=== PATIENT | male | born 1950 | race Caucasian/White ===

== ENCOUNTER 2018-05-18 18:58 | Inpatient (IN) ==
--- NOTE | 2018-05-18 19:24 | Emergency Department Note ---
Disposition Clinical Impression: Atrial fibrillation with RVR Fracture, femoral Qualifiers: Encounter type: initial encounter Femur location: distal Fracture type: closed Fracture morphology: unspecified fracture morphology Laterality: right Qualified Code(s): S72.401A - Unspecified fracture of lower end of right femur, initial encounter for closed fracture Disposition: Still a Patient Condition: Good Reasons to Return/Additional Instructions: Please follow up with your primary care provider at the next available appointment. I have provided information to the [facility]. Please return to the emergency department if you have any worsening of your symptoms including worsening of your knee pain, fever, chills, chest pain, shortness of breath, numbness, weakness, tingling or any other symptoms that may be concerning to you. Please follow-up with orthopedics tomorrow at 10 AM. I will provide you with their contact information. Referrals: [facility] [Outside] [facility] [Provider Group] Forms: ED Satisfaction Letter Time of Disposition: 22:20 General Adult HPI - General Chief complaint: ED Extremity Injury, Lower Stated complaint: right knee injury Time Seen by Provider: 05/18/18 19:00 Source: patient, EMS Mode of arrival: ambulatory Limitations: no limitations Nursing Notes Reviewed: Yes Vital Signs Reviewed: Yes - History of Present Illness HPI Narrative: Patient is a 68-year-old male that comes to the emergency department after being seen at the urgent care at the [place]. Patient was found to have a fracture of the distal femur and hospital displacement of his knee hardware. Patient states that he has fallen multiple times in the past week. Patient states that he has been having pain in his right knee but has not have any numbness weakness or tingling. Patient states that the knee was replaced at the [place] in [place] but does not want to return there. Patient denies any other injuries at this time. Pain Scale: 10 - Related Data Home Medications Medication Instructions Recorded Confirmed Insulin NPH Hum/Reg Insulin Hm 50 unit SQ BID 11/27/15 04/01/18 [Novolin 70-30 100 Unit/ml Vial] Metoprolol [Lopressor] 12.5 mg PO BID 11/27/15 04/01/18 Aspirin [Lo-Dose Aspirin EC] 81 mg PO DAILY 05/18/18 05/18/18 Gabapentin [Neurontin] 300 mg PO BID 05/18/18 05/18/18 Insulin NPH Hum/Reg Insulin Hm 40 unit SQ QPM 05/18/18 05/18/18 [Novolin 70-30 100 Unit/ml Vial] Morphine Sulfate SR (12 HR) [MS 60 mg PO Q8HR 05/18/18 05/18/18 Contin] Warfarin Sodium [Warfarin Sodium] 2.5 mg PO SUMOTUWETHSA 05/18/18 05/18/18 Warfarin Sodium [Warfarin Sodium] 3.75 mg PO FR 05/18/18 05/18/18 Allergies Allergy/AdvReac Type Severity Reaction Status Date / Time No Known Allergies Allergy Verified 05/18/18 21:34 All systems ED: reviewed and negative except as stated. Musculoskeletal: Reports: other (right Knee pain) Neurological: Denies: weakness, numbness, paresthesias Past Medical History - Past Medical History Medical history: Reports: atrial fibrillation, cancer, diabetes Psychiatric history: Reports: anxiety, depression, PTSD - Social History Smoking Status: Unknown if ever smoked Alcohol use: Reports: none Drug use: Reports: none Physical Exam - General Limitations: no limitations General appearance: alert, in no apparent distress - Head Head exam: atraumatic, normocephalic - Eye Eye exam: Present: normal appearance, EOMI - Neck Neck exam: Present: normal inspection, full ROM, trachea midline - Respiratory Respiratory exam: Present: normal lung sounds bilaterally. Absent: respiratory distress, wheezes - Cardiovascular Cardiovascular exam: Present: tachycardia, irregular rhythm, normal heart sounds , +S1, +S2 - Abdominal Exam Abdominal exam: Present: soft, Non-Tender, normal bowel sounds - Expanded Lower Extremity Exam Knee exam: Present: tenderness (Mild tenderness), swelling. Absent: full ROM ( Decreased range of motion) Neurovascular/Tendon exam: Present: normal capillary refill. Absent: pulse deficit, motor deficit, sensory deficit - Neurological Exam Neurological exam: Present: alert, oriented X3 - Psychiatric Psychiatric exam: Present: normal affect, normal mood - Skin Skin exam: Present: warm, dry, intact Course Vital Signs Temperature 98.5 F 05/18/18 18:59 Pulse Rate 122 05/18/18 18:59 Respiratory Rate 16 05/18/18 18:59 Blood Pressure 131/95 05/18/18 18:59 O2 Sat by Pulse Oximetry 94 05/18/18 18:59 Temperature 98.5 F 05/18/18 18:59 Pulse Rate 112 05/18/18 21:50 Respiratory Rate 16 05/18/18 21:50 Blood Pressure 97/64 05/18/18 21:50 O2 Sat by Pulse Oximetry 95 05/18/18 21:50 Oxygen Delivery Oxygen Delivery Room Air Medical Decision Making - MDM Narrative Medical decision making narrative: Due to the patient presenting to the emergency department after having x-rays obtained with a known fracture orthopedics was called. I spoke with Dr. Fonseca and he recommended that the patient be discharged home and follow-up in their office at 10 AM tomorrow. He stated that this does not need to be admitted to the hospital at this time. Patient was tachycardic on exam and states that he had not taken his metoprolol today. Patient will be given 12.5 mg of metoprolol succinate here in the emergency department. Patient was already in a knee immobilizer prior to arrival here at the emergency department. Due to the patient having persistent age fibrillation with rapid ventricular response here in the emergency department despite being given his home dose of metoprolol the patient will need to be admitted to the hospital for further evaluation and management. A consult to orthopedics will be placed due to the patient not being able to follow-up as an outpatient tomorrow. Patient will be admitted to hospital by the attending Physician Dr Julio. - Medical Records Medical records reviewed: Yes I reviewed the patient's medical records. - Lab Data Lab results reviewed: Yes I reviewed the patient's lab results. Result diagrams: 05/18/18 20:51 05/18/18 20:51 Lab Results 05/18/18 05/18/18 Range/Units 20:51 20:51 WBC 6.5 (4.3-11.1) K/mcL RBC 3.36 L (4.19-5.50) M/mcL Hgb 11.4 L (12.9-16.9) g/dL Hct 32.5 L (37.5-50.1) % MCV 96.7 (83.0-100.0) fL MCH 33.9 H (28.0-33.3) pg MCHC 35.1 (31.6-35.5) g/dL RDW 13.4 (11.5-14.5) % Plt Count 135 L (140-400) K/mcL MPV 10.6 (9.4-12.4) fL Immature Gran % 0.5 (0-4) % Seg Neutrophils % 74.3 % Lymphocytes % 12.0 % Monocytes % 12.5 % Eosinophils % 0.5 % Basophils % 0.2 % Neutrophils # 4.8 (1.6-8.9) K/mcL Lymphocytes # 0.8 (0.6-4.6) K/mcL Monocytes # 0.8 (0.0-1.3) K/mcL Eosinophils # 0.0 (0.0-0.6) K/mcL Basophils # 0.0 (0.0-0.2) K/mcL Sodium 134 L (136-145) mEq/L Potassium 3.6 (3.5-5.1) mEq/L Chloride 98 (98-107) mEq/L Carbon Dioxide 29 (23-29) mEq/L BUN 13 (8-23) mg/dL Creatinine 1.20 (0.70-1.30) mg/dL Est GFR ( Amer) > 60 (> 60) Est GFR (Non-Af Amer) > 60 (> 60) BUN/Creatinine Ratio 11 (6-26) Glucose 243 H (70-105) mg/dL Calculated Osmolality 286 (280-300) Calcium 8.8 (8.6-10.3) mg/dL Total Bilirubin 2.8 H (0.3-1.0) mg/dL AST 30 (13-39) Units/L ALT 19 (7-52) Units/L Alkaline Phosphatase 68 (34-104) Units/L Serum Total Protein 6.1 L (6.4-8.9) g/dL Albumin 3.1 L (3.5-5.7) g/dL Globulin 3.0 (2.4-3.5) g/dL Albumin/Globulin Ratio 1.0 L (1.1-2.2) - Radiology Data Radiology results reviewed: Yes I reviewed the patient's radiology results. - EKG Data EKG #1 EKG attestation: Yes I reviewed and interpreted this EKG. EKG results narrative: EKG shows atrial fibrillation with rapid ventricular response at a rate of 119 bpm, QRS duration of 98, QTc of 378 with a normal axis. No evidence of STEMI on EKG.
[2018-05-18] MEDS ORDERED: Metoprolol XL (24 HR) Succ 25 MG TAB.ER.24H PO ONE (19:27)
[2018-05-18 21:03] LABS: Basophils % 0.2 %; Eosinophils % 0.5 %; Hematocrit 32.5 % (37.5-50.1); Hemoglobin 11.4 g/dL (12.9-16.9); Immature Granulocytes % 0.5 % (0-4); Lymphocytes # 0.8 K/mcL (0.6-4.6); Mean Corpuscular HGB Conc 35.1 g/dL (31.6-35.5); Mean Corpuscular Hemoglobin 33.9 pg (28.0-33.3); Mean Corpuscular Volume 96.7 fL (83.0-100.0); Mean Platelet Volume 10.6 fL (9.4-12.4); Monocytes # 0.8 K/mcL (0.0-1.3); Monocytes % 12.5 %; Neutrophils # 4.8 K/mcL (1.6-8.9); Platelet Count 135 K/mcL (140-400); Red Blood Count 3.36 M/mcL (4.19-5.50); Red Cell Distribution Width 13.4 % (11.5-14.5); Segmented Neutrophils % 74.3 %
[2018-05-18 21:23] LABS: Alanine Aminotransferase 19 Units/L (7-52); Albumin 3.1 g/dL (3.5-5.7); Alkaline Phosphatase 68 Units/L (34-104); Aspartate Amino Transferase 30 Units/L (13-39); BUN/Creatinine Ratio 11 (6-26); Bilirubin,Total 2.8 mg/dL (0.3-1.0); Blood Urea Nitrogen 13 mg/dL (8-23); Calcium 8.8 mg/dL (8.6-10.3); Carbon Dioxide 29 mEq/L (23-29); Chloride 98 mEq/L (98-107); Glucose 243 mg/dL (70-105); Osmolality,Calculated 286 (280-300); Potassium 3.6 mEq/L (3.5-5.1); Sodium 134 mEq/L (136-145); Total Protein 6.1 g/dL (6.4-8.9); eGFR For African Americans > 60 (> 60); eGFR For Non-African Americans > 60 (> 60)
[2018-05-18] MEDS ORDERED: *HR* Metoprolol 5 MG/5 ML VIAL IVP ONE (22:17)
--- NOTE | 2018-05-18 22:22 | Emergency Department Note ---
Disposition Clinical Impression: Atrial fibrillation with RVR Fracture, femoral Qualifiers: Encounter type: initial encounter Femur location: distal Fracture type: closed Fracture morphology: unspecified fracture morphology Laterality: right Qualified Code(s): S72.401A - Unspecified fracture of lower end of right femur, initial encounter for closed fracture Disposition: Admitted As Inpatient Condition: Good Reasons to Return/Additional Instructions: Please follow up with your primary care provider at the next available appointment. I have provided information to the [facility]. Please return to the emergency department if you have any worsening of your symptoms including worsening of your knee pain, fever, chills, chest pain, shortness of breath, numbness, weakness, tingling or any other symptoms that may be concerning to you. Please follow-up with orthopedics tomorrow at 10 AM. I will provide you with their contact information. Referrals: [facility] [Provider Group] [facility] [Outside] Forms: ED Satisfaction Letter General Adult HPI - General Chief complaint: ED Extremity Injury, Lower Stated complaint: right knee injury Time Seen by Provider: 05/18/18 19:00 Source: patient, EMS Mode of arrival: ambulatory Limitations: no limitations - History of Present Illness Pain Scale: 10 - Related Data Home Medications Medication Instructions Recorded Confirmed Insulin NPH Hum/Reg Insulin Hm 50 unit SQ QAM 11/27/15 05/18/18 [Novolin 70-30 100 Unit/ml Vial] Metoprolol [Lopressor] 12.5 mg PO BID 11/27/15 05/18/18 Aspirin [Lo-Dose Aspirin EC] 81 mg PO DAILY 05/18/18 05/18/18 Gabapentin [Neurontin] 300 mg PO BID 05/18/18 05/18/18 Insulin NPH Hum/Reg Insulin Hm 40 unit SQ QPM 05/18/18 05/18/18 [Novolin 70-30 100 Unit/ml Vial] Morphine Sulfate SR (12 HR) [MS 60 mg PO Q8HR 05/18/18 05/18/18 Contin] Warfarin Sodium [Warfarin Sodium] 2.5 mg PO SUMOTUWETHSA 05/18/18 05/18/18 Warfarin Sodium [Warfarin Sodium] 3.75 mg PO FR 05/18/18 05/18/18 Allergies Allergy/AdvReac Type Severity Reaction Status Date / Time No Known Allergies Allergy Verified 05/18/18 21:34 Musculoskeletal: Reports: other (right Knee pain) Neurological: Denies: weakness, numbness, paresthesias Past Medical History - Past Medical History Medical history: Reports: atrial fibrillation, cancer, diabetes Psychiatric history: Reports: anxiety, depression, PTSD - Social History Smoking Status: Unknown if ever smoked Alcohol use: Reports: none Drug use: Reports: none Physical Exam - General Limitations: no limitations General appearance: alert, in no apparent distress Course Vital Signs Temperature 98.5 F 05/18/18 18:59 Pulse Rate 122 05/18/18 18:59 Respiratory Rate 16 05/18/18 18:59 Blood Pressure 131/95 05/18/18 18:59 O2 Sat by Pulse Oximetry 94 05/18/18 18:59 Temperature 98.5 F 05/18/18 18:59 Pulse Rate 112 05/18/18 21:50 Respiratory Rate 16 05/18/18 21:50 Blood Pressure 97/64 05/18/18 21:50 O2 Sat by Pulse Oximetry 95 05/18/18 21:50 Oxygen Delivery Oxygen Delivery Room Air Medical Decision Making - Lab Data Result diagrams: 05/18/18 20:51 05/18/18 20:51 Lab Results 05/18/18 05/18/18 Range/Units 20:51 20:51 WBC 6.5 (4.3-11.1) K/mcL RBC 3.36 L (4.19-5.50) M/mcL Hgb 11.4 L (12.9-16.9) g/dL Hct 32.5 L (37.5-50.1) % MCV 96.7 (83.0-100.0) fL MCH 33.9 H (28.0-33.3) pg MCHC 35.1 (31.6-35.5) g/dL RDW 13.4 (11.5-14.5) % Plt Count 135 L (140-400) K/mcL MPV 10.6 (9.4-12.4) fL Immature Gran % 0.5 (0-4) % Seg Neutrophils % 74.3 % Lymphocytes % 12.0 % Monocytes % 12.5 % Eosinophils % 0.5 % Basophils % 0.2 % Neutrophils # 4.8 (1.6-8.9) K/mcL Lymphocytes # 0.8 (0.6-4.6) K/mcL Monocytes # 0.8 (0.0-1.3) K/mcL Eosinophils # 0.0 (0.0-0.6) K/mcL Basophils # 0.0 (0.0-0.2) K/mcL Sodium 134 L (136-145) mEq/L Potassium 3.6 (3.5-5.1) mEq/L Chloride 98 (98-107) mEq/L Carbon Dioxide 29 (23-29) mEq/L BUN 13 (8-23) mg/dL Creatinine 1.20 (0.70-1.30) mg/dL Est GFR ( Amer) > 60 (> 60) Est GFR (Non-Af Amer) > 60 (> 60) BUN/Creatinine Ratio 11 (6-26) Glucose 243 H (70-105) mg/dL Calculated Osmolality 286 (280-300) Calcium 8.8 (8.6-10.3) mg/dL Total Bilirubin 2.8 H (0.3-1.0) mg/dL AST 30 (13-39) Units/L ALT 19 (7-52) Units/L Alkaline Phosphatase 68 (34-104) Units/L Serum Total Protein 6.1 L (6.4-8.9) g/dL Albumin 3.1 L (3.5-5.7) g/dL Globulin 3.0 (2.4-3.5) g/dL Albumin/Globulin Ratio 1.0 L (1.1-2.2) Attestation Statement - Attestation Attestation: I examined this patient and my medical decision-making was reviewed with the Resident Physician. I agree with the documented findings, disposition and treatment plan as described except to the extent set forth below. Findings consistent with right femoral fracture from the [facility]. A she was going to have outpatient orthopedic consult however he did forget to take his A. fib medication today. He is on any coagulation. He actually went into A. fib with RVR in the department. I attempted to give his home dose medication however his heart rate did not appropriately come down. We will give IV metoprolol and admit for further management as his cannot care for him at home given his knee immobilizers in place. He has normal neurovascular exam following knee immobilizer.
--- NOTE | 2018-05-18 23:55 | Internal Med History&Physical ---
Date of Encounter: 05/19/18 Time of Encounter: 23:55 Internal Medicine - H&P: HPI Chief complaint: LE fracture History of present illness: Mr. Martin is a 68 year old male that comes to the emergency department from [place] where a fracture of the distal femur and displacement of his knee hardware was diagnosed. orthopedics was called and recommended that the patient be discharged home and follow-up in their office at 10 AM tomorrow. While in the ER waiting on discharge orders the patient started developing tachycardia and was found in A. fib however rate was initially controlled, later he started having persistent age fibrillation with rapid ventricular response, the ER staff believe that this is was because the patient missed his metoprolol dose , and he was giving metoprolol IV , neither family or patient felt comfortable going home at this point and he was admitted for further evaluation. Open on arrival to the floor the patient rates start to be uncontrolled with a heart rate reported in the mode mid 140, I responded to the bedside and patient was hemodynamically stable however he was symptomatic, a Cardizem bolus was giving and an order for possible Cardizem drip was also placed. Past Med Surg Social Fam HX - Past Medical History Medical history: atrial fibrillation, cancer, diabetes Psychiatric history: anxiety, depression, PTSD - Social History Smoking Status: Unknown if ever smoked Alcohol use: none Drug use: none - Family History Mother History Unknown: Yes Father Living Status: Age at : 49 Internal Medicine - H&P: Meds Insulin NPH Hum/Reg Insulin Hm [Novolin 70-30 100 Unit/ml Vial] 50 unit SQ QAM 11/27/15 [History] Metoprolol [Lopressor] 12.5 mg PO BID 11/27/15 [History] Aspirin [Lo-Dose Aspirin EC] 81 mg PO DAILY 05/18/18 [History] Gabapentin [Neurontin] 300 mg PO BID 05/18/18 [History] Insulin NPH Hum/Reg Insulin Hm [Novolin 70-30 100 Unit/ml Vial] 40 unit SQ QPM 05/18/18 [History] Morphine Sulfate SR (12 HR) [MS Contin] 60 mg PO Q8HR 05/18/18 [History] Warfarin Sodium [Warfarin Sodium] 2.5 mg PO SUMOTUWETHSA 05/18/18 [History] Warfarin Sodium [Warfarin Sodium] 3.75 mg PO FR 05/18/18 [History] Ergocalciferol (VITAMIN D2) [Vitamin D] 200 unit PO DAILY 05/19/18 [History] Furosemide [Lasix] 10 mg PO DAILY 05/19/18 [History] Paroxetine [Paxil] 20 mg PO DAILY 05/19/18 [History] 3 Allergy/AdvReac Type Severity Reaction Status Date / Time No Known Allergies Allergy Verified 05/18/18 21:34 All Systems PM: A 10-system review of systems was performed and is negative for pertinent findings except as documented above in the HPI. - Constitutional Vitals: Temp Pulse Resp BP Pulse Ox 98.5 F 105 16 125/88 96 05/18/18 18:59 05/18/18 22:50 05/18/18 22:50 05/18/18 22:50 05/18/18 22:50 Internal Med - H&P Results - Labs CBC & Chem 7: 05/19/18 03:20 05/19/18 03:20 - Assessment and plan (1) Fracture, femoral Current Visit: Yes Status: Acute Assessment and plan: Surgery was consulted and then I am going to see the patient this a.m. Qualifiers: Encounter type: initial encounter Femur location: distal Fracture type: closed Fracture morphology: unspecified fracture morphology Laterality: right Qualified Code(s): S72.401A - Unspecified fracture of lower end of right femur, initial encounter for closed fracture (2) Atrial fibrillation with RVR Current Visit: Yes Status: Acute Assessment and plan: The patient responded well to Cardizem bolus, order for Cardizem drip was placed , cardiac enzymes will be trended, we will obtain baseline EKG and consult cardiology for further evaluation and management. The patient was on warfarin, however withhold it for now for possible surgery in a.m., PT/INR were ordered (3) Diabetes mellitus Current Visit: Yes Status: Acute Assessment and plan: We will continue home regimen and start the patient on insulin sliding scale with moderate coverage (4) DVT prophylaxis Current Visit: Yes Status: Acute - Time Spent With Patient Total time spent is greater than 50% in coordination of care (as documented) at patient's floor/unit and/or counseling patient:
[2018-05-19] MEDS ORDERED: D5% in Water 1,000 ML IVC PRN (02:11)
[2018-05-19] MEDS ORDERED: Dextrose Gel 15 GM/37.5 ML TUBE PO PRN ×2 (02:11)
[2018-05-19] MEDS ORDERED: *HR* Dextrose 50 % in Water (Syg) 50 ML SYRINGE IVP PRN (02:11)
[2018-05-19] MEDS: Insulin LISPRO 300 UNITS/3 ML VIAL SQ SCH ×5 (02:31→22:22)
[2018-05-19] MEDS ORDERED: Naloxone 0.4 MG/ML INJ IVP PRN (03:09)
[2018-05-19] MEDS ORDERED: Acetaminophen 325 MG TABLET PO PRN (03:09)
[2018-05-19] MEDS ORDERED: 0.9 % Sodium Chloride 1,000 ML IVC SCH (03:15)
[2018-05-19 03:36] LABS: Basophils % 0.3 %; Eosinophils # 0.1 K/mcL (0.0-0.6); Eosinophils % 2.3 %; Hemoglobin 11.9 g/dL (12.9-16.9); Immature Granulocytes % 0.8 % (0-4); Lymphocytes # 0.7 K/mcL (0.6-4.6); Lymphocytes % 10.5 %; Mean Corpuscular Hemoglobin 33.9 pg (28.0-33.3); Mean Corpuscular Volume 96.9 fL (83.0-100.0); Mean Platelet Volume 10.6 fL (9.4-12.4); Monocytes # 0.7 K/mcL (0.0-1.3); Monocytes % 10.5 %; Neutrophils # 4.7 K/mcL (1.6-8.9); Platelet Count 146 K/mcL (140-400); Red Blood Count 3.51 M/mcL (4.19-5.50); Red Cell Distribution Width 13.4 % (11.5-14.5); Segmented Neutrophils % 75.6 %
[2018-05-19 03:50] LABS: INR 2.2; Prothrombin Time 24.6 Seconds (9.4-12.1)
[2018-05-19 04:02] LABS: Alanine Aminotransferase 20 Units/L (7-52); Alkaline Phosphatase 62 Units/L (34-104); Aspartate Amino Transferase 28 Units/L (13-39); BUN/Creatinine Ratio 12 (6-26); Bilirubin,Total 2.9 mg/dL (0.3-1.0); Blood Urea Nitrogen 13 mg/dL (8-23); Calcium 8.6 mg/dL (8.6-10.3); Carbon Dioxide 25 mEq/L (23-29); Chloride 98 mEq/L (98-107); Chol/HDL Ratio 3.5 (0-4.9); Cholesterol 74 mg/dL (< 200); Globulin 3.1 g/dL (2.4-3.5); Glucose 302 mg/dL (70-105); HDL Cholesterol 21 mg/dL (40-59); LDL Cholesterol,Calculated 35 mg/dL (0-99); Magnesium 1.8 mg/dL (1.6-2.6); Osmolality,Calculated 291 (280-300); Phosphorous 2.3 mg/dL (2.7-4.5); Potassium 3.5 mEq/L (3.5-5.1); Sodium 135 mEq/L (136-145); Total Protein 6.1 g/dL (6.4-8.9); Triglycerides 88 mg/dL (< 150); eGFR For African Americans > 60 (> 60); eGFR For Non-African Americans > 60 (> 60)
[2018-05-19 04:05] LABS: Troponin I 0.06 ng/mL (< 0.04)
[2018-05-19] MEDS: *HR* HYDROcodone/Acet 5/325 mg TABLET PO PRN ×2 (04:24→11:22)
[2018-05-19] MEDS: *HR* Morphine Sulfate SR (12 HR) 60 MG TABLET.ER PO SCH ×3 (06:12→22:23)
--- NOTE | 2018-05-19 06:41 | Electrocardiograph Report ---
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
--- NOTE | 2018-05-19 06:58 | Orthopedic Consult Note ---
Date of Encounter: 05/19/18 Time of Encounter: 06:57 History of Present Illness HPI: Mr. Martin is a 68 year old male Status post right knee replacement 2. Patient with multiple falls recently. Patient was awaiting left total knee replacement. Patient denies any fevers. Denies any injury except falling secondary to right knee instability. Physical exam right lower extremity Positive swelling Negative erythema Decreased range of motion secondary to pain Neurovascular intact X-rays show evidence of a loose right total knee replacement. We discussed different treatment options. Patient would like definitive management. We will obtain a bone scan ESR and CRP plan will be for revision right total knee replacement on . This may require conversion to a hinge knee. We reviewed the risks and benefits as well as recovery. All questions were answered. The patient agreed to this treatment plan and appeared to understand the plan is reviewed. Past Med Surg Social Fam HX - Past Medical History Medical history: atrial fibrillation, cancer, diabetes Additional medical history: melanoma,hemochromotosis Psychiatric history: anxiety, depression, PTSD - Past Surgical History Surgical History: knee replacement Additional surgical history: total hip, knuckle replaceent, - Social History Smoking Status: Unknown if ever smoked Smokeless Tobacco Status: No Alcohol use: none Drug use: none - Family History Mother History Unknown: Yes Father Living Status: Age at : 49 Medications and Allergies Insulin NPH Hum/Reg Insulin Hm [Novolin 70-30 100 Unit/ml Vial] 50 unit SQ QAM 11/27/15 [History] Metoprolol [Lopressor] 12.5 mg PO BID 11/27/15 [History] Aspirin [Lo-Dose Aspirin EC] 81 mg PO DAILY 05/18/18 [History] Gabapentin [Neurontin] 300 mg PO BID 05/18/18 [History] Insulin NPH Hum/Reg Insulin Hm [Novolin 70-30 100 Unit/ml Vial] 40 unit SQ QPM 05/18/18 [History] Morphine Sulfate SR (12 HR) [MS Contin] 60 mg PO Q8HR 05/18/18 [History] Warfarin Sodium [Warfarin Sodium] 2.5 mg PO SUMOTUWETHSA 05/18/18 [History] Warfarin Sodium [Warfarin Sodium] 3.75 mg PO FR 05/18/18 [History] Ergocalciferol (VITAMIN D2) [Vitamin D] 200 unit PO DAILY 05/19/18 [History] Furosemide [Lasix] 10 mg PO DAILY 05/19/18 [History] Paroxetine [Paxil] 20 mg PO DAILY 05/19/18 [History] 3 Allergy/AdvReac Type Severity Reaction Status Date / Time No Known Allergies Allergy Verified 05/18/18 21:34 All Systems Reviewed: The remainder of the systems were reviewed and are negative Physical Exam - Constitutional Vitals: Temp Pulse Resp BP Pulse Ox 98.1 F 124 18 114/72 98 05/19/18 06:54 05/19/18 06:54 05/19/18 06:54 05/19/18 06:54 05/19/18 06:54 Results - Labs Result Diagrams: 05/19/18 03:20 05/19/18 03:20 Labs: Abnormal lab results RBC 3.51 M/mcL (4.19-5.50) L 05/19/18 03:20 Hgb 11.9 g/dL (12.9-16.9) L 05/19/18 03:20 Hct 34.0 % (37.5-50.1) L 05/19/18 03:20 MCH 33.9 pg (28.0-33.3) H 05/19/18 03:20 PT 24.6 Seconds (9.4-12.1) H 05/19/18 03:20 Sodium 135 mEq/L (136-145) L 05/19/18 03:20 Glucose 302 mg/dL (70-105) H 05/19/18 03:20 Phosphorus 2.3 mg/dL (2.7-4.5) L 05/19/18 03:20 Total Bilirubin 2.9 mg/dL (0.3-1.0) H 05/19/18 03:20 Troponin I 0.06 ng/mL (< 0.04) H* 05/19/18 03:20 B-Natriuretic Peptide 420 pg/mL (Less than 100) H 05/19/18 03:20 Serum Total Protein 6.1 g/dL (6.4-8.9) L 05/19/18 03:20 Albumin 3.0 g/dL (3.5-5.7) L 05/19/18 03:20 Albumin/Globulin Ratio 1.0 (1.1-2.2) L 05/19/18 03:20 HDL Cholesterol 21 mg/dL (40-59) L 05/19/18 03:20 H & H 05/19/18 Range/Units 03:20 Hgb 11.9 L (12.9-16.9) g/dL Hct 34.0 L (37.5-50.1) % All other labs normal. Consult Discharge Plan - Plan [facility] Care Provider[facility] -
[2018-05-19 07:17] LABS: C-Reactive Protein 176 mg/L (Less than 10)
[2018-05-19] MEDS: Gabapentin 300 MG CAPSULE PO SCH ×2 (07:48→20:17)
[2018-05-19] MEDS: Furosemide 20 MG TABLET PO SCH (07:49)
[2018-05-19] MEDS: Aspirin Enteric Coated 81 MG Tablet PO SCH (07:49)
[2018-05-19] MEDS: Insulin NPH/REG 70/30 100 UNIT/ML (x5UNIT) SQ SCH ×2 (07:50→17:50)
[2018-05-19] MEDS ORDERED: Cholecalciferol (D-3) 1,000 UNIT TABLET PO SCH (09:00)
[2018-05-19 09:53] LABS: Bilirubin,Urine Negative (Negative); Blood,Urine Moderate (Negative); Clarity,Urine Clear (Clear); Color,Urine Dark Yellow (Yellow); Glucose,Urine (UA) 500 mg/dL (Normal); Ketones,Urine Negative (Negative); Leukocyte Esterase,Urine Negative (Negative); Nitrite,Urine Negative (Negative); Protein,Urine Negative (Neg-Trace); Specific Gravity,Urine 1.023 (1.010-1.025); Urobilinogen,Urine Normal (Normal)
[2018-05-19 09:59] LABS: Bacteria,Urine None Seen per hpf (None-Few); Hyaline Casts,Urine None Seen per lpf (None-Few); Squamous Epithelial Cell,Urine None Seen per lpf (None-Few); WBC,Urine 0-3 per hpf (0-3)
[2018-05-19] MEDS ORDERED: *HR* Metoprolol 5 MG/5 ML VIAL IVP PRN (10:15)
--- NOTE | 2018-05-19 10:21 | Cardiology Consult Note ---
<Bhaskar Carter R - Last Filed: 05/19/18 10:37> Date of Encounter: 05/19/18 Time of Encounter: 10:18 Assessment and Plan (1) Pre-operative cardiovascular examination Current Visit: Yes Status: Acute Pre-op cardiac risk stratification for planned revision right total knee replacement on with Dr. Fonseca. No hx of CAD. Cardiac hx includes chronic A-Fib, dilated aortic root, 3.9cm on TTE 02/2017. Nuclear stress test 06/2016 negative for ischemia or infarct. TTE 03/11/17 LVEF 65%. Mild prolapsing of the anterior mitral valve leaflet with mild mitral regurgitation. Mild TR and MS. No phtn based on TR gradient. IVC is not visualized. Aortic root measures 3.9 cm. 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 Able to achieve 4 METS. Based on above, pt is acceptable intermediate risk to proceed with orthopedic surgery. Will attempt to rate control his A-Fib prior to surgery . (2) Atrial fibrillation with RVR Current Visit: Yes Status: Acute Known hx of chronic A-Fib, previously rate controlled. Found to be RVR in ED after missing a Lopressor dose. HR 126 on admission EKG. Pt has been given PRN IV Lopressor and Cardizem. HR at bedside 90s-low 100s. Home Lopressor dose 12.5mg BID. Will increase to 25mg BID. Was anticoagulated on Coumadin managed by [facility]. Stopped on admission given plan for surgery. Pt aware he is at increased risk for CVA off anticoagulation. Recommend he follow-up with [facility] to determine if Coumadin should be started given recent frequent falls. Continue to follow. (3) Elevated troponin Current Visit: Yes Status: Acute Troponin 0.05, 0.06 in setting of A-Fib RVR, suspect demand ischemia, nondiagnostic for ACS. Pt denies chest pain. TTE 02/2017 EF preserved. Will discuss with Dr. Hanna on if repeat TTE is necessary. Discussion w patient/family: The assessment and plan as outlined above was discussed with the patient and/or family members who expressed understanding and agreement. All questions were answered. Thank you for involving us in the care of your patient. Please call with any questions. I will discuss all the above with Dr. Hanna and make changes as necessary. History of Present Illness Consult date: 05/19/18 Consult reason: A-Fib RVR and pre-op Chief complaint: leg pain History of present illness: Mr. Martin is a 68 year old male with PMH of chronic atrial fibrillation, dilated aortic root, hx NSVT, type 2 diabetes mellitus and hemochromatosis for which he is getting phlebotomies periodically. [facility] He was anticoagulated on Coumadin for his A-Fib, [facility], stopped on admission. Pt has been having mechanical falls over the past 5 days. He states the falls are due to severe pain when trying to get up. He was found to have a fracture of the distal femur and displacement of right knee hardware. Orthopedics was called and initially recommended outpt follow-up, but in the ED pt had RVR and was admitted for further management. Pt denies chest pain or dyspnea. He reports chronic intermittent palpitations. He has been given PRN IV Cardizem and Lopressor. HR currently 90s-low 100s. 12 hr tele AVG HR 113. Prior CV testing: TTE 03/11/17: LVEF 65%. Normal left ventricular size and systolic function. Indeterminate left ventricular diastolic function. Normal right ventricular size and function. Mild prolapsing of the anterior mitral valve leaflet with mild mitral regurgitation. Mild tricuspid regurgitation. Mild pulmonic regurgitation. No pulmonary hypertension based on TR gradient. IVC is not visualized. Aortic root measures 3.9 cm. Nuclear stress test 07/05/16 perfusion imaging negative for ischemia or infarct. Past Med Surg Social Fam HX - Past Medical History Medical history: atrial fibrillation, cancer, diabetes Additional medical history: melanoma,hemochromotosis Psychiatric history: anxiety, depression, PTSD - Past Surgical History Surgical History: knee replacement Additional surgical history: total hip, knuckle replaceent, - Social History Smoking Status: Unknown if ever smoked Smokeless Tobacco Status: No Alcohol use: none Drug use: none - Family History Mother History Unknown: Yes Father Living Status: Age at : 49 Medications and Allergies Insulin NPH Hum/Reg Insulin Hm [Novolin 70-30 100 Unit/ml Vial] 50 unit SQ QAM 11/27/15 [History] Metoprolol [Lopressor] 12.5 mg PO BID 11/27/15 [History] Aspirin [Lo-Dose Aspirin EC] 81 mg PO DAILY 05/18/18 [History] Gabapentin [Neurontin] 300 mg PO BID 05/18/18 [History] Insulin NPH Hum/Reg Insulin Hm [Novolin 70-30 100 Unit/ml Vial] 40 unit SQ QPM 05/18/18 [History] Morphine Sulfate SR (12 HR) [MS Contin] 60 mg PO Q8HR 05/18/18 [History] Warfarin Sodium [Warfarin Sodium] 2.5 mg PO SUMOTUWETHSA 05/18/18 [History] Warfarin Sodium [Warfarin Sodium] 3.75 mg PO FR 05/18/18 [History] Ergocalciferol (VITAMIN D2) [Vitamin D] 200 unit PO DAILY 05/19/18 [History] Furosemide [Lasix] 10 mg PO DAILY 05/19/18 [History] Paroxetine [Paxil] 20 mg PO DAILY 05/19/18 [History] 3 Allergy/AdvReac Type Severity Reaction Status Date / Time No Known Allergies Allergy Verified 05/18/18 21:34 All Systems Review: The remainder of the systems were reviewed and are negative - Constitutional Constitutional: frequent falls - Cardiovascular Cardiovascular: as per HPI, palpitations Physical Examination Vital Signs, Last 4 Hours Temp Pulse Resp BP Pulse Ox 05/19/18 08:07 98 05/19/18 06:54 98.1 F 124 18 114/72 98 Vital Signs Temp Pulse Resp BP Pulse Ox 05/19/18 08:07 98 05/19/18 06:54 98.1 F 124 18 114/72 98 05/19/18 04:12 98.7 F 125 18 102/60 96 05/19/18 00:35 98.3 F 111 18 118/80 98 05/19/18 00:10 16 114/75 05/18/18 22:50 105 16 125/88 96 05/18/18 21:50 112 16 97/64 95 05/18/18 21:24 140 16 111/80 96 05/18/18 18:59 98.5 F 122 16 131/95 94 Intake and Output 05/18/18 05/19/18 05/19/18 23:59 07:59 15:59 Other: Weight 111.13 kg 110.9 kg Blood Glucose* 333 Patient Weight 05/19/18 23:59 Weight 110.9 kg General: Conversant, No Apparent Distress HEENT: Atraumatic, Normocephaly, Mucus Membranes Moist Neck: No JVD, Normal carotid pulses Cardiac: Other (irregularly irregular) Lungs: Normal Breath Sounds, No Wheeze, Rales, Rhonchi Neuro: Alert and responsive, No focal deficits noted Abdomen: Soft, Non-Tender Skin: No rashes noted on visualized skin Musculoskeletal: No Chest Wall Tenderness Extremities: Other (mild BLE edema noted) Results 05/19/18 03:20 05/19/18 03:20 Lab Results 05/19/18 05/19/18 05/19/18 03:20 03:20 03:20 WBC 6.2 Hgb 11.9 L Hct 34.0 L Plt Count 146 INR 2.2 Sodium 135 L Potassium 3.5 Chloride 98 Carbon Dioxide 25 BUN 13 Creatinine 1.07 Glucose 302 H Calcium 8.6 Magnesium 1.8 Total Bilirubin 2.9 H AST 28 ALT 20 Alkaline Phosphatase 62 Troponin I 0.06 H* B-Natriuretic Peptide 05/19/18 05/19/18 03:20 09:08 WBC Hgb Hct Plt Count INR Sodium Potassium Chloride Carbon Dioxide BUN Creatinine Glucose Calcium Magnesium Total Bilirubin AST ALT Alkaline Phosphatase Troponin I 0.05 H* B-Natriuretic Peptide 420 H Short CBC 05/19/18 05/18/18 Range/Units 03:20 20:51 WBC 6.2 6.5 (4.3-11.1) K/mcL Hgb 11.9 L 11.4 L (12.9-16.9) g/dL Hct 34.0 L 32.5 L (37.5-50.1) % Plt Count 146 135 L (140-400) K/mcL Neutrophils # 4.7 4.8 (1.6-8.9) K/mcL BMP 05/19/18 05/18/18 Range/Units 03:20 20:51 Sodium 135 L 134 L (136-145) mEq/L Potassium 3.5 3.6 (3.5-5.1) mEq/L Chloride 98 98 (98-107) mEq/L Carbon Dioxide 25 29 (23-29) mEq/L BUN 13 13 (8-23) mg/dL Creatinine 1.07 1.20 (0.70-1.30) mg/dL Glucose 302 H 243 H (70-105) mg/dL Calcium 8.6 8.8 (8.6-10.3) mg/dL Cardiac Enzymes 05/19/18 05/19/18 Range/Units 09:08 03:20 Troponin I 0.05 H* 0.06 H* (< 0.04) ng/mL Liver Function 05/19/18 05/18/18 Range/Units 03:20 20:51 Total Bilirubin 2.9 H 2.8 H (0.3-1.0) mg/dL AST 28 30 (13-39) Units/L ALT 20 19 (7-52) Units/L Alkaline Phosphatase 62 68 (34-104) Units/L Albumin 3.0 L 3.1 L (3.5-5.7) g/dL Urine 05/19/18 Range/Units 09:20 Urine Color Dark Yellow (Yellow) Urine Clarity Clear (Clear) Urine pH 6.0 (5.0-8.0) pH Units Ur Specific Clever 1.023 (1.010-1.025) Urine Protein Negative (Neg-Trace) mg/dL Urine Glucose (UA) 500 H (Normal) mg/dL Impressions Chest X-Ray 05/18/18 20:28 IMPRESSION: No acute cardiopulmonary process. D/ / Ying Germain MD / Ying Germain MD Interpreting Provider: Ying Germain MD Active Medications Acetaminophen (Tylenol) 650 mg PO Q6HR PRN PRN Reason: Mild Pain/Fever Stop: 11/18/18 03:10 Hydrocodone Bitart/Acetaminophen (Clarence 5-325 Mg) 1 tab PO Q6HR PRN PRN Reason: Moderate Pain Stop: 11/18/18 03:10 Last Admin: 05/19/18 04:24 Dose: 1 tab Aspirin (Aspirin Ec) 81 mg PO DAILY [facility] Stop: 11/18/18 09:01 Last Admin: 05/19/18 07:49 Dose: 81 mg Dextrose/Water (Dextrose 50% (Syg)) 25 ml IVP AD PRN PRN Reason: Hypoglycemia Stop: 11/18/18 02:12 Furosemide (Lasix) 10 mg PO DAILY [facility] Stop: 11/18/18 09:01 Last Admin: 05/19/18 07:49 Dose: 10 mg Gabapentin (Neurontin) 300 mg PO BID [facility] Stop: 11/18/18 09:01 Last Admin: 05/19/18 07:48 Dose: 300 mg Glucagon (Glucagen) 1 mg IM ONCE PRN PRN Reason: Hypoglycemia Stop: 11/18/18 02:12 Glucose (Gluctose) 15 gm PO ONCE PRN PRN Reason: Hypoglycemia Stop: 11/18/18 02:12 Glucose (Gluctose) 30 gm PO ONCE PRN PRN Reason: Hypoglycemia Stop: 11/18/18 02:12 Dextrose (Dextrose 5%) 1,000 mls @ 100 mls/hr IVC .Q10H PRN PRN Reason: HYPOGLYCEMIA Stop: 11/18/18 02:12 Insulin Human Lispro (Humalog) 0 units SQ TIDAC [facility] PRN Reason: Protocol Stop: 11/18/18 07:31 Last Admin: 05/19/18 07:49 Dose: 12 units Insulin Human Lispro (Humalog) 0 units SQ HS [facility] PRN Reason: Protocol Stop: 11/18/18 02:16 Last Admin: 05/19/18 02:31 Dose: 4 unit Insulin Isophane/Insulin Regular (Humulin 70/30 Vial) 50 unit SQ 0730 [facility] Stop: 11/18/18 07:31 Last Admin: 05/19/18 07:50 Dose: 50 unit Insulin Isophane/Insulin Regular (Humulin 70/30 Vial) 40 unit SQ QPM [facility] Stop: 11/18/18 18:01 Metoprolol Tartrate (Lopressor) 5 mg IVP Q6HR PRN PRN Reason: SEE COMMENTS Stop: 11/18/18 10:16 Metoprolol Tartrate (Lopressor) 25 mg PO BID [facility] Stop: 11/18/18 21:01 Morphine Sulfate (Ms Contin) 60 mg PO Q8H [facility] Stop: 11/18/18 06:01 Last Admin: 05/19/18 06:12 Dose: 60 mg Naloxone HCl (Narcan) 0.4 mg IVP Q2MIN PRN PRN Reason: SEE COMMENTS Stop: 11/18/18 03:10 Paroxetine HCl (Paxil) 20 mg PO DAILY [facility] PRN Reason: Protocol Stop: 11/18/18 09:01 Last Admin: 05/19/18 07:49 Dose: 20 mg Vitamin D (Vitamin D) 200 unit PO DAILY [facility] Stop: 11/18/18 09:01 Last Admin: 05/19/18 07:52 Dose: Not Given - Imaging and Cardiology Stress Test: report reviewed Echo: report reviewed - EKG Interpretation EKG results cardiology: personally reviewed (A-Fib RVR, rate 126), other (12 hr tele AVG HR 113, A-Fib) Consult Discharge Plan - Plan [facility]errals: [facility] [Primary Care Provider[facility] - <Cristiano Hanna - Last Filed: 05/19/18 16:49> Date of Encounter: 05/19/18 - Attending Attestation I have personally performed a face to face evaluation on this patient. I have reviewed and agree with the care plan. History and Exam by me shows; CC: "I fell down" HPI: Pt reports he fell approximately five days ago, mechanical fall, did not get dizzy or pass out, felt immediate and severe pain in right leg with weight bearing. He tried to tough it out at home, reports pain improved at rest, but could not bear weight, and had at least four more falls due to pain with trying to walk on right leg. He was evaluated in the ER, found to have right femur fracture and disruption of previous knee replacement, now anticipates surgical intervention. He also admits to occasional heart racing and skipping, occurrs and resolves spontaneously, lasts up to thirty seconds, has known PAF, [facility], on warfarin for primary stroke risk reduction. PMH: reviewed ROS: reviewed Current meds: Reviewed PE: pt seen and examined, agree with findings as documented. IMP:Plan 1. Right femur fracture, anticipate surgical intervention, pt is at moderate cardiovascular risk for planned procedure, benefits of surgical intervention to facilitate early ambulation far outweigh potential cardiovascular risks. 2. PAF: rate mostly controlled at present, will resume home metoprolol, increase to 25 mg bid, continue to monitor heart rate and blood pressure response. Pt is not a good candidate for warfarin due to fall risk, recommend Pradaxa for reversibilty due to fall risk, to begin post operatively. 3. Elevated troponin: minimal elevation, most likely due to demand ischemia, excellent exercise tolerance before fall, would not delay surgical intervention for provocative testing. Assessment and Plan Discussion w patient/family: The assessment and plan as outlined above was discussed with the patient and/or family members who expressed understanding and agreement. All questions were answered. Thank you for involving us in the care of your patient. Please call with any questions. History of Present Illness History of present illness: Mr. Martin is a 68 year old male All Systems Review: The remainder of the systems were reviewed and are negative Results 05/19/18 03:20 05/19/18 03:20 Lab Results 05/19/18 05/19/18 05/19/18 03:20 03:20 03:20 WBC 6.2 Hgb 11.9 L Hct 34.0 L Plt Count 146 INR 2.2 Sodium 135 L Potassium 3.5 Chloride 98 Carbon Dioxide 25 BUN 13 Creatinine 1.07 Glucose 302 H Calcium 8.6 Magnesium 1.8 Total Bilirubin 2.9 H AST 28 ALT 20 Alkaline Phosphatase 62 Troponin I 0.06 H* B-Natriuretic Peptide 05/19/18 05/19/18 05/19/18 03:20 09:08 14:53 WBC Hgb Hct Plt Count INR Sodium Potassium Chloride Carbon Dioxide BUN Creatinine Glucose Calcium Magnesium Total Bilirubin AST ALT Alkaline Phosphatase Troponin I 0.05 H* 0.05 H* B-Natriuretic Peptide 420 H
--- NOTE | 2018-05-19 19:58 | Electrocardiograph Report ---
[address] [place], [place] [address] Test Date: 2018-05-19 Pat Name: Callum Martin Department: 114 Room: [facility] Gender: M Dehydration Unit Operator: LIOR : 1950 Requested By: Kristi Souza Order Number: [id number] Reading MD: Jamie Meade Measurements Intervals [place] Rate: 126 P: NE: 0 QRS: 30 QRSD: 96 T: -28 QT: 313 QTc: 388 Interpretive Statements ATRIAL FIBRILLATION WITH RAPID VENTRICULAR RESPONSE Electronically Signed On 05-19-2018 19:56:58 EDT by Jamie Meade
--- NOTE | 2018-05-19 23:15 | Internal Med Progress Note ---
Date of Encounter: 05/20/18 Time of Encounter: 12:15 - Assessment and plan (1) Fracture, femoral Current Visit: Yes Status: Acute Assessment and plan: Scheduled for surgery in 2 days Hold coumadin monitor INR Cardiology evaluated for op clearance Qualifiers: Encounter type: initial encounter Femur location: distal Fracture type: closed Fracture morphology: unspecified fracture morphology Laterality: right Qualified Code(s): S72.401A - Unspecified fracture of lower end of right femur, initial encounter for closed fracture (2) Atrial fibrillation with RVR Current Visit: Yes Status: Acute Assessment and plan: Pt responded to Cardizem bolus. Currently HR acceptable (3) DVT prophylaxis Current Visit: Yes Status: Acute Assessment and plan: Coumadin being held, currently INR in therapeutic range. (4) Diabetes mellitus Current Visit: Yes Status: Acute Assessment and plan: Sliding scale insulin Qualifiers: Diabetes mellitus type: type 2 Diabetes mellitus complication status: without complication Qualified Code(s): E11.9 - Type 2 diabetes mellitus without complications; Z79.4 - care home (current) use of insulin - Time Spent With Patient Total time spent is greater than 50% in coordination of care (as documented) at patient's floor/unit and/or counseling patient: - Subjective Interval history: No complaints, no acute events. - Constitutional Vitals: Temp Pulse Resp BP Pulse Ox 98.0 F 94 16 119/68 95 05/19/18 20:18 05/19/18 20:18 05/19/18 20:18 05/19/18 20:18 05/19/18 20:18 General appearance: Present: A&O X 3, no acute distress Exam: - Head Head exam: Present: atraumatic, normal inspection - Neck Neck exam general surgery: Present: supple - Respiratory Respiratory exam: Present: CTAB - Cardiovascular Cardiovascular exam: Present: irregular rhythm - GI/Abdominal GI/Abdominal exam: Present: normal bowel sounds, soft, no peritoneal signs - Neurological Exam Neurological exam: Present: oriented X3, no focal deficits - Skin Skin exam: Present: intact, normal color Internal Medicine: Result - Labs CBC & Chem 7: 05/20/18 00:57 05/20/18 00:57 - ABG Interpretation ABG results: PT/INR, D-dimer PT 24.6 Seconds (9.4-12.1) H 05/19/18 03:20 Consult Discharge Plan - Plan [facility]errals: [facility] [Primary Care Provider] -
--- NOTE | 2018-05-19 23:34 | Anesthesia Evaluation PreOp ---
Date of Encounter: 05/19/18 Time of Encounter: 23:00 - Past History Planned Operation: R-Total Knee Revision Cardiac History: Denies any Significant Hx (Elevetaed Troponin this admsission c /w suspected Demand ischemia), Arrhythmia (chronic AFib w/ RVR this admission. 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: Other (Anxiety/Depression, PTSD) Other Medical History: Diabetes Type II, Other (Hemachromatosis s/p periodic phlebotomies) Anesthesia History: No Prior Anesthetic Complications, Past Anesthesia (R-TKR, Total Hip replacement, knuckle replacement) Alcohol Use: none Drug use: none Medications and Allergies Insulin NPH Hum/Reg Insulin Hm [Novolin 70-30 100 Unit/ml Vial] 50 unit SQ QAM 11/27/15 [History] Metoprolol [Lopressor] 12.5 mg PO BID 11/27/15 [History] Aspirin [Lo-Dose Aspirin EC] 81 mg PO DAILY 05/18/18 [History] Gabapentin [Neurontin] 300 mg PO BID 05/18/18 [History] Insulin NPH Hum/Reg Insulin Hm [Novolin 70-30 100 Unit/ml Vial] 40 unit SQ QPM 05/18/18 [History] Morphine Sulfate SR (12 HR) [MS Contin] 60 mg PO Q8HR 05/18/18 [History] Warfarin Sodium [Warfarin Sodium] 2.5 mg PO SUMOTUWETHSA 05/18/18 [History] Warfarin Sodium [Warfarin Sodium] 3.75 mg PO FR 05/18/18 [History] Ergocalciferol (VITAMIN D2) [Vitamin D] 200 unit PO DAILY 05/19/18 [History] Furosemide [Lasix] 10 mg PO DAILY 05/19/18 [History] Paroxetine [Paxil] 20 mg PO DAILY 05/19/18 [History] 3 Allergy/AdvReac Type Severity Reaction Status Date / Time No Known Allergies Allergy Verified 05/18/18 21:34 - Meds/Allergy Pre-op Review Medications Reviewed: Yes Allergies Reviewed: Yes Beta Blockers on Current Med List: Yes (Metoprlol) Anesthesia Results - Labs 05/19/18 03:20 07/03/18 03:20 Laboratory Results WBC 6.2 K/mcL (4.3-11.1) 05/19/18 03:20 RBC 3.51 M/mcL (4.19-5.50) L 05/19/18 03:20 Hgb 11.9 g/dL (12.9-16.9) L 05/19/18 03:20 Hct 34.0 % (37.5-50.1) L 05/19/18 03:20 MCV 96.9 fL (83.0-100.0) 05/19/18 03:20 MCH 33.9 pg (28.0-33.3) H 05/19/18 03:20 MCHC 35.0 g/dL (31.6-35.5) 05/19/18 03:20 RDW 13.4 % (11.5-14.5) 05/19/18 03:20 Plt Count 146 K/mcL (140-400) 05/19/18 03:20 MPV 10.6 fL (9.4-12.4) 05/19/18 03:20 Immature Gran % 0.8 % (0-4) 05/19/18 03:20 Seg Neutrophils % 75.6 % 05/19/18 03:20 Lymphocytes % 10.5 % 05/19/18 03:20 Monocytes % 10.5 % 05/19/18 03:20 Eosinophils % 2.3 % 05/19/18 03:20 Basophils % 0.3 % 05/19/18 03:20 Neutrophils # 4.7 K/mcL (1.6-8.9) 05/19/18 03:20 Lymphocytes # 0.7 K/mcL (0.6-4.6) 05/19/18 03:20 Monocytes # 0.7 K/mcL (0.0-1.3) 05/19/18 03:20 Eosinophils # 0.1 K/mcL (0.0-0.6) 05/19/18 03:20 Basophils # 0.0 K/mcL (0.0-0.2) 05/19/18 03:20 ESR 42 mm/hr (0-10) H 05/19/18 09:08 PT 24.6 Seconds (9.4-12.1) H 05/19/18 03:20 INR 2.2 05/19/18 03:20 Sodium 135 mEq/L (136-145) L 05/19/18 03:20 Potassium 3.5 mEq/L (3.5-5.1) 05/19/18 03:20 Chloride 98 mEq/L (98-107) 05/19/18 03:20 Carbon Dioxide 25 mEq/L (23-29) 05/19/18 03:20 BUN 13 mg/dL (8-23) 05/19/18 03:20 Creatinine 1.07 mg/dL (0.70-1.30) 05/19/18 03:20 Est GFR ( Amer) > 60 (> 60) 05/19/18 03:20 Est GFR (Non-Af Amer) > 60 (> 60) 05/19/18 03:20 BUN/Creatinine Ratio 12 (6-26) 05/19/18 03:20 Glucose 302 mg/dL (70-105) H 05/19/18 03:20 POC Glucose 199 mg/dL (70-99) H 05/19/18 11:18 Calculated Osmolality 291 (280-300) 05/19/18 03:20 Calcium 8.6 mg/dL (8.6-10.3) 05/19/18 03:20 Phosphorus 2.3 mg/dL (2.7-4.5) L 05/19/18 03:20 Magnesium 1.8 mg/dL (1.6-2.6) 05/19/18 03:20 Total Bilirubin 2.9 mg/dL (0.3-1.0) H 05/19/18 03:20 AST 28 Units/L (13-39) 05/19/18 03:20 ALT 20 Units/L (7-52) 05/19/18 03:20 Alkaline Phosphatase 62 Units/L (34-104) 05/19/18 03:20 Troponin I 0.05 ng/mL (< 0.04) H* 05/19/18 14:53 C-Reactive Protein 176 mg/L (Less than 10) H 05/19/18 03:20 B-Natriuretic Peptide 420 pg/mL (Less than 100) H 05/19/18 03:20 Serum Total Protein 6.1 g/dL (6.4-8.9) L 05/19/18 03:20 Albumin 3.0 g/dL (3.5-5.7) L 05/19/18 03:20 Globulin 3.1 g/dL (2.4-3.5) 05/19/18 03:20 Albumin/Globulin Ratio 1.0 (1.1-2.2) L 05/19/18 03:20 Triglycerides 88 mg/dL (< 150) 05/19/18 03:20 Cholesterol 74 mg/dL (< 200) 05/19/18 03:20 LDL Cholesterol, Calc 35 mg/dL (0-99) 05/19/18 03:20 VLDL Cholesterol, Calc 18 mg/dL (< 31) 05/19/18 03:20 HDL Cholesterol 21 mg/dL (40-59) L 05/19/18 03:20 Cholesterol/HDL Ratio 3.5 (0-4.9) 05/19/18 03:20 Urine Color Dark Yellow (Yellow) 05/19/18 09:20 Urine Clarity Clear (Clear) 05/19/18 09:20 Urine pH 6.0 pH Units (5.0-8.0) 05/19/18 09:20 Ur Specific [place] 1.023 (1.010-1.025) 05/19/18 09:20 Urine Protein Negative mg/dL (Neg-Trace) 05/19/18 09:20 Urine Glucose (UA) 500 mg/dL (Normal) H 05/19/18 09:20 Urine Ketones Negative mg/dL (Negative) 05/19/18 09:20 Urine Blood Moderate (Negative) H 05/19/18 09:20 Urine Nitrite Negative (Negative) 05/19/18 09:20 Urine Bilirubin Negative (Negative) 05/19/18 09:20 Urine Urobilinogen Normal mg/dL (Normal) 05/19/18 09:20 Ur Leukocyte Esterase Negative (Negative) 05/19/18 09:20 Urine Microscopic RBC 5-15 per hpf (0-3) H 05/19/18 09:20 Urine Microscopic WBC 0-3 per hpf (0-3) 05/19/18 09:20 Ur Squamous Epith Cells None Seen per lpf (None-Few) 05/19/18 09:20 Urine Bacteria None Seen per hpf (None-Few) 05/19/18 09:20 Hyaline Casts None Seen per lpf (None-Few) 05/19/18 09:20 Impressions Chest X-Ray 05/18/18 20:28 IMPRESSION: No acute cardiopulmonary process. D/ / Ying Germain MD / Ying Germain MD Interpreting Provider: Ying Germain MD Bone Scan Nuclear Medicine 05/19/18 06:59 IMPRESSION: Three-phase positive uptake associated with the right knee arthroplasty concerning for loosening, greatest along the medial femoral component. D/ / Fernando Moon MD / Fernando Moon MD Interpreting Provider: Fernando Moon MD Echocardiogram 05/19/18 11:02 Impressions: LVEF 60-65%. Mild concentric left ventricular hypertrophy. Indeterminate diastolic function. Normal right ventricular structure and function. Bi-atrial enlargement. Probable mild bileaflet prolapse of the mitral valve. Moderate mitral regurgitation. Mild tricuspid regurgitation. Mild-moderate pulmonic regurgitation. Borderline pulmonary hypertension by TR gradient. IVC not well visualized to estimate RVSP. Left Ventricular Wall Motion: Rest Echo Findings All wall segments showed normal motion. Findings: Study Quality * Technically adequate exam. ECG Findings * Atrial fibrillation. Left Ventricle * LVEF 60-65%. * Mild concentric left ventricular hypertrophy. * Indeterminate diastolic function. Right Ventricle * Normal right ventricular structure and function. Left Atrium * Severely dilated left atrium. Right Atrium * Moderately dilated right atrium. Mitral Valve * No mitral stenosis. * Probable mild bileaflet prolapse of the mitral valve. * Moderate mitral regurgitation. Aortic Valve * No aortic regurgitation. * Trileaflet aortic valve. * No aortic stenosis. Tricuspid Valve * Mild tricuspid regurgitation. * Normal tricuspid valve structure. Pulmonic Valve * Pulmonic valve is not well visualized. * No pulmonic stenosis. * Mild-moderate pulmonic regurgitation. Pulmonary Artery * Pulmonary artery not well visualized. Aorta * Normally sized aortic root. Pericardium * There is no pericardial effusion present. Interatrial Septum * No evidence of PFO by color Doppler. IVC * The IVC is not well evaluated. - Imaging EKG: image reviewed (126bpm - ATRIAL FIBRILLATION WITH RAPID VENTRICULAR RESPONSE Electronically Signed On 05-19-2018 19:56:58 EDT by Jamie Meade) Anesthesia Exam Vital Signs Temp Pulse Resp BP Pulse Ox 05/19/18 20:18 98.0 F 94 16 119/68 95 05/19/18 16:40 98.4 F 85 16 103/66 95 05/19/18 11:18 98.3 F 112 16 119/72 96 05/19/18 08:07 98 05/19/18 06:54 98.1 F 124 18 114/72 98 05/19/18 04:12 98.7 F 125 18 102/60 96 05/19/18 00:35 98.3 F 111 18 118/80 98 05/19/18 00:10 16 114/75 Intake and Output 05/19/18 05/19/18 05/19/18 07:59 15:59 23:59 Intake Total 840 / 840 400 / 400 Output Total 630 / 630 Balance 210 / 210 400 / 400 Intake: Oral 840 / 840 400 / 400 Output: Urine 630 / 630 Other: Meal Dinner Percent of Meal Consumed 100% # Voids 1 1 # Bowel Movements 0 Weight 110.9 kg 115 kg Blood Glucose* 333 199 213 Patient Weight 05/19/18 23:59 Weight 115 kg Height: 6'4" Weight: 253# BMI =31 NPO (# of Hours): MNoc - HEENT Pupil (Motor): Pupils equal, EOMI Mallampati: II Teeth: Normal Oral Opening: Greater than 3 - FOOD PREPARER LOC: Oriented FOOD PREPARER Motor: Normal RUE, Normal LUE, Normal RLE, Normal LLE, Normal Face FOOD PREPARER Sensory: Normal: RUE, LUE, RLE, LLE, Face - Cardiac Rhythm: Irregular Murmur: None JVD: No - Pulmonary Breath Sounds: bilateral Clear Respiratory Effort: Symmetrical Anesthesia Assess/Plan ASA Score: 3 (AFib, DM, Hemachromatosis) Modified Shivam Scale for Level of Consciousness: Cooperative, oriented, and tranquil Anesthetic Plan: General Monitoring Plan: Standard Monitors Recovery Plan: PACU
[2018-05-20 01:59] LABS: Basophils % 0.3 %; Eosinophils # 0.5 K/mcL (0.0-0.6); Hematocrit 30.7 % (37.5-50.1); Hemoglobin 10.6 g/dL (12.9-16.9); Immature Granulocytes % 0.9 % (0-4); Lymphocytes # 0.7 K/mcL (0.6-4.6); Lymphocytes % 12.3 %; Mean Corpuscular HGB Conc 34.5 g/dL (31.6-35.5); Mean Corpuscular Hemoglobin 34.1 pg (28.0-33.3); Mean Corpuscular Volume 98.7 fL (83.0-100.0); Mean Platelet Volume 10.8 fL (9.4-12.4); Monocytes # 0.5 K/mcL (0.0-1.3); Monocytes % 9.2 %; Platelet Count 150 K/mcL (140-400); Red Blood Count 3.11 M/mcL (4.19-5.50); Red Cell Distribution Width 13.7 % (11.5-14.5); Segmented Neutrophils % 68.3 %
[2018-05-20 02:21] LABS: BUN/Creatinine Ratio 11 (6-26); Blood Urea Nitrogen 11 mg/dL (8-23); Calcium 8.4 mg/dL (8.6-10.3); Carbon Dioxide 34 mEq/L (23-29); Chloride 100 mEq/L (98-107); Glucose 113 mg/dL (70-105); Osmolality,Calculated 286 (280-300); Phosphorous 3.3 mg/dL (2.7-4.5); Potassium 3.1 mEq/L (3.5-5.1); Sodium 138 mEq/L (136-145); eGFR For African Americans > 60 (> 60); eGFR For Non-African Americans > 60 (> 60)
[2018-05-20] MEDS: *HR* Morphine Sulfate SR (12 HR) 60 MG TABLET.ER PO SCH ×4 (06:29→22:03)
[2018-05-20] MEDS: Gabapentin 300 MG CAPSULE PO SCH ×2 (08:05→22:03)
[2018-05-20] MEDS: Aspirin Enteric Coated 81 MG Tablet PO SCH (08:05)
[2018-05-20] MEDS: Furosemide 20 MG TABLET PO SCH (08:05)
[2018-05-20] MEDS: Insulin LISPRO 300 UNITS/3 ML VIAL SQ SCH ×4 (08:12→22:04)
--- NOTE | 2018-05-20 08:20 | Internal Med Progress Note ---
Date of Encounter: 05/20/18 Time of Encounter: 08:20 - Assessment and plan (1) Fracture, femoral Current Visit: Yes Status: Acute Assessment and plan: Scheduled for surgery tomorrow. Coumadin held. (2) Atrial fibrillation with RVR Current Visit: Yes Status: Acute Assessment and plan: Pt responded to Cardizem bolus. Pt has coumadin held for sx. (3) DVT prophylaxis Current Visit: Yes Status: Acute (4) Diabetes mellitus Current Visit: Yes Status: Acute Assessment and plan: Sliding scale insulin Qualifiers: Diabetes mellitus type: type 2 Diabetes mellitus complication status: without complication Qualified Code(s): E11.9 - Type 2 diabetes mellitus without complications; Z79.4 - halfway (current) use of insulin - Time Spent With Patient Total time spent is greater than 50% in coordination of care (as documented) at patient's floor/unit and/or counseling patient: less than 15 minutes - Subjective Interval history: Pt is seen at bedside. He came in after falling in shower. Found to have 3 phase bone scan (+) uptake assoc with right knee arthroplasty concerning for loosening, greatest along the medial femoral condyle. Pt states he has 6/10 pain in the right leg and knee, nonradiating, meds make it better, movement makes it worse. He denies CP/palpiltations/SOB, N/V/D, numbness, tingling, fever , chills. - Constitutional Vitals: Temp Pulse Resp BP Pulse Ox 98.6 F 117 18 119/78 94 05/20/18 07:47 05/20/18 07:47 05/20/18 07:47 05/20/18 07:47 05/20/18 07:47 General appearance: Present: A&O X 3, pleasant - Head Head exam: Present: atraumatic, normal inspection - Neck Neck exam general surgery: Present: supple - Respiratory Respiratory exam: Present: CTAB - Cardiovascular Cardiovascular exam: Present: irregular rhythm - GI/Abdominal GI/Abdominal exam: Present: normal bowel sounds, soft, no peritoneal signs - Neurological Exam Neurological exam: Present: oriented X3, no focal deficits - Skin Skin exam: Present: intact, normal color Internal Medicine: Result - Labs CBC & Chem 7: 05/20/18 00:57 05/20/18 00:57 Labs: Short CBC 05/20/18 Range/Units 00:57 WBC 5.8 (4.3-11.1) K/mcL Hgb 10.6 L (12.9-16.9) g/dL Hct 30.7 L (37.5-50.1) % Plt Count 150 (140-400) K/mcL Neutrophils # 4.0 (1.6-8.9) K/mcL BMP 05/20/18 00:57 Sodium 138 Potassium 3.1 L Chloride 100 Carbon Dioxide 34 H BUN 11 Creatinine 0.99 Glucose 113 H Calcium 8.4 L - ABG Interpretation ABG results: PT/INR, D-dimer PT 24.6 Seconds (9.4-12.1) H 05/19/18 03:20 Consult Discharge Plan - Plan [facility]: [facility] [Primary Care Provider] -
[2018-05-20] MEDS: Cholecalciferol (D-3) 1,000 UNIT TABLET PO SCH (10:09)
[2018-05-20] MEDS: Insulin NPH/REG 70/30 100 UNIT/ML (x5UNIT) SQ SCH ×2 (10:11→18:20)
[2018-05-20 10:24] LABS: INR 2.1; Prothrombin Time 23.5 Seconds (9.4-12.1)
--- NOTE | 2018-05-20 10:38 | Event Note ---
Date of Encounter: 05/19/18 Time of Encounter: 09:00 Delayed entry Consent obtained for surgery planned for 05/[address] Fonseca for aseptic loosening of right total knee. Planned surgery is revision right total knee with possible conversion to hinged total knee. Continue with knee immobilizer with all activity to help prevent falls. NPO after midnight night before surgery
--- NOTE | 2018-05-20 11:16 | Cardiology Progress Note ---
Date of Encounter: 05/20/18 Time of Encounter: 11:13 Assessment and Plan (1) Pre-operative cardiovascular examination Current Visit: Yes Status: Acute Pre-op cardiac risk stratification for planned revision right total knee replacement tomorrow with Dr. Fonseca. No hx of CAD. Cardiac hx includes chronic A-Fib, dilated aortic root, 3.9cm on TTE 02/2017. Nuclear stress test 06/2016 negative for ischemia or infarct. TTE results--EF remains preserved--60-65%. 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 Able to achieve 4 METS. Based on above, pt is acceptable intermediate risk to proceed with orthopedic surgery. A-Fib is currently rate controlled. Cardiology signing off. Reconsult PRN. (2) Atrial fibrillation with RVR Current Visit: Yes Status: Acute Known hx of chronic A-Fib, previously rate controlled. Found to be RVR in ED after missing a Lopressor dose. HR 126 on admission EKG. Home Lopressor dose 12.5mg BID. Increased to 25mg BID yesterday. HR remained mildly elevated--AVG 108 past 12 hrs. Increased Lopressor to 50mg BID. HR currently 90s at bedside after BB increase. Was anticoagulated on Coumadin managed by [facility]. Stopped on admission given plan for surgery. Pt aware he is at increased risk for CVA off anticoagulation. Discussed with Dr. Jakob Eduardo, who recommends resuming Coumadin after surgery, once okay from surgeon. Follow-up with [facility] cardiology as outpt for any further management or recommendations. Can increase BB as needed for HR control as long as BP tolerates. Discussion w patient/family: The assessment and plan as outlined above was discussed with the patient and/or family members who expressed understanding and agreement. All questions were answered. Thank you for involving us in the care of your patient. Please call with any questions. I will discuss all the above with Dr. Jakob Eduardo and make changes as necessary. Subjective Principal diagnosis: Pre-op, A-Fib RVR Interval history: Denies acute cardiac complaints. TTE resulted--LVEF 60-65%. Mild cLVH, Bi- atrial enlargement. Probable mild bileaflet prolapse of the mitral valve. Moderate MR, Mild TR, Mild-moderate HI. Borderline phtn by TR gradient. IVC not well visualized to estimate RVSP. 12 hr tele AVG HR 108, A-Fib. Increased Lopressor dose this AM to 50mg BID. HR 90s at bedside. Surgery planned for tomorrow. Objective Vital Signs, Last 4 Hours Temp Pulse Resp BP Pulse Ox 05/20/18 08:36 93 05/20/18 07:47 98.6 F 117 18 119/78 94 Vital Signs Temp Pulse Resp BP Pulse Ox 05/20/18 08:36 93 05/20/18 07:47 98.6 F 117 18 119/78 94 05/20/18 04:20 98.3 F 108 15 109/62 97 05/20/18 00:10 98.9 F 80 17 119/58 97 05/19/18 20:18 98.0 F 94 16 119/68 95 05/19/18 16:40 98.4 F 85 16 103/66 95 05/19/18 11:18 98.3 F 112 16 119/72 96 Intake and Output 05/19/18 05/20/18 05/20/18 23:59 07:59 15:59 Intake Total 400 / 400 400 / 400 1120 / 1120 Output Total 500 / 500 Balance 400 / 400 400 / 400 620 / 620 Intake: IV Fluids 1000 / 1000 Oral 400 / 400 400 / 400 120 / 120 Output: Urine 500 / 500 Other: Meal Breakfast Percent of Meal Consumed 95% # Voids 1 1 # Urine Diapers 1 Weight 115 kg Blood Glucose* 213 162 General: Conversant, No Apparent Distress HEENT: Atraumatic, Normocephaly, Mucus Membranes Moist Neck: No JVD, Normal carotid pulses Cardiac: Other (irregularly irregular) Lungs: Normal Breath Sounds Neuro: Alert and responsive, No focal deficits noted Abdomen: Soft, Non-Tender Skin: No rashes noted on visualized skin Musculoskeletal: No Chest Wall Tenderness Extremities: Other (mild LE edema) Results 05/20/18 00:57 05/20/18 00:57 Lab Results 05/20/18 05/20/18 05/20/18 00:57 00:57 10:02 WBC 5.8 Hgb 10.6 L Hct 30.7 L Plt Count 150 INR 2.1 Sodium 138 Potassium 3.1 L Chloride 100 Carbon Dioxide 34 H BUN 11 Creatinine 0.99 Glucose 113 H Calcium 8.4 L Short CBC 05/20/18 Range/Units 00:57 WBC 5.8 (4.3-11.1) K/mcL Hgb 10.6 L (12.9-16.9) g/dL Hct 30.7 L (37.5-50.1) % Plt Count 150 (140-400) K/mcL Neutrophils # 4.0 (1.6-8.9) K/mcL BMP 05/20/18 Range/Units 00:57 Sodium 138 (136-145) mEq/L Potassium 3.1 L (3.5-5.1) mEq/L Chloride 100 (98-107) mEq/L Carbon Dioxide 34 H (23-29) mEq/L BUN 11 (8-23) mg/dL Creatinine 0.99 (0.70-1.30) mg/dL Glucose 113 H (70-105) mg/dL Calcium 8.4 L (8.6-10.3) mg/dL Cardiac Enzymes 05/19/18 Range/Units 14:53 Troponin I 0.05 H* (< 0.04) ng/mL Impressions Bone Scan Nuclear Medicine 05/19/18 06:59 IMPRESSION: Three-phase positive uptake associated with the right knee arthroplasty concerning for loosening, greatest along the medial femoral component. D/ / Fernando Moon MD / Fernando Moon MD Interpreting Provider: Fernando Moon MD Echocardiogram 05/19/18 11:02 Impressions: LVEF 60-65%. Mild concentric left ventricular hypertrophy. Indeterminate diastolic function. Normal right ventricular structure and function. Bi-atrial enlargement. Probable mild bileaflet prolapse of the mitral valve. Moderate mitral regurgitation. Mild tricuspid regurgitation. Mild-moderate pulmonic regurgitation. Borderline pulmonary hypertension by TR gradient. IVC not well visualized to estimate RVSP. Left Ventricular Wall Motion: Rest Echo Findings All wall segments showed normal motion. Findings: Study Quality * Technically adequate exam. ECG Findings * Atrial fibrillation. Left Ventricle * LVEF 60-65%. * Mild concentric left ventricular hypertrophy. * Indeterminate diastolic function. Right Ventricle * Normal right ventricular structure and function. Left Atrium * Severely dilated left atrium. Right Atrium * Moderately dilated right atrium. Mitral Valve * No mitral stenosis. * Probable mild bileaflet prolapse of the mitral valve. * Moderate mitral regurgitation. Aortic Valve * No aortic regurgitation. * Trileaflet aortic valve. * No aortic stenosis. Tricuspid Valve * Mild tricuspid regurgitation. * Normal tricuspid valve structure. Pulmonic Valve * Pulmonic valve is not well visualized. * No pulmonic stenosis. * Mild-moderate pulmonic regurgitation. Pulmonary Artery * Pulmonary artery not well visualized. Aorta * Normally sized aortic root. Pericardium * There is no pericardial effusion present. Interatrial Septum * No evidence of PFO by color Doppler. IVC * The IVC is not well evaluated. Active Medications Acetaminophen (Tylenol) 650 mg PO Q6HR PRN PRN Reason: Mild Pain/Fever Stop: 11/18/18 03:10 Hydrocodone Bitart/Acetaminophen ([place] 5-325 Mg) 1 tab PO Q6HR PRN PRN Reason: Moderate Pain Stop: 11/18/18 03:10 Last Admin: 05/19/18 11:22 Dose: 1 tab Aspirin (Aspirin Ec) 81 mg PO DAILY [facility] Stop: 11/18/18 09:01 Last Admin: 05/20/18 08:05 Dose: 81 mg Dextrose/Water (Dextrose 50% (Syg)) 25 ml IVP AD PRN PRN Reason: Hypoglycemia Stop: 11/18/18 02:12 Furosemide (Lasix) 10 mg PO DAILY [facility] Stop: 11/18/18 09:01 Last Admin: 05/20/18 08:05 Dose: 10 mg Gabapentin (Neurontin) 300 mg PO BID [facility] Stop: 11/18/18 09:01 Last Admin: 05/20/18 08:05 Dose: 300 mg Glucagon (Glucagen) 1 mg IM ONCE PRN PRN Reason: Hypoglycemia Stop: 11/18/18 02:12 Glucose (Gluctose) 15 gm PO ONCE PRN PRN Reason: Hypoglycemia Stop: 11/18/18 02:12 Glucose (Gluctose) 30 gm PO ONCE PRN PRN Reason: Hypoglycemia Stop: 11/18/18 02:12 Dextrose (Dextrose 5%) 1,000 mls @ 100 mls/hr IVC .Q10H PRN PRN Reason: HYPOGLYCEMIA Stop: 11/18/18 02:12 Insulin Human Lispro (Humalog) 0 units SQ TIDAC SAMANTHA PRN Reason: Protocol Stop: 11/18/18 07:31 Last Admin: 05/20/18 08:12 Dose: 4 units Insulin Human Lispro (Humalog) 0 units SQ HS SAMANTHA PRN Reason: Protocol Stop: 11/18/18 02:16 Last Admin: 05/19/18 22:22 Dose: 3 unit Insulin Isophane/Insulin Regular (Humulin 70/30 Vial) 50 unit SQ 0730 [facility] Stop: 11/18/18 07:31 Last Admin: 05/20/18 10:11 Dose: 50 unit Insulin Isophane/Insulin Regular (Humulin 70/30 Vial) 40 unit SQ QPM SAMANTHA Stop: 11/18/18 18:01 Last Admin: 05/19/18 17:50 Dose: 40 unit Metoprolol Tartrate (Lopressor) 5 mg IVP Q6HR PRN PRN Reason: SEE COMMENTS Stop: 11/18/18 10:16 Metoprolol Tartrate (Lopressor) 50 mg PO BID [facility] Stop: 11/19/18 21:01 Morphine Sulfate (Ms Contin) 60 mg PO Q8H [facility] Stop: 11/18/18 06:01 Last Admin: 05/20/18 08:06 Dose: 60 mg Naloxone HCl (Narcan) 0.4 mg IVP Q2MIN PRN PRN Reason: SEE COMMENTS Stop: 11/18/18 03:10 Paroxetine HCl (Paxil) 20 mg PO DAILY [facility] PRN Reason: Protocol Stop: 11/18/18 09:01 Last Admin: 05/20/18 08:05 Dose: 20 mg Tamsulosin HCl (Flomax) 0.4 mg PO DAILY [facility] PRN Reason: Protocol Stop: 11/19/18 09:01 Last Admin: 05/20/18 10:09 Dose: 0.4 mg Vitamin D (Vitamin D) 500 unit PO DAILY [facility] Stop: 11/18/18 09:01 Last Admin: 05/20/18 10:09 Dose: 500 unit - Imaging and Cardiology Echo: report reviewed - EKG Interpretation EKG results cardiology: other (12 hr tele AVG HR 108, A-Fib) Consult Discharge Plan - Plan [facility]errals: [facility] [Primary Care Provider] -
--- NOTE | 2018-05-20 17:18 | Orthopedics Progress Note ---
Date of Encounter: 05/20/18 Time of Encounter: 17:17 Subjective Principal diagnosis: Pre-op, A-Fib RVR Interval history: Planning a revision surgery for loosening of right total knee arthroplasty component. He is neurovascularly intact and being optimized medically for planned surgery tomorrow. He is in the above immobilizer. Dr. Fonseca to see prior to surgery. Objective Vital signs: Vital Signs Temp Pulse Resp BP Pulse Ox 05/20/18 15:26 98.7 F 92 17 108/64 95 05/20/18 11:47 98.2 F 94 18 125/77 92 05/20/18 08:36 93 05/20/18 07:47 98.6 F 117 18 119/78 94 05/20/18 04:20 98.3 F 108 15 109/62 97 05/20/18 00:10 98.9 F 80 17 119/58 97 Intake and Output 05/20/18 05/20/18 05/20/18 07:59 15:59 23:59 Intake Total 400 / 400 1120 / 1120 Output Total 500 / 500 Balance 400 / 400 620 / 620 Intake: IV Fluids 1000 / 1000 Oral 400 / 400 120 / 120 Output: Urine 500 / 500 Other: Meal Breakfast Percent of Meal Consumed 95% # Voids 1 1 # Urine Diapers 1 Blood Glucose* 77 - Labs CBC & BMP: 05/20/18 00:57 05/20/18 00:57 Labs: Abnormal lab results RBC 3.11 M/mcL (4.19-5.50) L 05/20/18 00:57 Hgb 10.6 g/dL (12.9-16.9) L 05/20/18 00:57 Hct 30.7 % (37.5-50.1) L 05/20/18 00:57 MCH 34.1 pg (28.0-33.3) H 05/20/18 00:57 ESR 42 mm/hr (0-10) H 05/19/18 09:08 PT 23.5 Seconds (9.4-12.1) H 05/20/18 10:02 Potassium 3.1 mEq/L (3.5-5.1) L 05/20/18 00:57 Carbon Dioxide 34 mEq/L (23-29) H 05/20/18 00:57 Glucose 113 mg/dL (70-105) H 05/20/18 00:57 Calcium 8.4 mg/dL (8.6-10.3) L 05/20/18 00:57 Total Bilirubin 2.9 mg/dL (0.3-1.0) H 05/19/18 03:20 Troponin I 0.05 ng/mL (< 0.04) H* 05/19/18 14:53 C-Reactive Protein 176 mg/L (Less than 10) H 05/19/18 03:20 B-Natriuretic Peptide 420 pg/mL (Less than 100) H 05/19/18 03:20 Serum Total Protein 6.1 g/dL (6.4-8.9) L 05/19/18 03:20 Albumin 3.0 g/dL (3.5-5.7) L 05/19/18 03:20 Albumin/Globulin Ratio 1.0 (1.1-2.2) L 05/19/18 03:20 HDL Cholesterol 21 mg/dL (40-59) L 05/19/18 03:20 Urine Glucose (UA) 500 mg/dL (Normal) H 05/19/18 09:20 Urine Blood Moderate (Negative) H 05/19/18 09:20 Urine Microscopic RBC 5-15 per hpf (0-3) H 05/19/18 09:20 Consult Discharge Plan - Plan Referrals: [facility] [Primary Care Provider] -
[2018-05-21 00:59] LABS: Basophils % 0.4 %; Eosinophils # 0.7 K/mcL (0.0-0.6); Eosinophils % 11.4 %; Hematocrit 30.3 % (37.5-50.1); Hemoglobin 10.4 g/dL (12.9-16.9); Immature Granulocytes % 0.4 % (0-4); Lymphocytes # 0.6 K/mcL (0.6-4.6); Lymphocytes % 11.2 %; Mean Corpuscular HGB Conc 34.3 g/dL (31.6-35.5); Mean Corpuscular Hemoglobin 33.3 pg (28.0-33.3); Mean Corpuscular Volume 97.1 fL (83.0-100.0); Mean Platelet Volume 10.3 fL (9.4-12.4); Monocytes # 0.6 K/mcL (0.0-1.3); Monocytes % 10.2 %; Neutrophils # 3.8 K/mcL (1.6-8.9); Platelet Count 162 K/mcL (140-400); Red Blood Count 3.12 M/mcL (4.19-5.50); Segmented Neutrophils % 66.4 %
[2018-05-21 01:06] LABS: BUN/Creatinine Ratio 10 (6-26); Blood Urea Nitrogen 9 mg/dL (8-23); Calcium 8.5 mg/dL (8.6-10.3); Carbon Dioxide 35 mEq/L (23-29); Chloride 99 mEq/L (98-107); Glucose 164 mg/dL (70-105); INR 1.9; Osmolality,Calculated 286 (280-300); Potassium 3.7 mEq/L (3.5-5.1); Prothrombin Time 20.9 Seconds (9.4-12.1); Sodium 137 mEq/L (136-145); eGFR For African Americans > 60 (> 60); eGFR For Non-African Americans > 60 (> 60)
[2018-05-21 01:07] LABS: Alanine Aminotransferase 15 Units/L (7-52); Albumin 2.6 g/dL (3.5-5.7); Albumin/Globulin Ratio 0.9 (1.1-2.2); Alkaline Phosphatase 59 Units/L (34-104); Aspartate Amino Transferase 22 Units/L (13-39); BUN/Creatinine Ratio 10 (6-26); Bilirubin,Total 1.7 mg/dL (0.3-1.0); Blood Urea Nitrogen 9 mg/dL (8-23); Calcium 8.5 mg/dL (8.6-10.3); Carbon Dioxide 33 mEq/L (23-29); Chloride 99 mEq/L (98-107); Globulin 2.8 g/dL (2.4-3.5); Glucose 162 mg/dL (70-105); Osmolality,Calculated 284 (280-300); Potassium 3.7 mEq/L (3.5-5.1); Sodium 136 mEq/L (136-145); Total Protein 5.4 g/dL (6.4-8.9); eGFR For African Americans > 60 (> 60); eGFR For Non-African Americans > 60 (> 60)
[2018-05-21] MEDS: *HR* Morphine Sulfate SR (12 HR) 60 MG TABLET.ER PO SCH ×3 (05:45→22:09)
--- NOTE | 2018-05-21 06:54 | Orthopedics Progress Note ---
Date of Encounter: 05/21/18 Time of Encounter: 06:54 Subjective Principal diagnosis: Pre-op, A-Fib RVR Interval history: Patient for revision right total knee replacement. INR 1.9 plan for surgery today discussed risks benefits as well as recovery. Objective Vital signs: Vital Signs Temp Pulse Resp BP Pulse Ox 05/21/18 03:22 98.2 F 120 15 115/72 95 05/20/18 23:53 98.7 F 102 15 101/68 98 05/20/18 18:22 98.1 F 110 15 113/69 94 05/20/18 15:26 98.7 F 92 17 108/64 95 05/20/18 11:47 98.2 F 94 18 125/77 92 05/20/18 08:36 93 05/20/18 07:47 98.6 F 117 18 119/78 94 Intake and Output 05/20/18 05/20/18 05/21/18 15:59 23:59 07:59 Intake Total 1120 / 1120 480 / 480 Output Total 500 / 500 1200 / 1200 550 / 550 Balance 620 / 620 -720 / -720 -550 / -550 Intake: IV Fluids 1000 / 1000 Oral 120 / 120 480 / 480 Output: Urine 500 / 500 1200 / 1200 550 / 550 Other: Meal Breakfast Dinner Percent of Meal Consumed 95% 100% # Voids 1 1 # Urine Diapers 1 Weight 114.3 kg Blood Glucose* 77 174 Patient Weight 05/21/18 23:59 Weight 114.3 kg - Labs CBC & BMP: 05/21/18 00:32 05/21/18 00:32 Labs: Abnormal lab results RBC 3.12 M/mcL (4.19-5.50) L 05/21/18 00:32 Hgb 10.4 g/dL (12.9-16.9) L 05/21/18 00:32 Hct 30.3 % (37.5-50.1) L 05/21/18 00:32 Eosinophils # 0.7 K/mcL (0.0-0.6) H 05/21/18 00:32 ESR 42 mm/hr (0-10) H 05/19/18 09:08 PT 20.9 Seconds (9.4-12.1) H 05/21/18 00:32 Carbon Dioxide 33 mEq/L (23-29) H 05/21/18 00:32 Glucose 162 mg/dL (70-105) H 05/21/18 00:32 POC Glucose 174 mg/dL (70-99) H 05/20/18 21:34 Calcium 8.5 mg/dL (8.6-10.3) L 05/21/18 00:32 Total Bilirubin 1.7 mg/dL (0.3-1.0) H 05/21/18 00:32 Troponin I 0.05 ng/mL (< 0.04) H* 05/19/18 14:53 C-Reactive Protein 176 mg/L (Less than 10) H 05/19/18 03:20 B-Natriuretic Peptide 420 pg/mL (Less than 100) H 05/19/18 03:20 Serum Total Protein 5.4 g/dL (6.4-8.9) L 05/21/18 00:32 Albumin 2.6 g/dL (3.5-5.7) L 05/21/18 00:32 Albumin/Globulin Ratio 0.9 (1.1-2.2) L 05/21/18 00:32 HDL Cholesterol 21 mg/dL (40-59) L 05/19/18 03:20 Urine Glucose (UA) 500 mg/dL (Normal) H 05/19/18 09:20 Urine Blood Moderate (Negative) H 05/19/18 09:20 Urine Microscopic RBC 5-15 per hpf (0-3) H 05/19/18 09:20 Consult Discharge Plan - Plan [facility]errals: [facility] [Primary Care Provider] -
[2018-05-21] MEDS: Insulin NPH/REG 70/30 100 UNIT/ML (x5UNIT) SQ SCH ×2 (07:52→18:38)
[2018-05-21] MEDS: Gabapentin 300 MG CAPSULE PO SCH ×2 (07:52→20:24)
[2018-05-21] MEDS: Insulin LISPRO 300 UNITS/3 ML VIAL SQ SCH ×4 (07:52→22:09)
[2018-05-21] MEDS: Cholecalciferol (D-3) 1,000 UNIT TABLET PO SCH (07:52)
[2018-05-21] MEDS: Furosemide 20 MG TABLET PO SCH (07:52)
[2018-05-21] MEDS: Aspirin Enteric Coated 81 MG Tablet PO SCH (07:52)
[2018-05-21] MEDS: *HR* HYDROcodone/Acet 5/325 mg TABLET PO PRN (07:54)
--- NOTE | 2018-05-21 08:07 | Internal Med Progress Note ---
<Mac Pan S - Last Filed: 05/21/18 12:36> Date of Encounter: 05/21/18 Time of Encounter: 08:05 - Assessment and plan (1) Fracture, femoral Current Visit: Yes Status: Acute Qualifiers: Encounter type: initial encounter Femur location: distal Fracture type: closed Fracture morphology: unspecified fracture morphology Laterality: right Qualified Code(s): S72.401A - Unspecified fracture of lower end of right femur, initial encounter for closed fracture (2) Atrial fibrillation with RVR Current Visit: Yes Status: Acute Assessment and plan: Pt had Lopressor increased from 25mg to 50mg. HR averaged 108 since midnight, this AM is 104. Pt has no chest pain or palpiltations. Continue Lopressor as per cardiology (3) DVT prophylaxis Current Visit: Yes Status: Acute Assessment and plan: Coumadin being held, currently INR in therapeutic range. PT 20.9, INR 1.9 (4) Diabetes mellitus Current Visit: Yes Status: Acute Assessment and plan: Sliding scale insulin Qualifiers: Diabetes mellitus type: type 2 Diabetes mellitus complication status: without complication Qualified Code(s): E11.9 - Type 2 diabetes mellitus without complications; Z79.4 - senior living (current) use of insulin (5) Hypokalemia Current Visit: Yes Status: Resolved Assessment and plan: Hypokalemia resolved. Replaced with 40mEq potassium chloride yesterday PO. K yesterday 3.1, today is 3.7. Will follow electrolytes - Time Spent With Patient Total time spent is greater than 50% in coordination of care (as documented) at patient's floor/unit and/or counseling patient: - Subjective Interval history: Pt is seen at bedside. He is scheduled for right total knee repalcement today. Ortho cleared and he has INR of 20.9 (down from 23.5) Pt states he is doing ok, minimal pain. He denies CP, SOB, N/V/D, numbness or tingling, loss of B&B. - Constitutional Vitals: Temp Pulse Resp BP Pulse Ox 98.0 F 104 18 116/77 95 05/21/18 06:54 05/21/18 06:54 05/21/18 06:54 05/21/18 06:54 05/21/18 07:59 General appearance: Present: A&O X 3, pleasant, no acute distress - Head Head exam: Present: atraumatic, normal inspection - Neck Neck exam general surgery: Present: supple - Respiratory Respiratory exam: Present: CTAB - Cardiovascular Cardiovascular exam: Present: irregular rhythm - GI/Abdominal GI/Abdominal exam: Present: normal bowel sounds, soft, no peritoneal signs - Neurological Exam Neurological exam: Present: alert, oriented X3, no focal deficits - Skin Skin exam: Present: intact Internal Medicine: Result - Labs CBC & Chem 7: 05/21/18 00:32 05/21/18 00:32 Labs: Short CBC 05/21/18 Range/Units 00:32 WBC 5.7 (4.3-11.1) K/mcL Hgb 10.4 L (12.9-16.9) g/dL Hct 30.3 L (37.5-50.1) % Plt Count 162 (140-400) K/mcL Neutrophils # 3.8 (1.6-8.9) K/mcL BMP 05/21/18 05/21/18 00:32 00:32 Sodium 137 136 Potassium 3.7 3.7 Chloride 99 99 Carbon Dioxide 35 H 33 H BUN 9 9 Creatinine 0.87 0.87 Glucose 164 H 162 H Calcium 8.5 L 8.5 L Liver Function 05/21/18 Range/Units 00:32 Total Bilirubin 1.7 H (0.3-1.0) mg/dL AST 22 (13-39) Units/L ALT 15 (7-52) Units/L Alkaline Phosphatase 59 (34-104) Units/L Albumin 2.6 L (3.5-5.7) g/dL - ABG Interpretation ABG results: PT/INR, D-dimer PT 20.9 Seconds (9.4-12.1) H 05/21/18 00:32 Consult Discharge Plan - Plan [facility]errals: [facility] [Primary Care Provider] - <Molina Rosa - Last Filed: 05/21/18 19:17> Date of Encounter: 05/21/18 - Assessment and plan (1) Fracture, femoral Current Visit: Yes Status: Acute (2) Atrial fibrillation with RVR Current Visit: Yes Status: Acute (3) DVT prophylaxis Current Visit: Yes Status: Acute (4) Diabetes mellitus Current Visit: Yes Status: Acute Qualifiers: Diabetes mellitus type: type 2 Diabetes mellitus complication status: without complication Qualified Code(s): E11.9 - Type 2 diabetes mellitus without complications; Z79.4 - senior living (current) use of insulin (5) Hypokalemia Current Visit: Yes Status: Resolved - Time Spent With Patient Total time spent is greater than 50% in coordination of care (as documented) at patient's floor/unit and/or counseling patient: - Constitutional Vitals: Temp Pulse Resp BP Pulse Ox 97.8 F 90 14 84/64 95 05/21/18 18:16 05/21/18 18:16 05/21/18 18:16 05/21/18 18:16 05/21/18 18:16 Internal Medicine: Result - Labs CBC & Chem 7: 05/21/18 16:20 05/21/18 00:32 Labs: Short CBC 05/21/18 05/21/18 Range/Units 00:32 16:20 WBC 5.7 (4.3-11.1) K/mcL Hgb 10.4 L 10.4 L (12.9-16.9) g/dL Hct 30.3 L 31.1 L (37.5-50.1) % Plt Count 162 (140-400) K/mcL Neutrophils # 3.8 (1.6-8.9) K/mcL BMP 05/21/18 05/21/18 00:32 00:32 Sodium 137 136 Potassium 3.7 3.7 Chloride 99 99 Carbon Dioxide 35 H 33 H BUN 9 9 Creatinine 0.87 0.87 Glucose 164 H 162 H Calcium 8.5 L 8.5 L Liver Function 05/21/18 Range/Units 00:32 Total Bilirubin 1.7 H (0.3-1.0) mg/dL AST 22 (13-39) Units/L ALT 15 (7-52) Units/L Alkaline Phosphatase 59 (34-104) Units/L Albumin 2.6 L (3.5-5.7) g/dL - ABG Interpretation ABG results: PT/INR, D-dimer PT 20.9 Seconds (9.4-12.1) H 05/21/18 00:32 - Impressions Impressions Knee X-Ray 05/21/18 16:01 IMPRESSION: Status post revised right total knee replacement. D/ / 05/21/2018 17:07:54 Barry Carranza MD / [facility] Interpreting Provider: Barry Carranza MD - Attending Attestation I examined this patient and my medical decision-making was reviewed with the Resident Physician. I agree with the documented findings, disposition and treatment plan as described except to the extent set forth below.
[2018-05-21] MEDS ORDERED: *HR* FentaNYL (PF) 100 MCG/2 ML VIAL ONE ×2 (13:31→15:29)
[2018-05-21] MEDS ORDERED: Ondansetron 4 MG/2 ML VIAL ONE (13:31)
[2018-05-21] MEDS ORDERED: Ethanol\\Acetic Acid\\Na Ace\\Ben 1,000 ML IRRIG.SOLN IR ONE (13:31)
[2018-05-21] MEDS ORDERED: *HR* Midazolam HCl 2 MG/2 ML VIAL ONE (13:31)
[2018-05-21] MEDS ORDERED: Dexamethasone 4 MG/ML VIAL ONE (13:31)
[2018-05-21] MEDS ORDERED: *HR* Propofol 200 MG/20 ML VIAL IVP ONE (13:31)
[2018-05-21] MEDS ORDERED: Bupivacaine/Clonidine Syringe 1 EACH SYRINGE ONE (13:35)
[2018-05-21] MEDS ORDERED: ROPIVACAINE HCL/PF 0.5% 30 ML VIAL ONE (13:35)
--- NOTE | 2018-05-21 14:11 | Anesthesia Procedures ---
Date of Encounter: 05/21/18 Time of Encounter: 13:55 Procedures: Anesthesia - Nerve Block Procedure Date: 05/21/18 Time: 13:55 Allergies/Adv Reactions: Allergies Allergy/AdvReac Type Severity Reaction Status Date / Time No Known Allergies Allergy Verified 05/18/18 21:34 Surgical Procedure: RightTotal Knee Revision Checklist: Correct Patient Identifier, Correct procedure, History checked Correct side: Right Blood Thinner: Yes (Coumadin. INR 2.2 on 05/19. Not taken since) Monitor Applied: EKG, BP, Pulse Oximetry Supplemental Oxygen via Nasal Cannula (L/min): 4 Sedation: Versed (mg): 2 Sedation: Fentanyl (mcg): 100 Indication: Post Op Analgesia Block Type: Femoral, Other (iPack) Catheter placed: No Sterile Technique: Yes Ultrasound used: Yes Anatomy identified: Yes Visual spread of Local: Yes Blood on Needle Aspiration: No Smooth Injection of Local: Yes Pain with Injection of Local: No Prep: Chlorhexadine Needle: 22 x 50 mm Stimuplex (Femoral), 21 x 100 mm Stimuplex (Ipack) Local: 0.25% Bupivicaine w/Clonidine 20 mcg/cc (20mL ipack), Ropivacaine (0.5% 30mL ipack) Volume (cc): 50mL total volume Number of Attempts: 1 Complications: None/effective block Vitals: VSS throughout procedure. patient tolerated well.
[2018-05-21] MEDS ORDERED: Ondansetron 4 MG/2 ML VIAL IVP PRN ×2 (14:12→17:14)
[2018-05-21] MEDS ORDERED: *HR* Promethazine 25 MG/ML VIAL IVP PRN ×2 (14:12→17:14)
[2018-05-21] MEDS ORDERED: Naloxone 0.4 MG/ML INJ IVP PRN ×2 (14:12→17:14)
[2018-05-21] MEDS ORDERED: *HR* Meperidine 25 MG/ML SYRINGE IVP PRN ×2 (14:12→17:14)
[2018-05-21] MEDS ORDERED: *HR* PHENYLEPHRINE 1,000 MCG/10 ML SYRINGE IVP ONE ×2 (14:35→15:54)
[2018-05-21] MEDS ORDERED: *HR* Morphine 10 MG/ML VIAL ONE (15:07)
--- NOTE | 2018-05-21 16:12 | Orthopedic Operative Note ---
Date of procedure: 05/21/18 Pre-op diagnosis: Aseptic loosening right total knee Post-op diagnosis: same Procedure: Procedure: Right revision total knee Estimated blood loss: 500 Hardware: Metal and polyethylene replacement. Biomet SSK femur: 70, 15 lateral distal augment, 5 mm distal medial augment, 20 x 80 stem Tibia: 83, medial and lateral 6 mm tibial augments, 14 x 80 stem. Constrained Annemarie: 16 Exam Under anesthesia: Significant varus valgus instability, well-healed incision, positive swelling or erythema. Procedural Notes: Gross loosening of femoral component. Operative procedure: The patient was brought to the operating room and placed on the operating room table. After general anesthesia was administered the operative knee was examined. Findings were noted in the exam under anesthesia. The operative extremity was prepped and draped in sterile surgical fashion. The patient received IV antibiotics prior to skin incision. A standard midline incision was made centered over the patella through the old incision. The incision was made through the skin and subcutaneous tissue. A medial parapatellar tendon approach was performed. Care was taken to preserve tissue along the medial aspect of the patella. And to protect the patella tendon. The deep MCL was released off the medial tibia. The infra patella fat pad was excised. Fluid was encountered this was normal joint fluid, Cultures were obtained and gram . I extensive synovectomy was performed at this time. Examination of the patella revealed no abnormal wear. The knee was brought into flexion the poly-was removed. The femoral component was grossly loose and removed without significant force no additional bone loss was encountered but the patient's significant bone loss from previous surgery. Attention was then turned to the tibial component. The interface between the patient's tibial component and tibia was disrupted with an oscillating saw and osteotome, was used to remove the tibial component by disrupting the interface between the patient's tibial component and the patients proximal tibia. The tibial component was removed without any additional bone loss, but the patient had a central cavitary defect from previous surgery which was filled with cement which came out attached to the implant. The tibia was sized to a 83 it was reamed up to a 14 x 80 Trial had good fit and fixation with a medial and lateral 6 mm augments. The femur was sized to a 70, was reamed up to a 20 x 80. The finishing guide was seated and the box cut was made. The trial had good fit and fixation, bone loss was made up with a 15 mm distal femoral augment and a 5 mm distal medial augment. Both trial components were seated and the 16 constrained Annemarie was seated and secured. The knee had full flexion and full extension with no instability. Patella had excellent patella tracking. The trial components were removed. The knee sat for 2 minutes with a antibacterial solution. It was irrigated out with 2 L of pulse irrigation. The components were assembled on the back table, the tibia cemented first followed by the femur. The 16 constrained liner was seated and secure. The knee was brought to full extension while the cement hardened. After the cement hardened the knee was irrigated out again. The extensor mechanism was closed with a running #2 PDS suture. The deep tissue was irrigated and closed deep with #1 PDS suture superficially with 0 PDS suture. The skin was closed with skin kait. The patient was placed in a sterile dressing and postoperative brace. They were extubated and transferred to recovery room in stable condition. Anesthesia: GETA Surgeon: Jeremias Fonseca Was there an assistant professor of business present: No Estimated blood loss (cc): 500 Condition: stable Disposition: PACU
[2018-05-21] MEDS: *HR* HYDROmorphone (PF) 1 MG/ML SYRINGE IVP PRN ×4 (16:20→16:55)
[2018-05-21 16:31] LABS: Hematocrit 31.1 % (37.5-50.1); Hemoglobin 10.4 g/dL (12.9-16.9)
[2018-05-21] MEDS ORDERED: Acetaminophen IV 1,000 MG/100 ML INFUS..BTL IVPB ONE (16:53)
--- NOTE | 2018-05-21 16:56 | Event Note ---
Date of Encounter: 05/21/18 Time of Encounter: 12:25 Patient seen at bedside. States all questions/concerns have been addressed re: surgery. Patient awaiting transport down to surgery.
[2018-05-21] MEDS ORDERED: Acetaminophen 325 MG TABLET PO PRN (17:14)
[2018-05-21] MEDS ORDERED: Ringers Solution, Lactated 1,000 ML IVC SCH (17:14)
[2018-05-21] MEDS ORDERED: *HR* HYDROmorphone (PF) 1 MG/ML SYRINGE IVP PRN (17:14)
[2018-05-21] MEDS ORDERED: D5% in Water 1,000 ML IVC PRN (17:14)
[2018-05-21] MEDS ORDERED: *HR* Metoprolol 5 MG/5 ML VIAL IVP PRN (17:14)
[2018-05-21] MEDS ORDERED: *HR* HYDROcodone/Acet 5/325 mg TABLET PO PRN (17:14)
[2018-05-21] MEDS ORDERED: Sennosides 8.6 MG TABLET PO PRN (17:14)
[2018-05-21] MEDS ORDERED: Dextrose Gel 15 GM/37.5 ML TUBE PO PRN ×2 (17:14)
[2018-05-21] MEDS ORDERED: Temazepam 15 MG CAPSULE PO PRN (17:14)
[2018-05-21] MEDS ORDERED: *HR* Dextrose 50 % in Water (Syg) 50 ML SYRINGE IVP PRN (17:14)
[2018-05-21] MEDS ORDERED: MOM Conc 10 ML UD.LIQ PO PRN (17:14)
--- NOTE | 2018-05-21 17:21 | Anesthesia Evaluation Post Op ---
Date of Encounter: 05/21/18 Time of Encounter: 17:30 - Vital Signs Vital Signs: Vital Signs/O2 Sat/Glucose, Most Current Temp Pulse Resp BP Pulse Ox 05/21/18 17:19 98.0 F 99 14 113/70 98 05/21/18 17:11 102 16 106/65 98 05/21/18 17:01 108 16 96/67 98 05/21/18 16:51 97.9 F 99 16 111/73 98 05/21/18 16:41 111 16 110/82 97 05/21/18 16:31 93 16 104/77 97 05/21/18 16:21 98 16 92/64 98 05/21/18 16:11 97.8 F 113 16 104/77 93 05/21/18 14:12 101 16 105/73 96 05/21/18 13:39 112 18 115/88 96 - Lungs Lungs: Clear Ascult./Percussion - Airway Airway: Non-obstructed - Cardiovascular Regular Rate - Mental Status Mental Status: Alert & Oriented, Answers Appropriately - Pain Pain Scale: 0 - Nausea Vomiting Nausea Vomiting: Not Present - Hydration Hydration: Ice chips - Discharge PostOp Status: Transfer Patient to floor
[2018-05-21] MEDS ORDERED: *HR* Warfarin 2.5 MG TABLET PO SCH (19:30)
[2018-05-21] MEDS ORDERED: 0.9 % Sodium Chloride 250 ML ONE (20:20)
[2018-05-22] MEDS ORDERED: 0.9 % Sodium Chloride 250 ML ONE (01:29)
[2018-05-22] MEDS: *HR* Morphine Sulfate SR (12 HR) 60 MG TABLET.ER PO SCH ×3 (05:50→21:57)
--- NOTE | 2018-05-22 06:45 | Orthopedics Progress Note ---
Date of Encounter: 05/22/18 Time of Encounter: 06:45 Subjective Principal diagnosis: Pre-op, A-Fib RVR Interval history: Patient was seen this morning doing well without complaints. Afebrile vital signs stable. Episodes of hypotension Operative extremity: Neurovascularly intact Dressing clean dry and intact Calves nontender Assessment and plan: Continue with postoperative care Hemoglobin 11 continue to monitor vitals and labs closely Gram stain negative Objective Vital signs: Vital Signs Temp Pulse Resp BP Pulse Ox 05/22/18 04:21 97.4 F L 90 15 98/70 96 05/22/18 02:05 97.7 F 108 18 112/78 97 05/22/18 01:50 97.8 F 105 16 111/79 98 05/22/18 01:04 97.9 F 92 20 101/67 97 05/21/18 22:39 98.0 F 99 14 98/60 95 05/21/18 22:24 97.7 F 88 16 94/60 95 05/21/18 20:10 97.7 F 86 14 100/67 92 05/21/18 19:35 97.7 F 94 16 105/73 92 05/21/18 18:16 97.8 F 90 14 84/64 95 05/21/18 17:51 97.9 F 114 14 90/63 94 05/21/18 17:19 98.0 F 99 14 113/70 98 05/21/18 17:11 102 16 106/65 98 05/21/18 17:01 108 16 96/67 98 05/21/18 16:51 97.9 F 99 16 111/73 98 05/21/18 16:41 111 16 110/82 97 05/21/18 16:31 93 16 104/77 97 05 16:21 98 16 92/64 98 05/21/18 16:11 97.8 F 113 16 104/77 93 05/21/18 14:12 101 16 105/73 96 05/21/18 13:39 112 18 115/88 96 05/21/18 11:14 98.2 F 93 18 112/73 94 05/21/18 07:59 95 05/21/18 06:54 98.0 F 104 18 116/77 95 Intake and Output 05/21/18 05/21/18 05/22/18 15:59 23:59 07:59 Intake Total 200 / 200 1057 / 1057 Output Total 1000 / 1000 750 / 750 1200 / 1200 Balance -1000 / -1000 -550 / -550 -143 / -143 Intake: IV Fluids 200 / 200 Ofirmev 1,000 mg/100 ml 1,000 100 / 100 mg In 100 ml @ 400 mls/hr IVPB ONCE ONE Rx#:[id number] Ancef 2,000 MG In 0.9 % Sodium 100 / 100 Chloride 100 ML @ 200 mls/hr IVPB Q8H [facility] Rx#:[id number] Oral 400 / 400 Blood Product 0 / 0 657 / 657 Rbcs Leuko Poor As-1 Unit 0 / 0 307 / 307 [id number] Rbcs Leuko Poor As-1 Unit 350 / 350 [id number] Output: Urine 1000 / 1000 250 / 250 1200 / 1200 Estimated Blood Loss 500 / 500 Other: # Voids 1 Blood Glucose* 168 310 - Labs CBC & BMP: 05/22/18 05:44 05/21/18 00:32 Labs: Abnormal lab results RBC 3.12 M/mcL (4.19-5.50) L 05/21/18 00:32 Hgb 11.0 g/dL (12.9-16.9) L 05/22/18 05:44 Hct 33.0 % (37.5-50.1) L 05/22/18 05:44 Eosinophils # 0.7 K/mcL (0.0-0.6) H 05/21/18 00:32 ESR 42 mm/hr (0-10) H 05/19/18 09:08 PT 20.9 Seconds (9.4-12.1) H 05/21/18 00:32 Carbon Dioxide 33 mEq/L (23-29) H 05/21/18 00:32 Glucose 162 mg/dL (70-105) H 05/21/18 00:32 POC Glucose 168 mg/dL (70-99) H 05/21/18 11:15 Calcium 8.5 mg/dL (8.6-10.3) L 05/21/18 00:32 Total Bilirubin 1.7 mg/dL (0.3-1.0) H 05/21/18 00:32 Troponin I 0.05 ng/mL (< 0.04) H* 05/19/18 14:53 C-Reactive Protein 176 mg/L (Less than 10) H 05/19/18 03:20 B-Natriuretic Peptide 420 pg/mL (Less than 100) H 05/19/18 03:20 Serum Total Protein 5.4 g/dL (6.4-8.9) L 05/21/18 00:32 Albumin 2.6 g/dL (3.5-5.7) L 05/21/18 00:32 Albumin/Globulin Ratio 0.9 (1.1-2.2) L 05/21/18 00:32 HDL Cholesterol 21 mg/dL (40-59) L 05/19/18 03:20 Urine Glucose (UA) 500 mg/dL (Normal) H 05/19/18 09:20 Urine Blood Moderate (Negative) H 05/19/18 09:20 Urine Microscopic RBC 5-15 per hpf (0-3) H 05/19/18 09:20 - VTE Documentation of Mechanical Device: Venous foot pump, device Consult Discharge Plan - Plan [facility]errals: [facility] [Primary Care Provider] -
[2018-05-22 07:17] LABS: BUN/Creatinine Ratio 15 (6-26); Blood Urea Nitrogen 13 mg/dL (8-23); Calcium 8.4 mg/dL (8.6-10.3); Carbon Dioxide 34 mEq/L (23-29); Chloride 96 mEq/L (98-107); Glucose 402 mg/dL (70-105); Osmolality,Calculated 295 (280-300); Potassium 5.3 mEq/L (3.5-5.1); Sodium 134 mEq/L (136-145); eGFR For African Americans > 60 (> 60); eGFR For Non-African Americans > 60 (> 60)
[2018-05-22] MEDS: Insulin LISPRO 300 UNITS/3 ML VIAL SQ SCH ×4 (07:23→21:13)
[2018-05-22] MEDS: Gabapentin 300 MG CAPSULE PO SCH ×2 (07:32→20:55)
[2018-05-22] MEDS: Cholecalciferol (D-3) 1,000 UNIT TABLET PO SCH (07:33)
[2018-05-22] MEDS: Furosemide 20 MG TABLET PO SCH (07:33)
[2018-05-22] MEDS: Aspirin Enteric Coated 81 MG Tablet PO SCH (07:33)
[2018-05-22] MEDS: Insulin NPH/REG 70/30 100 UNIT/ML (x5UNIT) SQ SCH ×2 (07:52→17:06)
--- NOTE | 2018-05-22 08:45 | Internal Med Progress Note ---
<Mac Pan S - Last Filed: 05/22/18 12:59> Date of Encounter: 05/22/18 Time of Encounter: 06:45 - Assessment and plan (1) Fracture, femoral Current Visit: Yes Status: Acute Assessment and plan: POD#1 s/p rt total knee replacement. Pt tolerated procedure well. Is stable. PTOT to ambulate. Qualifiers: Encounter type: initial encounter Femur location: distal Fracture type: closed Fracture morphology: unspecified fracture morphology Laterality: right Qualified Code(s): S72.401A - Unspecified fracture of lower end of right femur, initial encounter for closed fracture (2) Atrial fibrillation with RVR Current Visit: Yes Status: Resolved Assessment and plan: On Lopressor 50mg as per cardiology. HR this morning 102. Irregular on auscultation. HR average is 100 since 2AM. (3) DVT prophylaxis Current Visit: Yes Status: Acute Assessment and plan: Plan to restart coumadin if ok with surgery. Check INR/PT. (4) Diabetes mellitus Current Visit: Yes Status: Chronic Assessment and plan: Sliding scale insulin Qualifiers: Diabetes mellitus type: type 2 Diabetes mellitus complication status: without complication Qualified Code(s): E11.9 - Type 2 diabetes mellitus without complications (5) Hypokalemia Current Visit: Yes Status: Resolved Assessment and plan: K today is 5.3 - Time Spent With Patient Total time spent is greater than 50% in coordination of care (as documented) at patient's floor/unit and/or counseling patient: less than 15 minutes - Subjective Interval history: Pt is seen at bedside. He is POD#1 s/p right total knee repalcement today. He denies any chest pain, SOB, palpiltations, numbness/tingling, nausea/vomiting/ diarrhea. Tolerating food. No bowel movement. PTOT to ambulate. Pt [facility] PT [facility]. - Constitutional Vitals: Temp Pulse Resp BP Pulse Ox 98.0 F 102 18 108/69 98 05/22/18 07:06 05/22/18 07:06 05/22/18 07:06 05/22/18 07:06 05/22/18 07:42 General appearance: Present: A&O X 3, pleasant, no acute distress - Head Head exam: Present: atraumatic, normal inspection - Neck Neck exam general surgery: Present: supple - Respiratory Respiratory exam: Present: CTAB - Cardiovascular Cardiovascular exam: Present: irregular rhythm - GI/Abdominal GI/Abdominal exam: Present: hypoactive bowel sounds, soft, no peritoneal signs. Absent: rebound, rigid - Incison Incision: Present: clean and dry, intact - Neurological Exam Neurological exam: Present: no focal deficits - Skin Skin exam: Present: intact Internal Medicine: Result - Labs CBC & Chem 7: 05/22/18 05:44 05/22/18 06:40 Labs: Short CBC 05/21/18 05/22/18 Range/Units 16:20 05:44 Hgb 10.4 L 11.0 L (12.9-16.9) g/dL Hct 31.1 L 33.0 L (37.5-50.1) % BMP 05/22/18 06:40 Sodium 134 L Potassium 5.3 H Chloride 96 L Carbon Dioxide 34 H BUN 13 Creatinine 0.89 Glucose 402 H Calcium 8.4 L - ABG Interpretation ABG results: PT/INR, D-dimer PT 20.9 Seconds (9.4-12.1) H 05/21/18 00:32 - Impressions Impressions Knee X-Ray 05/21/18 16:01 IMPRESSION: Status post revised right total knee replacement. D/ / 05/21/2018 17:07:54 [facility]ran[facility] MD / [facility] Interpreting Provider: Barry Carranza MD - VTE Documentation of Mechanical Device: Venous foot pump, device Consult Discharge Plan - Plan [facility]errals: [facility] [Primary Care Provider] - <Molina Rosa - Last Filed: 05/22/18 19:21> Date of Encounter: 05/22/18 - Assessment and plan (1) Fracture, femoral Current Visit: Yes Status: Acute (2) Atrial fibrillation with RVR Current Visit: Yes Status: Resolved (3) DVT prophylaxis Current Visit: Yes Status: Acute (4) Diabetes mellitus Current Visit: Yes Status: Chronic Qualifiers: Diabetes mellitus type: type 2 Diabetes mellitus complication status: without complication Qualified Code(s): E11.9 - Type 2 diabetes mellitus without complications (5) Hypokalemia Current Visit: Yes Status: Resolved - Time Spent With Patient Total time spent is greater than 50% in coordination of care (as documented) at patient's floor/unit and/or counseling patient: - Constitutional Vitals: Temp Pulse Resp BP Pulse Ox 98.6 F 107 17 95/60 92 05/22/18 15:01 05/22/18 15:01 05/22/18 15:01 05/22/18 15:01 05/22/18 15:01 Internal Medicine: Result - Labs CBC & Chem 7: 05/22/18 05:44 05/22/18 18:16 Labs: Short CBC 05/22/18 Range/Units 05:44 Hgb 11.0 L (12.9-16.9) g/dL Hct 33.0 L (37.5-50.1) % BMP 05/22/18 05/22/18 06:40 18:16 Sodium 134 L 137 Potassium 5.3 H 4.0 Chloride 96 L 98 Carbon Dioxide 34 H 35 H BUN 13 17 Creatinine 0.89 0.98 Glucose 402 H 149 H Calcium 8.4 L 8.6 - ABG Interpretation ABG results: PT/INR, D-dimer PT 20.9 Seconds (9.4-12.1) H 05/21/18 00:32 - Attending Attestation I examined this patient and my medical decision-making was reviewed with the Resident Physician. I agree with the documented findings, disposition and treatment plan as described except to the extent set forth below.
[2018-05-22] MEDS ORDERED: *HR* Warfarin 2.5 MG TABLET PO SCH (18:00)
--- NOTE | 2018-05-22 18:05 | Event Note ---
Date of Encounter: 05/22/18 Time of Encounter: 13:20 PCR- POD#1 status post revision right knee Dr. Fonseca 05/21/18 PCR - Patient seen at bedside. Labwork and medications reviewed. H/H 11.0/33.0; elevated potassium - will redraw Vital signs reviewed. Pain control: Adequate Participating in PT. TROM BRACE IN LOCKED EXTENSION AT ALL TIMES. All questions and concerns addressed. Educated on use of incentive spirometer, ambulation, and hydration. Patient educated on post-operative restrictions and care. Addressed: see above. D/C plan: Home with home health when released by hospitalist team.
[2018-05-22 18:47] LABS: BUN/Creatinine Ratio 17 (6-26); Blood Urea Nitrogen 17 mg/dL (8-23); Calcium 8.6 mg/dL (8.6-10.3); Carbon Dioxide 35 mEq/L (23-29); Chloride 98 mEq/L (98-107); Glucose 149 mg/dL (70-105); Osmolality,Calculated 288 (280-300); Sodium 137 mEq/L (136-145); eGFR For African Americans > 60 (> 60); eGFR For Non-African Americans > 60 (> 60)
[2018-05-23 04:01] LABS: Hematocrit 32.3 % (37.5-50.1); Hemoglobin 11.2 g/dL (12.9-16.9)
[2018-05-23 04:15] LABS: INR 2.1; Prothrombin Time 23.9 Seconds (9.4-12.1)
[2018-05-23 04:25] LABS: BUN/Creatinine Ratio 17 (6-26); Blood Urea Nitrogen 15 mg/dL (8-23); Calcium 8.8 mg/dL (8.6-10.3); Carbon Dioxide 36 mEq/L (23-29); Chloride 99 mEq/L (98-107); Glucose 100 mg/dL (70-105); Osmolality,Calculated 289 (280-300); Potassium 3.8 mEq/L (3.5-5.1); Sodium 139 mEq/L (136-145); eGFR For African Americans > 60 (> 60); eGFR For Non-African Americans > 60 (> 60)
[2018-05-23] MEDS: *HR* Morphine Sulfate SR (12 HR) 60 MG TABLET.ER PO SCH ×2 (05:46→13:41)
--- NOTE | 2018-05-23 06:38 | Orthopedics Progress Note ---
Date of Encounter: 05/23/18 Time of Encounter: 06:37 Subjective Principal diagnosis: Pre-op, A-Fib RVR Interval history: Patient was seen this morning doing well without complaints. Afebrile vital signs stable. Episodes of hypotension Operative extremity: Neurovascularly intact Dressing clean dry and intact Calves nontender Assessment and plan: Continue with postoperative care Orthopedically stable for discharge Objective Vital signs: Vital Signs Temp Pulse Resp BP Pulse Ox 05/23/18 05:19 97.8 F 117 16 113/71 96 05/22/18 23:05 97.9 F 112 18 134/76 92 05/22/18 21:03 97.8 F 119 16 106/74 93 05/22/18 15:01 98.6 F 107 17 95/60 92 05/22/18 10:59 97.9 F 98 18 101/67 93 05/22/18 07:42 98 05/22/18 07:06 98.0 F 102 18 108/69 99 Intake and Output 05/22/18 05/22/18 05/23/18 15:59 23:59 07:59 Intake Total 240 / 240 540 / 540 750 / 750 Output Total 100 / 100 675 / 675 2100 / 2100 Balance 140 / 140 -135 / -135 -1350 / -1350 Intake: Oral 240 / 240 540 / 540 750 / 750 Output: Urine 100 / 100 675 / 675 2100 / 2100 Other: Meal Lunch Dinner Percent of Meal Consumed 100% 100% Stool Size Small Stool Consistency formed Stool Color Brown # Voids 1 # Bowel Movements 1 Blood Glucose* 275 129 - Labs CBC & BMP: 05/23/18 03:46 05/23/18 03:46 Labs: Abnormal lab results RBC 3.12 M/mcL (4.19-5.50) L 05/21/18 00:32 Hgb 11.2 g/dL (12.9-16.9) L 05/23/18 03:46 Hct 32.3 % (37.5-50.1) L 05/23/18 03:46 Eosinophils # 0.7 K/mcL (0.0-0.6) H 05/21/18 00:32 ESR 42 mm/hr (0-10) H 05/19/18 09:08 PT 23.9 Seconds (9.4-12.1) H 05/23/18 03:46 Carbon Dioxide 36 mEq/L (23-29) H 05/23/18 03:46 POC Glucose 103 mg/dL (70-99) H 05/22/18 16:23 Total Bilirubin 1.7 mg/dL (0.3-1.0) H 05/21/18 00:32 Troponin I 0.05 ng/mL (< 0.04) H* 05/19/18 14:53 C-Reactive Protein 176 mg/L (Less than 10) H 05/19/18 03:20 B-Natriuretic Peptide 420 pg/mL (Less than 100) H 05/19/18 03:20 Serum Total Protein 5.4 g/dL (6.4-8.9) L 05/21/18 00:32 Albumin 2.6 g/dL (3.5-5.7) L 05/21/18 00:32 Albumin/Globulin Ratio 0.9 (1.1-2.2) L 05/21/18 00:32 HDL Cholesterol 21 mg/dL (40-59) L 05/19/18 03:20 Urine Glucose (UA) 500 mg/dL (Normal) H 05/19/18 09:20 Urine Blood Moderate (Negative) H 05/19/18 09:20 Urine Microscopic RBC 5-15 per hpf (0-3) H 05/19/18 09:20 - VTE Documentation of Mechanical Device: Venous foot pump, device Consult Discharge Plan - Plan [facility]errals: [facility] [Primary Care Provider] -
[2018-05-23] MEDS: Insulin NPH/REG 70/30 100 UNIT/ML (x5UNIT) SQ SCH (08:12)
[2018-05-23] MEDS ORDERED: Insulin NPH/REG 70/30 100 UNIT/ML (x5UNIT) SQ ONE (08:13)
[2018-05-23] MEDS: Cholecalciferol (D-3) 1,000 UNIT TABLET PO SCH (08:21)
[2018-05-23] MEDS: Furosemide 20 MG TABLET PO SCH (08:21)
[2018-05-23] MEDS: Aspirin Enteric Coated 81 MG Tablet PO SCH (08:21)
[2018-05-23] MEDS: Insulin LISPRO 300 UNITS/3 ML VIAL SQ SCH ×2 (08:21→12:04)
[2018-05-23] MEDS: Gabapentin 300 MG CAPSULE PO SCH (08:21)
[2018-05-23 10:41] VITALS: BP 118/76
--- NOTE | 2018-05-23 14:33 | Discharge Summary ---
Orders not resulted at time of discharge: Pending orders 05/21/18 08:02 PLASMA [BBK] Stat Red Blood Cells [BBK] Stat Type and Screen [BBK] Stat 05/21/18 13:45 US anesthesia pain block [US] Routine 05/21/18 14:52 Culture,Anaerobic [] Routine Culture,Wound [RM] Stat Date of Encounter: 05/23/18 Time of Encounter: 14:28 - Discharge Diagnosis (1) Fracture, femoral Priority: Primary Status: Acute (2) Atrial fibrillation with RVR Priority: Secondary Status: Resolved (3) DVT prophylaxis Priority: Secondary Status: Acute (4) Diabetes mellitus Priority: Secondary Status: Chronic Qualifiers: Diabetes mellitus type: type 2 Diabetes mellitus complication status: without complication Qualified Code(s): E11.9 - Type 2 diabetes mellitus without complications (5) Hypokalemia Priority: Secondary Status: Resolved Hospital course: Mr. Martin is a 68 year old male with history of atrial fibrillation on coumadin , hemochromatosis, and diabetes presented from [place] for a fracture of distal femur and displacement of knee hardware. Patient was also seen to be in atrial fibrillation with RVR requiring IV metoprolol. He was admitted for further monitoring. He was briefly placed on a cardizem drip and was transitioned back to oral home medications and heart rate became within acceptable limits. Cardiology was consulted for pre op clearance and patient underwent right knee hardware revision surgery on 05/21. He tolerated procedure well. PT/OT evaluated patient and recommended home health care. He is being discharge with plan to set up these services. He has family to help with him tomorrow until CASEWORKER comes by to see him. His heart rate remains normal and patient was stable for discharge. - Time Spent with Patient Total time spent providing and/or coordinating discharge services: - Discharge Medications Prescriptions: HYDROcodone/Acet 5/325 mg [[place] 5-325 mg] 1 tab PO Q6HR PRN 5 Days #20 tablet PRN Reason: Moderate Pain Tamsulosin [Flomax] 0.4 mg PO DAILY #30 capsule Home Medications: Insulin NPH Hum/Reg Insulin Hm [Novolin 70-30 100 Unit/ml Vial] 50 unit SQ QAM 11/27/15 [History] Metoprolol [Lopressor] 12.5 mg PO BID 11/27/15 [History] Aspirin [Lo-Dose Aspirin EC] 81 mg PO DAILY 05/18/18 [History] Gabapentin [Neurontin] 300 mg PO BID 05/18/18 [History] Insulin NPH Hum/Reg Insulin Hm [Novolin 70-30 100 Unit/ml Vial] 40 unit SQ QPM 05/18/18 [History] Morphine Sulfate SR (12 HR) [MS Contin] 60 mg PO Q8HR 05/18/18 [History] Warfarin Sodium 2.5 mg PO SUMOTUWETHSA 05/18/18 [History] Warfarin Sodium 3.75 mg PO FR 05/18/18 [History] Ergocalciferol (VITAMIN D2) [Vitamin D] 200 unit PO DAILY 05/19/18 [History] Furosemide [Lasix] 10 mg PO DAILY 05/19/18 [History] Paroxetine [Paxil] 20 mg PO DAILY 05/19/18 [History] HYDROcodone/Acet 5/325 mg [[place] 5-325 mg] 1 tab PO Q6HR PRN 5 Days #20 tablet 05/23/18 [Rx] Tamsulosin [Flomax] 0.4 mg PO DAILY #30 capsule 05/23/18 [Rx] Allergies/Adverse Reactions: 3 Allergy/AdvReac Type Severity Reaction Status Date / Time No Known Allergies Allergy Verified 05/18/18 21:34 Date of admission: 05/19/18 20:40 [facility] care physician: [facility] Consults: 05/21/18 17:14 Consult to Orthopedic Navigator [CONS] [CONS] Routine Consult to Physical Therapy [CONS] Routine Comment: Evaluate, develop and impliment POC Reason for Consult: post knee surgery Does patient have active BEDREST order?: No Is patient medically & hemodynamically stable?: Yes Consult to Rivet Tester [CONS] Routine Reason for SW Consult: post op joint replacement RT Post Op Consult [CONS] Routine Discharging clinician: Molina Rosa - Constitutional Vitals: Temp Pulse Resp BP Pulse Ox 98.4 F 108 16 118/76 98 05/23/18 09:53 05/23/18 09:53 05/23/18 09:53 05/23/18 09:53 05/23/18 09:53 General appearance: Present: A&O X 3, pleasant, no acute distress Exam: - Head Head exam: Present: atraumatic, normal inspection - Neck Neck exam general surgery: Present: supple - Respiratory Respiratory exam: Present: CTAB - Cardiovascular Cardiovascular exam: Present: irregular rhythm - GI/Abdominal GI/Abdominal exam: Present: normal bowel sounds, soft, no peritoneal signs - Neurological Exam Neurological exam: Present: alert, oriented X3, no focal deficits - Skin Skin exam: Present: intact - Patient Status Disposition: Home Health Service Condition: Good Functional capacity at discharge: uses cane/walker Overall status at discharge: patient is progressing back to baseline - Discharge Instructions Follow Up With: [facility] [Primary Care Provider] - - Diet and Activity Activity: as per physical therapy Diet: advance to your usual diet, diabetic diet, low fat, low cholesterol, low salt diet - VTE Documentation of Mechanical Device: Venous foot pump, device
--- NOTE | 2018-05-23 14:43 | Physician Discharge Referral ---
Home Health/Hosp Referral Info Transfer to: Home Health Provider in Charge Post Discharge: PCP - Diagnosis (1) Atrial fibrillation with RVR Priority: Primary Status: Resolved (2) Fracture, femoral Priority: Secondary Status: Acute (3) DVT prophylaxis Priority: Secondary Status: Acute (4) Diabetes mellitus Priority: Secondary Status: Chronic (5) Hypokalemia Priority: Secondary Status: Resolved - Respiratory Orders Smoking Cessation: Smoking cessation has been advised. For more information, call the [place] Tobacco Quit Line at 9-796-NSCJ-NOW. - Diet/Nutrition Diet/Nutrition Orders: No Added Salt (SUSAN), No Concentrated Sweets - Activity Activity: List: as per physical therapy - Services Needed Following services are medically necessary services: Nursing, Home Health Aide, Physical Therapy, Occupational Therapy - Transfer Medications Prescriptions: HYDROcodone/Acet 5/325 mg [[place] 5-325 mg] 1 tab PO Q6HR PRN 5 Days #20 tablet PRN Reason: Moderate Pain Tamsulosin [Flomax] 0.4 mg PO DAILY #30 capsule Home Medications: Insulin NPH Hum/Reg Insulin Hm [Novolin 70-30 100 Unit/ml Vial] 50 unit SQ QAM 11/27/15 [History] Metoprolol [Lopressor] 12.5 mg PO BID 11/27/15 [History] Aspirin [Lo-Dose Aspirin EC] 81 mg PO DAILY 05/18/18 [History] Gabapentin [Neurontin] 300 mg PO BID 05/18/18 [History] Insulin NPH Hum/Reg Insulin Hm [Novolin 70-30 100 Unit/ml Vial] 40 unit SQ QPM 05/18/18 [History] Morphine Sulfate SR (12 HR) [MS Contin] 60 mg PO Q8HR 05/18/18 [History] Warfarin Sodium 2.5 mg PO SUMOTUWETHSA 05/18/18 [History] Warfarin Sodium 3.75 mg PO FR 05/18/18 [History] Ergocalciferol (VITAMIN D2) [Vitamin D] 200 unit PO DAILY 05/19/18 [History] Furosemide [Lasix] 10 mg PO DAILY 05/19/18 [History] Paroxetine [Paxil] 20 mg PO DAILY 05/19/18 [History] HYDROcodone/Acet 5/325 mg [[place] 5-325 mg] 1 tab PO Q6HR PRN 5 Days #20 tablet 05/23/18 [Rx] Tamsulosin [Flomax] 0.4 mg PO DAILY #30 capsule 05/23/18 [Rx] Allergies/Adverse Reactions: 3 Allergy/AdvReac Type Severity Reaction Status Date / Time No Known Allergies Allergy Verified 05/18/18 21:34 Certification: Further, I certify that my clinical findings support that this patient is homebound (i.e. absences from home require considerable and taxing effort and are for medical reasons or scientologist services or infrequently or short duration when for other reasons) because: Homebound Reason: Post-surgery restriction and or conditions limit ability to leave home Attestation: My signature below is to certify that this patient is under my care and that I, or nurse practitioner, or a physician's tv production assistant working with me, has a face-to -face encounter with this patient.
== END 2018-05-23 15:40 | disposition home health service (06) | DRG 467 ==
LOC: EMEROO 18:58 → 3NENU 18:58
PROVIDERS: ADMIT Internal Medicine Nephrology; ATTEND Internal Medicine Nephrology

== ENCOUNTER 2018-07-14 18:40 | Inpatient (IN) ==
--- NOTE | 2018-07-14 18:57 | Emergency Department Note ---
Disposition Clinical Impression: Confusion Right knee pain Qualifiers: Chronicity: acute Qualified Code(s): M25.561 - Pain in right knee Disposition: Still a Patient Condition: Good Time of Disposition: 19:38 General Adult HPI - General Stated complaint: knee pain Time Seen by Provider: 07/14/18 18:42 Source: patient Mode of arrival: EMS Limitations: no limitations - History of Present Illness HPI Narrative: This is a 68-year-old male who comes to emergency department concerned about pain swelling and warmth of his right knee. This is the third knee replacement in his right knee. He apparently damaged first 2 falling. Last knee replacement was performed May 21 here. He states the fall was last night. - Related Data Home Medications Medication Instructions Recorded Confirmed Aspirin [Lo-Dose Aspirin EC] 81 mg PO DAILY 06/04/18 06/04/18 Cholecalciferol (D-3) [Vitamin D] 1,000 unit PO DAILY 06/04/18 06/04/18 Dextrose [Glucose] 4 gm PO ONCE PRN 06/04/18 06/04/18 Finasteride [Proscar] 5 mg PO HS 06/04/18 06/04/18 Furosemide [Lasix] 20 mg PO Q48H 06/04/18 06/04/18 Gabapentin [Neurontin] 300 mg PO BID 06/04/18 06/04/18 Insulin NPH Hum/Reg Insulin Hm 40 unit SQ QPM 06/04/18 06/04/18 [Novolin 70-30 100 Unit/ml Vial] Insulin NPH Hum/Reg Insulin Hm 50 unit SQ QAM 06/04/18 06/04/18 [Novolin 70-30 100 Unit/ml Vial] Morphine Sulfate SR (12 HR) [MS 1 tab PO Q8HR 06/04/18 06/04/18 Contin] Paroxetine HCl [Paxil] 20 mg PO HS 06/04/18 06/04/18 hydrOXYzine HCl [Hydroxyzine HCl] 25 mg PO DAILY PRN 06/04/18 06/04/18 Previous Rx's Medication Instructions Recorded Metoprolol Succinate [Toprol Xl] 25 mg PO DAILY 30 Days #30 06/08/18 tab.er.24h Allergies Allergy/AdvReac Type Severity Reaction Status Date / Time No Known Allergies Allergy Verified 05/18/18 21:34 All systems ED: reviewed and negative except as stated. Musculoskeletal: Reports: joint swelling, arthralgia Past Medical History - Past Medical History Medical history: Reports: atrial fibrillation, cancer, CHF, diabetes, other Surgical history: Reports: knee replacement, other (Right TKR x 3, RIght and finger surgery, Left wrist surgery, Excision melanoma (back), ) Psychiatric history: Reports: anxiety, depression, PTSD - Social History Smoking Status: Former smoker Smokeless Tobacco Status: No Alcohol use: Reports: none Drug use: Reports: none Physical Exam - General Limitations: no limitations General appearance: alert, in no apparent distress - Head Head exam: atraumatic, normocephalic, normal inspection - Eye Eye exam: Present: normal appearance, PERRL, EOMI - Chest Chest inspection: Present: normal inspection, symmetric chest wall rise - Respiratory Respiratory exam: Present: normal lung sounds bilaterally - Cardiovascular Cardiovascular exam: Present: regular rate, normal rhythm, normal heart sounds - Abdominal Exam Abdominal exam: Present: soft, tenderness. Absent: distention, guarding, rebound, rigidity Abdominal tenderness: Present: mild (Mild tenderness at the inferior aspect of the right upper quadrant which she states is been fully evaluated in the past.) - Extremities Exam Extremities exam: Present: joint swelling (The right knee is significantly swollen, there is an incision midline anterior it appears well-healed, the joint is warm) - Back Exam Back exam: Absent: CVA tenderness (R), CVA tenderness (L) - Neurological Exam Neurological exam: Present: alert, oriented X3, CN II-XII intact. Absent: motor sensory deficit - Psychiatric Psychiatric exam: Present: normal affect, normal mood - Skin Skin exam: Present: warm, dry Course Course Narrative: This is an old appearing 68-year-old male with right knee pain concerning for damage to his joint. Also concerning for possible head injury with intracranial hemorrhage since he is on warfarin and does not remember the fall and cannot report any effects of the fall. Medical Decision Making - [facility] Narrative Medical decision making narrative: This is a 68-year-old male who appears confused and who also has fallen and injured his right knee. He is anticoagulated with warfarin, and is concerning for possible subdural hemorrhage, other intracranial hemorrhage, or hemarthrosis of his right knee. He was signed out to Dr. Rivers at 7:20 PM with labs and imaging pending. - EKG Data EKG #1 EKG attestation: Yes I reviewed and interpreted this EKG. EKG results narrative: ECG showed atrial fibrillation at a rate of 108 bpm, normal intervals, normal axis, normal ST and T waves
[2018-07-14 19:23] LABS: Basophils % 0.4 %; Eosinophils # 0.1 K/mcL (0.0-0.6); Eosinophils % 1.7 %; Hematocrit 37.7 % (37.5-50.1); Hemoglobin 12.9 g/dL (12.9-16.9); Immature Granulocytes % 0.2 % (0-4); Lymphocytes # 1.1 K/mcL (0.6-4.6); Lymphocytes % 23.9 %; Mean Corpuscular HGB Conc 34.2 g/dL (31.6-35.5); Mean Corpuscular Hemoglobin 32.5 pg (28.0-33.3); Mean Platelet Volume 9.3 fL (9.4-12.4); Monocytes # 0.7 K/mcL (0.0-1.3); Monocytes % 15.4 %; Neutrophils # 2.7 K/mcL (1.6-8.9); Platelet Count 219 K/mcL (140-400); Red Blood Count 3.97 M/mcL (4.19-5.50); Red Cell Distribution Width 14.2 % (11.5-14.5); Segmented Neutrophils % 58.4 %
[2018-07-14 19:29] LABS: INR 4.1
[2018-07-14 19:34] LABS: Prothrombin Time 46.2 Seconds (9.4-12.1)
[2018-07-14 19:50] LABS: BUN/Creatinine Ratio 10 (6-26); Blood Urea Nitrogen 8 mg/dL (8-23); Carbon Dioxide 30 mEq/L (23-29); Chloride 91 mEq/L (98-107); Glucose 373 mg/dL (70-105); Osmolality,Calculated 278 (280-300); Potassium 4.1 mEq/L (3.5-5.1); Sodium 127 mEq/L (136-145); eGFR For Non-African Americans > 60 (> 60)
[2018-07-14] MEDS ORDERED: 0.9 % Sodium Chloride 1,000 ML IVC ONE ×2 (20:03→21:58)
[2018-07-14] MEDS ORDERED: Vancomycin 1,750 MG in 0.9 % Sodium Chloride 250 ML IVPB ONE (20:03)
[2018-07-14] MEDS ORDERED: Cefepime HCl 2,000 MG in Water for inj. (sterile) 20 ML 20 ML IVP ONE (20:03)
[2018-07-14] MEDS ORDERED: Isovue-370 500 ML INFUS..BTL IV ONE (20:05)
[2018-07-14 20:43] LABS: Magnesium 1.6 mg/dL (1.6-2.6); Phosphorous 2.2 mg/dL (2.7-4.5)
[2018-07-14 21:21] LABS: Bilirubin,Urine Negative (Negative); Blood,Urine Large (Negative); Clarity,Urine Clear (Clear); Color,Urine Dark Yellow (Yellow); Glucose,Urine (UA) 500 mg/dL (Normal); Ketones,Urine Negative (Negative); Leukocyte Esterase,Urine Negative (Negative); Nitrite,Urine Negative (Negative); PH,Urine 6.5 pH Units (5.0-8.0); Protein,Urine Trace mg/dL (Neg-Trace); Specific Gravity,Urine 1.013 (1.010-1.025)
[2018-07-14 21:23] LABS: Bacteria,Urine None Seen per hpf (None-Few); Hyaline Casts,Urine None Seen per lpf (None-Few); Squamous Epithelial Cell,Urine None Seen per lpf (None-Few)
[2018-07-14] MEDS ORDERED: *HR* Morphine Immed Rel 30 MG TABLET PO ONE (22:00)
--- NOTE | 2018-07-14 22:03 | Emergency Department Note ---
Disposition Clinical Impression: Confusion, Warfarin-induced coagulopathy Right knee pain Qualifiers: Chronicity: acute Qualified Code(s): M25.561 - Pain in right knee Atrial fibrillation Qualifiers: Atrial fibrillation type: chronic Qualified Code(s): I48.2 - Chronic atrial fibrillation Disposition: Admitted As Inpatient Condition: Good Time of Disposition: 07:40 General Adult HPI - General Chief complaint: ED Fall Stated complaint: knee pain Time Seen by Provider: 07/14/18 18:42 Source: patient Mode of arrival: EMS Limitations: no limitations Nursing Notes Reviewed: Yes Vital Signs Reviewed: Yes - History of Present Illness HPI Narrative: Right knee pain and swelling after a fall overnight. Has a recent history of right knee replacement. Has had this revised 3 times total. Was done by Dr. Fonseca. No reports of fevers however he was on antibiotics for possible infection to this and ran out. States he is supposed to have some more delivered to his house however it did not show up yet. He attempted to take some and Biaxin he had for dental infection with no relief. States yesterday his knee did feel fine and was cool and he thought it was doing better however this morning it is now erythematous and warm. Pain Scale: 6 - Related Data Home Medications Medication Instructions Recorded Confirmed Aspirin [Lo-Dose Aspirin EC] 81 mg PO DAILY 06/04/18 06/04/18 Cholecalciferol (D-3) [Vitamin D] 1,000 unit PO DAILY 06/04/18 06/04/18 Dextrose [Glucose] 4 gm PO ONCE PRN 06/04/18 06/04/18 Finasteride [Proscar] 5 mg PO HS 06/04/18 06/04/18 Furosemide [Lasix] 20 mg PO Q48H 06/04/18 06/04/18 Gabapentin [Neurontin] 300 mg PO BID 06/04/18 06/04/18 Insulin NPH Hum/Reg Insulin Hm 40 unit SQ QPM 06/04/18 06/04/18 [Novolin 70-30 100 Unit/ml Vial] Insulin NPH Hum/Reg Insulin Hm 50 unit SQ QAM 06/04/18 06/04/18 [Novolin 70-30 100 Unit/ml Vial] Morphine Sulfate SR (12 HR) [MS 1 tab PO Q8HR 06/04/18 06/04/18 Contin] Paroxetine HCl [Paxil] 20 mg PO HS 06/04/18 06/04/18 hydrOXYzine HCl [Hydroxyzine HCl] 25 mg PO DAILY PRN 06/04/18 06/04/18 Previous Rx's Medication Instructions Recorded Metoprolol Succinate [Toprol Xl] 25 mg PO DAILY 30 Days #30 06/08/18 tab.er.24h Allergies Allergy/AdvReac Type Severity Reaction Status Date / Time No Known Allergies Allergy Verified 05/18/18 21:34 All systems ED: reviewed and negative except as stated. Constitutional: Denies: fever, chills Cardiovascular: Denies: chest pain, syncope Respiratory: Denies: cough, dyspnea Gastrointestinal: Denies: abdominal pain, nausea, vomiting, diarrhea Genitourinary: Denies: urgency, dysuria, frequency, hematuria Musculoskeletal: Reports: joint swelling, arthralgia Integumentary: Denies: rash Neurological: Denies: weakness Past Medical History - Past Medical History Attestation: Yes The following information was validated with the patient. Source: patient Medical history: Reports: atrial fibrillation, cancer, CHF, diabetes, other Surgical history: Reports: knee replacement, other (Right TKR x 3, RIght and finger surgery, Left wrist surgery, Excision melanoma (back), ) Psychiatric history: Reports: anxiety, depression, PTSD - Social History Smoking Status: Former smoker Smokeless Tobacco Status: No Alcohol use: Reports: none Drug use: Reports: none Physical Exam - General Limitations: no limitations General appearance: alert, in no apparent distress - Head Head exam: atraumatic, normocephalic, normal inspection - Eye Eye exam: Present: normal appearance, PERRL, EOMI - ENT ENT exam: normal exam, normal oropharynx, mucous membranes moist - Neck Neck exam: Present: normal inspection, full ROM, trachea midline - Chest Chest inspection: Present: normal inspection, symmetric chest wall rise - Respiratory Respiratory exam: Present: normal lung sounds bilaterally. Absent: respiratory distress, accessory muscle use - Cardiovascular Cardiovascular exam: Present: regular rate, normal rhythm, normal heart sounds - Abdominal Exam Abdominal exam: Present: soft, Non-Tender. Absent: tenderness, distention, guarding, rebound, rigidity - Extremities Exam Extremities exam: Present: other (Right knee swollen erythematous and warm. Midline incision is healing well. No discharge. Strong pedal pulses bilaterally.) - Neurological Exam Neurological exam: Present: alert, oriented X3, other (However patient states that he thinks he has been getting more confused over the past year.) - Psychiatric Psychiatric exam: Present: normal affect, normal mood - Skin Skin exam: Present: warm, dry, intact, normal color Course Course Narrative: [facility]. He has a history of 3 knee replacements on the right. Recent swelling after a fall. Patient states that he had been doing well after this recent knee replacement however overnight he did sustain a ground-level fall. States that he noticed that his knee is now red and swollen. Patient is on Coumadin. INR is 4.1. The right knee is swollen and erythematous. [facility] to arrival here did show gas. We did a CT of patient's right knee which is concerning for septic arthritis. Patient does have pedal pulses bilaterally. We will pace the patient on IV antibiotics at this time. We will admit patient to the hospital. Patient is mentating well denies any overt fevers shortness of breath or chest pain. He denies any abdominal pain nausea vomiting or diarrhea. He appears to be in good spirits and in no distress. He reports that he takes feeding daily. We will give him a dose of this will here. - Consultations Consultation #1: Dr Napoles accepted Pt in stable condition. Time: 22:31 Vital Signs Temperature 97 F L 07/14/18 18:51 Pulse Rate 110 07/14/18 18:51 Respiratory Rate 22 07/14/18 18:51 Blood Pressure 110/84 07/14/18 18:51 O2 Sat by Pulse Oximetry 96 07/14/18 18:51 Temperature 98.5 F 07/15/18 06:45 Pulse Rate 97 07/15/18 06:45 Respiratory Rate 16 07/15/18 06:45 Blood Pressure 107/68 07/15/18 06:45 O2 Sat by Pulse Oximetry 96 07/15/18 06:45 Oxygen Delivery Oxygen Delivery Room Air Medical Decision Making - Medical Records Medical records reviewed: Yes I reviewed the patient's medical records. - Lab Data Lab results reviewed: Yes I reviewed the patient's lab results. Result diagrams: 07/14/18 19:11 07/14/18 19:11 Lab Results 07/14/18 07/14/18 07/14/18 Range/Units 19:11 19:11 19:11 WBC 4.7 (4.3-11.1) K/mcL RBC 3.97 L (4.19-5.50) M/mcL Hgb 12.9 (12.9-16.9) g/dL Hct 37.7 (37.5-50.1) % MCV 95.0 (83.0-100.0) fL MCH 32.5 (28.0-33.3) pg MCHC 34.2 (31.6-35.5) g/dL RDW 14.2 (11.5-14.5) % Plt Count 219 (140-400) K/mcL MPV 9.3 L (9.4-12.4) fL Immature Gran % 0.2 (0-4) % Seg Neutrophils % 58.4 % Lymphocytes % 23.9 % Monocytes % 15.4 % Eosinophils % 1.7 % Basophils % 0.4 % Neutrophils # 2.7 (1.6-8.9) K/mcL Lymphocytes # 1.1 (0.6-4.6) K/mcL Monocytes # 0.7 (0.0-1.3) K/mcL Eosinophils # 0.1 (0.0-0.6) K/mcL Basophils # 0.0 (0.0-0.2) K/mcL PT (9.4-12.1) Seconds INR Sodium 127 L (136-145) mEq/L Potassium 4.1 (3.5-5.1) mEq/L Chloride 91 L (98-107) mEq/L Carbon Dioxide 30 H (23-29) mEq/L BUN 8 (8-23) mg/dL Creatinine 0.83 (0.70-1.30) mg/dL Est GFR ( Amer) > 60 (> 60) Est GFR (Non-Af Amer) > 60 (> 60) BUN/Creatinine Ratio 10 (6-26) Glucose 373 H (70-105) mg/dL Calculated Osmolality 278 L (280-300) Lactic Acid 2.3 H (0.5-2.2) mmol/L Calcium 9.0 (8.6-10.3) mg/dL Phosphorus (2.7-4.5) mg/dL Magnesium (1.6-2.6) mg/dL Urine Color (Yellow) Urine Clarity (Clear) Urine pH (5.0-8.0) pH Units Ur Specific [place] (1.010-1.025) Urine Protein (Neg-Trace) mg/dL Urine Glucose (UA) (Normal) mg/dL Urine Ketones (Negative) mg/dL Urine Blood (Negative) Urine Nitrite (Negative) Urine Bilirubin (Negative) Urine Urobilinogen (Normal) mg/dL Ur Leukocyte Esterase (Negative) Urine Microscopic RBC (0-3) per hpf Urine Microscopic WBC (0-3) per hpf Ur Squamous Epith Cells (None-Few) per lpf Urine Bacteria (None-Few) per hpf Hyaline Casts (None-Few) per lpf Ur Culture Indicated? (NO) 07/14/18 07/14/18 07/14/18 Range/Units 19:11 20:13 20:13 WBC (4.3-11.1) K/mcL RBC (4.19-5.50) M/mcL Hgb (12.9-16.9) g/dL Hct (37.5-50.1) % MCV (83.0-100.0) fL MCH (28.0-33.3) pg MCHC (31.6-35.5) g/dL RDW (11.5-14.5) % Plt Count (140-400) K/mcL MPV (9.4-12.4) fL Immature Gran % (0-4) % Seg Neutrophils % % Lymphocytes % % Monocytes % % Eosinophils % % Basophils % % Neutrophils # (1.6-8.9) K/mcL Lymphocytes # (0.6-4.6) K/mcL Monocytes # (0.0-1.3) K/mcL Eosinophils # (0.0-0.6) K/mcL Basophils # (0.0-0.2) K/mcL PT 46.2 H* (9.4-12.1) Seconds INR 4.1 Sodium (136-145) mEq/L Potassium (3.5-5.1) mEq/L Chloride (98-107) mEq/L Carbon Dioxide (23-29) mEq/L BUN (8-23) mg/dL Creatinine (0.70-1.30) mg/dL Est GFR ( Amer) (> 60) Est GFR (Non-Af Amer) (> 60) BUN/Creatinine Ratio (6-26) Glucose (70-105) mg/dL Calculated Osmolality (280-300) Lactic Acid 1.9 (0.5-2.2) mmol/L Calcium (8.6-10.3) mg/dL Phosphorus 2.2 L (2.7-4.5) mg/dL Magnesium 1.6 (1.6-2.6) mg/dL Urine Color (Yellow) Urine Clarity (Clear) Urine pH (5.0-8.0) pH Units Ur Specific [place] (1.010-1.025) Urine Protein (Neg-Trace) mg/dL Urine Glucose (UA) (Normal) mg/dL Urine Ketones (Negative) mg/dL Urine Blood (Negative) Urine Nitrite (Negative) Urine Bilirubin (Negative) Urine Urobilinogen (Normal) mg/dL Ur Leukocyte Esterase (Negative) Urine Microscopic RBC (0-3) per hpf Urine Microscopic WBC (0-3) per hpf Ur Squamous Epith Cells (None-Few) per lpf Urine Bacteria (None-Few) per hpf Hyaline Casts (None-Few) per lpf Ur Culture Indicated? (NO) 07/14/18 07/14/18 Range/Units 21:13 22:55 WBC (4.3-11.1) K/mcL RBC (4.19-5.50) M/mcL Hgb (12.9-16.9) g/dL Hct (37.5-50.1) % MCV (83.0-100.0) fL MCH (28.0-33.3) pg MCHC (31.6-35.5) g/dL RDW (11.5-14.5) % Plt Count (140-400) K/mcL MPV (9.4-12.4) fL Immature Gran % (0-4) % Seg Neutrophils % % Lymphocytes % % Monocytes % % Eosinophils % % Basophils % % Neutrophils # (1.6-8.9) K/mcL Lymphocytes # (0.6-4.6) K/mcL Monocytes # (0.0-1.3) K/mcL Eosinophils # (0.0-0.6) K/mcL Basophils # (0.0-0.2) K/mcL PT (9.4-12.1) Seconds INR Sodium (136-145) mEq/L Potassium (3.5-5.1) mEq/L Chloride (98-107) mEq/L Carbon Dioxide (23-29) mEq/L BUN (8-23) mg/dL Creatinine (0.70-1.30) mg/dL Est GFR ( Amer) (> 60) Est GFR (Non-Af Amer) (> 60) BUN/Creatinine Ratio (6-26) Glucose (70-105) mg/dL Calculated Osmolality (280-300) Lactic Acid 1.4 (0.5-2.2) mmol/L Calcium (8.6-10.3) mg/dL Phosphorus (2.7-4.5) mg/dL Magnesium (1.6-2.6) mg/dL Urine Color Dark Yellow (Yellow) Urine Clarity Clear (Clear) Urine pH 6.5 (5.0-8.0) pH Units Ur Specific [place] 1.013 (1.010-1.025) Urine Protein Trace (Neg-Trace) mg/dL Urine Glucose (UA) 500 H (Normal) mg/dL Urine Ketones Negative (Negative) mg/dL Urine Blood Large H (Negative) Urine Nitrite Negative (Negative) Urine Bilirubin Negative (Negative) Urine Urobilinogen 2.0 H (Normal) mg/dL Ur Leukocyte Esterase Negative (Negative) Urine Microscopic RBC 5-15 H (0-3) per hpf Urine Microscopic WBC 3-5 H (0-3) per hpf Ur Squamous Epith Cells None Seen (None-Few) per lpf Urine Bacteria None Seen (None-Few) per hpf Hyaline Casts None Seen (None-Few) per lpf Ur Culture Indicated? NO (NO) - Radiology Data Radiology results reviewed: Yes I reviewed the patient's radiology results. Head CT 07/14/18 18:57 IMPRESSION: No acute intracranial abnormality. D/ / Jaelyn Musa MD / Jaelyn Msua MD Interpreting Provider: Jaelyn Musa MD Lower Extremity CT 07/14/18 20:05 IMPRESSION: 1. Moderate knee effusion with gas in the suprapatellar space raising the possibility of septic arthritis. Please consider arthrocentesis. 2. Status post right total knee arthroplasty with significant interface widening about the tibial and femoral stems compatible with loosening versus infection versus particle disease. 3. Diffuse subcutaneous fat stranding compatible with cellulitis versus sterile edema. No well-defined drainable fluid collection. D/ / Brandon Ghosh MD / Brandon Ghosh MD Interpreting Provider: Brandon Ghosh MD
--- NOTE | 2018-07-14 23:29 | Emergency Department Note ---
Disposition Clinical Impression: Confusion, Warfarin-induced coagulopathy Right knee pain Qualifiers: Chronicity: acute Qualified Code(s): M25.561 - Pain in right knee Atrial fibrillation Qualifiers: Atrial fibrillation type: chronic Qualified Code(s): I48.2 - Chronic atrial fibrillation Disposition: Admitted As Inpatient Condition: Good General Adult HPI - General Chief complaint: ED Fall Stated complaint: knee pain Time Seen by Provider: 07/14/18 18:42 Source: patient Mode of arrival: EMS Limitations: no limitations Nursing Notes Reviewed: Yes Vital Signs Reviewed: Yes - History of Present Illness Pain Scale: 0 - Related Data Home Medications Medication Instructions Recorded Confirmed Aspirin [Lo-Dose Aspirin EC] 81 mg PO DAILY 06/04/18 06/04/18 Cholecalciferol (D-3) [Vitamin D] 1,000 unit PO DAILY 06/04/18 06/04/18 Dextrose [Glucose] 4 gm PO ONCE PRN 06/04/18 06/04/18 Finasteride [Proscar] 5 mg PO HS 06/04/18 06/04/18 Furosemide [Lasix] 20 mg PO Q48H 06/04/18 06/04/18 Gabapentin [Neurontin] 300 mg PO BID 06/04/18 06/04/18 Insulin NPH Hum/Reg Insulin Hm 40 unit SQ QPM 06/04/18 06/04/18 [Novolin 70-30 100 Unit/ml Vial] Insulin NPH Hum/Reg Insulin Hm 50 unit SQ QAM 06/04/18 06/04/18 [Novolin 70-30 100 Unit/ml Vial] Morphine Sulfate SR (12 HR) [MS 1 tab PO Q8HR 06/04/18 06/04/18 Contin] Paroxetine HCl [Paxil] 20 mg PO HS 06/04/18 06/04/18 hydrOXYzine HCl [Hydroxyzine HCl] 25 mg PO DAILY PRN 06/04/18 06/04/18 Previous Rx's Medication Instructions Recorded Metoprolol Succinate [Toprol Xl] 25 mg PO DAILY 30 Days #30 06/08/18 tab.er.24h Allergies Allergy/AdvReac Type Severity Reaction Status Date / Time No Known Allergies Allergy Verified 05/18/18 21:34 Musculoskeletal: Reports: joint swelling, arthralgia Past Medical History - Past Medical History Medical history: Reports: atrial fibrillation, cancer, CHF, diabetes, other Surgical history: Reports: knee replacement, other (Right TKR x 3, RIght and finger surgery, Left wrist surgery, Excision melanoma (back), ) Psychiatric history: Reports: anxiety, depression, PTSD - Social History Smoking Status: Former smoker Smokeless Tobacco Status: No Alcohol use: Reports: none Drug use: Reports: none Physical Exam - General Limitations: no limitations General appearance: alert, in no apparent distress Course Vital Signs Temperature 97 F L 07/14/18 18:51 Pulse Rate 110 07/14/18 18:51 Respiratory Rate 22 07/14/18 18:51 Blood Pressure 110/84 07/14/18 18:51 O2 Sat by Pulse Oximetry 96 07/14/18 18:51 Temperature 97 F L 07/14/18 18:51 Pulse Rate 118 07/14/18 22:19 Respiratory Rate 16 07/14/18 22:19 Blood Pressure 102/54 07/14/18 22:19 O2 Sat by Pulse Oximetry 98 07/14/18 22:19 Oxygen Delivery Oxygen Delivery Room Air Medical Decision Making - Medical Records Medical records reviewed: Yes I reviewed the patient's medical records. - Lab Data Lab results reviewed: Yes I reviewed the patient's lab results. Result diagrams: 07/14/18 19:11 07/14/18 19:11 Lab Results 07/14/18 07/14/18 07/14/18 Range/Units 19:11 19:11 19:11 WBC 4.7 (4.3-11.1) K/mcL RBC 3.97 L (4.19-5.50) M/mcL Hgb 12.9 (12.9-16.9) g/dL Hct 37.7 (37.5-50.1) % MCV 95.0 (83.0-100.0) fL MCH 32.5 (28.0-33.3) pg MCHC 34.2 (31.6-35.5) g/dL RDW 14.2 (11.5-14.5) % Plt Count 219 (140-400) K/mcL MPV 9.3 L (9.4-12.4) fL Immature Gran % 0.2 (0-4) % Seg Neutrophils % 58.4 % Lymphocytes % 23.9 % Monocytes % 15.4 % Eosinophils % 1.7 % Basophils % 0.4 % Neutrophils # 2.7 (1.6-8.9) K/mcL Lymphocytes # 1.1 (0.6-4.6) K/mcL Monocytes # 0.7 (0.0-1.3) K/mcL Eosinophils # 0.1 (0.0-0.6) K/mcL Basophils # 0.0 (0.0-0.2) K/mcL PT (9.4-12.1) Seconds INR Sodium 127 L (136-145) mEq/L Potassium 4.1 (3.5-5.1) mEq/L Chloride 91 L (98-107) mEq/L Carbon Dioxide 30 H (23-29) mEq/L BUN 8 (8-23) mg/dL Creatinine 0.83 (0.70-1.30) mg/dL Est GFR ( Amer) > 60 (> 60) Est GFR (Non-Af Amer) > 60 (> 60) BUN/Creatinine Ratio 10 (6-26) Glucose 373 H (70-105) mg/dL Calculated Osmolality 278 L (280-300) Lactic Acid 2.3 H (0.5-2.2) mmol/L Calcium 9.0 (8.6-10.3) mg/dL Phosphorus (2.7-4.5) mg/dL Magnesium (1.6-2.6) mg/dL Urine Color (Yellow) Urine Clarity (Clear) Urine pH (5.0-8.0) pH Units Ur Specific [place] (1.010-1.025) Urine Protein (Neg-Trace) mg/dL Urine Glucose (UA) (Normal) mg/dL Urine Ketones (Negative) mg/dL Urine Blood (Negative) Urine Nitrite (Negative) Urine Bilirubin (Negative) Urine Urobilinogen (Normal) mg/dL Ur Leukocyte Esterase (Negative) Urine Microscopic RBC (0-3) per hpf Urine Microscopic WBC (0-3) per hpf Ur Squamous Epith Cells (None-Few) per lpf Urine Bacteria (None-Few) per hpf Hyaline Casts (None-Few) per lpf Ur Culture Indicated? (NO) 07/14/18 07/14/18 07/14/18 Range/Units 19:11 20:13 20:13 WBC (4.3-11.1) K/mcL RBC (4.19-5.50) M/mcL Hgb (12.9-16.9) g/dL Hct (37.5-50.1) % MCV (83.0-100.0) fL MCH (28.0-33.3) pg MCHC (31.6-35.5) g/dL RDW (11.5-14.5) % Plt Count (140-400) K/mcL MPV (9.4-12.4) fL Immature Gran % (0-4) % Seg Neutrophils % % Lymphocytes % % Monocytes % % Eosinophils % % Basophils % % Neutrophils # (1.6-8.9) K/mcL Lymphocytes # (0.6-4.6) K/mcL Monocytes # (0.0-1.3) K/mcL Eosinophils # (0.0-0.6) K/mcL Basophils # (0.0-0.2) K/mcL PT 46.2 H* (9.4-12.1) Seconds INR 4.1 Sodium (136-145) mEq/L Potassium (3.5-5.1) mEq/L Chloride (98-107) mEq/L Carbon Dioxide (23-29) mEq/L BUN (8-23) mg/dL Creatinine (0.70-1.30) mg/dL Est GFR ( Amer) (> 60) Est GFR (Non-Af Amer) (> 60) BUN/Creatinine Ratio (6-26) Glucose (70-105) mg/dL Calculated Osmolality (280-300) Lactic Acid 1.9 (0.5-2.2) mmol/L Calcium (8.6-10.3) mg/dL Phosphorus 2.2 L (2.7-4.5) mg/dL Magnesium 1.6 (1.6-2.6) mg/dL Urine Color (Yellow) Urine Clarity (Clear) Urine pH (5.0-8.0) pH Units Ur Specific [place] (1.010-1.025) Urine Protein (Neg-Trace) mg/dL Urine Glucose (UA) (Normal) mg/dL Urine Ketones (Negative) mg/dL Urine Blood (Negative) Urine Nitrite (Negative) Urine Bilirubin (Negative) Urine Urobilinogen (Normal) mg/dL Ur Leukocyte Esterase (Negative) Urine Microscopic RBC (0-3) per hpf Urine Microscopic WBC (0-3) per hpf Ur Squamous Epith Cells (None-Few) per lpf Urine Bacteria (None-Few) per hpf Hyaline Casts (None-Few) per lpf Ur Culture Indicated? (NO) 07/14/18 07/14/18 Range/Units 21:13 22:55 WBC (4.3-11.1) K/mcL RBC (4.19-5.50) M/mcL Hgb (12.9-16.9) g/dL Hct (37.5-50.1) % MCV (83.0-100.0) fL MCH (28.0-33.3) pg MCHC (31.6-35.5) g/dL RDW (11.5-14.5) % Plt Count (140-400) K/mcL MPV (9.4-12.4) fL Immature Gran % (0-4) % Seg Neutrophils % % Lymphocytes % % Monocytes % % Eosinophils % % Basophils % % Neutrophils # (1.6-8.9) K/mcL Lymphocytes # (0.6-4.6) K/mcL Monocytes # (0.0-1.3) K/mcL Eosinophils # (0.0-0.6) K/mcL Basophils # (0.0-0.2) K/mcL PT (9.4-12.1) Seconds INR Sodium (136-145) mEq/L Potassium (3.5-5.1) mEq/L Chloride (98-107) mEq/L Carbon Dioxide (23-29) mEq/L BUN (8-23) mg/dL Creatinine (0.70-1.30) mg/dL Est GFR ( Amer) (> 60) Est GFR (Non-Af Amer) (> 60) BUN/Creatinine Ratio (6-26) Glucose (70-105) mg/dL Calculated Osmolality (280-300) Lactic Acid 1.4 (0.5-2.2) mmol/L Calcium (8.6-10.3) mg/dL Phosphorus (2.7-4.5) mg/dL Magnesium (1.6-2.6) mg/dL Urine Color Dark Yellow (Yellow) Urine Clarity Clear (Clear) Urine pH 6.5 (5.0-8.0) pH Units Ur Specific [place] 1.013 (1.010-1.025) Urine Protein Trace (Neg-Trace) mg/dL Urine Glucose (UA) 500 H (Normal) mg/dL Urine Ketones Negative (Negative) mg/dL Urine Blood Large H (Negative) Urine Nitrite Negative (Negative) Urine Bilirubin Negative (Negative) Urine Urobilinogen 2.0 H (Normal) mg/dL Ur Leukocyte Esterase Negative (Negative) Urine Microscopic RBC 5-15 H (0-3) per hpf Urine Microscopic WBC 3-5 H (0-3) per hpf Ur Squamous Epith Cells None Seen (None-Few) per lpf Urine Bacteria None Seen (None-Few) per hpf Hyaline Casts None Seen (None-Few) per lpf Ur Culture Indicated? NO (NO) - Radiology Data Radiology results reviewed: Yes I reviewed the patient's radiology results. Head CT 07/14/18 18:57 IMPRESSION: No acute intracranial abnormality. D/ / Jaelyn Musa MD / Jaelyn Musa MD Interpreting Provider: Jaelyn Musa MD Lower Extremity CT 07/14/18 20:05 IMPRESSION: 1. Moderate knee effusion with gas in the suprapatellar space raising the possibility of septic arthritis. Please consider arthrocentesis. 2. Status post right total knee arthroplasty with significant interface widening about the tibial and femoral stems compatible with loosening versus infection versus particle disease. 3. Diffuse subcutaneous fat stranding compatible with cellulitis versus sterile edema. No well-defined drainable fluid collection. D/ / Brandon Ghosh MD / Brandon Ghosh MD Interpreting Provider: Brandon Ghosh MD Critical Care Time Critical Care Time: Yes Total Critical Care Time: 40 Attestation: Critical care performed: Time is exclusive of separately billable procedures. Time includes: direct patient care, patient reassessment, coordination of patient care, interpretation of data (laboratory data, radiology data, and respiratory data), review of patient's medical records, medical consultation and documentation of patient care. Procedures included in critical care time: Procedures excluded from critical care time: Attestation Statement - Attestation Attestation: Jose Gonzalez MD, personally evaluated this patient and discussed their management with the resident physician. I reviewed the resident's note and agree with the documented findings, medical decision making, and plan of care. This patient was signed out at shift change from Dr. winters. Please refer to his note for complete details of the history and physical examination. Patient presented with right knee pain and swelling after he apparently fell last night. He states he woke up this morning hurting all over in his right knee was more painful and swollen than usual. He later recalled that he thinks he fell last night but does not recall any details of the fall. He does not know if he hit his head. He does not know if he had a loss of consciousness. He states he just does not remember falling or what made him fall but he feels confident that he did fall. Patient has had 3 right total knee arthroplasties. This present one was just performed about 8 weeks ago. Denies any fever. On examination patient is a well-developed well-nourished well-appearing elderly male in no acute distress. He is alert and oriented 3. There is no cyanosis or diaphoresis. Head is atraumatic with no scalp tenderness or hematomas. No facial bruising or abrasions. Neck is supple and nontender with full range of motion. Chest is nontender to palpation. Breath sounds are clear and equal bilaterally. Heart is irregularly irregular. Abdomen soft and nontender with normal bowel sounds. There is marked swelling of the right knee with a large effusion. It is slightly warm to touch. No erythema but some mild discoloration which appears chronic. Incision is well-healed with no drainage. Labs reviewed. Head CT negative. Right lower extremity CT concerning for infection in the right knee. The hospitalist, Dr. Napoles, was consulted and accepted admission of the patient. Orthopedic consult ordered.
[2018-07-15] MEDS ORDERED: Vancomycin 1,750 MG in 0.9 % Sodium Chloride 250 ML IVPB SCH ×2 (07:00→11:00)
--- NOTE | 2018-07-15 07:08 | Orthopedic Consult Note ---
Date of Encounter: 07/15/18 Time of Encounter: 07:06 History of Present Illness HPI: Mr. Martin is a 68 year old male Status post revision surgery for right knee loosening. This was done beginning of May. Patient had a recent fall presents with swelling of the right knee. Right lower extremity exam positive swelling Well-healed incision Slight erythema Decreased range of motion Neurovascular intact X-ray reviewed show no acute changes between postop and films from yesterday. Aspiration done today at the bedside under sterile conditions consistent with cloudy fluid will be sent for Gram stain and culture. Briefly discuss possible septic arthritis with need for extensive surgery if positive cultures. Will discuss plan once cultures or Gram stain are resulted. Should be noted patient' s INR is 4 and needs to be corrected Past Med Surg Social Fam HX - Past Medical History Medical history: atrial fibrillation, cancer, CHF, diabetes, other Additional medical history: ED Psychiatric history: anxiety, depression, PTSD - Past Surgical History Surgical History: knee replacement, other (Right TKR x 3, RIght and finger surgery, Left wrist surgery, Excision melanoma (back), ) Additional surgical history: knuckle fusion-right hand, left hip replacement - Social History Smoking Status: Former smoker Smokeless Tobacco Status: No Alcohol use: none Drug use: none - Family History Father Adopted: No Age: 49 Living Status: Hx Family Medical Disorders: Yes (hemochromotosis) Medications and Allergies Aspirin [Lo-Dose Aspirin EC] 81 mg PO DAILY 06/04/18 [History] Cholecalciferol (D-3) [Vitamin D] 1,000 unit PO DAILY 06/04/18 [History] Dextrose [Glucose] 4 gm PO ONCE PRN 06/04/18 [History] Finasteride [Proscar] 5 mg PO HS 06/04/18 [History] Furosemide [Lasix] 20 mg PO Q48H 06/04/18 [History] Gabapentin [Neurontin] 300 mg PO BID 06/04/18 [History] Insulin NPH Hum/Reg Insulin Hm [Novolin 70-30 100 Unit/ml Vial] 40 unit SQ QPM 06/04/18 [History] Insulin NPH Hum/Reg Insulin Hm [Novolin 70-30 100 Unit/ml Vial] 50 unit SQ QAM 06/04/18 [History] Morphine Sulfate SR (12 HR) [MS Contin] 1 tab PO Q8HR 06/04/18 [History] Paroxetine HCl [Paxil] 20 mg PO HS 06/04/18 [History] hydrOXYzine HCl [Hydroxyzine HCl] 25 mg PO DAILY PRN 06/04/18 [History] Metoprolol Succinate [Toprol Xl] 25 mg PO DAILY 30 Days #30 tab.er.24h 06/08/18 [Rx] 3 Allergy/AdvReac Type Severity Reaction Status Date / Time No Known Allergies Allergy Verified 05/18/18 21:34 All Systems Reviewed: The remainder of the systems were reviewed and are negative Physical Exam - Constitutional Vitals: Temp Pulse Resp BP Pulse Ox 98.2 F 103 18 103/63 93 07/15/18 00:04 07/15/18 00:04 07/15/18 00:04 07/15/18 00:04 07/15/18 00:04 Results - Labs Result Diagrams: 07/14/18 19:11 07/14/18 19:11 Labs: Abnormal lab results RBC 3.97 M/mcL (4.19-5.50) L 07/14/18 19:11 MPV 9.3 fL (9.4-12.4) L 07/14/18 19:11 PT 46.2 Seconds (9.4-12.1) H* 07/14/18 19:11 Sodium 127 mEq/L (136-145) L 07/14/18 19:11 Chloride 91 mEq/L (98-107) L 07/14/18 19:11 Carbon Dioxide 30 mEq/L (23-29) H 07/14/18 19:11 Glucose 373 mg/dL (70-105) H 07/14/18 19:11 Calculated Osmolality 278 (280-300) L 07/14/18 19:11 Phosphorus 2.2 mg/dL (2.7-4.5) L 07/14/18 20:13 Urine Glucose (UA) 500 mg/dL (Normal) H 07/14/18 21:13 Urine Blood Large (Negative) H 07/14/18 21:13 Urine Urobilinogen 2.0 mg/dL (Normal) H 07/14/18 21:13 Urine Microscopic RBC 5-15 per hpf (0-3) H 07/14/18 21:13 Urine Microscopic WBC 3-5 per hpf (0-3) H 07/14/18 21:13 All other labs normal. Consult Discharge Plan - Plan [facility]errals: [facility] [Primary Care Provider] -
[2018-07-15 07:46] LABS: Hematocrit 30.9 % (37.5-50.1); Mean Corpuscular HGB Conc 33.7 g/dL (31.6-35.5); Mean Corpuscular Hemoglobin 32.7 pg (28.0-33.3); Mean Corpuscular Volume 97.2 fL (83.0-100.0); Mean Platelet Volume 9.8 fL (9.4-12.4); Platelet Count 194 K/mcL (140-400); Red Blood Count 3.18 M/mcL (4.19-5.50); Red Cell Distribution Width 14.3 % (11.5-14.5)
[2018-07-15 08:05] LABS: BUN/Creatinine Ratio 11 (6-26); Blood Urea Nitrogen 8 mg/dL (8-23); Calcium 8.2 mg/dL (8.6-10.3); Carbon Dioxide 31 mEq/L (23-29); Chloride 100 mEq/L (98-107); Glucose 377 mg/dL (70-105); Osmolality,Calculated 290 (280-300); Sodium 133 mEq/L (136-145); eGFR For Non-African Americans > 60 (> 60)
[2018-07-15 08:16] LABS: INR 4.9
[2018-07-15] MEDS ORDERED: OXYCODONE Oral CONC 10 MG/0.5 ML ORAL.SYG SL PRN (09:07)
[2018-07-15] MEDS ORDERED: *HR* OxyCODONE Immed Rel 5 MG TABLET PO PRN (09:07)
[2018-07-15] MEDS ORDERED: Naloxone 0.4 MG/ML INJ IVP PRN ×2 (09:07)
[2018-07-15] MEDS ORDERED: Ondansetron 4 MG/2 ML VIAL IVP PRN (09:07)
[2018-07-15 09:09] LABS: Hemoglobin 10.4 g/dL (12.9-16.9)
[2018-07-15] MEDS ORDERED: Dextrose Gel 15 GM/37.5 ML TUBE PO PRN ×2 (09:13)
[2018-07-15] MEDS ORDERED: D5% in Water 1,000 ML IVC PRN (09:13)
[2018-07-15] MEDS ORDERED: *HR* Dextrose 50 % in Water (Syg) 50 ML SYRINGE IVP PRN (09:13)
[2018-07-15 09:29] LABS: C-Reactive Protein 105 mg/L (Less than 10)
[2018-07-15] MEDS ORDERED: Insulin NPH/REG 70/30 100 UNIT/ML (x5UNIT) SQ SCH (10:00)
--- NOTE | 2018-07-15 10:06 | Internal Med History&Physical ---
<Nelson Cabrera M - Last Filed: 07/16/18 07:55> Date of Encounter: 07/16/18 Internal Medicine - H&P: HPI Chief complaint: knee pain Admitted From: Home Plans for Post Hospital Care: Home History of present illness: Mr. Martin is a 68 year old male with PMHx Hemachromotosis, DM, AFib and CHF who presents from the [facility] with right knee pain and swelling. Patient woke up on complaining of a warm and swollen painful right knee, which is 8wks s/p total arthroplasty by Dr. Fonseca. This is the third replacement of the right knee. States that he was doing well after the surgery this time but he sustained a fall overnight and woke up with these symptoms. He was also feeling generalized arthralgia and myalgia but has not experienced any fevers or chills , though he has been taking amoxicillin and biaxin. He finished his biaxin 2 weeks ago and began taking amoxicillin which he had lying around, last dose 3 days ago. He cannot remember the events of the night before and does not remember an actual fall, but is certain that that is what happened. The patient has also been experiencing some bouts of confusion, increasing in frequency over the last 2-3 months per patients with repeated falls. He is on warfarin, last dose 07/12/18. He was noted to be altered in the ED. Currently A&O x 3, though he seems to wax and wane. Has some short-term memory deficits. Suspect hypoglycemia may be playing role, POC 54 before dinner, in addition to possible early onset dementia. Of note, patient has also been experiencing some myoclonic jerks/tremors which he says have been present for years though are increasing in severity. In the ED, patients vitals significant for tachycardia and hypotension. Right knee swollen, warm and erythematous on exam with significant pain to palpation. Midline incision clean, dry and intact. Xray at [facility] did show gas. CT here showed effusion with gas. CRP 105, lactate 1.4, PT/INR 55/4.9. Arthrocentesis showed gram positive cocci, pending culture. Head CT normal. Ortho consulted, plan for OR tomorrow. Internal Medicine - H&P: Meds Aspirin [Lo-Dose Aspirin EC] 81 mg PO DAILY 06/04/18 [History] Cholecalciferol (D-3) [Vitamin D] 1,000 unit PO DAILY 06/04/18 [History] Dextrose [Glucose] 4 gm PO ONCE PRN 06/04/18 [History] Finasteride [Proscar] 5 mg PO HS 06/04/18 [History] Furosemide [Lasix] 20 mg PO Q48H 06/04/18 [History] Gabapentin [Neurontin] 300 mg PO BID 06/04/18 [History] Insulin NPH Hum/Reg Insulin Hm [Novolin 70-30 100 Unit/ml Vial] 40 unit SQ QPM 06/04/18 [History] Insulin NPH Hum/Reg Insulin Hm [Novolin 70-30 100 Unit/ml Vial] 50 unit SQ QAM 06/04/18 [History] Morphine Sulfate SR (12 HR) [MS Contin] 60 mg PO Q8HR 06/04/18 [History] Paroxetine HCl [Paxil] 20 mg PO HS 06/04/18 [History] hydrOXYzine HCl [Hydroxyzine HCl] 25 mg PO DAILY PRN 06/04/18 [History] Metoprolol Succinate [Toprol Xl] 25 mg PO DAILY 30 Days #30 tab.er.24h 06/08/18 [Rx] Megestrol Acetate [Megace] 800 mg PO DAILY 07/15/18 [History] Warfarin [Coumadin] 2.5 mg PO SUMOTUWETHSA 07/15/18 [History] Warfarin [Coumadin] 3.75 mg PO FR 07/15/18 [History] 3 Allergy/AdvReac Type Severity Reaction Status Date / Time No Known Allergies Allergy Verified 07/15/18 12:14 All Systems PM: A 10-system review of systems was performed and is negative for pertinent findings except as documented above in the HPI. Review of systems: see below - Constitutional Constitutional: as per HPI - Cardiovascular Cardiovascular ROS IM: irregular heart rhythm, no chest pain - Respiratory Respiratory: no cough, no dyspnea, no hemoptysis - Gastrointestinal Gastrointestinal: no diarrhea, no melena, no vomiting - Musculoskeletal Musculoskeletal ROS IM: arthralgias, joint swelling, limited range of motion, myalgias, no numbness, no tingling - Neurological Neurological ROS: confusion, frequent falls, tremor(s), no loss of vision, no numbness, no paresthesias, no weakness - Constitutional Vitals: Temp Pulse Resp BP Pulse Ox 98.7 F 101 16 112/56 96 07/15/18 14:18 07/15/18 14:18 07/15/18 14:18 07/15/18 14:18 07/15/18 14:18 General appearance: Present: cooperative, A&O X 3, pleasant Exam: see below - Head Head exam: Present: atraumatic - Eye Eye exam: Present: EOMI, PERRL - Respiratory Respiratory exam: Present: CTAB. Absent: rhonchi, wheezes, tachypnea - Cardiovascular Cardiovascular exam: Present: irregular rhythm, +S1, +S2, tachycardia - GI/Abdominal GI/Abdominal exam: Present: no peritoneal signs. Absent: guarding, rebound - Extremities Exam Extremities exam: Present: joint swelling, tenderness. Absent: full ROM Additional comments: Venous stasis dermatitis - Neurological Exam Neurological exam: Present: CN II-XII intact, no focal deficits Internal Med - H&P Results - Labs CBC & Chem 7: 07/16/18 00:51 07/15/18 06:28 - Assessment and plan (1) Septic arthritis Current Visit: Yes Status: Acute Assessment and plan: CT findings in correlation with s/s and CRP 105 strongly indicate septic arthritis Joint aspirate showed gram positive cocci, pending cultures Ortho consulted; plan for OR tomorrow Cefepime in ED, switched to Vanc today INR 4.9, vit K and FFP ordered Last dose coumadin 07/12/18 Qualifiers: Septic arthritis location: knee Septic arthritis organism: due to unspecified organism Laterality: right Qualified Code(s): M00.9 - Pyogenic arthritis, unspecified (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 Assessment and plan: Patient reports history of full body twitch, observed by nursing during hospitalization No history of seizure activity, though nursing reports he did appear post-ictal Reports he used to take Gabapentin, but ran out Possibly increasing in frequency since that time Will consult neuro, restart Gabapentin Code(s): 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 (3) Atrial fibrillation Current Visit: Yes Status: Chronic Assessment and plan: Known history of Afib - HR between 95-110 since admission - Coumadin for stroke prevention, last dose friday - Continue home Metoprolol Qualifiers: Atrial fibrillation type: chronic Qualified Code(s): I48.2 - Chronic atrial fibrillation (4) Hemochromatosis Current Visit: No Status: Chronic Assessment and plan: Known history of Hemachromatosis - Chronic and Stable - Receives regular phlebotomy - No evidence of End Organ Damage - Possibly contributing to history of Arthritis Qualifiers: Hemochromatosis type: unspecified Qualified Code(s): E83.119 - Hemochromatosis, unspecified (5) Diabetes mellitus Current Visit: No Status: Chronic Assessment and plan: Accuchecks and SSI Concern for hypoglycemia related confusion Monitor for altered mental status Qualifiers: Diabetes mellitus type: type 2 Diabetes mellitus senior care insulin use: 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 Martin is a 68 year old male Past Med Surg Social Fam HX - Past Medical History Medical history: atrial fibrillation, cancer, CHF, diabetes, other Additional medical history: ED Psychiatric history: anxiety, depression, PTSD - Past Surgical History Surgical History: knee replacement, other (Right TKR x 3, RIght and finger surgery, Left wrist surgery, Excision melanoma (back), ) Additional surgical history: knuckle fusion-right hand, left hip replacement - Social History Smoking Status: Former smoker Smokeless Tobacco Status: No Alcohol use: none Drug use: none - Family History Father Adopted: No Age: 49 Living Status: Hx Family Medical Disorders: Yes (hemochromotosis) All Systems PM: A 10-system review of systems was performed and is negative for pertinent findings except as documented above in the HPI. - Constitutional Vitals: Temp Pulse Resp BP Pulse Ox 98.5 F 97 16 107/68 96 07/15/18 06:45 07/15/18 06:45 07/15/18 06:45 07/15/18 06:45 07/15/18 06:45 Internal Med - H&P Results - Labs CBC & Chem 7: 07/16/18 17:29 07/15/18 06:28 - Time Spent With Patient Total time spent is greater than 50% in coordination of care (as documented) at patient's floor/unit and/or counseling patient: - Attending Attestation Please see event note of this date for attestation.
[2018-07-15] MEDS: Cefepime HCl 2,000 MG in Water for inj. (sterile) 20 ML 20 ML IVP SCH ×2 (10:52→18:44)
[2018-07-15] MEDS: Insulin NPH/REG 70/30 100 UNIT/ML (x5UNIT) SQ SCH ×2 (10:52→17:28)
[2018-07-15] MEDS: Aspirin Enteric Coated 81 MG Tablet PO SCH (10:53)
[2018-07-15] MEDS: Finasteride 5 MG TABLET PO SCH ×2 (10:53→21:06)
[2018-07-15] MEDS: Gabapentin 300 MG CAPSULE PO SCH ×2 (10:53→21:06)
[2018-07-15] MEDS: Metoprolol XL (24 HR) Succ 25 MG TAB.ER.24H PO SCH (10:53)
[2018-07-15] MEDS: Cholecalciferol (D-3) 1,000 UNIT TABLET PO SCH (10:53)
[2018-07-15] MEDS ORDERED: Insulin LISPRO 300 UNITS/3 ML VIAL SQ SCH ×2 (11:30→21:00)
[2018-07-15] MEDS: Insulin LISPRO 300 UNITS/3 ML VIAL SQ SCH ×2 (12:37→18:44)
--- NOTE | 2018-07-15 13:16 | Event Note ---
Date of Encounter: 07/15/18 Time of Encounter: 13:14 cultures from this AMs joint aspiration: Gram Stain reveals + Gram+ Cocci, awaiting final culture and sensitivtiy. Discussed with the patient, plan fo ra Right Knee Revision with possible resection arthroplasty. Current plan is to perform a 1 stage procedure. consent reviewed and signed by the patient. Risks versus benefits reviewed.
[2018-07-15] MEDS: *HR* Morphine Sulfate SR (12 HR) 60 MG TABLET.ER PO SCH (16:14)
--- NOTE | 2018-07-15 19:50 | Event Note ---
Date of Encounter: 07/15/18 Time of Encounter: 08:30 The history, physical exam, and medical decision making was performed by the medical student either while I was physically present and actively involved or I personally re-performed the exam and medical decision making. I have verified the accuracy of the medical student's documentation with regards to the history, physical exam findings, and medical decision making on 07/15/18. Please see H&P for further information. Mr Martin is 68 y/o male presented to ED with R knee pain. He stated he had a fall on Friday night and has noticed progressive swelling of R knee. No fever or chills. Hard to bend and stand on R leg. Has hx of "jerking" movements as well and a fib. Has aspiration this AM and is positive for bacteria. Exam alert Comfortable at this time Mucus membranes dry Heart irrg - slightly tachy Lungs diminished but clear Abd soft and nontender No focal neuro deficit Myoclonic jerking noted R knee with erythema, swelling and warmth. Chronic stasis changes noted. I/P 1. Septic R knee - gram positive bacteria. OR tomorrow 2. Coumadin coagulopathy - Vit K and FFP 3. Chronic a fib 4. Myoclonus 5. DM uncontrolled. Further diagnoses and plan per H&P He is high risk due to potential for worsening infection and risk for sepsis. Started on IV abx. Glucose uncontrolled.
--- NOTE | 2018-07-15 20:54 | Anesthesia Evaluation PreOp ---
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 History: Denies Any Significant HX Other Medical History: Diabetes Type II, Other (Anxiety Depression) Anesthesia History: No Prior Anesthetic Complications, Past Anesthesia (THR, Rt TKA) Alcohol Use: none Drug use: none Medications and Allergies Aspirin [Lo-Dose Aspirin EC] 81 mg PO DAILY 06/04/18 [History] Cholecalciferol (D-3) [Vitamin D] 1,000 unit PO DAILY 06/04/18 [History] Dextrose [Glucose] 4 gm PO ONCE PRN 06/04/18 [History] Finasteride [Proscar] 5 mg PO HS 06/04/18 [History] Furosemide [Lasix] 20 mg PO Q48H 06/04/18 [History] Gabapentin [Neurontin] 300 mg PO BID 06/04/18 [History] Insulin NPH Hum/Reg Insulin Hm [Novolin 70-30 100 Unit/ml Vial] 40 unit SQ QPM 06/04/18 [History] Insulin NPH Hum/Reg Insulin Hm [Novolin 70-30 100 Unit/ml Vial] 50 unit SQ QAM 06/04/18 [History] Morphine Sulfate SR (12 HR) [MS Contin] 60 mg PO Q8HR 06/04/18 [History] Paroxetine HCl [Paxil] 20 mg PO HS 06/04/18 [History] hydrOXYzine HCl [Hydroxyzine HCl] 25 mg PO DAILY PRN 06/04/18 [History] Metoprolol Succinate [Toprol Xl] 25 mg PO DAILY 30 Days #30 tab.er.24h 06/08/18 [Rx] Megestrol Acetate [Megace] 800 mg PO DAILY 07/15/18 [History] Warfarin [Coumadin] 2.5 mg PO SUMOTUWETHSA 07/15/18 [History] Warfarin [Coumadin] 3.75 mg PO FR 07/15/18 [History] 3 Allergy/AdvReac Type Severity Reaction Status Date / Time No Known Allergies Allergy Verified 07/15/18 12:14 - Meds/Allergy Pre-op Review Medications Reviewed: Yes Allergies Reviewed: Yes Beta Blockers on Current Med List: Yes (on Metoprolol) Anesthesia Results - Labs 07/15/18 06:28 07/15/18 06:28 Laboratory Tests 07/15/18 07/15/18 06:28 06:28 WBC 3.2 L Hgb 10.4 L D Hct 30.9 L Plt Count 194 Sodium 133 L Potassium 4.0 BUN 8 Creatinine 0.72 - Imaging EKG: report reviewed (AFib) Additional studies: ECHO EF 60%, mod mitral regurge, mod pulm regurge, borderline pulm htn Anesthesia Exam Vital Signs/O2 Sat/Glucose, Most Current Temp Pulse Resp BP Pulse Ox 07/15/18 19:37 98.1 F 95 16 101/64 94 Height: 6'4 Weight: 244 lbs NPO (# of Hours): MN Pain Scale: 0 - HEENT Pupil (Motor): Pupils equal, EOMI Mallampati: III Denture Type: Upper: Complete, Lower: Complete Oral Opening: Less than or equal to 3 - MARKETING ANALYST LOC: Oriented MARKETING ANALYST Motor: Normal RUE, Normal LUE, Normal RLE, Normal LLE, Normal Face MARKETING ANALYST Sensory: Normal: RUE, LUE, RLE, LLE, Face - Cardiac Rhythm: Irregular Murmur: None JVD: No Carotid Bruit: No - Pulmonary Breath Sounds: bilateral Clear Respiratory Effort: Symmetrical Anesthesia Assess/Plan ASA Score: 3 ( AFib DM) Modified Shivam Scale for Level of Consciousness: Cooperative, oriented, and tranquil Anesthetic Plan: General, Regional Monitoring Plan: Standard Monitors Recovery Plan: PACU (Discussed GA, possible Adductor Canal Block IPACK for post op pain)
[2018-07-15] MEDS: *HR* HYDROcodone/Acet 5/325 mg TABLET PO PRN (21:12)
[2018-07-16] MEDS: *HR* Morphine Sulfate SR (12 HR) 60 MG TABLET.ER PO SCH ×3 (00:24→17:01)
[2018-07-16] MEDS: Insulin LISPRO 300 UNITS/3 ML VIAL SQ SCH ×4 (00:24→20:11)
[2018-07-16 01:32] LABS: Hematocrit 32.3 % (37.5-50.1); Hemoglobin 10.9 g/dL (12.9-16.9); Mean Corpuscular HGB Conc 33.7 g/dL (31.6-35.5); Mean Corpuscular Hemoglobin 33.2 pg (28.0-33.3); Mean Corpuscular Volume 98.5 fL (83.0-100.0); Mean Platelet Volume 9.8 fL (9.4-12.4); Platelet Count 199 K/mcL (140-400); Red Blood Count 3.28 M/mcL (4.19-5.50); Red Cell Distribution Width 14.1 % (11.5-14.5)
[2018-07-16 01:39] LABS: INR 2.1; Prothrombin Time 23.8 Seconds (9.4-12.1)
[2018-07-16] MEDS: Cefepime HCl 2,000 MG in Water for inj. (sterile) 20 ML 20 ML IVP SCH ×2 (06:39→20:13)
--- NOTE | 2018-07-16 08:01 | Orthopedics Progress Note ---
Date of Encounter: 07/16/18 Time of Encounter: 08:00 Subjective Interval history: Patient seen this morning, Gram stain + for OR today, INR 2.1 will recheck this am. Objective Vital signs: Vital Signs Temp Pulse Resp BP Pulse Ox 07/16/18 06:35 97.9 F 92 16 114/57 98 07/16/18 05:00 97.7 F 87 16 109/58 97 07/16/18 00:11 98.5 F 97 16 95/59 95 07/15/18 19:37 98.1 F 95 16 101/64 94 07/15/18 14:18 98.7 F 101 16 112/56 96 07/15/18 11:26 95 07/15/18 10:42 98.5 F 104 16 104/63 95 Intake and Output 07/15/18 07/16/18 07/16/18 23:59 07:59 15:59 Intake Total 20 / 20 Output Total 500 / 500 Balance 20 / 20 -500 / -500 Intake: IV Fluids 20 / 20 Maxipime 2,000 MG In Water for 20 / 20 inj. (sterile) 20 ML @ 300 mls/ hr IVP Q12HR SAMANTHA Rx#:[id number] Output: Urine 500 / 500 Other: # Voids 1 Weight 95 kg Blood Glucose* 117 172 Patient Weight 07/16/18 23:59 Weight 95 kg - Labs CBC & BMP: 07/16/18 00:51 07/15/18 06:28 Labs: Abnormal lab results WBC 4.2 K/mcL (4.3-11.1) L 07/16/18 00:51 RBC 3.28 M/mcL (4.19-5.50) L 07/16/18 00:51 Hgb 10.9 g/dL (12.9-16.9) L 07/16/18 00:51 Hct 32.3 % (37.5-50.1) L 07/16/18 00:51 PT 23.8 Seconds (9.4-12.1) H D 07/16/18 00:51 Sodium 133 mEq/L (136-145) L 07/15/18 06:28 Carbon Dioxide 31 mEq/L (23-29) H 07/15/18 06:28 Glucose 377 mg/dL (70-105) H 07/15/18 06:28 POC Glucose 172 mg/dL (70-99) H 07/16/18 05:56 Calcium 8.2 mg/dL (8.6-10.3) L 07/15/18 06:28 Phosphorus 2.2 mg/dL (2.7-4.5) L 07/14/18 20:13 C-Reactive Protein 105 mg/L (Less than 10) H 07/15/18 06:28 Urine Glucose (UA) 500 mg/dL (Normal) H 07/14/18 21:13 Urine Blood Large (Negative) H 07/14/18 21:13 Urine Urobilinogen 2.0 mg/dL (Normal) H 07/14/18 21:13 Urine Microscopic RBC 5-15 per hpf (0-3) H 07/14/18 21:13 Urine Microscopic WBC 3-5 per hpf (0-3) H 07/14/18 21:13 Consult Discharge Plan - Plan [facility]errals: [facility] [Primary Care Provider] -
[2018-07-16 08:55] LABS: INR 1.9; Prothrombin Time 21.3 Seconds (9.4-12.1)
[2018-07-16] MEDS ORDERED: 0.9 % Sodium Chloride 250 ML ONE (09:51)
--- NOTE | 2018-07-16 09:57 | Internal Med Progress Note ---
<Nelson Cabrera M - Last Filed: 07/16/18 14:29> Hospitalist Progress Note - Encounter Date of Encounter: 07/16/18 Time of Encounter: 08:00 - Subjective Interval History: Patient seen and examined at bedside. Patient resting comfortably this morning but states he was up all night and could not sleep. Appeared somewhat somnolent on initial interview, but eventually sat up and became much more alert. There was some brief slurring of his words but it quickly resolved as he became more alert. Remains A&O x 3. Twitching still a problem and seems to be more noticeable today than yesterday and is somewhat distressing to patient, though this is a chornic issue. He still has moderate pain relating to his septic joint in addition to some back pain, which is chronic. Continues to deny fever, chills, SOB, Chest Pain, nausea, vomitting. The patient denies any other complaints at this time. His INR was 2.1 overnight and repeat this morning was 1.9. FP and vit K given, repeat INR this afternoon. Plan for OR 15:45 pending INR under 1.8 - Exam Vitals: Temp Pulse Resp BP Pulse Ox 97.9 F 92 16 114/57 98 07/16/18 06:35 07/16/18 06:35 07/16/18 06:35 07/16/18 06:35 07/16/18 06:35 Exam: General: A&O x 3, NAD, drowsy Head: atraumatic normocephalic Eyes: EOMI, non-icteric Throat: mucus membranes moist, trachea midline CV: Irregularly Irregular rythym, no murmurs Resp: CTAB, no wheezes rales rhonchi ABD: nondistended nontender, no guarding or rebound, no organomegaly Extremities: Right knee joint remains tender and edematous with warmth, neurovascularly intact - Assessment and Plan (1) Septic arthritis Current Visit: Yes Status: Acute Assessment and Plan: CT findings in correlation with s/s of septic joint with a CRP 105 strongly indicate septic arthritis Joint aspirate showed gram positive cocci, pending culture/sensitivity Ortho plans for OR today Cefepine and vanc for dual coverage of gram +'s INR 4.9 yesterday, vit K and FFP given; 1.6 this afternoon Last dose coumadin 07/12/18 Cleared for OR, scheduled for 3:45 (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 Assessment and Plan: - Patient reports history of full body twitch, observed by nursing during hospitalization - No history of seizure activity, though nursing reports he did appear post- ictal - Reports he used to take Gabapentin, but ran out; possibly contributing factor - Believes they may have increased in frequency and duration over last couple of years - States they occur roughly 5-6 times/day, but believes they are worse since his admission - Gabapentin and long-term opoid abuse may be playing a factor - Patient is a known [place] , unknown history of exposures, cannot rule out Agent [place] involvement Plan: - Neuro Consulted, appreciate recs: - Divalproex 250 at bedtime, may titrate up to 500 after monitoring progression/benefits - Labs: TSH, EEG, B12 level, LFT, RFT, Mag level Code(s): 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 (3) Dementia Current Visit: Yes Status: Acute Assessment and Plan: Dementia - increasing forgetfulness over last 8-9 years per patient as well as family - Increasing bouts of confusion and acute lapses in short term memory - Increasing h/o falls over the last 2-3 months, often at night with no memory of event - Patient is at high risk for ICH due to Coumadin therapy - Patient is more alert during daytime, waxes and wanes in mornings and evenings - Overall well orientated with no gross neurocognitive deficits - Plan to follow up outpatient for further work-up (4) Atrial fibrillation Current Visit: Yes Status: Chronic Assessment and Plan: Known history of Afib - HR between 95-110 since admission - Coumadin for stroke prevention, last dose friday - Continue home Metoprolol (5) Hemochromatosis Current Visit: No Status: Chronic Assessment and Plan: Known history of Hemachromatosis - Chronic and Stable - Receives regular phlebotomy - No evidence of End Organ Damage - Possibly contributing to history of Arthritis (6) Diabetes mellitus Current Visit: No Status: Chronic Assessment and Plan: Accuchecks and SSI Concern for hypoglycemia related confusion Monitor for altered mental status - Time Spent with Patient Total time spent is greater than 50% in coordination of care (as documented) at patient's floor/unit and/or counseling patient: Internal Medicine: Result - Labs CBC & Chem 7: 07/16/18 00:51 07/15/18 06:28 Labs: Short CBC 07/16/18 Range/Units 00:51 WBC 4.2 L (4.3-11.1) K/mcL Hgb 10.9 L (12.9-16.9) g/dL Hct 32.3 L (37.5-50.1) % Plt Count 199 (140-400) K/mcL - ABG Interpretation ABG results: PT/INR, D-dimer PT 21.3 Seconds (9.4-12.1) H 07/16/18 07:58 Consult Discharge Plan - Plan [facility]errals: [facility]Primary Care Provider[facility] - <Faheem Jaimes - Last Filed: 07/16/18 18:42> Hospitalist Progress Note - Encounter Date of Encounter: 07/16/18 - Exam Vitals: Temp Pulse Resp BP Pulse Ox 98.7 F 111 18 114/82 97 07/16/18 17:51 07/16/18 17:51 07/16/18 17:51 07/16/18 17:51 07/16/18 17:51 - Assessment and Plan (1) Septic arthritis Current Visit: Yes Status: Suspected (2) Atrial fibrillation Current Visit: Yes Status: Chronic (3) Diabetes mellitus Current Visit: No Status: Chronic (4) Myoclonic jerking Current Visit: Yes Status: Chronic (5) Hemochromatosis Current Visit: No Status: Chronic - Time Spent with Patient Total time spent is greater than 50% in coordination of care (as documented) at patient's floor/unit and/or counseling patient: Internal Medicine: Result - Labs CBC & Chem 7: 07/16/18 17:29 07/15/18 06:28 Labs: Short CBC 07/16/18 07/16/18 Range/Units 00:51 17:29 WBC 4.2 L (4.3-11.1) K/mcL Hgb 10.9 L 10.7 L (12.9-16.9) g/dL Hct 32.3 L 31.5 L (37.5-50.1) % Plt Count 199 (140-400) K/mcL Liver Function 07/16/18 Range/Units 12:55 Total Bilirubin 2.1 H (0.3-1.0) mg/dL Direct Bilirubin 0.7 H (0.0-0.2) mg/dL AST 28 (13-39) Units/L ALT 12 (7-52) Units/L Alkaline Phosphatase 111 H (34-104) Units/L Albumin 2.9 L (3.5-5.7) g/dL - ABG Interpretation ABG results: PT/INR, D-dimer PT 18.5 Seconds (9.4-12.1) H 07/16/18 12:55 - Impressions Impressions Knee X-Ray 07/16/18 15:59 IMPRESSION: 1. Revision of total knee arthroplasty with persistent lucency surrounding the femoral stem. 2. Lucency surrounds the tibial component with a gap between the cement and bone measuring approximately 5 mm. D/ / Amos Marcelino / Amos Marcelino Interpreting Provider: Amos Marcelino - Attending Attestation The history, physical exam, and medical decision making was performed by the medical student either while I was physically present and actively involved or I personally re-performed the exam and medical decision making. I have verified the accuracy of the medical student's documentation with regards to the history, physical exam findings, and medical decision making on 07/16/18. Mr Martin is currently admitted for septic arthritis. He remains moderate to high risk due to potential for worsening clinical status. He is to go to OR today. Mr Martin feels OK. He is still having myoclonus. No fever or chills. Pain is controlled. Exam alert Comfortable Mucus membranes dry Heart irreg - not tachy now Lungs clear Abd soft Knee remains swollen I/P 1. Septic arthritis - OR today 2. Myoclonus - neuro eval appreciated 3. A fib - rate better controlled 4. Elevated INR - Vit K and FFP. Further diagnoses and plan as above. <Lencho Cabrerakendal Barney - Last Filed: 07/16/18 14:29> (1) Septic arthritis Qualifiers: Septic arthritis location: knee Septic arthritis organism: due to unspecified organism Laterality: right Qualified Code(s): M00.9 - Pyogenic arthritis, unspecified (3) Dementia Qualifiers: Dementia type: unspecified type Dementia behavioral disturbance: without behavioral disturbance Qualified Code(s): F03.90 - Unspecified dementia without behavioral disturbance (4) Atrial fibrillation Qualifiers: Atrial fibrillation type: chronic Qualified Code(s): I48.2 - Chronic atrial fibrillation (5) Hemochromatosis Qualifiers: Hemochromatosis type: unspecified Qualified Code(s): E83.119 - Hemochromatosis, unspecified (6) Diabetes mellitus Qualifiers: Diabetes mellitus type: type 2 Diabetes mellitus correction insulin use: with bottle cleaner use Diabetes mellitus complication status: without complication Qualified Code(s): E11.9 - Type 2 diabetes mellitus without complications; Z79.4 - skilled nursing (current) use of insulin <Faheem Jaimes - Last Filed: 07/16/18 18:42> (1) Septic arthritis Qualifiers: Septic arthritis location: knee Septic arthritis organism: staphylococcal Laterality: right Qualified Code(s): M00.061 - Staphylococcal arthritis, right knee (2) Atrial fibrillation Qualifiers: Atrial fibrillation type: chronic Qualified Code(s): I48.2 - Chronic atrial fibrillation (3) Diabetes mellitus Qualifiers: Diabetes mellitus type: type 2 Diabetes mellitus bottle cleaner insulin use: with bottle cleaner use Diabetes mellitus complication status: without complication Qualified Code(s): E11.9 - Type 2 diabetes mellitus without complications; Z79.4 - manager digital (current) use of insulin (5) Hemochromatosis Qualifiers: Hemochromatosis type: unspecified Qualified Code(s): E83.119 - Hemochromatosis, unspecified
[2018-07-16] MEDS: Metoprolol XL (24 HR) Succ 25 MG TAB.ER.24H PO SCH (10:02)
[2018-07-16] MEDS: Megestrol Acetate 400 MG/10 ML UDC PO SCH (10:02)
[2018-07-16] MEDS: Cholecalciferol (D-3) 1,000 UNIT TABLET PO SCH (10:03)
[2018-07-16] MEDS: Insulin NPH/REG 70/30 100 UNIT/ML (x5UNIT) SQ SCH ×2 (10:03→20:12)
[2018-07-16] MEDS: Aspirin Enteric Coated 81 MG Tablet PO SCH (10:03)
--- NOTE | 2018-07-16 10:39 | Neurology - Consult Note ---
<Ernesto Moreno P - Last Filed: 07/16/18 11:35> Date of Encounter: 07/16/18 Time of Encounter: 10:00 Assessment and Plan (1) Myoclonic jerking Current Visit: Yes Status: Chronic Patient has frequent jerky movements 5-6 times in a day for last 6-7 years. 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 TSH, EEG vit B12 level LFT Magnesium level : normal report RFT: WNL (2) Dementia Current Visit: Yes Status: Acute He has h/o forgetfulness for 8-9 years and he has problem with recent memory, No h/o of diagnosed dementia and Parkinson He is well oriented with time, place, person Alert, cheerful, cooperative, answers question properly He has some age related cognitive decline. Qualifiers: Dementia type: unspecified type Dementia behavioral disturbance: without behavioral disturbance Qualified Code(s): F03.90 - Unspecified dementia without behavioral disturbance History of Present Illness Chief complaint: right knee swelling, jerky movements of limbs and memory issues HPI: Mr. Martin is a 68 year old male with past diagnosis of Hemachromotosis, DM, AFib and CHF who was admitted for pain and swelling in right knee . The patient is case of post Knee arthoplasty 8 weeks back.He has memory issues for last 8-9 years especially recent memory and has been worse recently. He has tanya movements in his limbs especially upper limbs. The jerky movements last for about 5-6 seconds ,he had such type of movements 7-8 times in a day most frequently during day and sometime during night.He has such jerky movements for last 7-8 years , but getting worse recently. He doesn't know any triggering factors. He has hand tremors during action or movement of hands especially during picking up something. He doesn't have h/o Parkinson in the past. Todays visit I could not observe jerky movement , but he states that it comes and goes and have been more frequent recently. He denies any h/o such tremors in his family. Past Med Surg Social Fam HX - Past Medical History Medical history: atrial fibrillation, cancer, CHF, diabetes, other Additional medical history: ED Psychiatric history: anxiety, depression, PTSD - Past Surgical History Surgical History: knee replacement, other (Right TKR x 3, RIght and finger surgery, Left wrist surgery, Excision melanoma (back), ) Additional surgical history: knuckle fusion-right hand, left hip replacement - Social History Smoking Status: Former smoker Smokeless Tobacco Status: No Alcohol use: none Drug use: none - Family History Father Adopted: No Age: 49 Living Status: Hx Family Medical Disorders: Yes (hemochromotosis) Medications and Allergies Aspirin [Lo-Dose Aspirin EC] 81 mg PO DAILY 06/04/18 [History] Cholecalciferol (D-3) [Vitamin D] 1,000 unit PO DAILY 06/04/18 [History] Dextrose [Glucose] 4 gm PO ONCE PRN 06/04/18 [History] Finasteride [Proscar] 5 mg PO HS 06/04/18 [History] Furosemide [Lasix] 20 mg PO Q48H 06/04/18 [History] Gabapentin [Neurontin] 300 mg PO BID 06/04/18 [History] Insulin NPH Hum/Reg Insulin Hm [Novolin 70-30 100 Unit/ml Vial] 40 unit SQ QPM 06/04/18 [History] Insulin NPH Hum/Reg Insulin Hm [Novolin 70-30 100 Unit/ml Vial] 50 unit SQ QAM 06/04/18 [History] Morphine Sulfate SR (12 HR) [MS Contin] 60 mg PO Q8HR 06/04/18 [History] Paroxetine HCl [Paxil] 20 mg PO HS 06/04/18 [History] hydrOXYzine HCl [Hydroxyzine HCl] 25 mg PO DAILY PRN 06/04/18 [History] Metoprolol Succinate [Toprol Xl] 25 mg PO DAILY 30 Days #30 tab.er.24h 06/08/18 [Rx] Megestrol Acetate [Megace] 800 mg PO DAILY 07/15/18 [History] Warfarin [Coumadin] 2.5 mg PO SUMOTUWETHSA 07/15/18 [History] Warfarin [Coumadin] 3.75 mg PO FR 07/15/18 [History] 3 Allergy/AdvReac Type Severity Reaction Status Date / Time No Known Allergies Allergy Verified 07/15/18 12:14 All Systems: The remainder of the systems were reviewed and are negative Physical Examination - Vital Signs Vital Signs: Initial Vital Signs Temp Pulse Resp BP Pulse Ox 97 F L 110 22 110/84 96 07/14/18 18:51 07/14/18 18:51 07/14/18 18:51 07/14/18 18:51 07/14/18 18:51 - Constitutional General appearance: comfortable - Neurologic Sensorimotor examination: intact Motor examination - right side: 5/5: deltoids, biceps, triceps, wrist flexion, wrist extension, eeo officer, hip flexors, tibialis Anterior, quadriceps, toe extension (EHL), plantarflexion Motor examination - left side: 5/5: deltoids, biceps, triceps, wrist flexion, wrist extension, hip flexors, eeo officer, quadriceps, tibialis Anterior, toe extension (EHL), plantarflexion Detailed sensory examination: intact, light touch Reflex and gait examination: ataxic gate Reflexes: Biceps: 2+, Triceps: 2+, Brachioradialis: 2+, Patella: 2+, Achilles: 2 + Mental Status Examination: awake, alert, oriented to person, oriented to place, oriented to time, follows commands appropriately, answers questions appropriately Cranial nerve examination: PERRL, EOMI Cerebellar examination: performs finger to nose and heel to bruno symmetrically without ataxia, no difficulty with rapid alternating movements Tremor: right upper extremity Results - Laboratory Findings CBC and BMP: 07/16/18 00:51 07/15/18 06:28 Abnormal lab findings: Abnormal lab results WBC 4.2 K/mcL (4.3-11.1) L 07/16/18 00:51 RBC 3.28 M/mcL (4.19-5.50) L 07/16/18 00:51 Hgb 10.9 g/dL (12.9-16.9) L 07/16/18 00:51 Hct 32.3 % (37.5-50.1) L 07/16/18 00:51 PT 21.3 Seconds (9.4-12.1) H 07/16/18 07:58 Sodium 133 mEq/L (136-145) L 07/15/18 06:28 Carbon Dioxide 31 mEq/L (23-29) H 07/15/18 06:28 Glucose 377 mg/dL (70-105) H 07/15/18 06:28 POC Glucose 172 mg/dL (70-99) H 07/16/18 05:56 Calcium 8.2 mg/dL (8.6-10.3) L 07/15/18 06:28 Phosphorus 2.2 mg/dL (2.7-4.5) L 07/14/18 20:13 C-Reactive Protein 105 mg/L (Less than 10) H 07/15/18 06:28 Urine Glucose (UA) 500 mg/dL (Normal) H 07/14/18 21:13 Urine Blood Large (Negative) H 07/14/18 21:13 Urine Urobilinogen 2.0 mg/dL (Normal) H 07/14/18 21:13 Urine Microscopic RBC 5-15 per hpf (0-3) H 07/14/18 21:13 Urine Microscopic WBC 3-5 per hpf (0-3) H 07/14/18 21:13 Consult Discharge Plan - Plan [facility]errals: [facility] [Primary Care Provider] - <Paige Saravia I - Last Filed: 07/17/18 12:00> Date of Encounter: 07/16/18 Assessment and Plan (1) Myoclonic jerking Current Visit: Yes Status: Chronic Pt was seen and examined, my medical decision was reviewed with the Resident Physician, I agree with the documented findings, disposition and treatment plas as described except to the extent set forth below Patient symptoms of myoclonic jerking are likely related to narcotics and perhaps exacerbated by inflammation and infection. No evidence of seizure or seizure activity review the EEG. At the moment I would not recommend any new medication especially when he is going for surgical intervention but if his symptoms get worse perhaps it could be tried on valproic acid at nighttime. Other treatment is as per primary team Paige Saravia MD History of Present Illness HPI: Mr. Martin is a 68 year old male All Systems: The remainder of the systems were reviewed and are negative Physical Examination - Vital Signs Vital Signs: Initial Vital Signs Temp Pulse Resp BP Pulse Ox 97 F L 110 22 110/84 96 07/14/18 18:51 07/14/18 18:51 07/14/18 18:51 07/14/18 18:51 07/14/18 18:51 Results - Laboratory Findings CBC and BMP: 07/17/18 00:17 07/17/18 00:17 Abnormal lab findings: Abnormal lab results RBC 2.82 M/mcL (4.19-5.50) L 07/17/18 00:17 Hgb 9.3 g/dL (12.9-16.9) L 07/17/18 00:17 Hct 27.6 % (37.5-50.1) L 07/17/18 00:17 Lymphocytes # 0.4 K/mcL (0.6-4.6) L 07/17/18 00:17 PT 20.1 Seconds (9.4-12.1) H 07/17/18 00:17 Sodium 133 mEq/L (136-145) L 07/17/18 00:17 Glucose 277 mg/dL (70-105) H 07/17/18 00:17 POC Glucose 348 mg/dL (70-99) H 07/17/18 01:44 Calcium 8.1 mg/dL (8.6-10.3) L 07/17/18 00:17 Phosphorus 2.2 mg/dL (2.7-4.5) L 07/14/18 20:13 Total Bilirubin 2.1 mg/dL (0.3-1.0) H 07/16/18 12:55 Direct Bilirubin 0.7 mg/dL (0.0-0.2) H 07/16/18 12:55 Indirect Bilirubin 1.4 mg/dL (0.0-1.2) H 07/16/18 12:55 Alkaline Phosphatase 111 Units/L (34-104) H 07/16/18 12:55 C-Reactive Protein 105 mg/L (Less than 10) H 07/15/18 06:28 Albumin 2.9 g/dL (3.5-5.7) L 07/16/18 12:55 Globulin 4.2 g/dL (2.4-3.5) H 07/16/18 12:55 Albumin/Globulin Ratio 0.7 (1.1-2.2) L 07/16/18 12:55 Urine Glucose (UA) 500 mg/dL (Normal) H 07/14/18 21:13 Urine Blood Large (Negative) H 07/14/18 21:13 Urine Urobilinogen 2.0 mg/dL (Normal) H 07/14/18 21:13 Urine Microscopic RBC 5-15 per hpf (0-3) H 07/14/18 21:13 Urine Microscopic WBC 3-5 per hpf (0-3) H 07/14/18 21:13 Vancomycin Trough 17 mcg/mL (5-10) H 07/17/18 00:17
[2018-07-16] MEDS: *HR* HYDROcodone/Acet 5/325 mg TABLET PO PRN (11:36)
[2018-07-16 13:39] LABS: INR 1.6; Prothrombin Time 18.5 Seconds (9.4-12.1)
[2018-07-16] MEDS: OXYCODONE Oral CONC 10 MG/0.5 ML ORAL.SYG SL PRN (13:47)
[2018-07-16 14:38] LABS: Albumin 2.9 g/dL (3.5-5.7); Albumin/Globulin Ratio 0.7 (1.1-2.2); Bilirubin,Direct 0.7 mg/dL (0.0-0.2); Bilirubin,Indirect 1.4 mg/dL (0.0-1.2); Bilirubin,Total 2.1 mg/dL (0.3-1.0); Globulin 4.2 g/dL (2.4-3.5); Total Protein 7.1 g/dL (6.4-8.9)
[2018-07-16] MEDS ORDERED: *HR* Midazolam HCl 2 MG/2 ML VIAL ONE (15:12)
[2018-07-16] MEDS ORDERED: *HR* FentaNYL (PF) 100 MCG/2 ML VIAL ONE (15:12)
[2018-07-16] MEDS ORDERED: Lidocaine -MPF 2% 2 ML VIAL ONE (15:12)
[2018-07-16] MEDS ORDERED: *HR* Propofol 200 MG/20 ML VIAL IVP ONE (15:12)
[2018-07-16] MEDS ORDERED: ROPIVACAINE HCL/PF 0.5% 30 ML VIAL ONE (15:15)
[2018-07-16] MEDS ORDERED: Bupivacaine/Clonidine Syringe 1 EACH SYRINGE ONE (15:15)
[2018-07-16] MEDS ORDERED: Ethanol\\Acetic Acid\\Na Ace\\Ben 1,000 ML IRRIG.SOLN IR ONE ×2 (15:19→16:37)
[2018-07-16] MEDS ORDERED: Acetaminophen IV 1,000 MG/100 ML INFUS..BTL ONE (15:23)
--- NOTE | 2018-07-16 15:48 | Anesthesia Procedures ---
Date of Encounter: 07/16/18 Time of Encounter: 15:35 Procedures: Anesthesia - Nerve Block Procedure Date: 07/16/18 Time: 15:35 Allergies/Adv Reactions: nka Surgical Procedure: right TKA rev Checklist: Correct Patient Identifier, Correct procedure, History checked Correct side: Right Blood Thinner: No Monitor Applied: EKG, BP, Pulse Oximetry Supplemental Oxygen via Nasal Cannula (L/min): 2 Sedation: Versed (mg): 2 Sedation: Fentanyl (mcg): 100 Indication: Post Op Analgesia Pre-op Neuro Deficits: No Block Type: Other (adductor canal 30ml) Catheter placed: No Sterile Technique: Yes Ultrasound used: Yes Anatomy identified: Yes Visual spread of Local: Yes Neuro Stimulation: No Blood on Needle Aspiration: No Smooth Injection of Local: Yes Pain with Injection of Local: No Prep: Chlorhexadine Needle: 21 x 100 mm Stimuplex Local: Ropivacaine, Other (decadron 8mg) Volume (cc): 30 Number of Attempts: 1 Complications: None/effective block Vitals: Vital Signs/O2 Sat/Glucose, Most Recent Temp Pulse Resp BP Pulse Ox 97.8 F 114 18 110/65 96 07/16/18 14:34 07/16/18 12:19 07/16/18 14:34 07/16/18 14:34 07/16/18 14:34 Blood Glucose* 117
[2018-07-16] MEDS ORDERED: KETAMINE HCL 50 MG/ML SYRINGE IV ONE (15:55)
[2018-07-16] MEDS ORDERED: Ondansetron 4 MG/2 ML VIAL ONE (16:04)
[2018-07-16] MEDS ORDERED: *HR* Morphine 10 MG/ML VIAL ONE (16:22)
[2018-07-16] MEDS ORDERED: *HR* OxyCODONE Immed Rel 5 MG TABLET PO PRN (16:29)
[2018-07-16] MEDS ORDERED: *HR* Labetalol 20 MG/4 ML SYRINGE IVP PRN (16:29)
[2018-07-16] MEDS ORDERED: Ondansetron 4 MG/2 ML VIAL IVP PRN ×2 (16:29→19:53)
[2018-07-16] MEDS ORDERED: *HR* HYDROmorphone (PF) 1 MG/ML SYRINGE IVP PRN (16:29)
[2018-07-16] MEDS ORDERED: Ketorolac 30 MG/ML VIAL ONE (16:59)
--- NOTE | 2018-07-16 17:59 | Anesthesia Evaluation Post Op ---
Date of Encounter: 07/16/18 Time of Encounter: 17:58 - Vital Signs Vital Signs: Vital Signs/O2 Sat, Most Current Temp Pulse Resp BP Pulse Ox 98.7 F 111 18 114/82 97 07/16/18 17:51 07/16/18 17:51 07/16/18 17:51 07/16/18 17:51 07/16/18 17:51 - Lungs Lungs: Clear Ascult./Percussion - Airway Airway: Non-obstructed - Cardiovascular Irregular Rate, Baseline Rhythm - Mental Status Mental Status: Asleep with brisk response to light stimulation - Pain Pain Scale: 0 Pain Scale used: Numeric (1 - 10) - Nausea Vomiting Nausea Vomiting: Not Present - Hydration Hydration: NPO, Has not voided - Discharge PostOp Status: Transfer Patient to floor
--- NOTE | 2018-07-16 18:06 | Orthopedic Operative Note ---
Date of procedure: 07/16/18 Pre-op diagnosis: Infected right revision total knee Post-op diagnosis: same Procedure: Procedure: Right revision total knee Estimated blood loss: 500 Hardware: Metal and polyethylene replacement. Biomet SSK femur: 65 right, 20 x 80 stem, 15 mm lateral augment 5 mm medial augment Tibia: 83, 6 mm augments medial and lateral, 14 x 80 stem, patella: 40 Constrained Annemarie: 22 one BEN drain Exam Under anesthesia: Full flexion and extension significant swelling no drainage well-healed incision Procedural Notes: No purulent material fluid sent for culture significant synovitis. Operative procedure: The patient was brought to the operating room and placed on the operating room table. After general anesthesia was administered the operative knee was examined. Findings were noted in the exam under anesthesia. The operative extremity was prepped and draped in sterile surgical fashion. The patient received IV antibiotics prior to skin incision. A standard midline incision was made centered over the patella through the old incision. The incision was made through the skin and subcutaneous tissue. A medial parapatellar tendon approach was performed. Care was taken to preserve tissue along the medial aspect of the patella. And to protect the patella tendon. The deep MCL was released off the medial tibia. The infra patella fat pad was excised. Fluid was encountered this was not purulent, was fibrinous mostly cultured and Gram stain. An extensive synovectomy was performed. The knee sat for 2 minutes with an antibacterial solution, it was irrigated out with 2 L of pulse irrigation. The knee was brought into flexion the poly-was removed. The interface between the patient's femoral component and distal femur were disrupted with a osteotome and oscillating saw. Femoral component was removed removed without additional bone loss. Attention was then turned to the tibial component. The same technique was used to remove the tibial component by disrupting the interface between the patient's tibial component and the patients proximal tibia. The tibial component was removed without additional bone loss. The tibia was sized to a 83 it was reamed up to a 14 x 80 Trial had good fit and fixation. The femur was down sized to a 65, was reamed up to a 20 x 80 the trial required 15 mm lateral augment 5 mm medial augment distal. Both trial components were seated and the 22 constrained Annemarie was seated and secured. The knee had full flexion and full extension with no instability. Patella was everted transected below the patella component. Sized to a 40 lug holes are drilled. Patella had good tracking. The trial components were removed. The knee sat for 2 minutes with a antibacterial solution. It was irrigated out with 2 L of pulse irrigation. The components were assembled on the back table, the tibia cemented first followed by the femur. The 22 constrained liner was seated and secure. The knee was brought to full extension while the cement hardened. The patella was cemented and held in place with patellar holding clamp. After the cement hardened the knee was irrigated out again. The extensor mechanism was closed with a running #2 PDS suture. The deep tissue was irrigated and closed deep with #1 PDS suture superficially with 0 PDS suture. The skin was closed with skin kait. The patient was placed in a sterile dressing and postoperative brace. They were extubated and transferred to recovery room in stable condition. Anesthesia: GETA Surgeon: Jeremias Fonseca Was there an press assistant and feeder present: No Estimated blood loss (cc): 500 Condition: stable Disposition: PACU
[2018-07-16 18:14] LABS: Hematocrit 31.5 % (37.5-50.1); Hemoglobin 10.7 g/dL (12.9-16.9)
[2018-07-16] MEDS ORDERED: *HR* Warfarin 2 MG TABLET PO SCH (19:45)
[2018-07-16] MEDS ORDERED: 0.9 % Sodium Chloride 1,000 ML ONE (20:15)
[2018-07-16] MEDS: Finasteride 5 MG TABLET PO SCH (21:52)
[2018-07-17 00:39] LABS: Basophils % 0.2 %; Hematocrit 27.6 % (37.5-50.1); Hemoglobin 9.3 g/dL (12.9-16.9); Immature Granulocytes % 0.4 % (0-4); Lymphocytes # 0.4 K/mcL (0.6-4.6); Lymphocytes % 8.7 %; Mean Corpuscular HGB Conc 33.7 g/dL (31.6-35.5); Mean Corpuscular Volume 97.9 fL (83.0-100.0); Mean Platelet Volume 9.7 fL (9.4-12.4); Monocytes # 0.1 K/mcL (0.0-1.3); Neutrophils # 4.4 K/mcL (1.6-8.9); Platelet Count 223 K/mcL (140-400); Red Blood Count 2.82 M/mcL (4.19-5.50); Red Cell Distribution Width 14.4 % (11.5-14.5); Segmented Neutrophils % 88.7 %
[2018-07-17 00:45] LABS: INR 1.8; Prothrombin Time 20.1 Seconds (9.4-12.1)
[2018-07-17 01:05] LABS: BUN/Creatinine Ratio 15 (6-26); Blood Urea Nitrogen 11 mg/dL (8-23); Calcium 8.1 mg/dL (8.6-10.3); Carbon Dioxide 28 mEq/L (23-29); Chloride 101 mEq/L (98-107); Glucose 277 mg/dL (70-105); Osmolality,Calculated 285 (280-300); Potassium 4.8 mEq/L (3.5-5.1); Sodium 133 mEq/L (136-145); eGFR For Non-African Americans > 60 (> 60)
[2018-07-17] MEDS: *HR* Morphine Sulfate SR (12 HR) 60 MG TABLET.ER PO SCH ×3 (01:45→16:00)
[2018-07-17] MEDS: Insulin LISPRO 300 UNITS/3 ML VIAL SQ SCH ×4 (01:46→19:37)
[2018-07-17] MEDS: Cefepime HCl 2,000 MG in Water for inj. (sterile) 20 ML 20 ML IVP SCH ×2 (06:10→18:48)
[2018-07-17] MEDS ORDERED: Furosemide 20 MG/2 ML VIAL IVP ONE (06:26)
[2018-07-17] MEDS: Ringers Solution, Lactated 1,000 ML IVC SCH (06:41)
[2018-07-17] MEDS: *HR* Enoxaparin 30 MG/0.3 ML SYRINGE SQ SCH ×2 (06:42→19:37)
--- NOTE | 2018-07-17 06:54 | Orthopedics Progress Note ---
Date of Encounter: 07/17/18 Time of Encounter: 06:53 Subjective Interval history: Patient was seen this morning doing well without complaints. Afebrile vital signs stable. Operative extremity: Neurovascularly intact Dressing clean dry and intact Calves nontender Assessment and plan: Continue with postoperative care Continue IV antibiotics 6 weeks, no knee motion, increased drainage drain will DC in the morning, hemoglobin 9.3 transfuse 2 units. Objective Vital signs: Vital Signs Temp Pulse Resp BP Pulse Ox 07/17/18 06:41 98.3 F 92 16 85/54 95 07/17/18 04:03 97.9 F 84 16 82/49 92 07/17/18 01:30 97.9 F 96 16 100/45 95 07/17/18 00:29 97.7 F 82 14 100 07/16/18 21:24 97.2 F L 86 14 91/59 92 07/16/18 20:29 98.0 F 90 14 87/52 97 07/16/18 19:00 97.7 F 112 16 93/61 98 07/16/18 18:42 97.2 F L 119 16 76/54 98 07/16/18 17:51 98.7 F 111 18 114/82 97 07/16/18 17:41 98.7 F 106 17 102/76 98 07/16/18 17:31 117 18 105/74 100 07/16/18 17:21 110 21 104/85 97 07/16/18 17:11 97.5 F L 101 22 109/79 95 07/16/18 15:42 104 14 92/60 96 07/16/18 15:30 101 84/69 94 07/16/18 14:34 97.8 F 18 110/65 96 07/16/18 12:19 98.2 F 114 14 96/55 07/16/18 10:21 98.4 F 104 16 112/67 96 07/16/18 10:19 95 07/16/18 10:12 98.0 F 112 16 109/70 95 07/16/18 09:57 98.0 F 115 16 104/68 94 Intake and Output 07/16/18 07/16/18 07/17/18 15:59 23:59 07:59 Intake Total 600 / 600 270 / 270 Output Total 750 / 750 815 / 815 130 / 130 Balance -150 / -150 -545 / -545 -130 / -130 Intake: IV Fluids 250 / 250 270 / 270 Maxipime 2,000 MG In Water for 20 / 20 inj. (sterile) 20 ML @ 300 mls/ hr IVP Q12HR SAMANTHA Rx#:[id number] Vancocin 1,250 MG In 0.9 % 250 / 250 250 / 250 Sodium Chloride 250 ML @ 166.67 mls/hr IVPB Q12H SAMANTHA Rx#: [id number] Oral 0 / 0 Blood Product 350 / 350 Plasma Unit [id number] 350 / 350 Output: Urine 750 / 750 Estimated Blood Loss 500 / 500 Wound Drainage 315 / 315 130 / 130 Right Knee 240 / 240 130 / 130 Other: Blood Glucose* 117 154 313 - Labs CBC & BMP: 07/17/18 00:17 07/17/18 00:17 Labs: Abnormal lab results RBC 2.82 M/mcL (4.19-5.50) L 07/17/18 00:17 Hgb 9.3 g/dL (12.9-16.9) L 07/17/18 00:17 Hct 27.6 % (37.5-50.1) L 07/17/18 00:17 Lymphocytes # 0.4 K/mcL (0.6-4.6) L 07/17/18 00:17 PT 20.1 Seconds (9.4-12.1) H 07/17/18 00:17 Sodium 133 mEq/L (136-145) L 07/17/18 00:17 Glucose 277 mg/dL (70-105) H 07/17/18 00:17 POC Glucose 348 mg/dL (70-99) H 07/17/18 01:44 Calcium 8.1 mg/dL (8.6-10.3) L 07/17/18 00:17 Phosphorus 2.2 mg/dL (2.7-4.5) L 07/14/18 20:13 Total Bilirubin 2.1 mg/dL (0.3-1.0) H 07/16/18 12:55 Direct Bilirubin 0.7 mg/dL (0.0-0.2) H 07/16/18 12:55 Indirect Bilirubin 1.4 mg/dL (0.0-1.2) H 07/16/18 12:55 Alkaline Phosphatase 111 Units/L (34-104) H 07/16/18 12:55 C-Reactive Protein 105 mg/L (Less than 10) H 07/15/18 06:28 Albumin 2.9 g/dL (3.5-5.7) L 07/16/18 12:55 Globulin 4.2 g/dL (2.4-3.5) H 07/16/18 12:55 Albumin/Globulin Ratio 0.7 (1.1-2.2) L 07/16/18 12:55 Urine Glucose (UA) 500 mg/dL (Normal) H 07/14/18 21:13 Urine Blood Large (Negative) H 07/14/18 21:13 Urine Urobilinogen 2.0 mg/dL (Normal) H 07/14/18 21:13 Urine Microscopic RBC 5-15 per hpf (0-3) H 07/14/18 21:13 Urine Microscopic WBC 3-5 per hpf (0-3) H 07/14/18 21:13 Vancomycin Trough 17 mcg/mL (5-10) H 07/17/18 00:17 - VTE Documentation of Mechanical Device: Venous foot pump, device Consult Discharge Plan - Plan [facility]: [facility] [Primary Care Provider] -
[2018-07-17] MEDS ORDERED: Lidocaine -MPF 1% 5 ML AMPUL INFILT ONE (07:01)
[2018-07-17] MEDS: Megestrol Acetate 400 MG/10 ML UDC PO SCH (09:05)
[2018-07-17] MEDS: Aspirin Enteric Coated 81 MG Tablet PO SCH (09:05)
[2018-07-17] MEDS: Cholecalciferol (D-3) 1,000 UNIT TABLET PO SCH (09:05)
[2018-07-17] MEDS: Metoprolol XL (24 HR) Succ 25 MG TAB.ER.24H PO SCH (09:05)
[2018-07-17] MEDS: Insulin NPH/REG 70/30 100 UNIT/ML (x5UNIT) SQ SCH ×2 (10:15→19:36)
--- NOTE | 2018-07-17 11:07 | EEG/EMG/Oth Biometrics Report ---
EEG Procedure Report Date of procedure: 07/16/18 EEG Procedure: Routine EEG Procedure Note: This is a routine 21 channel digital EEG performed utilizing 10- 20 international electrode placement system. FINDINGS: Patient has a predominant waking background frequency that is average voltage 8 to 10 Hertz alpha activity in the posterior region, normal amplitude symmetrical over the both hemispheres reactive to eyes opening and closing record continued to show alpha activity intermixed with some theta off and on, no abnormal activity recorded, predominantly no evidence of any spike wave discharges or any lateralizing abnormalities, Photic stimulation and hyperventilation did not produce any convulsive response. Intermittent EMG artifacts were noted. Stage II sleep was not achieved. Impression: Normal awake drowsy electroencephalogram. No epileptiform discharges or any other paroxysmal activities noted. ( Please note that normal EEG does not exclude the diagnosis of seizures or epilepsy, clinical correlation is suggested)
--- NOTE | 2018-07-17 11:09 | Internal Med Progress Note ---
<Lencho Cabrerat M - Last Filed: 07/17/18 17:29> Hospitalist Progress Note - Encounter Date of Encounter: 07/17/18 Time of Encounter: 09:00 - Subjective Interval History: Patient seen and examined at bedside. Patient resting comfortably with no new or worsening complaints. Patient still very drowsy from the anesthesia last night and is somewhat confused, he asks "am I going to have my surgery soon". However, after conversing for a minute he became more alert and was quite alarmed that he could not remember being taking for surgery. He reports his pain is well controlled. Does report some mild back pain, which is a chronic issue. Post-op checks to be performed today along with postoperative discharge planning. Likely to return to [place] [facility]hab facility on Friday with 6wks IV ABX. Of note, patient has been hypotensive post-anesthesia, with increasing tachycardia. He was given some fluids and responded appropriately. - Exam Vitals: Temp Pulse Resp BP Pulse Ox 98.3 F 92 16 85/54 95 07/17/18 06:41 07/17/18 06:41 07/17/18 06:41 07/17/18 06:41 07/17/18 06:41 Exam: General: A&O x 3, NAD, drowsy Head: atraumatic normocephalic Eyes: EOMI, non-icteric Throat: mucus membranes moist, trachea midline CV: Irregularly Irregular rythym, no murmurs Resp: CTAB, no wheezes rales rhonchi ABD: nondistended nontender, no guarding or rebound, no organomegaly Extremities:Right knee s/p arthroplasty revision, post-op dressing and knee brace in place, neurovascularly intact - Assessment and Plan (1) Septic arthritis Current Visit: Yes Status: Suspected Assessment and Plan: CT findings in correlation with s/s of septic joint with a CRP 105 strongly indicate septic arthritis Joint aspirate + for Staph Epi., nielsen-sensitive Ortho completed revision last night Cefepine and vanc ordered IR consulted, recommend 6 wks IV ABX Likely DC on friday to [place] rehab facility (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 Assessment and Plan: - Patient reports history of full body twitch, observed by nursing during hospitalization - No history of seizure activity, though nursing reports he did appear post- ictal - Reports he used to take Gabapentin, but ran out; possibly contributing factor - Believes they may have increased in frequency and duration over last couple of years - States they occur roughly 5-6 times/day, but believes they are worse since his admission - Gabapentin and long-term opoid abuse may be playing a factor - Patient is a known [place], unknown history of exposures, cannot rule out Agent [place] involvement - EEG shows no indication of Seizure activity Plan: - Neuro Consulted, appreciate recs: - Divalproex 250 at bedtime, may titrate up to 500 after monitoring progression/benefits - Labs: TSH, EEG, B12 level, LFT, RFT, Mag level Code(s): 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 (3) Dementia Current Visit: Yes Status: Acute Assessment and Plan: - increasing forgetfulness over last 8-9 years per patient as well as family - Increasing bouts of confusion and acute lapses in short term memory - Increasing h/o falls over the last 2-3 months, often at night with no memory of event - Patient is at high risk for ICH due to Coumadin therapy - Patient is more alert during daytime, waxes and wanes in mornings and evenings - Overall well orientated with no gross neurocognitive deficits - Plan to follow up outpatient for further work-up (4) Atrial fibrillation Current Visit: Yes Status: Chronic Assessment and Plan: Known history of Afib - Chronic and stable - HR has been 95-110, up to 135 today - Likely reflex tachy 2/2 hypotension - Vitals were responsive to fluid bolus, continue resuscitation - Coumadin for stroke prevention, last dose friday - Continue home Metoprolol (5) Hemochromatosis Current Visit: No Status: Chronic Assessment and Plan: Known history of Hemachromatosis - Chronic and Stable - Receives regular phlebotomy - No evidence of End Organ Damage - Possibly contributing to history of Arthritis (6) Diabetes mellitus Current Visit: Yes Status: Chronic Assessment and Plan: Accuchecks and SSI Concern for hypoglycemia related confusion Monitor for altered mental status - Time Spent with Patient Total time spent is greater than 50% in coordination of care (as documented) at patient's floor/unit and/or counseling patient: Internal Medicine: Result - Labs CBC & Chem 7: 07/17/18 00:17 07/17/18 00:17 Labs: Short CBC 07/16/18 07/17/18 Range/Units 17:29 00:17 WBC 5.0 (4.3-11.1) K/mcL Hgb 10.7 L 9.3 L (12.9-16.9) g/dL Hct 31.5 L 27.6 L (37.5-50.1) % Plt Count 223 (140-400) K/mcL Neutrophils # 4.4 (1.6-8.9) K/mcL BMP 07/17/18 00:17 Sodium 133 L Potassium 4.8 Chloride 101 Carbon Dioxide 28 BUN 11 Creatinine 0.73 Glucose 277 H Calcium 8.1 L Liver Function 07/16/18 Range/Units 12:55 Total Bilirubin 2.1 H (0.3-1.0) mg/dL Direct Bilirubin 0.7 H (0.0-0.2) mg/dL AST 28 (13-39) Units/L ALT 12 (7-52) Units/L Alkaline Phosphatase 111 H (34-104) Units/L Albumin 2.9 L (3.5-5.7) g/dL - ABG Interpretation ABG results: PT/INR, D-dimer PT 20.1 Seconds (9.4-12.1) H 07/17/18 00:17 - Impressions Impressions Knee X-Ray 07/16/18 15:59 IMPRESSION: 1. Revision of total knee arthroplasty with persistent lucency surrounding the femoral stem. 2. Lucency surrounds the tibial component with a gap between the cement and bone measuring approximately 5 mm. D/ / Amos Marcelino / Amos Marcelino Interpreting Provider: Amos Marcelino - VTE Documentation of Mechanical Device: Venous foot pump, device Consult Discharge Plan - Plan [facility]errals: [facility] [Primary Care Provider] - <Faheem Jaimes - Last Filed: 07/17/18 18:37> Hospitalist Progress Note - Encounter Date of Encounter: 07/17/18 - Exam Vitals: Temp Pulse Resp BP Pulse Ox 98.4 F 108 16 91/52 97 07/17/18 15:11 07/17/18 15:11 07/17/18 15:11 07/17/18 15:11 07/17/18 15:11 - Assessment and Plan (1) Septic arthritis Current Visit: Yes Status: Suspected (2) Prosthetic joint infection Current Visit: Yes Status: Acute (3) Warfarin-induced coagulopathy Current Visit: Yes Status: Acute (4) Atrial fibrillation Current Visit: Yes Status: Chronic (5) Diabetes mellitus Current Visit: Yes Status: Chronic (6) Myoclonic jerking Current Visit: Yes Status: Chronic - Time Spent with Patient Total time spent is greater than 50% in coordination of care (as documented) at patient's floor/unit and/or counseling patient: Internal Medicine: Result - Labs CBC & Chem 7: 07/17/18 00:17 07/17/18 00:17 Labs: Short CBC 07/16/18 07/17/18 Range/Units 17:29 00:17 WBC 5.0 (4.3-11.1) K/mcL Hgb 10.7 L 9.3 L (12.9-16.9) g/dL Hct 31.5 L 27.6 L (37.5-50.1) % Plt Count 223 (140-400) K/mcL Neutrophils # 4.4 (1.6-8.9) K/mcL BMP 07/17/18 00:17 Sodium 133 L Potassium 4.8 Chloride 101 Carbon Dioxide 28 BUN 11 Creatinine 0.73 Glucose 277 H Calcium 8.1 L - ABG Interpretation ABG results: PT/INR, D-dimer PT 20.1 Seconds (9.4-12.1) H 07/17/18 00:17 - Impressions Impressions Chest X-Ray 07/17/18 12:44 IMPRESSION: 1. Right PICC terminating in the distal SVC. 2. Questionable 1.6 cm left pulmonary nodule. Recommend further evaluation with CT of the chest with contrast. D/ / Theodore Jeffries MD / Theodore Jeffries MD Interpreting Provider: Theodore Jeffries MD - Attending Attestation The history, physical exam, and medical decision making was performed by the medical student either while I was physically present and actively involved or I personally re-performed the exam and medical decision making. I have verified the accuracy of the medical student's documentation with regards to the history, physical exam findings, and medical decision making on 07/17/18. Mr Martin is currently admitted for infected artificial knee joint. He remains moderate to high risk due to potential for worsening clinical status. Mr Martin feels OK today. He is eating lunch. No fever or chills. No CP or SOB. Having drainage from knee. Receiving blood per ortho. Exam Alert Comfortable Mucus membranes dry Heart irreg and not tachy Lungs clear Abd soft and nontender Drainage in drain from knee No edema Myoclonus persists I/P 1. Septic arthritis with coag neg staph epi 2. Myoclonus Further diagnoses and plan as above. <Nelson Cabrera - Last Filed: 07/17/18 17:29> (1) Septic arthritis Qualifiers: Septic arthritis location: knee Septic arthritis organism: staphylococcal Laterality: right Qualified Code(s): M00.061 - Staphylococcal arthritis, right knee (3) Dementia Qualifiers: Dementia type: unspecified type Dementia behavioral disturbance: without behavioral disturbance Qualified Code(s): F03.90 - Unspecified dementia without behavioral disturbance (4) Atrial fibrillation Qualifiers: Atrial fibrillation type: chronic Qualified Code(s): I48.2 - Chronic atrial fibrillation (5) Hemochromatosis Qualifiers: Hemochromatosis type: unspecified Qualified Code(s): E83.119 - Hemochromatosis, unspecified (6) Diabetes mellitus Qualifiers: Diabetes mellitus type: type 2 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 <Faheem Jaimes A - Last Filed: 08/31/18 18:37> (1) Septic arthritis Qualifiers: Septic arthritis location: knee Septic arthritis organism: staphylococcal Laterality: right Qualified Code(s): M00.061 - Staphylococcal arthritis, right knee (2) Prosthetic joint infection Qualifiers: Encounter type: subsequent encounter Qualified Code(s): T84.50XD - Infection and inflammatory reaction due to unspecified internal joint prosthesis, subsequent encounter (4) Atrial fibrillation Qualifiers: Atrial fibrillation type: chronic Qualified Code(s): I48.2 - Chronic atrial fibrillation (5) Diabetes mellitus Qualifiers: Diabetes mellitus type: type 2 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
[2018-07-17] MEDS: 0.9 % Sodium Chloride 250 ML IVC SCH (11:30)
[2018-07-17] MEDS ORDERED: 0.9 % Sodium Chloride 500 ML IVC PRN (14:49)
--- NOTE | 2018-07-17 14:49 | Infectious Disease Consult ---
Date of Encounter: 07/17/18 Time of Encounter: 14:48 Assessment and Plan (1) Prosthetic joint infection Status: Acute Assessment and plan: Initial surgery was done at [facility] a few years back. He stated that patient was not taking care of it and he required another surgery. I am not sure if it was infected at that time. This is the third right total knee revision. Cultures from 05/21 grew staph epi that was methicillin sensitive Patient came back with similar symptoms and arthrocentesis is showing staph epi Currently patient on vancomycin and cefepime Stop the cefepime and continue vancomycin If patient continues to improve we will consider switching the patient to cefazolin if this is a true methicillin sensitive staph epi While on vancomycin monitor kidney function Goal vancomycin trough 15 Duration of treatment probably 6 weeks While antibiotics monitor labs and for drug toxicity Qualifiers: Encounter type: initial encounter Qualified Code(s): T84.50XA - Infection and inflammatory reaction due to unspecified internal joint prosthesis, initial encounter (2) Diabetes mellitus Status: Chronic Qualifiers: Diabetes mellitus type: type 2 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 insulin use: with mcc use Diabetes mellitus complication status: without complication Qualified Code(s): E11.9 - Type 2 diabetes mellitus without complications; Z79.4 - assisted (current) use of insulin (3) Atrial fibrillation Status: Chronic Qualifiers: Atrial fibrillation type: chronic Qualified Code(s): I48.2 - Chronic atrial fibrillation (4) Myoclonic jerking Status: Chronic Infectious Disease HPI - Data of Consult Patient: new to practice Consult date: 07/17/18 Requesting Physician: Faheem Jaimes DO Primary Care Provider: PCP ID - Consult Narrative Reason for consult: PJI History of present illness: Mr. Martin is a 68 year old male Patient is a 68-year-old gentleman who presented to [facility] 07/14/2018 with knee pain, we are consult at on July 17 for septic arthritis with staph epidermidis. Patient is 68-year-old gentleman with extensive past medical history mentioned below including hemochromatosis, diabetes mellitus type 2, atrial fibrillation and congestive heart failure who was apparently transferred from the ID with right knee pain and swelling. Patients symptoms were sudden onset a few hours prior to admission. Patient On 05/21/18 patient was thought to have aseptic loosening of the right total knee and had a right revision of the total knee. At that time a right knee wound culture is staph epi. I am suspicious that this culture was Intra-Op because that is when the patient had the surgery and maybe it was mislabeled. Since admission, Patient has been afebrile, has been tachycardic with mild tachypnea initially. Presenting WBC was 4.7 with normal differential and monocytes 15%. Patients BUN and creatinine were 8 and 0.83 respectively. A urinalysis was done and revealed no process. Blood cultures were obtained on and are no growth to date. Patient was taken to surgery on 07/16 and he had right revision of total knee. An aspiration of the knee was performed on 07/15 and it revealed many white blood cell count over 25 per low power field and gram -positive cocci. Cultures grew staph epi which is methicillin sensitive. Intra -Op note mentions that fluid was encountered and showed no purulence. Distal cultures reveal no bacteria and few white blood cells. Pathology report is pending. Patient was started on cefepime on 07/14 and vancomycin was added on 07/15. We were asked to evaluate the patients make further recommendations. CC: Faheem Jaimes, DO Past Med Surg Social Fam HX - Past Medical History Medical history: atrial fibrillation, cancer, CHF, diabetes, other Additional medical history: ED Psychiatric history: anxiety, depression, PTSD - Past Surgical History Surgical History: knee replacement, other (Right TKR x 3, RIght and finger surgery, Left wrist surgery, Excision melanoma (back), ) Additional surgical history: knuckle fusion-right hand, left hip replacement - Social History Smoking Status: Former smoker Smokeless Tobacco Status: No Alcohol use: none Drug use: none - Family History Father Adopted: No Age: 49 Living Status: Hx Family Medical Disorders: Yes (hemochromotosis) Infectious Disease-CN:Meds Aspirin [Lo-Dose Aspirin EC] 81 mg PO DAILY 06/04/18 [History] Cholecalciferol (D-3) [Vitamin D] 1,000 unit PO DAILY 06/04/18 [History] Dextrose [Glucose] 4 gm PO ONCE PRN 06/04/18 [History] Finasteride [Proscar] 5 mg PO HS 06/04/18 [History] Furosemide [Lasix] 20 mg PO Q48H 06/04/18 [History] Gabapentin [Neurontin] 300 mg PO BID 06/04/18 [History] Insulin NPH Hum/Reg Insulin Hm [Novolin 70-30 100 Unit/ml Vial] 40 unit SQ QPM 06/04/18 [History] Insulin NPH Hum/Reg Insulin Hm [Novolin 70-30 100 Unit/ml Vial] 50 unit SQ QAM 06/04/18 [History] Morphine Sulfate SR (12 HR) [MS Contin] 60 mg PO Q8HR 06/04/18 [History] Paroxetine HCl [Paxil] 20 mg PO HS 06/04/18 [History] hydrOXYzine HCl [Hydroxyzine HCl] 25 mg PO DAILY PRN 06/04/18 [History] Metoprolol Succinate [Toprol Xl] 25 mg PO DAILY 30 Days #30 tab.er.24h 06/08/18 [Rx] Megestrol Acetate [Megace] 800 mg PO DAILY 07/15/18 [History] Warfarin [Coumadin] 2.5 mg PO SUMOTUWETHSA 07/15/18 [History] Warfarin [Coumadin] 3.75 mg PO FR 07/15/18 [History] 3 Allergy/AdvReac Type Severity Reaction Status Date / Time No Known Allergies Allergy Verified 07/15/18 12:14 Review of systems: 10 point review of systems done, negative other for what mentioned in history of present illness. Exam - Constitutional Vitals: Temp Pulse Resp BP Pulse Ox 97.8 F 136 17 80/47 92 07/17/18 14:41 07/17/18 14:41 07/17/18 14:41 07/17/18 14:41 07/17/18 14:41 General appearance: no acute distress, no febrile - Head Head exam: Present: atraumatic, normocephalic - Eye Eye exam: Present: EOMI, PERRL, sclera anicteric - Respiratory Respiratory exam: Present: CTAB. Absent: wheezes - Cardiovascular Cardiovascular exam: Present: RRR, +S1, +S2 - GI/Abdominal GI/Abdominal exam: Present: normal bowel sounds, soft. Absent: tenderness - Extremities Exam Extremities exam: Present: normal inspection Additional comments: Right knee postsurgical - Neurological Exam Neurological exam: Present: alert, oriented X3. Absent: speech deficit - Psychiatric Psychiatric exam: Present: normal affect, normal mood - Skin Skin exam: Present: normal color. Absent: rash Infectious Disease CN: Results - Labs CBC & Chem 7: 07/17/18 00:17 07/17/18 00:17 Cultures: Cultures 07/16/18 16:58 Surgical Biopsy Culture - Preliminary Right Knee Serology: Serology 07/17/18 07/17/18 07/17/18 Range/Units 01:44 00:17 00:17 WBC 5.0 (4.3-11.1) K/mcL RBC 2.82 L (4.19-5.50) M/mcL Hgb 9.3 L (12.9-16.9) g/dL Hct 27.6 L (37.5-50.1) % MCV 97.9 (83.0-100.0) fL MCH 33.0 (28.0-33.3) pg MCHC 33.7 (31.6-35.5) g/dL RDW 14.4 (11.5-14.5) % Plt Count 223 (140-400) K/mcL MPV 9.7 (9.4-12.4) fL Immature Gran % 0.4 (0-4) % Seg Neutrophils % 88.7 % Lymphocytes % 8.7 % Monocytes % 2.0 % Eosinophils % 0.0 % Basophils % 0.2 % Neutrophils # 4.4 (1.6-8.9) K/mcL Lymphocytes # 0.4 L (0.6-4.6) K/mcL Monocytes # 0.1 (0.0-1.3) K/mcL Eosinophils # 0.0 (0.0-0.6) K/mcL Basophils # 0.0 (0.0-0.2) K/mcL PT 20.1 H (9.4-12.1) Seconds INR 1.8 Sodium (136-145) mEq/L Potassium (3.5-5.1) mEq/L Chloride (98-107) mEq/L Carbon Dioxide (23-29) mEq/L BUN (8-23) mg/dL Creatinine (0.70-1.30) mg/dL Est GFR ( Amer) (> 60) Est GFR (Non-Af Amer) (> 60) BUN/Creatinine Ratio (6-26) Glucose (70-105) mg/dL POC Glucose 348 H (70-99) mg/dL Calculated Osmolality (280-300) Calcium (8.6-10.3) mg/dL Magnesium (1.6-2.6) mg/dL Total Bilirubin (0.3-1.0) mg/dL Direct Bilirubin (0.0-0.2) mg/dL Indirect Bilirubin (0.0-1.2) mg/dL AST (13-39) Units/L ALT (7-52) Units/L Alkaline Phosphatase (34-104) Units/L Serum Total Protein (6.4-8.9) g/dL Albumin (3.5-5.7) g/dL Globulin (2.4-3.5) g/dL Albumin/Globulin Ratio (1.1-2.2) TSH (0.340-5.600) mcIU/mL Vancomycin Trough (5-10) mcg/mL 07/17/18 07/17/18 07/16/18 Range/Units 00:17 00:17 19:23 WBC (4.3-11.1) K/mcL RBC (4.19-5.50) M/mcL Hgb (12.9-16.9) g/dL Hct (37.5-50.1) % MCV (83.0-100.0) fL MCH (28.0-33.3) pg MCHC (31.6-35.5) g/dL RDW (11.5-14.5) % Plt Count (140-400) K/mcL MPV (9.4-12.4) fL Immature Gran % (0-4) % Seg Neutrophils % % Lymphocytes % % Monocytes % % Eosinophils % % Basophils % % Neutrophils # (1.6-8.9) K/mcL Lymphocytes # (0.6-4.6) K/mcL Monocytes # (0.0-1.3) K/mcL Eosinophils # (0.0-0.6) K/mcL Basophils # (0.0-0.2) K/mcL PT (9.4-12.1) Seconds INR Sodium 133 L (136-145) mEq/L Potassium 4.8 (3.5-5.1) mEq/L Chloride 101 (98-107) mEq/L Carbon Dioxide 28 (23-29) mEq/L BUN 11 (8-23) mg/dL Creatinine 0.73 (0.70-1.30) mg/dL Est GFR ( Amer) > 60 (> 60) Est GFR (Non-Af Amer) > 60 (> 60) BUN/Creatinine Ratio 15 (6-26) Glucose 277 H (70-105) mg/dL POC Glucose 154 H (70-99) mg/dL Calculated Osmolality 285 (280-300) Calcium 8.1 L (8.6-10.3) mg/dL Magnesium (1.6-2.6) mg/dL Total Bilirubin (0.3-1.0) mg/dL Direct Bilirubin (0.0-0.2) mg/dL Indirect Bilirubin (0.0-1.2) mg/dL AST (13-39) Units/L ALT (7-52) Units/L Alkaline Phosphatase (34-104) Units/L Serum Total Protein (6.4-8.9) g/dL Albumin (3.5-5.7) g/dL Globulin (2.4-3.5) g/dL Albumin/Globulin Ratio (1.1-2.2) TSH (0.340-5.600) mcIU/mL Vancomycin Trough 17 H (5-10) mcg/mL 07/16/18 07/16/18 07/16/18 Range/Units 17:29 12:55 12:55 WBC (4.3-11.1) K/mcL RBC (4.19-5.50) M/mcL Hgb 10.7 L (12.9-16.9) g/dL Hct 31.5 L (37.5-50.1) % MCV (83.0-100.0) fL MCH (28.0-33.3) pg MCHC (31.6-35.5) g/dL RDW (11.5-14.5) % Plt Count (140-400) K/mcL MPV (9.4-12.4) fL Immature Gran % (0-4) % Seg Neutrophils % % Lymphocytes % % Monocytes % % Eosinophils % % Basophils % % Neutrophils # (1.6-8.9) K/mcL Lymphocytes # (0.6-4.6) K/mcL Monocytes # (0.0-1.3) K/mcL Eosinophils # (0.0-0.6) K/mcL Basophils # (0.0-0.2) K/mcL PT (9.4-12.1) Seconds INR Sodium (136-145) mEq/L Potassium (3.5-5.1) mEq/L Chloride (98-107) mEq/L Carbon Dioxide (23-29) mEq/L BUN (8-23) mg/dL Creatinine (0.70-1.30) mg/dL Est GFR ( Amer) (> 60) Est GFR (Non-Af Amer) (> 60) BUN/Creatinine Ratio (6-26) Glucose (70-105) mg/dL POC Glucose (70-99) mg/dL Calculated Osmolality (280-300) Calcium (8.6-10.3) mg/dL Magnesium (1.6-2.6) mg/dL Total Bilirubin 2.1 H (0.3-1.0) mg/dL Direct Bilirubin 0.7 H (0.0-0.2) mg/dL Indirect Bilirubin 1.4 H (0.0-1.2) mg/dL AST 28 (13-39) Units/L ALT 12 (7-52) Units/L Alkaline Phosphatase 111 H (34-104) Units/L Serum Total Protein 7.1 (6.4-8.9) g/dL Albumin 2.9 L (3.5-5.7) g/dL Globulin 4.2 H (2.4-3.5) g/dL Albumin/Globulin Ratio 0.7 L (1.1-2.2) TSH 1.547 (0.340-5.600) mcIU/mL Vancomycin Trough (5-10) mcg/mL 07/16/18 07/16/18 07/16/18 Range/Units 12:55 11:34 07:58 WBC (4.3-11.1) K/mcL RBC (4.19-5.50) M/mcL Hgb (12.9-16.9) g/dL Hct (37.5-50.1) % MCV (83.0-100.0) fL MCH (28.0-33.3) pg MCHC (31.6-35.5) g/dL RDW (11.5-14.5) % Plt Count (140-400) K/mcL MPV (9.4-12.4) fL Immature Gran % (0-4) % Seg Neutrophils % % Lymphocytes % % Monocytes % % Eosinophils % % Basophils % % Neutrophils # (1.6-8.9) K/mcL Lymphocytes # (0.6-4.6) K/mcL Monocytes # (0.0-1.3) K/mcL Eosinophils # (0.0-0.6) K/mcL Basophils # (0.0-0.2) K/mcL PT 18.5 H 21.3 H (9.4-12.1) Seconds INR 1.6 1.9 Sodium (136-145) mEq/L Potassium (3.5-5.1) mEq/L Chloride (98-107) mEq/L Carbon Dioxide (23-29) mEq/L BUN (8-23) mg/dL Creatinine (0.70-1.30) mg/dL Est GFR ( Amer) (> 60) Est GFR (Non-Af Amer) (> 60) BUN/Creatinine Ratio (6-26) Glucose (70-105) mg/dL POC Glucose 117 H (70-99) mg/dL Calculated Osmolality (280-300) Calcium (8.6-10.3) mg/dL Magnesium (1.6-2.6) mg/dL Total Bilirubin (0.3-1.0) mg/dL Direct Bilirubin (0.0-0.2) mg/dL Indirect Bilirubin (0.0-1.2) mg/dL AST (13-39) Units/L ALT (7-52) Units/L Alkaline Phosphatase (34-104) Units/L Serum Total Protein (6.4-8.9) g/dL Albumin (3.5-5.7) g/dL Globulin (2.4-3.5) g/dL Albumin/Globulin Ratio (1.1-2.2) TSH (0.340-5.600) mcIU/mL Vancomycin Trough (5-10) mcg/mL 07/16/18 07/16/18 07/16/18 Range/Units 05:56 00:51 00:51 WBC (4.3-11.1) K/mcL RBC (4.19-5.50) M/mcL Hgb (12.9-16.9) g/dL Hct (37.5-50.1) % MCV (83.0-100.0) fL MCH (28.0-33.3) pg MCHC (31.6-35.5) g/dL RDW (11.5-14.5) % Plt Count (140-400) K/mcL MPV (9.4-12.4) fL Immature Gran % (0-4) % Seg Neutrophils % % Lymphocytes % % Monocytes % % Eosinophils % % Basophils % % Neutrophils # (1.6-8.9) K/mcL Lymphocytes # (0.6-4.6) K/mcL Monocytes # (0.0-1.3) K/mcL Eosinophils # (0.0-0.6) K/mcL Basophils # (0.0-0.2) K/mcL PT 23.8 H D (9.4-12.1) Seconds INR 2.1 D Sodium (136-145) mEq/L Potassium (3.5-5.1) mEq/L Chloride (98-107) mEq/L Carbon Dioxide (23-29) mEq/L BUN (8-23) mg/dL Creatinine (0.70-1.30) mg/dL Est GFR ( Amer) (> 60) Est GFR (Non-Af Amer) (> 60) BUN/Creatinine Ratio (6-26) Glucose (70-105) mg/dL POC Glucose 172 H (70-99) mg/dL Calculated Osmolality (280-300) Calcium (8.6-10.3) mg/dL Magnesium 1.6 (1.6-2.6) mg/dL Total Bilirubin (0.3-1.0) mg/dL Direct Bilirubin (0.0-0.2) mg/dL Indirect Bilirubin (0.0-1.2) mg/dL AST (13-39) Units/L ALT (7-52) Units/L Alkaline Phosphatase (34-104) Units/L Serum Total Protein (6.4-8.9) g/dL Albumin (3.5-5.7) g/dL Globulin (2.4-3.5) g/dL Albumin/Globulin Ratio (1.1-2.2) TSH (0.340-5.600) mcIU/mL Vancomycin Trough (5-10) mcg/mL 07/16/18 07/16/18 07/15/18 Range/Units 00:51 00:16 20:32 WBC 4.2 L (4.3-11.1) K/mcL RBC 3.28 L (4.19-5.50) M/mcL Hgb 10.9 L (12.9-16.9) g/dL Hct 32.3 L (37.5-50.1) % MCV 98.5 (83.0-100.0) fL MCH 33.2 (28.0-33.3) pg MCHC 33.7 (31.6-35.5) g/dL RDW 14.1 (11.5-14.5) % Plt Count 199 (140-400) K/mcL MPV 9.8 (9.4-12.4) fL Immature Gran % (0-4) % Seg Neutrophils % % Lymphocytes % % Monocytes % % Eosinophils % % Basophils % % Neutrophils # (1.6-8.9) K/mcL Lymphocytes # (0.6-4.6) K/mcL Monocytes # (0.0-1.3) K/mcL Eosinophils # (0.0-0.6) K/mcL Basophils # (0.0-0.2) K/mcL PT (9.4-12.1) Seconds INR Sodium (136-145) mEq/L Potassium (3.5-5.1) mEq/L Chloride (98-107) mEq/L Carbon Dioxide (23-29) mEq/L BUN (8-23) mg/dL Creatinine (0.70-1.30) mg/dL Est GFR ( Amer) (> 60) Est GFR (Non-Af Amer) (> 60) BUN/Creatinine Ratio (6-26) Glucose (70-105) mg/dL POC Glucose 192 H 117 H (70-99) mg/dL Calculated Osmolality (280-300) Calcium (8.6-10.3) mg/dL Magnesium (1.6-2.6) mg/dL Total Bilirubin (0.3-1.0) mg/dL Direct Bilirubin (0.0-0.2) mg/dL Indirect Bilirubin (0.0-1.2) mg/dL AST (13-39) Units/L ALT (7-52) Units/L Alkaline Phosphatase (34-104) Units/L Serum Total Protein (6.4-8.9) g/dL Albumin (3.5-5.7) g/dL Globulin (2.4-3.5) g/dL Albumin/Globulin Ratio (1.1-2.2) TSH (0.340-5.600) mcIU/mL Vancomycin Trough (5-10) mcg/mL 07/15/18 07/15/18 07/15/18 Range/Units 17:02 16:26 12:27 WBC (4.3-11.1) K/mcL RBC (4.19-5.50) M/mcL Hgb (12.9-16.9) g/dL Hct (37.5-50.1) % MCV (83.0-100.0) fL MCH (28.0-33.3) pg MCHC (31.6-35.5) g/dL RDW (11.5-14.5) % Plt Count (140-400) K/mcL MPV (9.4-12.4) fL Immature Gran % (0-4) % Seg Neutrophils % % Lymphocytes % % Monocytes % % Eosinophils % % Basophils % % Neutrophils # (1.6-8.9) K/mcL Lymphocytes # (0.6-4.6) K/mcL Monocytes # (0.0-1.3) K/mcL Eosinophils # (0.0-0.6) K/mcL Basophils # (0.0-0.2) K/mcL PT (9.4-12.1) Seconds INR Sodium (136-145) mEq/L Potassium (3.5-5.1) mEq/L Chloride (98-107) mEq/L Carbon Dioxide (23-29) mEq/L BUN (8-23) mg/dL Creatinine (0.70-1.30) mg/dL Est GFR ( Amer) (> 60) Est GFR (Non-Af Amer) (> 60) BUN/Creatinine Ratio (6-26) Glucose (70-105) mg/dL POC Glucose 77 54 L 309 H (70-99) mg/dL Calculated Osmolality (280-300) Calcium (8.6-10.3) mg/dL Magnesium (1.6-2.6) mg/dL Total Bilirubin (0.3-1.0) mg/dL Direct Bilirubin (0.0-0.2) mg/dL Indirect Bilirubin (0.0-1.2) mg/dL AST (13-39) Units/L ALT (7-52) Units/L Alkaline Phosphatase (34-104) Units/L Serum Total Protein (6.4-8.9) g/dL Albumin (3.5-5.7) g/dL Globulin (2.4-3.5) g/dL Albumin/Globulin Ratio (1.1-2.2) TSH (0.340-5.600) mcIU/mL Vancomycin Trough (5-10) mcg/mL 07/15/18 Range/Units 11:32 WBC (4.3-11.1) K/mcL RBC (4.19-5.50) M/mcL Hgb (12.9-16.9) g/dL Hct (37.5-50.1) % MCV (83.0-100.0) fL MCH (28.0-33.3) pg MCHC (31.6-35.5) g/dL RDW (11.5-14.5) % Plt Count (140-400) K/mcL MPV (9.4-12.4) fL Immature Gran % (0-4) % Seg Neutrophils % % Lymphocytes % % Monocytes % % Eosinophils % % Basophils % % Neutrophils # (1.6-8.9) K/mcL Lymphocytes # (0.6-4.6) K/mcL Monocytes # (0.0-1.3) K/mcL Eosinophils # (0.0-0.6) K/mcL Basophils # (0.0-0.2) K/mcL PT (9.4-12.1) Seconds INR Sodium (136-145) mEq/L Potassium (3.5-5.1) mEq/L Chloride (98-107) mEq/L Carbon Dioxide (23-29) mEq/L BUN (8-23) mg/dL Creatinine (0.70-1.30) mg/dL Est GFR ( Amer) (> 60) Est GFR (Non-Af Amer) (> 60) BUN/Creatinine Ratio (6-26) Glucose (70-105) mg/dL POC Glucose 303 H (70-99) mg/dL Calculated Osmolality (280-300) Calcium (8.6-10.3) mg/dL Magnesium (1.6-2.6) mg/dL Total Bilirubin (0.3-1.0) mg/dL Direct Bilirubin (0.0-0.2) mg/dL Indirect Bilirubin (0.0-1.2) mg/dL AST (13-39) Units/L ALT (7-52) Units/L Alkaline Phosphatase (34-104) Units/L Serum Total Protein (6.4-8.9) g/dL Albumin (3.5-5.7) g/dL Globulin (2.4-3.5) g/dL Albumin/Globulin Ratio (1.1-2.2) TSH (0.340-5.600) mcIU/mL Vancomycin Trough (5-10) mcg/mL - VTE Documentation of Mechanical Device: Venous foot pump, device Consult Discharge Plan - Plan [facility]: [facility] Care Provider[facility] -
--- NOTE | 2018-07-17 16:15 | Event Note ---
Date of Encounter: 07/17/18 Time of Encounter: 12:30 Continue IV antibiotics 6 weeks, no knee motion, increased drainage drain will DC in the morning, hemoglobin 9.3 transfuse 2 units. PCR - POD#1 s/p Right revision TKR 07/16/18 Patient seen at bedside, without complaints. A&O x 3 Wound cultures from knee + staph epidermidis -- PICC line was just placed. He will be receiving IV vancomycin x 6 weeks pharmacy to dose. ID is on board as well. Will need weekly ESR/ CRP/ vancomycin troughs upon discharge. Pathology report pending Afebrile, vital signs stable. hypotensive today stable BEN drain in place to right knee - documented as 170cc since midnight and roughly 50 cc in currently on exam. Plan for drain to be removed tomorrow. Labs reviewed. H/H - 9.3/27.6 - receiving 2 units RBC today. Pain control: adequate Participating in PT.NO KNEE FLEXION. must wear brace in extension at all times. WBAT. All questions and concerns addressed. Educated on use of incentive spirometer. Encouraged ambulation and proper hydration. Patient educated on post-operative restrictions and post-operative care. Assessment and plan: Continue with postoperative care [facility]. No bed available currently. Holiday weekend will postpone placement.
[2018-07-17] MEDS ORDERED: *HR* Warfarin 3 MG TABLET PO SCH (18:00)
[2018-07-17] MEDS ORDERED: 0.9 % Sodium Chloride 250 ML ONE (21:05)
[2018-07-17] MEDS: Finasteride 5 MG TABLET PO SCH (21:41)
[2018-07-18] MEDS: Insulin LISPRO 300 UNITS/3 ML VIAL SQ SCH ×4 (00:09→17:21)
[2018-07-18] MEDS: *HR* Morphine Sulfate SR (12 HR) 60 MG TABLET.ER PO SCH ×3 (00:09→15:48)
[2018-07-18] MEDS: Cefepime HCl 2,000 MG in Water for inj. (sterile) 20 ML 20 ML IVP SCH ×2 (05:47→17:19)
[2018-07-18 06:01] LABS: Hematocrit 26.9 % (37.5-50.1); Hemoglobin 9.2 g/dL (12.9-16.9); Mean Corpuscular HGB Conc 34.2 g/dL (31.6-35.5); Mean Corpuscular Hemoglobin 33.3 pg (28.0-33.3); Mean Corpuscular Volume 97.5 fL (83.0-100.0); Mean Platelet Volume 9.6 fL (9.4-12.4); Platelet Count 217 K/mcL (140-400); Red Blood Count 2.76 M/mcL (4.19-5.50); Red Cell Distribution Width 15.8 % (11.5-14.5)
[2018-07-18] MEDS: *HR* Enoxaparin 30 MG/0.3 ML SYRINGE SQ SCH ×2 (06:27→17:20)
[2018-07-18 06:28] LABS: BUN/Creatinine Ratio 24 (6-26); Blood Urea Nitrogen 17 mg/dL (8-23); Calcium 8.1 mg/dL (8.6-10.3); Carbon Dioxide 29 mEq/L (23-29); Chloride 106 mEq/L (98-107); Glucose 80 mg/dL (70-105); Osmolality,Calculated 287 (280-300); Sodium 138 mEq/L (136-145); eGFR For Non-African Americans > 60 (> 60)
[2018-07-18] MEDS: Insulin NPH/REG 70/30 100 UNIT/ML (x5UNIT) SQ SCH ×2 (08:26→17:20)
[2018-07-18] MEDS: Cholecalciferol (D-3) 1,000 UNIT TABLET PO SCH (08:30)
[2018-07-18] MEDS: Aspirin Enteric Coated 81 MG Tablet PO SCH (08:30)
[2018-07-18] MEDS: Metoprolol XL (24 HR) Succ 25 MG TAB.ER.24H PO SCH (08:30)
[2018-07-18] MEDS: Megestrol Acetate 400 MG/10 ML UDC PO SCH (08:30)
--- NOTE | 2018-07-18 13:12 | Orthopedics Progress Note ---
Date of Encounter: 07/18/18 Time of Encounter: 13:10 Subjective Interval history: No overnight issues. Pain tolerable AFVSS Hg 9.2 RLE: DNVI Dressing clean dry and intact Calves nontender A/P: s/p R revision TKA Continue IV antibiotics as scheduled No knee motion D/c drain today Discharge planning Objective Vital signs: Vital Signs Temp Pulse Resp BP Pulse Ox 07/18/18 11:09 97.9 F 107 20 94/60 96 07/18/18 06:50 98.7 F 107 20 107/59 94 07/18/18 03:01 98.1 F 95 18 114/66 98 07/17/18 23:11 98.1 F 101 16 91/53 96 07/17/18 22:56 98.5 F 104 16 94/56 96 07/17/18 19:05 98.0 F 91 18 91/53 96 07/17/18 15:11 98.4 F 108 16 91/52 97 07/17/18 14:41 97.8 F 136 17 80/47 92 Intake and Output 07/17/18 07/18/18 07/18/18 23:59 07:59 15:59 Intake Total 270 / 270 300 / 300 700 / 700 Output Total 640 / 640 555 / 555 920 / 920 Balance -370 / -370 -255 / -255 -220 / -220 Intake: IV Fluids 270 / 270 Maxipime 2,000 MG In Water for 20 / 20 inj. (sterile) 20 ML @ 300 mls/ hr IVP Q12HR [facility] Rx#:[id number] Vancocin 1,000 MG In 0.9 % 250 / 250 Sodium Chloride 250 ML @ 167 mls/hr IVPB Q12H [facility] Rx#: [id number] Oral 700 / 700 Blood Product 0 / 0 300 / 300 Rbcs Leuko Poor As-1 Unit 0 / 0 300 / 300 [id number] Output: Urine 500 / 500 500 / 500 900 / 900 Wound Drainage 140 / 140 55 / 55 20 / 20 Right Knee 140 / 140 55 / 55 20 / 20 Other: Meal Breakfast Percent of Meal Consumed 100% Stool Size Small Stool Consistency soft formed # Voids 1 Blood Glucose* 75 77 169 - Labs CBC & BMP: 07/18/18 05:43 07/18/18 05:43 Labs: Abnormal lab results RBC 2.76 M/mcL (4.19-5.50) L 07/18/18 05:43 Hgb 9.2 g/dL (12.9-16.9) L 07/18/18 05:43 Hct 26.9 % (37.5-50.1) L 07/18/18 05:43 RDW 15.8 % (11.5-14.5) H 07/18/18 05:43 Lymphocytes # 0.4 K/mcL (0.6-4.6) L 07/17/18 00:17 PT 20.1 Seconds (9.4-12.1) H 07/17/18 00:17 POC Glucose 165 mg/dL (70-99) H 07/18/18 11:47 Calcium 8.1 mg/dL (8.6-10.3) L 07/18/18 05:43 Phosphorus 2.2 mg/dL (2.7-4.5) L 07/14/18 20:13 Total Bilirubin 2.1 mg/dL (0.3-1.0) H 07/16/18 12:55 Direct Bilirubin 0.7 mg/dL (0.0-0.2) H 07/16/18 12:55 Indirect Bilirubin 1.4 mg/dL (0.0-1.2) H 07/16/18 12:55 Alkaline Phosphatase 111 Units/L (34-104) H 07/16/18 12:55 C-Reactive Protein 105 mg/L (Less than 10) H 07/15/18 06:28 Albumin 2.9 g/dL (3.5-5.7) L 07/16/18 12:55 Globulin 4.2 g/dL (2.4-3.5) H 07/16/18 12:55 Albumin/Globulin Ratio 0.7 (1.1-2.2) L 07/16/18 12:55 Urine Glucose (UA) 500 mg/dL (Normal) H 07/14/18 21:13 Urine Blood Large (Negative) H 07/14/18 21:13 Urine Urobilinogen 2.0 mg/dL (Normal) H 07/14/18 21:13 Urine Microscopic RBC 5-15 per hpf (0-3) H 07/14/18 21:13 Urine Microscopic WBC 3-5 per hpf (0-3) H 07/14/18 21:13 Vancomycin Trough 17 mcg/mL (5-10) H 07/17/18 00:17 - VTE Documentation of Mechanical Device: Venous foot pump, device Consult Discharge Plan - Plan Referrals: [facility] [Primary Care Provider[facility] -
--- NOTE | 2018-07-18 13:47 | Neurology Progress Note ---
Date of Encounter: 07/18/18 Time of Encounter: 13:45 Assessment and Plan (1) Myoclonic jerking Current Visit: Yes Status: Chronic Pt is a stable at this time only few myoclonic jerking noted but no significant . No evidence of seizure or seizure activity review the EEG. At the moment I would not recommend any new medication especially when he is going for surgical intervention but if his symptoms get worse perhaps it could be tried on valproic acid at nighttime. Okay to discharge from neurology standpoint we will sign off call if needed Paige Saravia MD Subjective Interval history: Patient is stable no other neurological issues Objective - Constitutional Vitals: Temp Pulse Resp BP Pulse Ox 97.9 F 107 20 94/60 96 07/18/18 11:07/18/18 11:07/18/18 11:07/18/18 11:07/18/18 11:09 - Neurological Exam Sensorimotor examination: Present: intact Motor examination - left side: 5/5: deltoids, biceps, triceps, wrist flexion, wrist extension, hip flexors, administrative assistant data entry, quadriceps, tibialis Anterior, toe extension (EHL), plantarflexion Sensation intact: Present: intact, light touch Reflex and gait examination: ataxic gate Mental Status Examination: Present: awake, alert, oriented to person, oriented to place, oriented to time, follows commands appropriately, answers questions appropriately Cranial nerve examination: Present: PERRL, EOMI Cerebellar examination: Present: performs finger to nose and heel to bruno symmetrically without ataxia, no difficulty with rapid alternating movements Tremor: right upper extremity - VTE Documentation of Mechanical Device: Venous foot pump, device Results - Laboratory Findings CBC and BMP: 07/18/18 05:43 07/18/18 05:43 Abnormal lab findings: Abnormal lab results RBC 2.76 M/mcL (4.19-5.50) L 07/18/18 05:43 Hgb 9.2 g/dL (12.9-16.9) L 07/18/18 05:43 Hct 26.9 % (37.5-50.1) L 07/18/18 05:43 RDW 15.8 % (11.5-14.5) H 07/18/18 05:43 Lymphocytes # 0.4 K/mcL (0.6-4.6) L 07/17/18 00:17 PT 20.1 Seconds (9.4-12.1) H 07/17/18 00:17 POC Glucose 165 mg/dL (70-99) H 07/18/18 11:47 Calcium 8.1 mg/dL (8.6-10.3) L 07/18/18 05:43 Phosphorus 2.2 mg/dL (2.7-4.5) L 07/14/18 20:13 Total Bilirubin 2.1 mg/dL (0.3-1.0) H 07/16/18 12:55 Direct Bilirubin 0.7 mg/dL (0.0-0.2) H 07/16/18 12:55 Indirect Bilirubin 1.4 mg/dL (0.0-1.2) H 07/16/18 12:55 Alkaline Phosphatase 111 Units/L (34-104) H 07/16/18 12:55 C-Reactive Protein 105 mg/L (Less than 10) H 07/15/18 06:28 Albumin 2.9 g/dL (3.5-5.7) L 07/16/18 12:55 Globulin 4.2 g/dL (2.4-3.5) H 07/16/18 12:55 Albumin/Globulin Ratio 0.7 (1.1-2.2) L 07/16/18 12:55 Urine Glucose (UA) 500 mg/dL (Normal) H 07/14/18 21:13 Urine Blood Large (Negative) H 07/14/18 21:13 Urine Urobilinogen 2.0 mg/dL (Normal) H 07/14/18 21:13 Urine Microscopic RBC 5-15 per hpf (0-3) H 07/14/18 21:13 Urine Microscopic WBC 3-5 per hpf (0-3) H 07/14/18 21:13 Vancomycin Trough 17 mcg/mL (5-10) H 07/17/18 00:17 Consult Discharge Plan - Plan [facility]errals: [facility] [Primary Care Provider] -
--- NOTE | 2018-07-18 14:59 | Internal Med Progress Note ---
Hospitalist Progress Note - Encounter Date of Encounter: 07/18/18 Time of Encounter: 14:30 - Subjective Interval History: Mr Martin is currently admitted for acute septic arthritis of L knee with coag neg staph. He remains moderate to high risk due to potential worsening of clinical status. He is on IV abx needing monitoring. Mr Martin is doing OK. Pain is controlled at this time. He is feeling some palpitations and dyspnea. No CP. No GI issues. Tolerating current abx treatments. - Exam Vitals: Temp Pulse Resp BP Pulse Ox 97.9 F 107 20 94/60 96 07/18/18 11:09 07/18/18 11:09 07/18/18 11:09 07/18/18 11:07/18/18 11:09 Exam: General: Alert and oriented. Comfortable. Pleasant and interactive. Skin: Normal color, no rash, no lesions. Head: Normocephalic and atraumatic. EENT: EOMI, pupils equal, round and reactive. Mucus membranes dry. Cardiovascular: Normal S1 & S2, no rubs, murmurs or gallops. No JVD. Pulse irregular and tachycardic. Lungs: Normal breath sounds, no wheezes or crackles. Abdomen: Soft, non-tender, no rigidity. Normal bowel sounds. Extremities: Moderate OA. Dressing intact R knee. Neurological: Normal cognition at this time and motor skills. Still has occasional myoclonus. Pulses: Carotid and radial pulses normal +2. Rest of the physical exam is non contributory - Assessment and Plan (1) Septic arthritis Current Visit: Yes Status: Acute Assessment and Plan: Culture positive for staph epidermidis. He is currently on IV abx and monitoring levels. Appreciate ID input regarding course of therapy. (2) Atrial fibrillation Current Visit: Yes Status: Chronic Assessment and Plan: Heart rate is higher today. Most likely still related to volume. Will give another IV bolus and increase PO meds. (3) Prosthetic joint infection Current Visit: Yes Status: Acute Assessment and Plan: See above. (4) Warfarin-induced coagulopathy Current Visit: Yes Status: Resolved Assessment and Plan: Resolved. Will restart coumadin. Takes it for a fib- will not bridge at this time. (5) Diabetes mellitus Current Visit: Yes Status: Chronic Assessment and Plan: Blood sugars better controlled since surgery. Continue to follow and cover. (6) Myoclonic jerking Current Visit: Yes Status: Chronic Assessment and Plan: Chronic issue - Time Spent with Patient Total time spent is greater than 50% in coordination of care (as documented) at patient's floor/unit and/or counseling patient: Internal Medicine: Result - Labs CBC & Chem 7: 07/18/18 05:43 07/18/18 05:43 Labs: Short CBC 07/18/18 Range/Units 05:43 WBC 8.9 D (4.3-11.1) K/mcL Hgb 9.2 L (12.9-16.9) g/dL Hct 26.9 L (37.5-50.1) % Plt Count 217 (140-400) K/mcL BMP 07/18/18 05:43 Sodium 138 Potassium 4.0 Chloride 106 Carbon Dioxide 29 BUN 17 Creatinine 0.70 Glucose 80 Calcium 8.1 L - ABG Interpretation ABG results: PT/INR, D-dimer PT 20.1 Seconds (9.4-12.1) H 07/17/18 00:17 - VTE Documentation of Mechanical Device: Venous foot pump, device Consult Discharge Plan - Plan [facility]errals: [facility] [Primary Care Provider] - (1) Septic arthritis Qualifiers: Septic arthritis location: knee Septic arthritis organism: staphylococcal Laterality: right Qualified Code(s): M00.061 - Staphylococcal arthritis, right knee (2) Atrial fibrillation Qualifiers: Atrial fibrillation type: chronic Qualified Code(s): I48.2 - Chronic atrial fibrillation (3) Prosthetic joint infection Qualifiers: Encounter type: subsequent encounter Qualified Code(s): T84.50XD - Infection and inflammatory reaction due to unspecified internal joint prosthesis, subsequent encounter (5) Diabetes mellitus Qualifiers: Diabetes mellitus type: type 2 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
[2018-07-18] MEDS ORDERED: Ringers Solution, Lactated 500 ML IVC ONE (15:18)
[2018-07-18] MEDS ORDERED: Warfarin perPT PO PRN (18:00)
[2018-07-18 18:08] LABS: INR 1.6; Prothrombin Time 18.1 Seconds (9.4-12.1)
[2018-07-18] MEDS ORDERED: Ringers Solution, Lactated 1,000 ML IVC ONE (18:30)
[2018-07-18] MEDS ORDERED: *HR* Warfarin 3 MG TABLET PO ONE (18:45)
[2018-07-18] MEDS ORDERED: 0.9 % Sodium Chloride 1,000 ML IVC ONE (20:42)
[2018-07-18] MEDS: Finasteride 5 MG TABLET PO SCH (21:21)
[2018-07-18 22:09] LABS: Albumin 2.2 g/dL (3.5-5.7); Albumin/Globulin Ratio 0.8 (1.1-2.2); Bilirubin,Direct 0.3 mg/dL (0.0-0.2); Bilirubin,Indirect 0.6 mg/dL (0.0-1.2); Bilirubin,Total 0.9 mg/dL (0.3-1.0); Globulin 2.8 g/dL (2.4-3.5)
[2018-07-18] MEDS ORDERED: Ibuprofen 600 MG TABLET PO ONE (22:38)
[2018-07-18] MEDS: 0.9 % Sodium Chloride 1,000 ML IVC SCH (23:38)
[2018-07-19] MEDS: Insulin LISPRO 300 UNITS/3 ML VIAL SQ SCH ×5 (03:51→23:59)
[2018-07-19 05:04] LABS: INR 1.7; Prothrombin Time 19.5 Seconds (9.4-12.1)
[2018-07-19] MEDS: Cefepime HCl 2,000 MG in Water for inj. (sterile) 20 ML 20 ML IVP SCH ×2 (06:19→17:42)
[2018-07-19] MEDS: *HR* Enoxaparin 30 MG/0.3 ML SYRINGE SQ SCH ×2 (06:20→18:04)
[2018-07-19] MEDS: Aspirin Enteric Coated 81 MG Tablet PO SCH (08:36)
[2018-07-19] MEDS: Megestrol Acetate 400 MG/10 ML UDC PO SCH (08:36)
[2018-07-19] MEDS: Cholecalciferol (D-3) 1,000 UNIT TABLET PO SCH (08:36)
[2018-07-19] MEDS: Metoprolol XL (24 HR) Succ 25 MG TAB.ER.24H PO SCH ×2 (08:36→21:51)
--- NOTE | 2018-07-19 08:53 | Internal Med Progress Note ---
Hospitalist Progress Note - Encounter Date of Encounter: 07/19/18 Time of Encounter: 08:15 - Subjective Interval History: Mr Martin is currently admitted for acute septic arthritis of L knee with coag neg staph. He remains moderate to high risk due to potential worsening of clinical status. He is on IV abx needing monitoring. Mr Martin is having issues with his heart rate and blood pressure. SBP in 70s last night. Fluids given again. Heart rate over 100 this AM while patient is sleeping. Has not had CP or SOB. Has been receiving IV abx without issue. Vanc trough monitored. Oxygen saturations have been OK as well. - Exam Vitals: Temp Pulse Resp BP Pulse Ox 98.0 F 113 20 94/64 94 07/19/18 07:06 07/19/18 07:06 07/19/18 07:06 07/19/18 07:06 07/19/18 07:06 Exam: General: Alert and oriented. Comfortable. Skin: Normal color, no rash, no lesions. Head: Normocephalic and atraumatic. EENT: EOMI, pupils equal, round and reactive. Mucus membranes dry. No lesion. Cardiovascular: Normal S1 & S2, no rubs, murmurs or gallops. No JVD. Pulse irregular and tachycardic. Lungs: Normal breath sounds, no wheezes or crackles. Abdomen: Soft, non-tender, no rigidity. Normal bowel sounds. Extremities: Moderate OA. Dressing intact R knee. Neurological: Normal cognition at this time and motor skills. Still has occasional myoclonus - worse during sleep. Pulses: Carotid and radial pulses normal +2. Rest of the physical exam is non contributory - Assessment and Plan (1) Septic arthritis Current Visit: Yes Status: Acute Assessment and Plan: Culture positive for staph epidermidis. He is currently on IV abx. Levels of vancomycin being monitored. Appreciate ID input regarding course of therapy. (2) Atrial fibrillation Current Visit: Yes Status: Chronic Assessment and Plan: Continues to be tachycardic even while sleeping. BP has been low despite IV fluid boluses. Will transfer to [facility]. Cardiology evaluation. May need different medications. Echo ordered. (3) Prosthetic joint infection Current Visit: Yes Status: Acute Assessment and Plan: See above. (4) Warfarin-induced coagulopathy Current Visit: Yes Status: Resolved Assessment and Plan: Resolved. Coumadin restarted yesterday. Not bridging with full dose Lovenox. Currently on prophylactic dose but today's INR 1.7. Will stop when INR greater than 1.8. (5) Diabetes mellitus Current Visit: Yes Status: Chronic Assessment and Plan: Blood sugars better controlled since surgery. Continue to follow and cover. (6) Myoclonic jerking Current Visit: Yes Status: Chronic Assessment and Plan: Chronic issue. Considering start of Depakote if worsens. (7) Dementia Current Visit: Yes Status: Suspected Assessment and Plan: Pt has episodes of confusion and hallucinations. No behavior issues at this time. May ultimately need medication for symptoms. - Time Spent with Patient Total time spent is greater than 50% in coordination of care (as documented) at patient's floor/unit and/or counseling patient: Internal Medicine: Result - Labs CBC & Chem 7: 07/18/18 05:43 07/18/18 05:43 Labs: Liver Function 07/18/18 Range/Units 21:45 Total Bilirubin 0.9 (0.3-1.0) mg/dL Direct Bilirubin 0.3 H (0.0-0.2) mg/dL AST 24 (13-39) Units/L ALT 11 (7-52) Units/L Alkaline Phosphatase 80 (34-104) Units/L Albumin 2.2 L (3.5-5.7) g/dL - ABG Interpretation ABG results: PT/INR, D-dimer PT 19.5 Seconds (9.4-12.1) H 07/19/18 04:00 - VTE Documentation of Mechanical Device: Venous foot pump, device Consult Discharge Plan - Plan [facility]errals: [facility] [Primary Care Provider] - (1) Septic arthritis Qualifiers: Septic arthritis location: knee Septic arthritis organism: staphylococcal Laterality: right Qualified Code(s): M00.061 - Staphylococcal arthritis, right knee (2) Atrial fibrillation Qualifiers: Atrial fibrillation type: chronic Qualified Code(s): I48.2 - Chronic atrial fibrillation (3) Prosthetic joint infection Qualifiers: Encounter type: subsequent encounter Qualified Code(s): T84.50XD - Infection and inflammatory reaction due to unspecified internal joint prosthesis, subsequent encounter (5) Diabetes mellitus Qualifiers: Diabetes mellitus type: type 2 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
--- NOTE | 2018-07-19 09:05 | Orthopedics Progress Note ---
Date of Encounter: 07/19/18 Time of Encounter: 09:03 Subjective Interval history: Hypotensive and tachycardic this AM. Denies CP or SOB. Denies fevers or chills. AF BP 94/64, HR 113 RLE: DNVI Dressing clean dry and intact Calves nontender A/P: s/p R revision TKA Continue IV antibiotics as scheduled No knee motion Transfer to [facility] per hospitalist service for monitoring, echo ordered Appreciate medical management Objective Vital signs: Vital Signs Temp Pulse Resp BP Pulse Ox 07/19/18 07:06 98.0 F 113 20 94/64 94 07/19/18 04:35 98.1 F 111 16 111/68 96 07/18/18 23:18 98.1 F 99 16 94/56 97 07/18/18 21:09 88/46 07/18/18 18:26 98.1 F 111 16 73/48 96 07/18/18 16:09 98.0 F 98 18 100/64 95 07/18/18 11:09 97.9 F 107 20 94/60 96 Intake and Output 07/18/18 07/19/18 07/19/18 23:59 07:59 15:59 Intake Total 720 / 720 200 / 200 Output Total 1400 / 1400 2100 / 2100 Balance -680 / -680 -1900 / -1900 Intake: IV Fluids 520 / 520 Maxipime 2,000 MG In Water for 20 / 20 inj. (sterile) 20 ML @ 300 mls/ hr IVP Q12HR SAMANTHA Rx#:[id number] Vancocin 1,000 MG In 0.9 % 500 / 500 Sodium Chloride 250 ML @ 167 mls/hr IVPB Q12H SAMANTHA Rx#: [id number] Oral 200 / 200 200 / 200 Output: Urine 1400 / 1400 2100 / 2100 Other: Stool Size Small Stool Consistency formed Stool Characteristics Normal for Patient Stool Color Brown # Voids 1 # Bowel Movements 1 Weight 103 kg Blood Glucose* 93 170 Patient Weight 07/19/18 23:59 Weight 103 kg - Labs CBC & BMP: 07/18/18 05:43 07/18/18 05:43 Labs: Abnormal lab results RBC 2.76 M/mcL (4.19-5.50) L 07/18/18 05:43 Hgb 9.2 g/dL (12.9-16.9) L 07/18/18 05:43 Hct 26.9 % (37.5-50.1) L 07/18/18 05:43 RDW 15.8 % (11.5-14.5) H 07/18/18 05:43 Lymphocytes # 0.4 K/mcL (0.6-4.6) L 07/17/18 00:17 PT 19.5 Seconds (9.4-12.1) H 07/19/18 04:00 POC Glucose 145 mg/dL (70-99) H 07/19/18 04:10 Calcium 8.1 mg/dL (8.6-10.3) L 07/18/18 05:43 Phosphorus 2.2 mg/dL (2.7-4.5) L 07/14/18 20:13 Direct Bilirubin 0.3 mg/dL (0.0-0.2) H 07/18/18 21:45 C-Reactive Protein 105 mg/L (Less than 10) H 07/15/18 06:28 Serum Total Protein 5.0 g/dL (6.4-8.9) L 07/18/18 21:45 Albumin 2.2 g/dL (3.5-5.7) L 07/18/18 21:45 Albumin/Globulin Ratio 0.8 (1.1-2.2) L 07/18/18 21:45 Urine Glucose (UA) 500 mg/dL (Normal) H 07/14/18 21:13 Urine Blood Large (Negative) H 07/14/18 21:13 Urine Urobilinogen 2.0 mg/dL (Normal) H 07/14/18 21:13 Urine Microscopic RBC 5-15 per hpf (0-3) H 07/14/18 21:13 Urine Microscopic WBC 3-5 per hpf (0-3) H 07/14/18 21:13 Vancomycin Trough 14 mcg/mL (5-10) H 07/19/18 04:00 - VTE Documentation of Mechanical Device: Venous foot pump, device Consult Discharge Plan - Plan Referrals: [facility] [Primary Care Provider] -
[2018-07-19] MEDS: Insulin NPH/REG 70/30 100 UNIT/ML (x5UNIT) SQ SCH ×2 (09:43→17:43)
[2018-07-19] MEDS: 0.9 % Sodium Chloride 250 ML IVC SCH (10:12)
[2018-07-19 10:13] LABS: Hematocrit 29.7 % (37.5-50.1); Mean Corpuscular HGB Conc 33.7 g/dL (31.6-35.5); Mean Corpuscular Hemoglobin 33.3 pg (28.0-33.3); Mean Platelet Volume 9.5 fL (9.4-12.4); Platelet Count 227 K/mcL (140-400); Red Cell Distribution Width 16.2 % (11.5-14.5)
[2018-07-19] MEDS: Ringers Solution, Lactated 1,000 ML IVC SCH (10:13)
[2018-07-19 10:27] LABS: Alanine Aminotransferase 11 Units/L (7-52); Albumin 2.2 g/dL (3.5-5.7); Albumin/Globulin Ratio 0.7 (1.1-2.2); Alkaline Phosphatase 80 Units/L (34-104); Aspartate Amino Transferase 24 Units/L (13-39); BUN/Creatinine Ratio 20 (6-26); Bilirubin,Total 1.3 mg/dL (0.3-1.0); Blood Urea Nitrogen 13 mg/dL (8-23); Carbon Dioxide 29 mEq/L (23-29); Chloride 105 mEq/L (98-107); Glucose 211 mg/dL (70-105); Magnesium 1.7 mg/dL (1.6-2.6); Osmolality,Calculated 292 (280-300); Potassium 4.1 mEq/L (3.5-5.1); Sodium 138 mEq/L (136-145); Total Protein 5.2 g/dL (6.4-8.9); eGFR For Non-African Americans > 60 (> 60)
--- NOTE | 2018-07-19 12:18 | Cardiology Consult Note ---
Date of Encounter: 07/19/18 Time of Encounter: 12:00 Assessment and Plan (1) Atrial fibrillation with RVR Current Visit: Yes Status: Chronic Known hx of atrial fibrillation rate controlled on BB and anticoagulated on Coumadin ([facility] Admitted with septic knee with positive cultures s/p recent total knee replacement. Recent (May 2018) shows preserved LVEF, normal wall motion, with moderate MR. Now in afib with RVR; tachycardia expected in the setting of acute illness/ infectious process. HR 100's-110's upon exam, patient is resting comfortable; anticipate HR to improve as he is treated for septic knee. Blood pressure is marginal. Will increase toprol XL to 25 mg BID. Goal HR less than 100. If HR control does not improve, can consider addition of digoxin. Will continue to follow. Continue coumadin for AC; on lovenox bridge. Goal INR 2-3. Discussion w patient/family: The assessment and plan as outlined above was discussed with the patient and/or family members who expressed understanding and agreement. All questions were answered. Thank you for involving us in the care of your patient. Please call with any questions. The patient will be discussed and reviewed with Dr. Acharya; changes to be made accordingly. History of Present Illness Consult date: 07/19/18 Requesting physician: Faheem Jaimes Consult reason: afib Chief complaint: knee pain History of present illness: Mr. Martin is a 68 year old male with PMH of chronic atrial fibrillation, dilated aortic root, hx NSVT, type 2 diabetes mellitus and hemochromatosis for which he is getting phlebotomies periodically (followed at cancer center) who presented to the ED due to septic right knee s/p recent total knee replacement. Cardiology consulted today for management of atrial fibrillation with RVR; recently transferred down to [facility]. No chest pain reported; he does report shortness of breath, now improved. HR currently 100's-110's upon exam. Prior CV testing: TTE 05/19/18: LVEF 60-65%, mild cLVH, bi-atrial enlargement, moderate MR, mild TR, normal wall motion TTE 03/11/17: LVEF 65% Normal RV size and function. Mild prolapsing of the anterior mitral valve leaflet with mild mitral regurgitation. Mild TR. Mild GA. No pulmonary hypertension based on TR gradient. Aortic root measures 3.9 cm. Nuclear stress test 07/05/16 perfusion imaging negative for ischemia or infarct. Past Med Surg Social Fam HX - Past Medical History Attestation: Yes The following information was validated with the patient. Source: patient Medical history: atrial fibrillation, cancer, CHF, diabetes, other Additional medical history: ED Psychiatric history: anxiety, depression, PTSD - Past Surgical History Surgical History: knee replacement, other (Right TKR x 3, RIght and finger surgery, Left wrist surgery, Excision melanoma (back), ) Additional surgical history: knuckle fusion-right hand, left hip replacement - Social History Smoking Status: Former smoker Smokeless Tobacco Status: No Alcohol use: none Drug use: none - Family History Father Adopted: No Age: 49 Living Status: Hx Family Medical Disorders: Yes (hemochromotosis) Medications and Allergies Aspirin [Lo-Dose Aspirin EC] 81 mg PO DAILY 06/04/18 [History] Cholecalciferol (D-3) [Vitamin D] 1,000 unit PO DAILY 06/04/18 [History] Dextrose [Glucose] 4 gm PO ONCE PRN 06/04/18 [History] Finasteride [Proscar] 5 mg PO HS 06/04/18 [History] Furosemide [Lasix] 20 mg PO Q48H 06/04/18 [History] Gabapentin [Neurontin] 300 mg PO BID 06/04/18 [History] Insulin NPH Hum/Reg Insulin Hm [Novolin 70-30 100 Unit/ml Vial] 40 unit SQ QPM 06/04/18 [History] Insulin NPH Hum/Reg Insulin Hm [Novolin 70-30 100 Unit/ml Vial] 50 unit SQ QAM 06/04/18 [History] Morphine Sulfate SR (12 HR) [MS Contin] 60 mg PO Q8HR 06/04/18 [History] Paroxetine HCl [Paxil] 20 mg PO HS 06/04/18 [History] hydrOXYzine HCl [Hydroxyzine HCl] 25 mg PO DAILY PRN 06/04/18 [History] Metoprolol Succinate [Toprol Xl] 25 mg PO DAILY 30 Days #30 tab.er.24h 06/08/18 [Rx] Megestrol Acetate [Megace] 800 mg PO DAILY 07/15/18 [History] Warfarin [Coumadin] 2.5 mg PO SUMOTUWETHSA 07/15/18 [History] Warfarin [Coumadin] 3.75 mg PO FR 07/15/18 [History] 3 Allergy/AdvReac Type Severity Reaction Status Date / Time No Known Allergies Allergy Verified 07/15/18 12:14 All Systems Review: The remainder of the systems were reviewed and are negative - Cardiovascular Cardiovascular: as per HPI Physical Examination Vital Signs, Last 4 Hours Temp Pulse Resp BP Pulse Ox 07/19/18 11:53 98.5 F 105 18 98/58 99 General: Conversant, Other (tremors (chronic upon exam)) HEENT: Atraumatic, Normocephaly Cardiac: Other (irregularly irregular, 2/6 systolic murmur) Lungs: Normal Breath Sounds Neuro: Alert and responsive Abdomen: Soft Skin: Other (discoloration noted to BLE) Extremities: Other (right knee brace; no LE edema noted. ) Results 07/19/18 08:08 07/19/18 08:08 Lab Results 07/18/18 07/18/18 07/19/18 17:40 21:45 04:00 WBC Hgb Hct Plt Count INR 1.6 1.7 Sodium Potassium Chloride Carbon Dioxide BUN Creatinine Glucose Calcium Magnesium Total Bilirubin 0.9 AST 24 ALT 11 Alkaline Phosphatase 80 07/19/18 07/19/18 08:08 08:08 WBC 6.0 Hgb 10.0 L Hct 29.7 L Plt Count 227 INR Sodium 138 Potassium 4.1 Chloride 105 Carbon Dioxide 29 BUN 13 Creatinine 0.65 L Glucose 211 H Calcium 8.0 L Magnesium 1.7 Total Bilirubin 1.3 H AST 24 ALT 11 Alkaline Phosphatase 80 Active Medications Acetaminophen (Tylenol) 650 mg PO Q6HR PRN PRN Reason: Mild Pain/Fever Stop: 01/14/19 09:08 Aspirin (Aspirin Ec) 81 mg PO DAILY [facility] Stop: 01/14/19 10:01 Last Admin: 07/19/18 08:36 Dose: 81 mg Bisacodyl (Dulcolax) 5 mg PO DAILY PRN PRN Reason: Constipation Stop: 01/14/19 09:08 Dextrose/Water (Dextrose 50% (Syg)) 25 ml IVP AD PRN PRN Reason: Hypoglycemia Stop: 01/14/19 09:14 Enoxaparin Sodium (Lovenox) 30 mg SQ Q12HCO [facility]ANTHA PRN Reason: Protocol Stop: 01/16/19 06:01 Last Admin: 07/19/18 06:20 Dose: 30 mg Finasteride (Proscar) 5 mg PO HS [facility]AN[facility]A PRN Reason: Protocol Stop: 01/14/19 10:01 Last Admin: 07/18/18 21:21 Dose: 5 mg Glucagon (Glucagen) 1 mg IM ONCE PRN PRN Reason: Hypoglycemia Stop: 01/14/19 09:14 Glucose (Gluctose) 15 gm PO ONCE PRN PRN Reason: Hypoglycemia Stop: 01/14/19 09:14 Last Admin: 07/18/18 00:26 Dose: 15 gm Glucose (Gluctose) 30 gm PO ONCE PRN PRN Reason: Hypoglycemia Stop: 01/14/19 09:14 Cefepime HCl 2,000 mg/ Sterile (Water) 20 mls @ 300 mls/hr IVP Q12HR [facility] Stop: 01/14/19 07:01 Last Infusion: 07/19/18 09:34 Dose: Infused Dextrose (Dextrose 5%) 1,000 mls @ 100 mls/hr IVC .Q10H PRN PRN Reason: HYPOGLYCEMIA Stop: 01/14/19 09:14 Vancomycin HCl 1,000 mg/ (Sodium Chloride) 250 mls @ 167 mls/hr IVPB Q12H [facility] PRN Reason: Protocol Stop: 01/16/19 17:01 Last Infusion: 07/19/18 09:33 Dose: Infused Sodium Chloride (0.9 % Sodium Chloride) 1,000 mls @ 60 mls/hr IVC .[id number] [facility] Stop: 01/17/19 23:01 Last Admin: 07/18/18 23:38 Dose: 60 mls/hr Insulin Human Lispro (Humalog) 0 units SQ Q6HR [facility] PRN Reason: Protocol Stop: 01/14/19 12:01 Last Admin: 07/19/18 06:20 Dose: 2 units Insulin Isophane/Insulin Regular (Humulin 70/30 Vial) 50 unit SQ QAM [facility] Stop: 01/14/19 10:01 Last Admin: 07/19/18 09:43 Dose: 50 unit Insulin Isophane/Insulin Regular (Humulin 70/30 Vial) 40 unit SQ QPM [facility] Stop: 01/14/19 18:01 Last Admin: 07/18/18 17:20 Dose: 40 unit Megestrol Acetate (Megace) 800 mg PO DAILY [facility] PRN Reason: Protocol Stop: 01/15/19 09:01 Last Admin: 07/19/18 08:36 Dose: 800 mg Metoprolol Succinate (Toprol Xl) 25 mg PO BID [facility] Stop: 01/18/19 21:01 Morphine Sulfate (Ms Contin) 45 mg PO Q8HR [facility] Stop: 01/17/19 18:33 Naloxone HCl (Narcan) 0.4 mg IVP Q2MIN PRN PRN Reason: SEE COMMENTS Stop: 01/14/19 09:08 Ondansetron HCl (Zofran) 4 mg IVP Q6HR PRN; Protocol PRN Reason: Nausea And Vomiting Stop: 01/14/19 09:08 Oxycodone HCl (Oxycodone Oral Conc) 5 mg SL Q4H PRN; Protocol PRN Reason: mild to moderate pain Stop: 01/14/19 09:08 Last Admin: 07/16/18 13:47 Dose: 5 mg Paroxetine HCl (Paxil) 20 mg PO HS [facility] PRN Reason: Protocol Stop: 01/14/19 10:01 Last Admin: 07/18/18 21:21 Dose: 20 mg Vitamin D (Vitamin D) 1,000 unit PO DAILY [facility] Stop: 01/14/19 10:01 Last Admin: 07/19/18 08:36 Dose: 1,000 unit Warfarin Sodium (Coumadin Perpt) 1 each PO DAILY@1800 PRN PRN Reason: SEE COMMENTS Stop: 01/17/19 18:01 - Imaging and Cardiology Stress Test: report reviewed Echo: report reviewed - EKG Interpretation EKG results cardiology: personally reviewed Consult Discharge Plan - Plan [facility]errals: [facility] [Primary Care Provider] -
[2018-07-19] MEDS: 0.9 % Sodium Chloride 1,000 ML IVC SCH (15:21)
[2018-07-19] MEDS: *HR* Morphine Sulfate SR (12 HR) 15 MG TABLET.ER PO SCH (15:35)
[2018-07-19] MEDS ORDERED: *HR* Warfarin 3 MG TABLET PO ONE (18:00)
[2018-07-19] MEDS: OXYCODONE Oral CONC 10 MG/0.5 ML ORAL.SYG SL PRN (20:54)
[2018-07-19] MEDS: Finasteride 5 MG TABLET PO SCH (21:51)
[2018-07-20] MEDS: *HR* Morphine Sulfate SR (12 HR) 15 MG TABLET.ER PO SCH ×3 (00:16→17:10)
[2018-07-20] MEDS: Cefepime HCl 2,000 MG in Water for inj. (sterile) 20 ML 20 ML IVP SCH (05:16)
[2018-07-20] MEDS: *HR* Enoxaparin 30 MG/0.3 ML SYRINGE SQ SCH (05:17)
[2018-07-20] MEDS: Insulin LISPRO 300 UNITS/3 ML VIAL SQ SCH ×3 (07:05→17:18)
[2018-07-20] MEDS ORDERED: *HR* Digoxin 0.5 MG/2 ML AMPUL IVP ONE (08:23)
--- NOTE | 2018-07-20 08:29 | Internal Med Progress Note ---
<Mohamud Santos - Last Filed: 07/20/18 13:39> Hospitalist Progress Note - Encounter Date of Encounter: 07/20/18 Time of Encounter: 10:15 - Subjective Interval History: Mr. Martin reports intermittent lightheadedness, without syncope, chest pain, or shortness of breath. He denies fever, n/v/d. No events overnight. - Exam Vitals: Temp Pulse Resp BP Pulse Ox 98.6 F 121 17 100/67 97 07/20/18 06:59 07/20/18 06:59 07/20/18 06:59 07/20/18 06:59 07/20/18 06:59 Exam: General: Alert and oriented. Pleasant, answers questions appropriately. Skin: Normal color, no rash, no lesions. Head: Normocephalic and atraumatic. EENT: EOMI, pupils equal, round and reactive. Mucus membranes dry. No lesion. Cardiovascular: Normal S1 & S2, no rubs, murmurs or gallops. No JVD. Pulse irregular and tachycardic. Lungs: Normal breath sounds, no wheezes or crackles. Abdomen: Soft, non-tender, no rigidity. Normal bowel sounds. Extremities: Moderate OA. Dressing intact R knee. intact pedal pulses Neurological: Normal cognition at this time and motor skills. decreased interval of myoclonus during today's encounter Pulses: intact pedal pulses Rest of the physical exam is non contributory - Assessment and Plan (1) Septic arthritis Current Visit: Yes Status: Acute Assessment and Plan: Culture + for staph epi, curently on Vanc with goal trough of 15; dc'd cefepime Appreciate ID input. (2) Atrial fibrillation with RVR Current Visit: Yes Status: Chronic Assessment and Plan: Cardiology recommending rate control with low dose toprol, Cardiology also adding digoxin. Watching blood pressure. Echo pending (3) Prosthetic joint infection Current Visit: Yes Status: Acute Assessment and Plan: Plan as above (1) (4) Warfarin-induced coagulopathy Current Visit: Yes Status: Resolved Assessment and Plan: Lovenox discontinued as INR >1.8 Continuing Coumadin (5) Diabetes mellitus Current Visit: Yes Status: Chronic Assessment and Plan: continuing monitoring and low dose sliding scale insulin (6) Myoclonic jerking Current Visit: Yes Status: Chronic Assessment and Plan: Neuro recommending valproic acid, may continue this outpatient, less myoclonic jerking today. (7) Dementia Current Visit: Yes Status: Suspected (8) Acute blood loss anemia Current Visit: Yes Status: Acute Assessment and Plan: hemoglobin 9.3 s/p right revision, tachycardic, hypotensive, s/p 2U transfusion pRBC by surgery team post-op - Time Spent with Patient Total time spent is greater than 50% in coordination of care (as documented) at patient's floor/unit and/or counseling patient: Internal Medicine: Result - Labs CBC & Chem 7: 07/20/18 09:06 07/20/18 09:06 Labs: Short CBC 07/19/18 Range/Units 08:08 WBC 6.0 (4.3-11.1) K/mcL Hgb 10.0 L (12.9-16.9) g/dL Hct 29.7 L (37.5-50.1) % Plt Count 227 (140-400) K/mcL BMP 07/19/18 08:08 Sodium 138 Potassium 4.1 Chloride 105 Carbon Dioxide 29 BUN 13 Creatinine 0.65 L Glucose 211 H Calcium 8.0 L Liver Function 07/19/18 Range/Units 08:08 Total Bilirubin 1.3 H (0.3-1.0) mg/dL AST 24 (13-39) Units/L ALT 11 (7-52) Units/L Alkaline Phosphatase 80 (34-104) Units/L Albumin 2.2 L (3.5-5.7) g/dL - ABG Interpretation ABG results: PT/INR, D-dimer PT 19.5 Seconds (9.4-12.1) H 07/19/18 04:00 - VTE Documentation of Mechanical Device: Venous foot pump, device Consult Discharge Plan - Plan [facility]errals: [facility]Primary Care Provider[facility] - <Faheem Jaimes - Last Filed: 07/20/18 16:18> Hospitalist Progress Note - Encounter Date of Encounter: 07/20/18 - Exam Vitals: Temp Pulse Resp BP Pulse Ox 98.1 F 110 16 95/60 95 07/20/18 10:45 07/20/18 10:45 07/20/18 10:45 07/20/18 10:45 07/20/18 10:45 - Assessment and Plan (1) Septic arthritis Current Visit: Yes Status: Acute (2) Atrial fibrillation Current Visit: Yes Status: Chronic (3) Prosthetic joint infection Current Visit: Yes Status: Acute (4) Warfarin-induced coagulopathy Current Visit: Yes Status: Resolved (5) Diabetes mellitus Current Visit: Yes Status: Chronic (6) Myoclonic jerking Current Visit: Yes Status: Chronic (7) Dementia Current Visit: Yes Status: Suspected (8) Acute blood loss anemia Current Visit: Yes Status: Acute - Time Spent with Patient Total time spent is greater than 50% in coordination of care (as documented) at patient's floor/unit and/or counseling patient: Internal Medicine: Result - Labs CBC & Chem 7: 07/20/18 09:06 07/20/18 09:06 Labs: Short CBC 07/20/18 Range/Units 09:06 WBC 6.1 (4.3-11.1) K/mcL Hgb 10.8 L (12.9-16.9) g/dL Hct 32.2 L (37.5-50.1) % Plt Count 236 (140-400) K/mcL BMP 07/20/18 09:06 Sodium 137 Potassium 4.0 Chloride 103 Carbon Dioxide 28 BUN 9 Creatinine 0.66 L Glucose 209 H Calcium 8.4 L - ABG Interpretation ABG results: PT/INR, D-dimer PT 22.4 Seconds (9.4-12.1) H 07/20/18 08:40 - Attending Attestation I examined this patient and my medical decision-making was reviewed with the Resident Physician on 07/20/18. I agree with the documented findings, disposition and treatment plan as described except to the extent set forth below. Mr Martin is currently admitted for septic arthritis and rapid a fib and hypotension. He remains moderate to high risk due to potential for worsening clinical status. Mr Martin is having some pain in his hips. He feels it is related to hemochromatosis. He has less myoclonus with decreasing morphine. No fever or chills. No CP or SOB. Heart rate still elevated and dig started today. Exam Alert Comfortable Mucus membranes dry Heart irreg and tachy No wheeze abd soft No edema Less myoclonus noted I/P 1. Septic arthritis - on IV Vancomycin 2. Myoclonus - improving 3. a fib Further diagnoses and plan as above. <Mohamud Santos - Last Filed: 07/20/18 13:39> (1) Septic arthritis Qualifiers: Septic arthritis location: knee Septic arthritis organism: staphylococcal Laterality: right Qualified Code(s): M00.061 - Staphylococcal arthritis, right knee (3) Prosthetic joint infection Qualifiers: Encounter type: subsequent encounter Qualified Code(s): T84.50XD - Infection and inflammatory reaction due to unspecified internal joint prosthesis, subsequent encounter (5) Diabetes mellitus Qualifiers: Diabetes mellitus type: type 2 Diabetes mellitus long-term insulin use: with long-term use Diabetes mellitus complication status: without complication Qualified Code(s): E11.9 - Type 2 diabetes mellitus without complications; Z79.4 - MCC (current) use of insulin (7) Dementia Qualifiers: Dementia type: Lewy body dementia Dementia behavioral disturbance: without behavioral disturbance Qualified Code(s): G31.83 - Dementia with Lewy bodies; F02.80 - Dementia in other diseases classified elsewhere without behavioral disturbance <Faheem Jaimes - Last Filed: 07/20/18 16:18> (1) Septic arthritis Qualifiers: Septic arthritis location: knee Septic arthritis organism: staphylococcal Laterality: right Qualified Code(s): M00.061 - Staphylococcal arthritis, right knee (2) Atrial fibrillation Qualifiers: Atrial fibrillation type: chronic Qualified Code(s): I48.2 - Chronic atrial fibrillation (3) Prosthetic joint infection Qualifiers: Encounter type: subsequent encounter Qualified Code(s): T84.50XD - Infection and inflammatory reaction due to unspecified internal joint prosthesis, subsequent encounter (5) Diabetes mellitus Qualifiers: Diabetes mellitus type: type 2 Diabetes mellitus long-term insulin use: with extermination inspector use Diabetes mellitus complication status: without complication Qualified Code(s): E11.9 - Type 2 diabetes mellitus without complications; Z79.4 - terminal gauger (current) use of insulin (7) Dementia Qualifiers: Dementia type: Lewy body dementia Dementia behavioral disturbance: without behavioral disturbance Qualified Code(s): G31.83 - Dementia with Lewy bodies; F02.80 - Dementia in other diseases classified elsewhere without behavioral disturbance
--- NOTE | 2018-07-20 08:37 | Cardiology Progress Note ---
Date of Encounter: 07/20/18 Time of Encounter: 08:00 Assessment and Plan (1) Atrial fibrillation with RVR Current Visit: Yes Status: Chronic Known hx of atrial fibrillation rate controlled on BB and anticoagulated on Coumadin ([facility] Admitted with septic knee with positive cultures s/p recent total knee replacement. Recent (May 2018) shows preserved LVEF, normal wall motion, with moderate MR. Now in afib with RVR; tachycardia expected in the setting of acute illness/ infectious process. HR 100's-110's upon exam, patient is resting comfortable; anticipate HR to improve as he is treated for septic knee. Blood pressure is marginal. Will increase toprol XL to 25 mg BID. Goal HR less than 100. BP remains marginal , will load with IV digoxin today, and start PO in AM. Continue coumadin for AC; on lovenox bridge. Goal INR 2-3. Discussion w patient/family: The assessment and plan as outlined above was discussed with the patient and/or family members who expressed understanding and agreement. All questions were answered. Thank you for involving us in the care of your patient. Please call with any questions. The patient will be discussed and reviewed with Dr. Acharya; changes to be made accordingly. Subjective Principal diagnosis: Afib Interval history: Seen and examined. Reports slept much better overnight. No palpitations reported. No chest pain or shortness of breath. Objective Vital Signs, Last 4 Hours Temp Pulse Resp BP Pulse Ox 07/20/18 06:59 98.6 F 121 17 100/67 97 General: Conversant, No Apparent Distress HEENT: Atraumatic, Normocephaly, Mucus Membranes Moist Cardiac: Other (irregularly irregular) Lungs: Normal Breath Sounds Neuro: Alert and responsive Abdomen: Soft Skin: No rashes noted on visualized skin Musculoskeletal: No Chest Wall Tenderness Extremities: No Edema, Normal Pulses Results 07/19/18 08:08 07/19/18 08:08 Lab Results 07/19/18 07/19/18 08:08 08:08 WBC 6.0 Hgb 10.0 L Hct 29.7 L Plt Count 227 Sodium 138 Potassium 4.1 Chloride 105 Carbon Dioxide 29 BUN 13 Creatinine 0.65 L Glucose 211 H Calcium 8.0 L Magnesium 1.7 Total Bilirubin 1.3 H AST 24 ALT 11 Alkaline Phosphatase 80 Active Medications Acetaminophen (Tylenol) 650 mg PO Q6HR PRN PRN Reason: Mild Pain/Fever Stop: 01/14/19 09:08 Aspirin (Aspirin Ec) 81 mg PO DAILY [facility] Stop: 01/14/19 10:01 Last Admin: 07/19/18 08:36 Dose: 81 mg Bisacodyl (Dulcolax) 5 mg PO DAILY PRN PRN Reason: Constipation Stop: 01/14/19 09:08 Dextrose/Water (Dextrose 50% (Syg)) 25 ml IVP AD PRN PRN Reason: Hypoglycemia Stop: 01/14/19 09:14 Digoxin (Lanoxin) 0.25 mg IVP Q6HR [facility] Stop: 07/20/18 18:01 Digoxin (Lanoxin) 0.125 mg PO DAILY [facility] Stop: 01/20/19 09:01 Enoxaparin Sodium (Lovenox) 30 mg SQ Q12HCO SAMANTHA PRN Reason: Protocol Stop: 01/16/19 06:01 Last Admin: 07/20/18 05:17 Dose: 30 mg Finasteride (Proscar) 5 mg PO HS SAMANTHA PRN Reason: Protocol Stop: 01/14/19 10:01 Last Admin: 07/19/18 21:51 Dose: 5 mg Glucagon (Glucagen) 1 mg IM ONCE PRN PRN Reason: Hypoglycemia Stop: 01/14/19 09:14 Glucose (Gluctose) 15 gm PO ONCE PRN PRN Reason: Hypoglycemia Stop: 01/14/19 09:14 Last Admin: 07/18/18 00:26 Dose: 15 gm Glucose (Gluctose) 30 gm PO ONCE PRN PRN Reason: Hypoglycemia Stop: 01/14/19 09:14 Cefepime HCl 2,000 mg/ Sterile (Water) 20 mls @ 300 mls/hr IVP Q12HR [facility] Stop: 01/14/19 07:01 Last Admin: 07/20/18 05:16 Dose: 300 mls/hr Dextrose (Dextrose 5%) 1,000 mls @ 100 mls/hr IVC .Q10H PRN PRN Reason: HYPOGLYCEMIA Stop: 01/14/19 09:14 Vancomycin HCl 1,000 mg/ (Sodium Chloride) 250 mls @ 167 mls/hr IVPB Q12H SAMANTHA PRN Reason: Protocol Stop: 01/16/19 17:01 Last Admin: 07/20/18 05:18 Dose: 167 mls/hr Sodium Chloride (0.9 % Sodium Chloride) 1,000 mls @ 60 mls/hr IVC .[id number] [facility] Stop: 01/17/19 23:01 Last Admin: 07/19/18 15:21 Dose: Not Given Insulin Human Lispro (Humalog) 0 units SQ Q6HR [facility] PRN Reason: Protocol Stop: 01/14/19 12:01 Last Admin: 07/19/18 23:59 Dose: Not Given Insulin Isophane/Insulin Regular (Humulin 70/30 Vial) 50 unit SQ QAM [facility] Stop: 01/14/19 10:01 Last Admin: 07/19/18 09:43 Dose: 50 unit Insulin Isophane/Insulin Regular (Humulin 70/30 Vial) 40 unit SQ QPM [facility] Stop: 01/14/19 18:01 Last Admin: 07/19/18 17:43 Dose: 40 unit Megestrol Acetate (Megace) 800 mg PO DAILY [facility] PRN Reason: Protocol Stop: 01/15/19 09:01 Last Admin: 07/19/18 08:36 Dose: 800 mg Metoprolol Succinate (Toprol Xl) 25 mg PO BID [facility] Stop: 01/18/19 21:01 Last Admin: 07/19/18 21:51 Dose: 25 mg Morphine Sulfate (Ms Contin) 45 mg PO Q8HR [facility] Stop: 01/17/19 18:33 Last Admin: 07/20/18 00:16 Dose: 45 mg Naloxone HCl (Narcan) 0.4 mg IVP Q2MIN PRN PRN Reason: SEE COMMENTS Stop: 01/14/19 09:08 Ondansetron HCl (Zofran) 4 mg IVP Q6HR PRN; Protocol PRN Reason: Nausea And Vomiting Stop: 01/14/19 09:08 Oxycodone HCl (Oxycodone Oral Conc) 5 mg SL Q4H PRN; Protocol PRN Reason: mild to moderate pain Stop: 01/14/19 09:08 Last Admin: 07/19/18 20:54 Dose: 5 mg Paroxetine HCl (Paxil) 20 mg PO HS [facility] PRN Reason: Protocol Stop: 01/14/19 10:01 Last Admin: 07/19/18 21:52 Dose: 20 mg Vitamin D (Vitamin D) 1,000 unit PO DAILY [facility] Stop: 01/14/19 10:01 Last Admin: 07/19/18 08:36 Dose: 1,000 unit Warfarin Sodium (Coumadin Perpt) 1 each PO DAILY@1800 PRN PRN Reason: SEE COMMENTS Stop: 01/17/19 18:01 - Imaging and Cardiology Echo: report reviewed Other Results: 12 hour tele: avg [id number] afib. - EKG Interpretation EKG results cardiology: personally reviewed - VTE Documentation of Mechanical Device: Venous foot pump, device Consult Discharge Plan - Plan [facility]errals: [facility] [Primary Care Provider] -
[2018-07-20 08:52] LABS: Prothrombin Time 22.4 Seconds (9.4-12.1)
[2018-07-20] MEDS: Megestrol Acetate 400 MG/10 ML UDC PO SCH (10:06)
[2018-07-20] MEDS: Metoprolol XL (24 HR) Succ 25 MG TAB.ER.24H PO SCH ×2 (10:07→22:30)
[2018-07-20] MEDS: Cholecalciferol (D-3) 1,000 UNIT TABLET PO SCH (10:07)
[2018-07-20] MEDS: Aspirin Enteric Coated 81 MG Tablet PO SCH (10:07)
[2018-07-20] MEDS: Insulin NPH/REG 70/30 100 UNIT/ML (x5UNIT) SQ SCH ×3 (10:08→22:30)
[2018-07-20 10:52] LABS: Hematocrit 32.2 % (37.5-50.1); Hemoglobin 10.8 g/dL (12.9-16.9); Mean Corpuscular HGB Conc 33.5 g/dL (31.6-35.5); Mean Corpuscular Hemoglobin 33.1 pg (28.0-33.3); Mean Corpuscular Volume 98.8 fL (83.0-100.0); Mean Platelet Volume 9.5 fL (9.4-12.4); Platelet Count 236 K/mcL (140-400); Red Blood Count 3.26 M/mcL (4.19-5.50); Red Cell Distribution Width 16.1 % (11.5-14.5)
--- NOTE | 2018-07-20 11:05 | Orthopedics Progress Note ---
Date of Encounter: 07/20/18 Time of Encounter: 11:04 Subjective Principal diagnosis: Afib Interval history: No new complaints. Denies CP or SOB. Denies fevers or chills. AF BP 95/60, HR 110 RLE: DNVI Dressing clean dry and intact Calves nontender A/P: s/p R revision TKA Continue IV antibiotics as scheduled per ID Cardiology consulted for A fib with RVR No knee motion Appreciate medical management Objective Vital signs: Vital Signs Temp Pulse Resp BP Pulse Ox 07/20/18 10:45 98.1 F 110 16 95/60 95 07/20/18 06:59 98.6 F 121 17 100/67 97 07/20/18 03:46 97.9 F 110 16 112/71 96 07/20/18 00:04 98.6 F 118 16 127/72 100 07/19/18 19:11 97.9 F 98 16 102/70 100 07/19/18 15:28 97.9 F 95 18 95/67 99 07/19/18 11:53 98.5 F 105 18 98/58 99 Intake and Output 07/19/18 07/20/18 07/20/18 23:59 07:59 15:59 Intake Total 270 / 270 500 / 500 360 / 360 Output Total 700 / 700 1800 / 1800 600 / 600 Balance -430 / -430 -1300 / -1300 -240 / -240 Intake: IV Fluids 270 / 270 Maxipime 2,000 MG In Water for 20 / 20 inj. (sterile) 20 ML @ 300 mls/ hr IVP Q12HR SAMANTHA Rx#:[id number] Vancocin 1,000 MG In 0.9 % 250 / 250 Sodium Chloride 250 ML @ 167 mls/hr IVPB Q12H SAMANTHA Rx#: [id number] Oral 500 / 500 360 / 360 Output: Urine 700 / 700 1800 / 1800 600 / 600 Other: Meal Breakfast Percent of Meal Consumed 100% Stool Size Moderate # Voids 2 Weight 100.3 kg Blood Glucose* 95 71 Patient Weight 07/20/18 23:59 Weight 100.3 kg - Labs CBC & BMP: 07/20/18 09:06 07/19/18 08:08 Labs: Abnormal lab results RBC 3.26 M/mcL (4.19-5.50) L 07/20/18 09:06 Hgb 10.8 g/dL (12.9-16.9) L 07/20/18 09:06 Hct 32.2 % (37.5-50.1) L 07/20/18 09:06 RDW 16.1 % (11.5-14.5) H 07/20/18 09:06 Lymphocytes # 0.4 K/mcL (0.6-4.6) L 07/17/18 00:17 PT 22.4 Seconds (9.4-12.1) H 07/20/18 08:40 Creatinine 0.65 mg/dL (0.70-1.30) L 07/19/18 08:08 Glucose 211 mg/dL (70-105) H 07/19/18 08:08 Calcium 8.0 mg/dL (8.6-10.3) L 07/19/18 08:08 Phosphorus 2.2 mg/dL (2.7-4.5) L 07/14/18 20:13 Total Bilirubin 1.3 mg/dL (0.3-1.0) H 07/19/18 08:08 Direct Bilirubin 0.3 mg/dL (0.0-0.2) H 07/18/18 21:45 C-Reactive Protein 105 mg/L (Less than 10) H 07/15/18 06:28 Serum Total Protein 5.2 g/dL (6.4-8.9) L 07/19/18 08:08 Albumin 2.2 g/dL (3.5-5.7) L 07/19/18 08:08 Albumin/Globulin Ratio 0.7 (1.1-2.2) L 07/19/18 08:08 Urine Glucose (UA) 500 mg/dL (Normal) H 07/14/18 21:13 Urine Blood Large (Negative) H 07/14/18 21:13 Urine Urobilinogen 2.0 mg/dL (Normal) H 07/14/18 21:13 Urine Microscopic RBC 5-15 per hpf (0-3) H 07/14/18 21:13 Urine Microscopic WBC 3-5 per hpf (0-3) H 07/14/18 21:13 Vancomycin Trough 14 mcg/mL (5-10) H 07/19/18 04:00 - VTE Documentation of Mechanical Device: Venous foot pump, device Consult Discharge Plan - Plan [facility]errals: [facility] [Primary Care Provider] -
[2018-07-20 11:15] LABS: BUN/Creatinine Ratio 14 (6-26); Blood Urea Nitrogen 9 mg/dL (8-23); Calcium 8.4 mg/dL (8.6-10.3); Carbon Dioxide 28 mEq/L (23-29); Chloride 103 mEq/L (98-107); Glucose 209 mg/dL (70-105); Osmolality,Calculated 289 (280-300); Sodium 137 mEq/L (136-145); eGFR For Non-African Americans > 60 (> 60)
--- NOTE | 2018-07-20 13:59 | Electrocardiograph Report ---
[address] [place], [place] [address] Test Date: 2018-07-14 Pat Name: Callum Martin Department: [id number] Room: 2NE34 Gender: M Purchase Analyst: : 1950 Requested By: Joey Watson Order Number: [id number] Reading MD: Brandon Acharya Measurements Intervals [place] Rate: 108 P: TN: QRS: 49 QRSD: 88 T: 31 QT: 339 QTc: 455 Interpretive Statements Atrial fibrillation Electronically Signed On 07-20-2018 13:58:16 EDT by Brandon Acharya
--- NOTE | 2018-07-20 14:14 | Electrocardiograph Report ---
[place] [address] Test Date: 2018-07-15 Pat Name: Callum Martin Department: 114 Room: 2NE34 Gender: M Digital Account Coordinator: : 1950 Requested By: Rupesh Napoles Order Number: [id number] Reading MD: Brandon Acharya Measurements Intervals [place] Rate: 123 P: NE: 0 QRS: 26 QRSD: 90 T: -10 QT: 311 QTc: 384 Interpretive Statements ATRIAL FIBRILLATION WITH RAPID VENTRICULAR RESPONSE NONSPECIFIC T-WAVE ABNORMALITY Electronically Signed On 07-20-2018 14:13:30 EDT by Brandon Acharya
[2018-07-20] MEDS: *HR* Digoxin 0.5 MG/2 ML AMPUL IVP SCH ×2 (17:12→22:58)
[2018-07-20] MEDS ORDERED: *HR* Warfarin 3 MG TABLET PO ONE (18:00)
[2018-07-20] MEDS: Finasteride 5 MG TABLET PO SCH (22:30)
[2018-07-20] MEDS ORDERED: *HR* Digoxin 0.5 MG/2 ML AMPUL ONE (22:35)
[2018-07-20] MEDS ORDERED: *HR* Digoxin 0.5 MG/2 ML AMPUL IVP SCH (23:00)
[2018-07-20] MEDS: Acetaminophen 325 MG TABLET PO PRN (23:01)
[2018-07-21] MEDS: *HR* Morphine Sulfate SR (12 HR) 15 MG TABLET.ER PO SCH (01:43)
[2018-07-21 03:26] LABS: Bilirubin,Urine Negative (Negative); Blood,Urine Trace (Negative); Clarity,Urine Clear (Clear); Color,Urine Yellow (Yellow); Glucose,Urine (UA) Normal (Normal); Ketones,Urine Negative (Negative); Leukocyte Esterase,Urine Negative (Negative); Nitrite,Urine Negative (Negative); PH,Urine 7.5 pH Units (5.0-8.0); Protein,Urine Negative (Neg-Trace); Specific Gravity,Urine 1.015 (1.010-1.025); Urobilinogen,Urine Normal (Normal)
[2018-07-21 03:30] LABS: Bacteria,Urine None Seen per hpf (None-Few); Hyaline Casts,Urine None Seen per lpf (None-Few); RBC,Urine 15-30 per hpf (0-3); Squamous Epithelial Cell,Urine None Seen per lpf (None-Few); WBC,Urine 0-3 per hpf (0-3)
[2018-07-21] MEDS: Insulin LISPRO 300 UNITS/3 ML VIAL SQ SCH ×5 (04:25→18:33)
[2018-07-21 05:51] LABS: Hematocrit 31.2 % (37.5-50.1); Hemoglobin 10.6 g/dL (12.9-16.9); Mean Corpuscular Hemoglobin 33.7 pg (28.0-33.3); Mean Platelet Volume 9.4 fL (9.4-12.4); Platelet Count 213 K/mcL (140-400); Red Blood Count 3.15 M/mcL (4.19-5.50); Red Cell Distribution Width 15.9 % (11.5-14.5)
[2018-07-21 05:57] LABS: INR 2.4; Prothrombin Time 27.4 Seconds (9.4-12.1)
[2018-07-21 06:09] LABS: BUN/Creatinine Ratio 14 (6-26); Blood Urea Nitrogen 10 mg/dL (8-23); Calcium 8.5 mg/dL (8.6-10.3); Carbon Dioxide 29 mEq/L (23-29); Chloride 103 mEq/L (98-107); Glucose 212 mg/dL (70-105); Osmolality,Calculated 291 (280-300); Potassium 4.3 mEq/L (3.5-5.1); Sodium 138 mEq/L (136-145); eGFR For Non-African Americans > 60 (> 60)
[2018-07-21] MEDS: Acetaminophen 325 MG TABLET PO PRN (07:40)
--- NOTE | 2018-07-21 08:05 | Internal Med Progress Note ---
<Yohana Rosa - Last Filed: 07/21/18 14:52> Hospitalist Progress Note - Encounter Date of Encounter: 07/21/18 Time of Encounter: 09:45 - Exam Vitals: Temp Pulse Resp BP Pulse Ox 97.9 F 102 16 94/66 97 07/21/18 06:38 07/21/18 06:38 07/21/18 06:38 07/21/18 06:38 07/21/18 06:38 Exam: . - Assessment and Plan (1) Septic arthritis Current Visit: Yes Status: Acute (2) Diabetes mellitus Current Visit: Yes Status: Chronic (3) Atrial fibrillation Current Visit: Yes Status: Chronic (4) Warfarin-induced coagulopathy Current Visit: Yes Status: Resolved (5) Myoclonic jerking Current Visit: Yes Status: Chronic (6) Dementia Current Visit: Yes Status: Suspected (7) Prosthetic joint infection Current Visit: Yes Status: Acute (8) Acute blood loss anemia Current Visit: Yes Status: Acute - Time Spent with Patient Total time spent is greater than 50% in coordination of care (as documented) at patient's floor/unit and/or counseling patient: Internal Medicine: Result - Labs CBC & Chem 7: 07/21/18 05:30 07/21/18 05:30 Labs: Short CBC 07/21/18 Range/Units 05:30 WBC 5.5 (4.3-11.1) K/mcL Hgb 10.6 L (12.9-16.9) g/dL Hct 31.2 L (37.5-50.1) % Plt Count 213 (140-400) K/mcL BMP 07/21/18 05:30 Sodium 138 Potassium 4.3 Chloride 103 Carbon Dioxide 29 BUN 10 Creatinine 0.70 Glucose 212 H Calcium 8.5 L Urine 07/21/18 Range/Units 02:30 Urine Color Yellow (Yellow) Urine Clarity Clear (Clear) Urine pH 7.5 (5.0-8.0) pH Units Ur Specific [place] 1.015 (1.010-1.025) Urine Protein Negative (Neg-Trace) mg/dL Urine Glucose (UA) Normal (Normal) mg/dL - ABG Interpretation ABG results: PT/INR, D-dimer PT 27.4 Seconds (9.4-12.1) H 07/21/18 05:30 Consult Discharge Plan - Plan [facility] Care Provider[facility] - Prescriptions: ceFAZolin [Ancef] 2,000 mg IVPB Q8HR #128 vial - Attending Attestation I saw evaluated and examined this patient and my medical decision-making was reviewed with the Resident Physician, Amaury Santos. I agree with the documented findings, disposition and treatment plan as described except to any changes set forth below. We independently had [id number] contact with the patient. Patient was hospitalized with concerns for right knee septic arthritis. Currently he reports of pain which has worsened overnight in his right knee. He reports that he takes 60 mg of morphine 3 times a day at home and is not been receiving this dose here. Denies any fevers or chills overnight. No chest pain or palpitations. No shortness of breath. He did report intermittent lightheadedness earlier this morning. On examination, patient is awake and alert. Heart sounds are normal. Breath sounds are normal. Patient does have right knee swelling and tenderness. Knee brace in place. Right knee septic arthritis: With staph epidermidis. Infectious disease following. Currently on vancomycin. High risk for complications. Afib with RVR: Heart rate has improved with digoxin. We will continue to monitor. On anticoagulation with Coumadin. INR is therapeutic Diabetes mellitus type 2: Patient has been having hypoglycemic episodes. Will decrease insulin regimen. Continue to monitor blood sugars closely. Acute blood loss anemia: Hemoglobin stable. Myoclonic jerking: Improved with valproic acid <Mohamud Santos - Last Filed: 07/21/18 17:16> Hospitalist Progress Note - Encounter Date of Encounter: 07/21/18 - Subjective Interval History: Interval History: Mr. Martin has been having some spills of his urine basin, we have changed his bedding/gown, denies dysuria, fever, dyspnea, or chest discomfort. No events overnight. We are watching his blood pressure while addressing his afib-rvr with toprol and digoxin, he is needing moderate doses of morphine which is likely contributing to his hypotension, he denies syncope but is occasionally lightheaded. - Exam Vitals: Temp Pulse Resp BP Pulse Ox 97.9 F 102 16 94/66 97 07/21/18 06:38 07/21/18 06:38 07/21/18 06:38 07/21/18 06:38 07/21/18 06:38 Exam: General: Alert and oriented. Pleasant, answers questions appropriately. Skin: Normal color, no rash, no lesions. Head: Normocephalic and atraumatic. EENT: EOMI, pupils equal, round and reactive. Mucus membranes dry. No lesion. Cardiovascular: HR mid 90s. Normal S1 & S2, no rubs, murmurs or gallops. No JVD. Pulse irregular and tachycardic. Lungs: Normal breath sounds, no wheezes or crackles. Abdomen: Soft, non-tender, no rigidity. Normal bowel sounds. Extremities: Moderate OA. Dressing intact R knee, kait non-dehiscent without erythema, dorsalis pedis pulses palpable Neurological: Normal cognition at this time and motor skills. decreased observed myoclonus x2days Rest of the physical exam is non contributory - Assessment and Plan (1) Septic arthritis Current Visit: Yes Status: Acute Assessment and Plan: S/p R knee revision Culture + for staph epi, currently on vanc with goal trough of 15 Patient had svc picc insertion 07/17 ID recommends Cefazolin, 6 weeks (2) Atrial fibrillation with RVR Current Visit: Yes Status: Chronic Assessment and Plan: LVEF May 2018 shows preserved EF, normal wall motion, moderate MR. Afib rvr responding to toprol 25mg bid, digoxin, on Coumadin [facility] (3) Prosthetic joint infection Current Visit: Yes Status: Acute Assessment and Plan: Plan as above (1) (4) Warfarin-induced coagulopathy Current Visit: Yes Status: Resolved Assessment and Plan: Continuing Coumadin, INRs [facility] (5) Diabetes mellitus Current Visit: Yes Status: Chronic Assessment and Plan: Is on ssi low dose; has been also on 50U qam nph/reg and 40U qpm; episode of hypoglycemia in evening hours, adjusting to 45U qam 25U pm (6) Myoclonic jerking Current Visit: Yes Status: Chronic Assessment and Plan: Not currently prescribed medication for occasional myoclonic jers, neuro consult recommended if bothersome enough to trial valproic acid, possible trial outpatient with neuro referral. (7) Acute blood loss anemia Current Visit: Yes Status: Acute Assessment and Plan: hemoglobin 9.3 s/p right revision, tachycardic, hypotensive, s/p 2U transfusion pRBC by surgery team post-op 9.3-9.2-10.0-0.8-10.6 - Time Spent with Patient Total time spent is greater than 50% in coordination of care (as documented) at patient's floor/unit and/or counseling patient: Internal Medicine: Result - Labs CBC & Chem 7: 07/21/18 05:30 07/21/18 05:30 Labs: Short CBC 07/20/18 07/21/18 Range/Units 09:06 05:30 WBC 6.1 5.5 (4.3-11.1) K/mcL Hgb 10.8 L 10.6 L (12.9-16.9) g/dL Hct 32.2 L 31.2 L (37.5-50.1) % Plt Count 236 213 (140-400) K/mcL BMP 07/20/18 07/21/18 09:06 05:30 Sodium 137 138 Potassium 4.0 4.3 Chloride 103 103 Carbon Dioxide 28 29 BUN 9 10 Creatinine 0.66 L 0.70 Glucose 209 H 212 H Calcium 8.4 L 8.5 L Urine 07/21/18 Range/Units 02:30 Urine Color Yellow (Yellow) Urine Clarity Clear (Clear) Urine pH 7.5 (5.0-8.0) pH Units Ur Specific [place] 1.015 (1.010-1.025) Urine Protein Negative (Neg-Trace) mg/dL Urine Glucose (UA) Normal (Normal) mg/dL - ABG Interpretation ABG results: PT/INR, D-dimer PT 27.4 Seconds (9.4-12.1) H 07/21/18 05:30 - VTE Documentation of Mechanical Device: Venous foot pump, device <Yohana Rosa - Last Filed: 07/21/18 14:52> (1) Septic arthritis Qualifiers: Septic arthritis location: knee Septic arthritis organism: staphylococcal Laterality: right Qualified Code(s): M00.061 - Staphylococcal arthritis, right knee (2) Diabetes mellitus Qualifiers: Diabetes mellitus type: type 2 Diabetes mellitus penitentiary insulin use: with intermediate school teacher use Diabetes mellitus complication status: without complication Qualified Code(s): E11.9 - Type 2 diabetes mellitus without complications; Z79.4 - terminal clerk (current) use of insulin (3) Atrial fibrillation Qualifiers: Atrial fibrillation type: chronic Qualified Code(s): I48.2 - Chronic atrial fibrillation (6) Dementia Qualifiers: Dementia type: Lewy body dementia Dementia behavioral disturbance: without behavioral disturbance Qualified Code(s): G31.83 - Dementia with Lewy bodies; F02.80 - Dementia in other diseases classified elsewhere without behavioral disturbance (7) Prosthetic joint infection Qualifiers: Encounter type: subsequent encounter Qualified Code(s): T84.50XD - Infection and inflammatory reaction due to unspecified internal joint prosthesis, subsequent encounter <Mohamud Santos - Last Filed: 07/21/18 17:16> (1) Septic arthritis Qualifiers: Septic arthritis location: knee Septic arthritis organism: staphylococcal Laterality: right Qualified Code(s): M00.061 - Staphylococcal arthritis, right knee (3) Prosthetic joint infection Qualifiers: Encounter type: subsequent encounter Qualified Code(s): T84.50XD - Infection and inflammatory reaction due to unspecified internal joint prosthesis, subsequent encounter (5) Diabetes mellitus Qualifiers: Diabetes mellitus type: type 2 Diabetes mellitus intermediate school teacher insulin use: with penitentiary use Diabetes mellitus complication status: without complication Qualified Code(s): E11.9 - Type 2 diabetes mellitus without complications; Z79.4 - [employer]P (current) use of insulin
[2018-07-21] MEDS: Megestrol Acetate 400 MG/10 ML UDC PO SCH (10:15)
[2018-07-21] MEDS: Aspirin Enteric Coated 81 MG Tablet PO SCH (10:16)
[2018-07-21] MEDS: *HR* Digoxin 0.125 MG TABLET PO SCH (10:16)
[2018-07-21] MEDS: Metoprolol XL (24 HR) Succ 25 MG TAB.ER.24H PO SCH ×2 (10:16→22:32)
[2018-07-21] MEDS: *HR* Morphine Sulfate SR (12 HR) 60 MG TABLET.ER PO SCH ×2 (10:16→18:23)
[2018-07-21] MEDS: Cholecalciferol (D-3) 1,000 UNIT TABLET PO SCH (10:16)
[2018-07-21] MEDS: Insulin NPH/REG 70/30 100 UNIT/ML (x5UNIT) SQ SCH ×2 (10:16→18:32)
--- NOTE | 2018-07-21 10:27 | Cardiology Progress Note ---
Date of Encounter: 07/21/18 Time of Encounter: 09:00 Assessment and Plan (1) Atrial fibrillation with RVR Current Visit: Yes Status: Chronic Known hx of atrial fibrillation rate controlled on BB and anticoagulated on Coumadin ([facility] Admitted with septic knee with positive cultures s/p recent total knee replacement. Recent (May 2018) shows preserved LVEF, normal wall motion, with moderate MR. HR improved overnight with addition of digoxin; tachycardia expected in the setting of acute illness/infectious process and also pain. HR low 100's upon exam, patient is resting comfortable; anticipate HR to improve as he is treated for septic knee. Blood pressure is marginal. 12 hour tele: avg UG=826, improved from yesterday. Continue toprol XL 25 mg BID. Goal HR less than 100. IV digoxin low on 07/20/18, po to start today. Continue coumadin for AC. Goal INR 2-3. Discussion w patient/family: The assessment and plan as outlined above was discussed with the patient and/or family members who expressed understanding and agreement. All questions were answered. Thank you for involving us in the care of your patient. Please call with any questions. The patient will be discussed and reviewed with Dr. Hanna; changes to be made accordingly. Subjective Principal diagnosis: Afib Interval history: Seen and examined. Reports slept much better overnight. No palpitations reported. No chest pain or shortness of breath. Reports increase in right knee pain this morning. Objective Vital Signs, Last 4 Hours Temp Pulse Resp BP Pulse Ox 07/21/18 06:38 97.9 F 102 16 94/66 97 General: Conversant, No Apparent Distress HEENT: Atraumatic, Normocephaly, Mucus Membranes Moist Cardiac: Other (irregularly irregular) Lungs: Normal Breath Sounds Neuro: Alert and responsive Abdomen: Soft Skin: Other (right knee edema/BLE discoloration) Musculoskeletal: No Chest Wall Tenderness Extremities: Other (mild BLE edema) Results 07/21/18 05:30 07/21/18 05:30 Lab Results 07/20/18 07/20/18 07/21/18 09:06 09:06 05:30 WBC 6.1 Hgb 10.8 L Hct 32.2 L Plt Count 236 INR 2.4 Sodium 137 Potassium 4.0 Chloride 103 Carbon Dioxide 28 BUN 9 Creatinine 0.66 L Glucose 209 H Calcium 8.4 L 07/21/18 07/21/18 05:30 05:30 WBC 5.5 Hgb 10.6 L Hct 31.2 L Plt Count 213 INR Sodium 138 Potassium 4.3 Chloride 103 Carbon Dioxide 29 BUN 10 Creatinine 0.70 Glucose 212 H Calcium 8.5 L Active Medications Acetaminophen (Tylenol) 650 mg PO Q6HR PRN PRN Reason: Mild Pain/Fever Stop: 01/14/19 09:08 Last Admin: 07/21/18 07:40 Dose: 650 mg Aspirin (Aspirin Ec) 81 mg PO DAILY [facility] Stop: 01/14/19 10:01 Last Admin: 07/20/18 10:07 Dose: 81 mg Bisacodyl (Dulcolax) 5 mg PO DAILY PRN PRN Reason: Constipation Stop: 01/14/19 09:08 Dextrose/Water (Dextrose 50% (Syg)) 25 ml IVP AD PRN PRN Reason: Hypoglycemia Stop: 01/14/19 09:14 Last Admin: 07/21/18 03:42 Dose: 25 ml Digoxin (Lanoxin) 0.125 mg PO DAILY [facility] Stop: 01/20/19 09:01 Finasteride (Proscar) 5 mg PO HS [facility] PRN Reason: Protocol Stop: 01/14/19 10:01 Last Admin: 07/20/18 22:30 Dose: 5 mg Glucagon (Glucagen) 1 mg IM ONCE PRN PRN Reason: Hypoglycemia Stop: 01/14/19 09:14 Glucose (Gluctose) 15 gm PO ONCE PRN PRN Reason: Hypoglycemia Stop: 01/14/19 09:14 Last Admin: 07/18/18 00:26 Dose: 15 gm Glucose (Gluctose) 30 gm PO ONCE PRN PRN Reason: Hypoglycemia Stop: 01/14/19 09:14 Dextrose (Dextrose 5%) 1,000 mls @ 100 mls/hr IVC .Q10H PRN PRN Reason: HYPOGLYCEMIA Stop: 01/14/19 09:14 Vancomycin HCl 1,000 mg/ (Sodium Chloride) 250 mls @ 167 mls/hr IVPB Q12H [facility] PRN Reason: Protocol Stop: 01/16/19 17:01 Last Admin: 07/21/18 05:40 Dose: 167 mls/hr Insulin Human Lispro (Humalog) 0 units SQ Q6HR [facility] PRN Reason: Protocol Stop: 01/14/19 12:01 Last Admin: 07/21/18 07:36 Dose: 6 units Insulin Isophane/Insulin Regular (Humulin 70/30 Vial) 50 unit SQ QAM [facility] Stop: 01/14/19 10:01 Last Admin: 07/20/18 12:39 Dose: 50 unit Insulin Isophane/Insulin Regular (Humulin 70/30 Vial) 40 unit SQ QPM [facility] Stop: 01/14/19 18:01 Last Admin: 07/20/18 22:30 Dose: 40 unit Megestrol Acetate (Megace) 800 mg PO DAILY [facility] PRN Reason: Protocol Stop: 01/15/19 09:01 Last Admin: 07/20/18 10:06 Dose: 800 mg Metoprolol Succinate (Toprol Xl) 25 mg PO BID [facility] Stop: 01/18/19 21:01 Last Admin: 07/20/18 22:30 Dose: 25 mg Morphine Sulfate (Ms Contin) 60 mg PO Q8HR [facility] Stop: 01/20/19 09:13 Naloxone HCl (Narcan) 0.4 mg IVP Q2MIN PRN PRN Reason: SEE COMMENTS Stop: 01/14/19 09:08 Ondansetron HCl (Zofran) 4 mg IVP Q6HR PRN; Protocol PRN Reason: Nausea And Vomiting Stop: 01/14/19 09:08 Oxycodone HCl (Oxycodone Oral Conc) 5 mg SL Q4H PRN; Protocol PRN Reason: mild to moderate pain Stop: 01/14/19 09:08 Last Admin: 07/19/18 20:54 Dose: 5 mg Paroxetine HCl (Paxil) 20 mg PO HS [facility] PRN Reason: Protocol Stop: 01/14/19 10:01 Last Admin: 07/20/18 22:30 Dose: 20 mg Vitamin D (Vitamin D) 1,000 unit PO DAILY [facility] Stop: 01/14/19 10:01 Last Admin: 07/20/18 10:07 Dose: 1,000 unit Warfarin Sodium (Coumadin Perpt) 1 each PO DAILY@1800 PRN PRN Reason: SEE COMMENTS Stop: 01/17/19 18:01 - Imaging and Cardiology Echo: report reviewed - EKG Interpretation EKG results cardiology: personally reviewed - VTE Documentation of Mechanical Device: Venous foot pump, device Consult Discharge Plan - Plan [facility]errals: [facility] [Primary Care Provider] -
--- NOTE | 2018-07-21 13:55 | Orthopedics Progress Note ---
Date of Encounter: 07/21/18 Time of Encounter: 12:30 Subjective Principal diagnosis: POD#5 s/p right TKR revision 07/16/18 Interval history: PCR - POD#5 s/p right TKR revision 07/16/18 Patient seen at bedside, without complaints. A&O x 3. Patient doing well today, eating lunch in bed. States pain is well controlled at this time and therapy is going well. He was transferred to [facility] yesterday for further cardiac monitoring. He has Afib dressings c/d/i to right knee, minimal old bleeding from day of surgery. BEN drain was removed from right knee on 07/18/18. Afebrile, vital signs stable. Labs reviewed. H/H 10..2 - stable, asymptomatic Pain control: adequate Participating in PT. [facility] - they are now recommending home therapy at this time. Continue NO KNEE FLEXION and wear knee immobilizer at all times. All questions and concerns addressed. Educated on use of incentive spirometer. Encouraged ambulation and proper hydration. Patient educated on post-operative restrictions and post-operative care. Continue to ice and elevate as needed. body fluid cx 07/15 +staph epidermidis, intraop cx 07/16 show no growth ID on board - awaiting updated note for today. current plan is IV vancomycin x 6 weeks, pharmacy to dose. Patient states he is waiting for his to arrive to instructions on giving IV abx at home and if she would be comfortable with this rather than going to [place] for extended care. Placement is pending at this time. He will require weekly ESR/CRP and vanc trough levels for monitoring. Assessment and plan: Continue with postoperative care Discharge plan: pending - vs [facility] Patient plans to still be admitted at least through tomorrow. He is scheduled for first postop visit on 07/23 in office. Will plan to do incision check/ dressing change and new xrays tomorrow if so and will cancel office appt this week. Will keep next week's appt. Objective Vital signs: Vital Signs Temp Pulse Resp BP Pulse Ox 07/21/18 06:38 97.9 F 102 16 94/66 97 07/21/18 04:10 98.4 F 110 16 112/67 95 07/21/18 00:47 98.3 F 85 15 102/77 94 07/20/18 19:46 98.0 F 93 16 94/64 95 07/20/18 16:09 98.6 F 115 17 110/63 98 Intake and Output 07/20/18 07/21/18 07/21/18 23:59 07:59 15:59 Intake Total 300 / 300 240 / 240 360 / 360 Output Total 900 / 900 450 / 450 Balance -600 / -600 -210 / -210 360 / 360 Intake: IV Fluids 250 / 250 Vancocin 1,000 MG In 0.9 % 250 / 250 Sodium Chloride 250 ML @ 167 mls/hr IVPB Q12H [facility] Rx#: [id number] Oral 50 / 50 240 / 240 360 / 360 Output: Urine 900 / 900 450 / 450 Other: Meal Breakfast Percent of Meal Consumed 100% Weight 97.2 kg Blood Glucose* 258 224 292 Patient Weight 07/21/18 23:59 Weight 97.2 kg Incision: clean and dry (dressings to right knee c/d/i with minimal old bleeding. Restricted knee motion, brace locked in extension,good dorsiflexion of foot. no calf tenderness.) - Labs CBC & BMP: 07/21/18 05:30 07/21/18 05:30 Labs: Abnormal lab results RBC 3.15 M/mcL (4.19-5.50) L 07/21/18 05:30 Hgb 10.6 g/dL (12.9-16.9) L 07/21/18 05:30 Hct 31.2 % (37.5-50.1) L 07/21/18 05:30 MCH 33.7 pg (28.0-33.3) H 07/21/18 05:30 RDW 15.9 % (11.5-14.5) H 07/21/18 05:30 Lymphocytes # 0.4 K/mcL (0.6-4.6) L 07/17/18 00:17 PT 27.4 Seconds (9.4-12.1) H 07/21/18 05:30 Glucose 212 mg/dL (70-105) H 07/21/18 05:30 POC Glucose 166 mg/dL (70-99) H 07/20/18 19:55 Calcium 8.5 mg/dL (8.6-10.3) L 07/21/18 05:30 Phosphorus 2.2 mg/dL (2.7-4.5) L 07/14/18 20:13 Total Bilirubin 1.3 mg/dL (0.3-1.0) H 07/19/18 08:08 Direct Bilirubin 0.3 mg/dL (0.0-0.2) H 07/18/18 21:45 C-Reactive Protein 105 mg/L (Less than 10) H 07/15/18 06:28 Serum Total Protein 5.2 g/dL (6.4-8.9) L 07/19/18 08:08 Albumin 2.2 g/dL (3.5-5.7) L 07/19/18 08:08 Albumin/Globulin Ratio 0.7 (1.1-2.2) L 07/19/18 08:08 Urine Blood Trace (Negative) H 07/21/18 02:30 Urine Microscopic RBC 15-30 per hpf (0-3) H 07/21/18 02:30 Vancomycin Trough 14 mcg/mL (5-10) H 07/19/18 04:00 - VTE Documentation of Mechanical Device: Venous foot pump, device Consult Discharge Plan - Plan Referrals: [facility] [Primary Care Provider] -
[2018-07-21] MEDS ORDERED: 0.9 % Sodium Chloride 250 ML IVC ONE (15:25)
[2018-07-21] MEDS ORDERED: 0.9 % Sodium Chloride 1,000 ML IVC ONE (16:54)
--- NOTE | 2018-07-21 17:03 | Infectious Disease Progress No ---
Date of Encounter: 07/21/18 Time of Encounter: 10:00 - Assessment and Plan (1) Prosthetic joint infection Current Visit: Yes Status: Acute Location: Right knee. Causative organism: S. epi, methicillin-sensitive. Likely secondary to recent right knee surgery. Acute-onset. Ortho consulted. Status post arthrocentesis of the right knee 07/15/18. Cultures were positive for S. epi. Status post right total knee revision 07/16/[address] Fonseca. Operative note reviewed. Fibrinous fluid noted intra-op, but no pus. Intra-op cultures are no growth. No SIRS criteria on admission. Blood cultures drawn 07/14/18 x 2 sets are NGTD. Check ESR and CRP. Discontinue Vancomycin. Start Ancef 2 grams IV Q8H. administrative services assistant to assist with discharge planning. PICC line already placed. Duration of treatment depends on the clinical picture, but likely a total of 6 weeks of IV antibiotics. Monitor renal function and dose-adjust antibiotics. Will need weekly CBC, BUN/Cr, ESR, and CRP. Will need weekly PICC care per protocol. Follow up with ID two weeks post-discharge. Qualifiers: Encounter type: subsequent encounter Qualified Code(s): T84.50XD - Infection and inflammatory reaction due to unspecified internal joint prosthesis , subsequent encounter (2) Atrial fibrillation with RVR Current Visit: Yes Status: Chronic Cardiology consulted and following. (3) Diabetes mellitus Current Visit: Yes Status: Chronic Recommend aggressive glucose monitoring and control to promote wound healing and prevent re-infection. Management per the primary team. 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 Resolved. (5) Myoclonic jerking Current Visit: Yes Status: Chronic Neurology consulted. Appreciate recommendations. (6) Acute blood loss anemia Current Visit: Yes Status: Acute Hgb stable around 10 status post transfusion of 2 units PRBCs. No acute bleeding noted on exam. Continue to trend. - Subjective Interval history: Patient seen and examined. No acute events noted overnight. Patient states overall he feels well. Reports some pain in the right knee at this time. Denies fevers, chills, or rigors. Denies chest pain, shortness of breath, or cough. Denies nausea, vomiting, or diarrhea. Denies abdominal pain, urinary complaints , or appetite changes. Denies oral thrush or skin lesions. Infect Dis PN-Objective Data - Labs CBC & Chem 7: 07/21/18 05:30 07/21/18 05:30 Labs: Laboratory Results - last 24 hr 07/20/18 07/20/18 07/20/18 11:24 16:10 19:55 WBC RBC Hgb Hct MCV MCH MCHC RDW Plt Count MPV PT INR Sodium Potassium Chloride Carbon Dioxide BUN Creatinine Est GFR ( Amer) Est GFR (Non-Af Amer) BUN/Creatinine Ratio Glucose POC Glucose 227 H 258 H 166 H Calculated Osmolality Calcium Urine Color Urine Clarity Urine pH Ur Specific [place] Urine Protein Urine Glucose (UA) Urine Ketones Urine Blood Urine Nitrite Urine Bilirubin Urine Urobilinogen Ur Leukocyte Esterase Urine Microscopic RBC Urine Microscopic WBC Ur Squamous Epith Cells Urine Bacteria Hyaline Casts Ur Culture Indicated? 07/21/18 07/21/18 07/21/18 02:30 05:30 05:30 WBC 5.5 RBC 3.15 L Hgb 10.6 L Hct 31.2 L MCV 99.0 MCH 33.7 H MCHC 34.0 RDW 15.9 H Plt Count 213 MPV 9.4 PT 27.4 H INR 2.4 Sodium Potassium Chloride Carbon Dioxide BUN Creatinine Est GFR ( Amer) Est GFR (Non-Af Amer) BUN/Creatinine Ratio Glucose POC Glucose Calculated Osmolality Calcium Urine Color Yellow Urine Clarity Clear Urine pH 7.5 Ur Specific [place] 1.015 Urine Protein Negative Urine Glucose (UA) Normal Urine Ketones Negative Urine Blood Trace H Urine Nitrite Negative Urine Bilirubin Negative Urine Urobilinogen Normal Ur Leukocyte Esterase Negative Urine Microscopic RBC 15-30 H Urine Microscopic WBC 0-3 Ur Squamous Epith Cells None Seen Urine Bacteria None Seen Hyaline Casts None Seen Ur Culture Indicated? NO 07/21/18 05:30 WBC RBC Hgb Hct MCV MCH MCHC RDW Plt Count MPV PT INR Sodium 138 Potassium 4.3 Chloride 103 Carbon Dioxide 29 BUN 10 Creatinine 0.70 Est GFR ( Amer) > 60 Est GFR (Non-Af Amer) > 60 BUN/Creatinine Ratio 14 Glucose 212 H POC Glucose Calculated Osmolality 291 Calcium 8.5 L Urine Color Urine Clarity Urine pH Ur Specific [place] Urine Protein Urine Glucose (UA) Urine Ketones Urine Blood Urine Nitrite Urine Bilirubin Urine Urobilinogen Ur Leukocyte Esterase Urine Microscopic RBC Urine Microscopic WBC Ur Squamous Epith Cells Urine Bacteria Hyaline Casts Ur Culture Indicated? Cultures: Cultures 07/16/18 16:58 Surgical Biopsy Culture - Final Right Knee 07/16/18 16:58 Anaerobic Culture - Preliminary Right Knee At this time, no anaerobic growth is present. The culture will be finalized after 5 days of incubation. Serology 07/21/18 Range/Units 02:30 Urine Color Yellow (Yellow) Urine Clarity Clear (Clear) Urine pH 7.5 (5.0-8.0) pH Units Ur Specific [place] 1.015 (1.010-1.025) Urine Protein Negative (Neg-Trace) mg/dL Urine Glucose (UA) Normal (Normal) mg/dL Urine Ketones Negative (Negative) mg/dL Urine Blood Trace H (Negative) Urine Nitrite Negative (Negative) Urine Bilirubin Negative (Negative) Urine Urobilinogen Normal (Normal) mg/dL Ur Leukocyte Esterase Negative (Negative) Urine Microscopic RBC 15-30 H (0-3) per hpf Urine Microscopic WBC 0-3 (0-3) per hpf Ur Squamous Epith Cells None Seen (None-Few) per lpf Urine Bacteria None Seen (None-Few) per hpf Hyaline Casts None Seen (None-Few) per lpf Ur Culture Indicated? NO (NO) Exam - Constitutional Vitals: Temp Pulse Resp BP Pulse Ox 97.8 F 98 16 87/57 97 07/21/18 15:07 07/21/18 15:07 07/21/18 15:07 07/21/18 15:07 07/21/18 15:07 General appearance: average body habitus, cooperative, no acute distress - Head Head exam: Present: atraumatic, normal inspection, normocephalic - Eye Eye exam: Present: EOMI, normal appearance, PERRL Pupils: Present: normal accommodation - ENT ENT exam: Present: mucous membranes moist - Neck Neck exam: Present: normal inspection - Respiratory Respiratory exam: Present: CTAB. Absent: rales, respiratory distress, rhonchi, wheezes - Cardiovascular Cardiovascular exam: Present: irregular rhythm. Absent: tachycardia - GI/Abdominal GI/Abdominal exam: Present: normal bowel sounds, soft. Absent: distended, tenderness - Extremities Exam Extremities exam: Present: joint swelling (right knee, mild), pedal edema (1+ BLE), tenderness (Right knee, mild). Absent: normal inspection (Right anterior knee surigal site with wound edges well-approximated and steri-strips intact. Hinged knee brace in place. Mild ecchymosis, but no erythema, warmth, or drainage noted. ROM not assessed.) - Neurological Exam Neurological exam: Present: alert, oriented X3, no focal deficits - Psychiatric Psychiatric exam: Present: normal affect, normal mood - Skin Skin exam: Present: dry, intact, normal color, warm - VTE Documentation of Mechanical Device: Venous foot pump, device Consult Discharge Plan - Plan [facility]errals: [facility]Primary Care Provider] - Prescriptions: ceFAZolin [Ancef] 2,000 mg IVPB Q8HR #128 vial - Attending Attestation I examined this patient and my medical decision-making was reviewed with the Resident Physician. I agree with the documented findings, disposition and treatment plan as described except to the extent set forth below.
[2018-07-21] MEDS ORDERED: *HR* Warfarin 2.5 MG TABLET PO ONE (18:00)
[2018-07-21] MEDS ORDERED: Aminoglycoside Consult 1 EACH MC ONE (18:02)
[2018-07-21] MEDS: Finasteride 5 MG TABLET PO SCH (22:32)
[2018-07-22] MEDS: Insulin LISPRO 300 UNITS/3 ML VIAL SQ SCH ×4 (01:12→17:18)
[2018-07-22] MEDS: *HR* Morphine Sulfate SR (12 HR) 60 MG TABLET.ER PO SCH ×3 (01:16→17:17)
[2018-07-22 05:50] LABS: Hematocrit 29.3 % (37.5-50.1); Hemoglobin 9.5 g/dL (12.9-16.9); Mean Corpuscular HGB Conc 32.4 g/dL (31.6-35.5); Mean Corpuscular Hemoglobin 32.2 pg (28.0-33.3); Mean Corpuscular Volume 99.3 fL (83.0-100.0); Mean Platelet Volume 9.9 fL (9.4-12.4); Platelet Count 199 K/mcL (140-400); Red Blood Count 2.95 M/mcL (4.19-5.50); Red Cell Distribution Width 15.9 % (11.5-14.5)
[2018-07-22 05:56] LABS: Prothrombin Time 33.3 Seconds (9.4-12.1)
[2018-07-22 06:26] LABS: BUN/Creatinine Ratio 19 (6-26); Blood Urea Nitrogen 13 mg/dL (8-23); Calcium 8.3 mg/dL (8.6-10.3); Carbon Dioxide 28 mEq/L (23-29); Chloride 105 mEq/L (98-107); Glucose 186 mg/dL (70-105); Osmolality,Calculated 289 (280-300); Sodium 137 mEq/L (136-145); eGFR For Non-African Americans > 60 (> 60)
[2018-07-22] MEDS: *HR* Digoxin 0.125 MG TABLET PO SCH (08:29)
[2018-07-22] MEDS: Cholecalciferol (D-3) 1,000 UNIT TABLET PO SCH (08:29)
[2018-07-22] MEDS: Megestrol Acetate 400 MG/10 ML UDC PO SCH (08:30)
[2018-07-22] MEDS: Aspirin Enteric Coated 81 MG Tablet PO SCH (08:30)
[2018-07-22] MEDS: Metoprolol XL (24 HR) Succ 25 MG TAB.ER.24H PO SCH (08:30)
[2018-07-22] MEDS: OXYCODONE Oral CONC 10 MG/0.5 ML ORAL.SYG SL PRN (08:31)
[2018-07-22] MEDS ORDERED: Insulin NPH/REG 70/30 100 UNIT/ML (x5UNIT) SQ SCH (09:00)
--- NOTE | 2018-07-22 10:07 | Cardiology Progress Note ---
Date of Encounter: 07/22/18 Time of Encounter: 09:00 Assessment and Plan (1) Prosthetic joint infection Current Visit: Yes Status: Acute Per cardiology: -Admitted with joint infection. -Management per primary and orthopedic services. Qualifiers: Encounter type: subsequent encounter Qualified Code(s): T84.50XD - Infection and inflammatory reaction due to unspecified internal joint prosthesis , subsequent encounter (2) Atrial fibrillation with RVR Current Visit: Yes Status: Chronic Per cardiology: -Known hx of atrial fibrillation rate controlled on BB and anticoagulated on Coumadin ([facility]). -Admitted with septic knee with positive cultures s/p recent total knee replacement. -Recent (May 2018) shows preserved LVEF, normal wall motion, with moderate MR. -Average HR previous 12 hours noted to be 99, a.fib. Of note, BB was held last night due to hypotension. BP improved today. -Continue toprol XL 25 mg BID. Goal HR less than 100, po digoxin. -Continue coumadin for AC. Goal INR 2-3. -Will continue to monitor HR, possible sign off this afternoon pending HR re- evaluation. Of note, follows with [facility]. Discussion w patient/family: The assessment and plan as outlined above was discussed with the patient who expressed understanding and agreement. All questions were answered. Thank you for involving us in the care of your patient. Please call with any questions. Discussed and reviewed with . Subjective Principal diagnosis: POD#5 s/p right TKR revision 07/16/18 Interval history: Patient states he feels mildly improved today. Denies complaints. Objective Vital Signs, Last 4 Hours Temp Pulse Resp BP Pulse Ox 07/22/18 07:05 98.0 F 106 20 111/71 97 General: Conversant, No Apparent Distress HEENT: Atraumatic, Normocephaly, Mucus Membranes Moist Neck: No JVD, Normal carotid pulses Cardiac: Normal S1 and S2, No Murmur, Other (Irregularly irregular) Lungs: Normal Breath Sounds, No Wheeze, Rales, Rhonchi Neuro: Alert and responsive, No focal deficits noted Abdomen: Soft, Non-Tender Skin: No rashes noted on visualized skin Musculoskeletal: No Chest Wall Tenderness Extremities: No Clubbing, No Cyanosis, Normal Pulses, Other (Mild left lower extremity edema, non-pitting. ) Results 07/22/18 05:05 07/22/18 05:05 Lab Results Active Medications Acetaminophen (Tylenol) 650 mg PO Q6HR PRN PRN Reason: Mild Pain/Fever Stop: 01/14/19 09:08 Last Admin: 07/21/18 07:40 Dose: 650 mg Aspirin (Aspirin Ec) 81 mg PO DAILY [facility] Stop: 01/14/19 10:01 Last Admin: 07/22/18 08:30 Dose: 81 mg Bisacodyl (Dulcolax) 5 mg PO DAILY PRN PRN Reason: Constipation Stop: 01/14/19 09:08 Dextrose/Water (Dextrose 50% (Syg)) 25 ml IVP AD PRN PRN Reason: Hypoglycemia Stop: 01/14/19 09:14 Last Admin: 07/21/18 03:42 Dose: 25 ml Digoxin (Lanoxin) 0.125 mg PO DAILY [facility] Stop: 01/20/19 09:01 Last Admin: 07/22/18 08:29 Dose: 0.125 mg Finasteride (Proscar) 5 mg PO HS SAMANTHA PRN Reason: Protocol Stop: 01/14/19 10:01 Last Admin: 07/21/18 22:32 Dose: 5 mg Glucagon (Glucagen) 1 mg IM ONCE PRN PRN Reason: Hypoglycemia Stop: 01/14/19 09:14 Glucose (Gluctose) 15 gm PO ONCE PRN PRN Reason: Hypoglycemia Stop: 01/14/19 09:14 Last Admin: 07/18/18 00:26 Dose: 15 gm Glucose (Gluctose) 30 gm PO ONCE PRN PRN Reason: Hypoglycemia Stop: 01/14/19 09:14 Dextrose (Dextrose 5%) 1,000 mls @ 100 mls/hr IVC .Q10H PRN PRN Reason: HYPOGLYCEMIA Stop: 01/14/19 09:14 Cefazolin Sodium 2,000 mg/ (Sodium Chloride) 100 mls @ 200 mls/hr IVPB Q8HR [facility] Stop: 01/21/19 00:01 Last Admin: 07/22/18 09:02 Dose: 200 mls/hr Insulin Human Lispro (Humalog) 0 units SQ Q6HR SAMANTHA PRN Reason: Protocol Stop: 01/14/19 12:01 Last Admin: 07/22/18 08:12 Dose: 4 units Insulin Isophane/Insulin Regular (Humulin 70/30 Vial) 45 unit SQ QAM [facility] Stop: 01/21/19 09:01 Last Admin: 07/22/18 09:06 Dose: 45 unit Insulin Isophane/Insulin Regular (Humulin 70/30 Vial) 25 unit SQ QPM [facility] Stop: 01/20/19 18:01 Last Admin: 07/21/18 18:32 Dose: 25 unit Megestrol Acetate (Megace) 800 mg PO DAILY [facility] PRN Reason: Protocol Stop: 01/15/19 09:01 Last Admin: 07/22/18 08:30 Dose: 800 mg Metoprolol Succinate (Toprol Xl) 25 mg PO BID [facility] Stop: 01/18/19 21:01 Last Admin: 07/22/18 08:30 Dose: 25 mg Morphine Sulfate (Ms Contin) 60 mg PO Q8HR [facility] Stop: 01/20/19 09:13 Last Admin: 07/22/18 08:30 Dose: 60 mg Naloxone HCl (Narcan) 0.4 mg IVP Q2MIN PRN PRN Reason: SEE COMMENTS Stop: 01/14/19 09:08 Ondansetron HCl (Zofran) 4 mg IVP Q6HR PRN; Protocol PRN Reason: Nausea And Vomiting Stop: 01/14/19 09:08 Oxycodone HCl (Oxycodone Oral Conc) 5 mg SL Q4H PRN; Protocol PRN Reason: mild to moderate pain Stop: 01/14/19 09:08 Last Admin: 07/22/18 08:31 Dose: 5 mg Paroxetine HCl (Paxil) 20 mg PO HS [facility] PRN Reason: Protocol Stop: 01/14/19 10:01 Last Admin: 07/21/18 22:32 Dose: 20 mg Vitamin D (Vitamin D) 1,000 unit PO DAILY [facility] Stop: 01/14/19 10:01 Last Admin: 07/22/18 08:29 Dose: 1,000 unit Warfarin Sodium (Coumadin Perpt) 1 each PO DAILY@1800 PRN PRN Reason: SEE COMMENTS Stop: 01/17/19 18:01 Laboratory Tests 07/22/18 07/22/18 07/22/18 05:05 05:05 05:05 Hgb 9.5 L INR 3.0 Creatinine 0.68 L - Imaging and Cardiology Chest Xray: report reviewed Echo: report reviewed - EKG Interpretation EKG results cardiology: other (Telemetry reviewed with average HR previous 12 hours noted to be 99, a.fib. PVCs noted.) - VTE Documentation of Mechanical Device: Venous foot pump, device Consult Discharge Plan - Plan [facility]errals: [facility] [Primary Care Provider] - Prescriptions: ceFAZolin [Ancef] 2,000 mg IVPB Q8HR #128 vial
[2018-07-22 11:32] VITALS: BP 96/67
--- NOTE | 2018-07-22 12:42 | Event Note ---
Date of Encounter: 07/22/18 Time of Encounter: 12:40 - Cardiology Event Note Telemetry reviewed with average HR previous 4 hours, noted to be 99, a.fib. Currently HRs on telemetry noted to be 90-100s. Of note, can consider increasing BB if BP will tolerate. Cardiology will sign off, recommend follow up with primary inspector and hand packager.
--- NOTE | 2018-07-22 13:17 | Discharge Summary ---
<Yohana Rosa - Last Filed: 07/22/18 14:11> Orders not resulted at time of discharge: Pending orders 07/15/18 10:55 PLASMA [BBK] Stat Type and Screen [BBK] Stat 07/16/18 15:26 US anesthesia pain block [US] Routine 07/17/18 06:27 Red Blood Cells [BBK] Stat 07/22/18 08:34 XR knee RT limited 1-2V [XR] Routine 07/23/18 04:00 PT/INR [Prothrombin Time INR] [COAG] AM 0400 07/24/18 04:00 PT/INR [Prothrombin Time INR] [COAG] AM 0400 Date of Encounter: 07/22/18 Time of Encounter: 14:11 - Discharge Diagnosis (1) Septic arthritis Status: Acute Qualifiers: Septic arthritis location: knee Septic arthritis organism: staphylococcal Laterality: right Qualified Code(s): M00.061 - Staphylococcal arthritis, right knee (2) Diabetes mellitus Status: Chronic Qualifiers: Diabetes mellitus type: type 2 Diabetes mellitus superintendent container terminal insulin use: with superintendent container terminal use Diabetes mellitus complication status: without complication Qualified Code(s): E11.9 - Type 2 diabetes mellitus without complications; Z79.4 - care home (current) use of insulin (3) Atrial fibrillation Status: Chronic Qualifiers: Atrial fibrillation type: chronic Qualified Code(s): I48.2 - Chronic atrial fibrillation (4) Warfarin-induced coagulopathy Status: Resolved (5) Myoclonic jerking Status: Chronic (6) Dementia Status: Suspected Qualifiers: Dementia type: Lewy body dementia Dementia behavioral disturbance: without behavioral disturbance Qualified Code(s): G31.83 - Dementia with Lewy bodies; F02.80 - Dementia in other diseases classified elsewhere without behavioral disturbance (7) Prosthetic joint infection Status: Acute Qualifiers: Encounter type: subsequent encounter Qualified Code(s): T84.50XD - Infection and inflammatory reaction due to unspecified internal joint prosthesis , subsequent encounter (8) Acute blood loss anemia Status: Acute Hospital course: Mr. Martin is a 68 year old male - Time Spent with Patient Total time spent providing and/or coordinating discharge services: Greater than 30 minutes (40 min) - Discharge Medications Prescriptions: ceFAZolin [Ancef] 2,000 mg IVPB Q8HR #128 vial Morphine Sulfate SR (12 HR) [MS Contin] 60 mg PO Q8HR 3 Days #9 tablet.er Digoxin [Lanoxin] 0.125 mg PO DAILY #30 tablet Home Medications: Aspirin [Lo-Dose Aspirin EC] 81 mg PO DAILY 06/04/18 [History] Cholecalciferol (D-3) [Vitamin D] 1,000 unit PO DAILY 06/04/18 [History] Dextrose [Glucose] 4 gm PO ONCE PRN 06/04/18 [History] Finasteride [Proscar] 5 mg PO HS 06/04/18 [History] Furosemide [Lasix] 20 mg PO Q48H 06/04/18 [History] Gabapentin [Neurontin] 300 mg PO BID 06/04/18 [History] Insulin NPH Hum/Reg Insulin Hm [Novolin 70-30 100 Unit/ml Vial] 40 unit SQ QPM 06/04/18 [History] Insulin NPH Hum/Reg Insulin Hm [Novolin 70-30 100 Unit/ml Vial] 50 unit SQ QAM 06/04/18 [History] Paroxetine HCl [Paxil] 20 mg PO HS 06/04/18 [History] hydrOXYzine HCl [Hydroxyzine HCl] 25 mg PO DAILY PRN 06/04/18 [History] Megestrol Acetate [Megace] 800 mg PO DAILY 07/15/18 [History] Warfarin [Coumadin] 2.5 mg PO SUMOTUWETHSA 07/15/18 [History] Warfarin [Coumadin] 3.75 mg PO FR 07/15/18 [History] ceFAZolin [Ancef] 2,000 mg IVPB Q8HR #128 vial 07/21/18 [Rx] Digoxin [Lanoxin] 0.125 mg PO DAILY #30 tablet 07/22/18 [Rx] Metoprolol Succinate [Toprol Xl] 25 mg PO BID 30 Days #30 tab.er.24h 07/22/18 [ Rx] Morphine Sulfate SR (12 HR) [MS Contin] 60 mg PO Q8HR 3 Days #9 tablet.er [Rx] Allergies/Adverse Reactions: 3 Allergy/AdvReac Type Severity Reaction Status Date / Time No Known Allergies Allergy Verified 07/15/18 12:14 Date of admission: 07/15/18 08:42 Primary care physician: [facility] Consults: 07/15/18 09:10 Consult to Perlite Grinder [CONS] Routine Reason for SW Consult: Discharge planning - may need rehab 07/16/18 12:39 Consult to Interpret Exam [CONS] Routine Consulting Provider: Paige Saravia I Consult to Interpret Exam: Interpret EEG 07/16/18 19:58 Consult to Occupational Therapy [CONS] Routine Comment: Evaluate, develop and implement POC Reason for Consult: eval Does patient have active BEDREST order?: No Is patient medically & hemodynamically stable?: Yes Patient assessed for mobility or mobilized this visit?: No Consult to Physical Therapy [CONS] Routine Comment: Evaluate, develop and implement POC Reason for Consult: eval Does patient have active BEDREST order?: No Is patient medically & hemodynamically stable?: Yes Patient assessed for mobility or mobilized this visit?: No 07/17/18 07:01 Consult to Invasive Line Access Team [CONS] Routine Reason for Consult: Picc Line Insertion Line Type: PICC 07/17/18 13:02 Consult to Infectious Diseases [CONS] Routine Consulting Provider: Infectious Disease Bea Reason for Consult: Staph epidermidis septic arthritis Time Notified: 12:00 Call Completed: Yes 07/19/18 08:09 Consult to Cardiology [CONS] Routine Comment: Consulting Provider: Cardiology [place] Reason for Consult: Persistent rapid atrial fibrillation Time Notified: 08:00 Call Completed: Yes Discharging clinician: Yohana Rosa Anticipated date of discharge: 07/22/18 - Constitutional Vitals: Temp Pulse Resp BP Pulse Ox 97.8 F 96 19 96/67 94 07/22/18 11:22 07/22/18 11:22 07/22/18 11:22 07/22/18 11:22 07/22/18 11:22 Exam: General: Patient is alert, no acute distress, oriented x 3 Respiratory: Good respiratory effort. Normal breath sounds. No wheezing or crackles. Cardiovascular: Irregular rate and rhythm. s1 and s2 No clicks, rubs, gallops, or murmurs. No pedal edema. Tachycardic Abdomen: Abdomen is soft, nontender. Bowel sounds are present Musculoskeletal: Tenderness over the right lower extremity and around the knee. Recent place Skin: warm, dry, intact. Psych: Patient's affect is normal - Patient Status Disposition: Transfer SNF Condition: Good - Discharge Instructions Instructions: Digoxin (By mouth), Morphine, Rapid Release (By mouth), Cefazolin (Injection), Atrial Fibrillation (DC), Total Knee Replacement (DC), Revision Total Joint Arthroplasty (DC), Precautions after Total Joint Replacement Surgery (DC), Hinged Knee Brace (DC), Fall Prevention (DC), Fall Prevention (GEN), Knee Immobilizer (DC), Fall Prevention for the Older Adult, Edger Hand (GEN) Follow Up With: Kimberly Aguilar PAC [Physician Artificial Intelligence Specialist] - 07/31/18 10:15 am Elvira Davis EQUIPMENT ENGINEERING TECHNICIAN [Advanced Practice Nurse] - 08/06/18 9:00 am [facility],PCP [Primary Care Provider] - Additional Instructions: The patient will need 6 weeks IV ancef, weekly CBC, BUN/Cr, ESR, CRP to monitor resolution of the infection. Will follow up with ID in two weeks. --Patient needs to follow up with ortho next week. -His post-op ortho recommendations are for NO KNEE FLEXION and to continue using the Immobilizing brace. -Follow up with PCP to monitor AFib. -Follow-up with stitch welder to adjust AFib medications and digoxin as needed. - Attending Attestation I saw evaluated and examined this patient and my medical decision-making was reviewed with the Resident Physician, Abran Platt. I agree with the documented findings, disposition and treatment plan as described except to any changes set forth below. We independently had [id number] contact with the patient. Patient hospitalized with septic arthritis involving the right and prostate exam. Underwent right revision of total knee. Was treated with intravenous antibiotics. Initial cultures were positive for staph epidermidis. Infectious disease following. Based on the recommendations recommendations, patient will be discharged on Ancef to complete 6 weeks of antibiotic therapy. Patient has also been having episodes of A. fib with RVR and cardiology was consulted. Per their recommendations, patient has been placed on digoxin in addition to Toprol. He will be discharged to skilled rehabilitation today. He is on anticoagulation with Coumadin. <Abran Platt - Last Filed: 07/22/18 19:47> - NOTES TO OUTPATIENT PROVIDER Notes to Outpatient Provider: -The patient will need 6 weeks IV ancef, weekly CBC, BUN/Cr, ESR, CRP to monitor resolution of the infection. Will follow up with ID in two weeks. --Patient needs to follow up with ortho next week. -His post-op ortho recommendations are for NO KNEE FLEXION and to continue using the Immobilizing brace. -Follow up with PCP to monitor AFib. -Follow-up with stitch welder to adjust AFib medications and digoxin as needed. Orders not resulted at time of discharge: Pending orders 07/15/18 10:55 PLASMA [BBK] Stat Type and Screen [BBK] Stat 07/16/18 15:26 US anesthesia pain block [US] Routine 07/17/18 06:27 Red Blood Cells [BBK] Stat 07/22/18 08:34 XR knee RT limited 1-2V [XR] Routine 07/23/18 04:00 PT/INR [Prothrombin Time INR] [COAG] AM 0400 07/24/18 04:00 PT/INR [Prothrombin Time INR] [COAG] AM 0400 Date of Encounter: 07/22/18 - Discharge Diagnosis (1) Septic arthritis Priority: Primary Status: Acute Qualifiers: Septic arthritis location: knee Septic arthritis organism: staphylococcal Laterality: right Qualified Code(s): M00.061 - Staphylococcal arthritis, right knee Hospital course: Mr. Martin is a 68 y/o male with a past medical history of Hemachromotosis, Diabetes, Chronic Atrial Fibrillation, and CHF who presented to [facility] on 07/14 with complaints of right knee pain and swelling. The patient had a right total knee arthroplasty performed by Dr. Fonseca roughly 8 weeks prior to presentation and on exam his knee was noted to be erythematous and hyperemic. His vitals were stable at that time and he did not complain of fever or chills. He was admitted to the hospital for septic arthritis and a joint aspirate showed gram + cocci, which later grew out Methicilin-sensitive Staphylococcus Epidermidis. He was started empirically on Vanc and cefepime. On admission, his CRP was 105, lacatate 1.4 and IN[address] was 4.9. CT of the knee showed gas within the joint space. His Coumadin was held and Ortho was consulted. Patient received FFP and Vit K on 07/16/18 and underwent a total joint revision later that day without complications. Post-operatively the patient did experience some hypotension and tachycardia secondary to acute blood loss anemia which responded well to fluids. His Hgb was 10.4 on 07/16/18 and dropped to 9.3 after the procedure, the surgeon decided to transfuse 2 units PRBCs and the patients Hgb remained stable around 10 for the rest of his admission. The patient developed Afib with RVR postoperatively with HR averaging 130. Cardiology was consulted and they increased his Metoprolol to 25mg BID and added on Digoxin 0.125mg and the HR has since been stable, averaging 100 and BP averaging 100/70. During his admission he did complain of a history of worsening myoclonus for which Neurology was consulted. The patient had an extensive work-up including EEG and labs, all of which was normal. Neurology recommended no interventions to be made at this time but did suggest Depakote in the future if symptoms persist. Infectious Disease was consulted to manage the patients antibiotics and they recommended 6 weeks of IV Ancef with weekly CBC, BUN/Cr, ESR/CRP. Blood cultures continue to be negative for any growth. Ortho has given thorough post- operative care recommendations including no knee flexion, immobilizing brace, and continued at home PT/OT - Time Spent with Patient Total time spent providing and/or coordinating discharge services: Date of admission: 07/15/18 08:42 Primary care physician: PCP [facility] Consults: 07/15/18 09:10 Consult to Perlite Grinder [CONS] Routine Reason for SW Consult: Discharge planning - may need rehab 07/16/18 12:39 Consult to Interpret Exam [CONS] Routine Consulting Provider: Paige Saravia I Consult to Interpret Exam: Interpret EEG 07/16/18 19:58 Consult to Occupational Therapy [CONS] Routine Comment: Evaluate, develop and implement POC Reason for Consult: eval Does patient have active BEDREST order?: No Is patient medically & hemodynamically stable?: Yes Patient assessed for mobility or mobilized this visit?: No Consult to Physical Therapy [CONS] Routine Comment: Evaluate, develop and implement POC Reason for Consult: eval Does patient have active BEDREST order?: No Is patient medically & hemodynamically stable?: Yes Patient assessed for mobility or mobilized this visit?: No 07/17/18 07:01 Consult to Invasive Line Access Team [CONS] Routine Reason for Consult: Picc Line Insertion Line Type: PICC 07/17/18 13:02 Consult to Infectious Diseases [CONS] Routine Consulting Provider: Infectious Disease Bea Reason for Consult: Staph epidermidis septic arthritis Time Notified: 12:00 Call Completed: Yes 07/19/18 08:09 Consult to Cardiology [CONS] Routine Comment: Consulting Provider: Cardiology Bea Reason for Consult: Persistent rapid atrial fibrillation Time Notified: 08:00 Call Completed: Yes - Constitutional Vitals: Temp Pulse Resp BP Pulse Ox 97.8 F 96 19 96/67 94 07/22/18 11:22 07/22/18 11:22 07/22/18 11:22 07/22/18 11:22 07/22/18 11:22 General appearance: Present: cooperative, A&O X 3, pleasant Exam: General: Alert and oriented. Pleasant, answers questions appropriately. Skin: Normal color, no rash, no lesions. Head: Normocephalic and atraumatic. EENT: EOMI, pupils equal, round and reactive. Mucus membranes dry. No lesion. Cardiovascular: HR mid 90s. Normal S1 & S2, no rubs, murmurs or gallops. No JVD. Pulse irregular and tachycardic. Lungs: Normal breath sounds, no wheezes or crackles. Abdomen: Soft, non-tender, no rigidity. Normal bowel sounds. Extremities: Moderate OA. Dressing intact R knee, kait non-dehiscent without erythema, dorsalis pedis pulses palpable Neurological: Normal cognition at this time and motor skills. Rest of the physical exam is non contributory - Patient Status Functional capacity at discharge: uses cane/walker Overall status at discharge: patient is progressing back to baseline - Diet and Activity Activity: as per physical therapy, increase activity as tolerated Diet: low fat, low cholesterol, low salt diet - VTE Documentation of Mechanical Device: Venous foot pump, device
--- NOTE | 2018-07-22 13:40 | Physician Discharge Referral ---
ExtendedCare Referral Info Transfer To: [facility] Provider in Charge after Transfer: PCP Institutional Level of Care: Intermediate - Diagnosis (1) Septic arthritis Priority: Primary Status: Acute - Transfer Medications Prescriptions: ceFAZolin [Ancef] 2,000 mg IVPB Q8HR #128 vial Morphine Sulfate SR (12 HR) [MS Contin] 60 mg PO Q8HR 3 Days #9 tablet.er Digoxin [Lanoxin] 0.125 mg PO DAILY #30 tablet Home Medications: Aspirin [Lo-Dose Aspirin EC] 81 mg PO DAILY 06/04/18 [History] Cholecalciferol (D-3) [Vitamin D] 1,000 unit PO DAILY 06/04/18 [History] Dextrose [Glucose] 4 gm PO ONCE PRN 06/04/18 [History] Finasteride [Proscar] 5 mg PO HS 06/04/18 [History] Furosemide [Lasix] 20 mg PO Q48H 06/04/18 [History] Gabapentin [Neurontin] 300 mg PO BID 06/04/18 [History] Insulin NPH Hum/Reg Insulin Hm [Novolin 70-30 100 Unit/ml Vial] 40 unit SQ QPM 06/04/18 [History] Insulin NPH Hum/Reg Insulin Hm [Novolin 70-30 100 Unit/ml Vial] 50 unit SQ QAM 06/04/18 [History] Paroxetine HCl [Paxil] 20 mg PO HS 06/04/18 [History] hydrOXYzine HCl [Hydroxyzine HCl] 25 mg PO DAILY PRN 06/04/18 [History] Metoprolol Succinate [Toprol Xl] 25 mg PO DAILY 30 Days #30 tab.er.24h 06/08/18 [Rx] Megestrol Acetate [Megace] 800 mg PO DAILY 07/15/18 [History] Warfarin [Coumadin] 2.5 mg PO SUMOTUWETHSA 07/15/18 [History] Warfarin [Coumadin] 3.75 mg PO FR 07/15/18 [History] ceFAZolin [Ancef] 2,000 mg IVPB Q8HR #128 vial 07/21/18 [Rx] Digoxin [Lanoxin] 0.125 mg PO DAILY #30 tablet 07/22/18 [Rx] Morphine Sulfate SR (12 HR) [MS Contin] 60 mg PO Q8HR 3 Days #9 tablet.er [Rx] Allergies/Adverse Reactions: 3 Allergy/AdvReac Type Severity Reaction Status Date / Time No Known Allergies Allergy Verified 07/15/18 12:14 - Respiratory Orders Smoking Cessation: Smoking cessation has been advised. For more information, call the [employer] Tobacco Quit Line at 5-935-QSZU-NOW. - Lab Orders Lab Orders: CBC (weekly), Other (include drug levels w/frequency) (BUN/Cr/ESR/ CRP weekly) - Advance Directives Code Status: Full Code CERTIFICATION: I certify that the transfer of the above named patient to an Extended Care Facility is necessary for the continuing treatment of the diagnosis listed. The above information is true and accurate reflection of patient's current condition. Confidential - Redisclosure prohibited without a patient's written consent. Dr. Abran Platt
--- NOTE | 2018-07-22 14:21 | Orthopedics Progress Note ---
Date of Encounter: 07/22/18 Time of Encounter: 12:15 Subjective Principal diagnosis: POD#6 s/p right TKR revision 07/16/18 Interval history: PCR - POD#6 s/p right TKR revision 07/16/18 Patient seen at bedside, without complaints. A&O x 3. Patient doing well today. States pain is well controlled at this time and therapy is going well. dressings to right knee were changed today. New opsite visible dressing applied overtop the zipline/kait which were well intact. gauze dressing applied over the drain site to later knee. This is healing appropriately with no s/s infection. BEN drain was removed from right knee on 07/18/18. Afebrile, vital signs stable. Labs reviewed. H/H .04/14.3 - stable, asymptomatic Pain control: adequate Participating in PT. WBAT Continue NO KNEE FLEXION and wear knee immobilizer at all times but may remove for hygiene purposes. All questions and concerns addressed. Educated on use of incentive spirometer. Encouraged ambulation and proper hydration. Patient educated on post-operative restrictions and post-operative care. Continue to ice and elevate as needed. body fluid cx 07/15 +staph epidermidis, intraop cx 07/16 show no growth ID on board - They recommend now DC vancomycin and switch to ancef 2g q 8 hrs x 6 weeks planned. He will require weekly ESR/CRP, CBC, BUN/Cr being managed by ID. Assessment and plan: Continue with postoperative care Discharge plan: pending - now accepted at [facility] with plan to DC today He is scheduled for first postop visit on 07/23 in office. will cancel office appt this week. Will keep next week's appt. Pending xrays of knee, have been ordered. Will review xrays once resulted. Objective Vital signs: Vital Signs Temp Pulse Resp BP Pulse Ox 07/22/18 11:22 97.8 F 96 19 96/67 94 07/22/18 07:05 98.0 F 106 20 111/71 97 07/22/18 05:34 98.9 F 114 18 95/66 99 07/22/18 02:13 98.4 F 107 18 103/64 98 07/21/18 20:49 97.9 F 102 16 98/73 97 07/21/18 15:07 97.8 F 98 16 87/57 97 Intake and Output 07/21/18 07/22/18 07/22/18 23:59 07:59 15:59 Intake Total 390 / 390 100 / 100 580 / 580 Output Total 475 / 475 200 / 200 700 / 700 Balance -85 / -85 -100 / -100 -120 / -120 Intake: IV Fluids 100 / 100 100 / 100 Ancef 2,000 MG In 0.9 % Sodium 100 / 100 100 / 100 Chloride 100 ML @ 200 mls/hr IVPB Q8HR SAMANTHA Rx#:[id number] Oral 390 / 390 0 / 0 480 / 480 Output: Urine 475 / 475 200 / 200 700 / 700 Other: Meal Dinner Breakfast Percent of Meal Consumed 100% 100% # Voids 0 Weight 95.3 kg Blood Glucose* 175 213 Patient Weight 07/22/18 23:59 Weight 95.3 kg Incision: clean and dry - Labs CBC & BMP: 07/22/18 05:05 07/22/18 05:05 Labs: Abnormal lab results RBC 2.95 M/mcL (4.19-5.50) L 07/22/18 05:05 Hgb 9.5 g/dL (12.9-16.9) L 07/22/18 05:05 Hct 29.3 % (37.5-50.1) L 07/22/18 05:05 RDW 15.9 % (11.5-14.5) H 07/22/18 05:05 Lymphocytes # 0.4 K/mcL (0.6-4.6) L 07/17/18 00:17 ESR 23 mm/hr (0-10) H 07/22/18 05:05 PT 33.3 Seconds (9.4-12.1) H 07/22/18 05:05 Creatinine 0.68 mg/dL (0.70-1.30) L 07/22/18 05:05 Glucose 186 mg/dL (70-105) H 07/22/18 05:05 POC Glucose 181 mg/dL (70-99) H 07/22/18 02:16 Calcium 8.3 mg/dL (8.6-10.3) L 07/22/18 05:05 Phosphorus 2.2 mg/dL (2.7-4.5) L 08/28/18 20:13 Total Bilirubin 1.3 mg/dL (0.3-1.0) H 07/19/18 08:08 Direct Bilirubin 0.3 mg/dL (0.0-0.2) H 07/18/18 21:45 C-Reactive Protein 15 mg/L (Less than 10) H 07/22/18 05:05 Serum Total Protein 5.2 g/dL (6.4-8.9) L 07/19/18 08:08 Albumin 2.2 g/dL (3.5-5.7) L 07/19/18 08:08 Albumin/Globulin Ratio 0.7 (1.1-2.2) L 07/19/18 08:08 Urine Blood Trace (Negative) H 07/21/18 02:30 Urine Microscopic RBC 15-30 per hpf (0-3) H 07/21/18 02:30 Vancomycin Trough 14 mcg/mL (5-10) H 07/19/18 04:00 - VTE Documentation of Mechanical Device: Venous foot pump, device Consult Discharge Plan - Plan Additional Instructions: The patient will need 6 weeks IV ancef, weekly CBC, BUN/Cr, ESR, CRP to monitor resolution of the infection. Will follow up with ID in two weeks. --Patient needs to follow up with ortho next week. -His post-op ortho recommendations are for NO KNEE FLEXION and to continue using the Immobilizing brace. -Follow up with PCP to monitor AFib. -Follow-up with rail operations controller to adjust AFib medications and digoxin as needed. Referrals: Kimberly Aguilar, PAC [Physician Bicycle Repairer] - 07/31/18 10:15 am [place],PCP [Primary Care Provider] - Prescriptions: ceFAZolin [Ancef] 2,000 mg IVPB Q8HR #128 vial Morphine Sulfate SR (12 HR) [MS Contin] 60 mg PO Q8HR 3 Days #9 tablet.er Digoxin [Lanoxin] 0.125 mg PO DAILY #30 tablet
--- NOTE | 2018-07-22 16:14 | Infectious Disease Progress No ---
Date of Encounter: 07/22/18 Time of Encounter: 11:40 - Assessment and Plan (1) Prosthetic joint infection Status: Acute Location: Right knee. Causative organism: S. epi, methicillin-sensitive. Likely secondary to recent right knee surgery. Acute-onset. Ortho consulted. Status post arthrocentesis of the right knee 07/15/18. Cultures were positive for S. epi. Status post right total knee revision 07/16/[address] Fonseca. Operative note reviewed. Fibrinous fluid noted intra-op, but no pus. Intra-op cultures are no growth. No SIRS criteria on admission. Blood cultures drawn 07/14/18 x 2 sets are NGTD. Check ESR and CRP.--> 23, 15 respectively. Continue Ancef 2 grams IV Q8H. professional services manager to assist with discharge planning. PICC line already placed. Duration of treatment depends on the clinical picture, but likely a total of 6 weeks of IV antibiotics. Monitor renal function and dose-adjust antibiotics. Will need weekly CBC, BUN/Cr, ESR, and CRP. Will need weekly PICC care per protocol. Follow up with ID 08/06/18 at 0900. Qualifiers: Encounter type: subsequent encounter Qualified Code(s): T84.50XD - Infection and inflammatory reaction due to unspecified internal joint prosthesis , subsequent encounter (2) Atrial fibrillation with RVR Status: Chronic Cardiology consulted and following. (3) Diabetes mellitus Status: Chronic Recommend aggressive glucose monitoring and control to promote wound healing and prevent re-infection. Management per the primary team. 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 Resolved. (5) Myoclonic jerking Status: Chronic Neurology consulted. Appreciate recommendations. (6) Acute blood loss anemia Status: Acute Hgb stable around 10 status post transfusion of 2 units PRBCs. No acute bleeding noted on exam. Continue to trend. - Subjective Interval history: Patient seen and examined. No acute events noted overnight. Patient states overall he feels well. Reports some pain in the right knee at this time. Denies fevers, chills, or rigors. Denies chest pain, shortness of breath, or cough. Denies nausea, vomiting, or diarrhea. Denies abdominal pain, urinary complaints , or appetite changes. Denies oral thrush or skin lesions. Infect Dis PN-Objective Data - Labs CBC & Chem 7: 07/22/18 05:05 07/22/18 05:05 Labs: Laboratory Results - last 24 hr 07/21/18 07/21/18 07/21/18 03:38 04:04 06:01 WBC RBC Hgb Hct MCV MCH MCHC RDW Plt Count MPV ESR PT INR Sodium Potassium Chloride Carbon Dioxide BUN Creatinine Est GFR ( Amer) Est GFR (Non-Af Amer) BUN/Creatinine Ratio Glucose POC Glucose 49 L* 100 H 224 H Calculated Osmolality Calcium C-Reactive Protein 07/21/18 07/21/18 07/22/18 11:54 15:57 02:16 WBC RBC Hgb Hct MCV MCH MCHC RDW Plt Count MPV ESR PT INR Sodium Potassium Chloride Carbon Dioxide BUN Creatinine Est GFR ( Amer) Est GFR (Non-Af Amer) BUN/Creatinine Ratio Glucose POC Glucose 292 H 123 H 181 H Calculated Osmolality Calcium C-Reactive Protein 07/22/18 07/22/18 07/22/18 05:05 05:05 05:05 WBC 5.7 RBC 2.95 L Hgb 9.5 L Hct 29.3 L MCV 99.3 MCH 32.2 MCHC 32.4 RDW 15.9 H Plt Count 199 MPV 9.9 ESR PT 33.3 H INR 3.0 Sodium 137 Potassium 4.0 Chloride 105 Carbon Dioxide 28 BUN 13 Creatinine 0.68 L Est GFR ( Amer) > 60 Est GFR (Non-Af Amer) > 60 BUN/Creatinine Ratio 19 Glucose 186 H POC Glucose Calculated Osmolality 289 Calcium 8.3 L C-Reactive Protein 07/22/18 07/22/18 05:05 05:05 WBC RBC Hgb Hct MCV MCH MCHC RDW Plt Count MPV ESR 23 H PT INR Sodium Potassium Chloride Carbon Dioxide BUN Creatinine Est GFR ( Amer) Est GFR (Non-Af Amer) BUN/Creatinine Ratio Glucose POC Glucose Calculated Osmolality Calcium C-Reactive Protein 15 H Cultures: Cultures 07/16/18 16:58 Anaerobic Culture - Final Right Knee No anaerobes were recovered. 07/16/18 16:58 Surgical Biopsy Culture - Final Right Knee Serology 07/21/18 Range/Units 02:30 Urine Color Yellow (Yellow) Urine Clarity Clear (Clear) Urine pH 7.5 (5.0-8.0) pH Units Ur Specific [place] 1.015 (1.010-1.025) Urine Protein Negative (Neg-Trace) mg/dL Urine Glucose (UA) Normal (Normal) mg/dL Urine Ketones Negative (Negative) mg/dL Urine Blood Trace H (Negative) Urine Nitrite Negative (Negative) Urine Bilirubin Negative (Negative) Urine Urobilinogen Normal (Normal) mg/dL Ur Leukocyte Esterase Negative (Negative) Urine Microscopic RBC 15-30 H (0-3) per hpf Urine Microscopic WBC 0-3 (0-3) per hpf Ur Squamous Epith Cells None Seen (None-Few) per lpf Urine Bacteria None Seen (None-Few) per hpf Hyaline Casts None Seen (None-Few) per lpf Ur Culture Indicated? NO (NO) - Impressions Impressions Knee X-Ray 07/22/18 08:34 IMPRESSION: Stable appearance status post total knee revision D/ / 07/22/2018 15:48:15 Ovi Owens MD / unique Interpreting Provider: Ovi Owens MD Exam - Constitutional Vitals: Temp Pulse Resp BP Pulse Ox 97.8 F 96 19 96/67 94 07/22/18 11:22 07/22/18 11:22 07/22/18 11:22 07/22/18 11:22 07/22/18 11:22 General appearance: average body habitus, cooperative, no acute distress - Head Head exam: Present: atraumatic, normal inspection, normocephalic - Eye Eye exam: Present: EOMI, normal appearance, PERRL Pupils: Present: normal accommodation - ENT ENT exam: Present: mucous membranes moist - Neck Neck exam: Present: normal inspection - Respiratory Respiratory exam: Present: CTAB. Absent: rales, respiratory distress, rhonchi, wheezes - Cardiovascular Cardiovascular exam: Present: irregular rhythm, tachycardia - GI/Abdominal GI/Abdominal exam: Present: normal bowel sounds, soft. Absent: distended, tenderness - Extremities Exam Extremities exam: Present: joint swelling (Mild, right knee), pedal edema (1+ right lower extremity). Absent: tenderness Additional comments: Right knee surgical site noted to the anterior knee with honeycomb dressing intact. Small amount of old dried bloody drainage noted on the dressing. No surrounding erythema, warmth, or tenderness noted. - Neurological Exam Neurological exam: Present: alert, oriented X3, no focal deficits - Psychiatric Psychiatric exam: Present: normal affect, normal mood - Skin Skin exam: Present: dry, intact, normal color, warm - Additional findings Additional findings: PICC line noted to the right upper extremity with transparent dressing clean, dry, and intact - VTE Documentation of Mechanical Device: Venous foot pump, device Consult Discharge Plan - Plan Instructions: Digoxin (By mouth), Morphine, Rapid Release (By mouth), Cefazolin (Injection), Atrial Fibrillation (DC), Total Knee Replacement (DC), Revision Total Joint Arthroplasty (DC), Precautions after Total Joint Replacement Surgery (DC), Hinged Knee Brace (DC), Fall Prevention (DC), Fall Prevention (GEN), Knee Immobilizer (DC), Fall Prevention for the Older Adult, Venture Capital Analyst (GEN) Additional Instructions: The patient will need 6 weeks IV ancef, weekly CBC, BUN/Cr, ESR, CRP to monitor resolution of the infection. Will follow up with ID in two weeks. --Patient needs to follow up with ortho next week. -His post-op ortho recommendations are for NO KNEE FLEXION and to continue using the Immobilizing brace. -Follow up with PCP to monitor AFib. -Follow-up with field applications specialist to adjust AFib medications and digoxin as needed. Referrals: Kimberly Aguilar, PAC [Physician Gamer] - 07/31/18 10:15 am [place],PCP [Primary Care Provider] - Elvira Davis, CHURN TENDER [Advanced Practice Nurse] - 08/06/18 9:00 am Prescriptions: ceFAZolin [Ancef] 2,000 mg IVPB Q8HR #128 vial Morphine Sulfate SR (12 HR) [MS Contin] 60 mg PO Q8HR 3 Days #9 tablet.er Digoxin [Lanoxin] 0.125 mg PO DAILY #30 tablet - Attending Attestation I examined this patient and my medical decision-making was reviewed with the Resident Physician. I agree with the documented findings, disposition and treatment plan as described except to the extent set forth below.
[2018-07-22] MEDS: Insulin NPH/REG 70/30 100 UNIT/ML (x5UNIT) SQ SCH (17:26)
== END 2018-07-22 18:03 | DRG 467 ==
LOC: EMEROOARM 18:40 → 3NENU 18:40 → SUATTDRO 07-15 08:42 → 2NENU 07-19 08:57
PROVIDERS: ADMIT Family Medicine; ATTEND Internal Medicine